=== PATIENT | male | born 1985 | race Caucasian/White ===

== ENCOUNTER → 2017-12-22 10:53 | Outpatient (CLI) | payer MEDICARE, SELFPAY ==
[2017-12-22 12:09] LABS: Erythrocyte Sedimentation Rate 7 mm/hr (0-15)
[2017-12-22 12:18] LABS: Absolute Lymphocyte Count 1.23 X10^3/ul (0.83-4.51); Absolute Neutrophil Count 3.6 X10^3/uL (2.0-7.7); Basophil# 0.03 X10^3/uL; Basophil% 0.6 % (0-1); Eosinophil# 0.03 X10^3/uL; Eosinophils% 0.6 % (0-5); Hematocrit 43.9 % (40-54); Hemoglobin 14.7 g/dl (13.0-16.5); Lymphocyte # 1.23 X10^3/ul (4.0); Lymphocyte % 22.9 % (19-41); Mean Corp Hgb Conc 33.5 g/gl (32-36); Mean Corpuscular Hgb 31.1 pg (27.0-32.0); Mean Platelet Vol. 9.9 fl (6.2-12.0); Monocyte# 0.47 X10^3/uL; Monocyte% 8.8 % (0-10); Neutrophil # 3.59 X10^3/uL (2.7-7.7); Neutrophil % 66.7 % (47-70); Platelet Count 251 K/mm3 (150-450); RBC Distribution Width CV 13.9 % (11.6-14.6); RBC Distribution Width SD 45.9 fl (35.1-43.9); Red Blood Count 4.72 M/mm3 (4.6-6.2); White Blood Count 5.4 K/mm3 (4.4-11.0)
[2017-12-22 12:20] LABS: AST(SGOT) 27 U/L (15-37); Alanine Aminotransfer ALT/SGPT 46 U/L (16-61); Albumin, Serum 3.6 g/dL (3.2-5.0); Alkaline Phosphatase 54 U/L (45-117); Anion Gap 9 (5-15); BUN 16 mg/dL (7-18); BUN/Creat Ratio 16.2 RATIO (10-20); Calcium,Total 8.6 mg/dL (8.5-10.1); Chloride 104 mmol/L (98-107); Creatinine, Serum 0.99 mg/dL (0.70-1.30); EST Glomerular Filtration Rate 92 mL/min (>60); Est Glom Filt Rate - Afr Amer 111 mL/min (>60); Globulin 3.6 g/dL (2.2-4.2); Glucose 86 mg/dL (74-106); Potassium 4.2 mmol/L (3.5-5.1); Protein, Total 7.2 g/dL (6.4-8.2); Sodium Level 143 mmol/L (136-145); Thyroid Stim Hormone (TSH) 2.06 uIU/mL (0.358-3.74)
[2017-12-22 12:26] LABS: POSITIVE COUNT NO; POSITIVE DIFFERENTIAL NO; POSITIVE MORPHOLOGY NO
[2017-12-23 14:08] LABS: Endomysial Antibody IgA Negative (Negative)
[2017-12-24 11:13] LABS: Deamidated Gliadin IgA 8 units (0-19); Deamidated Gliadin IgG 3 units (0-19); Immunoglobulin A 290 mg/dL (90-386); t-Transglutaminase IgA <2 U/mL (0-3)
== END ==
PROVIDERS: Family Provider Family Medicine; PCP Family Medicine; Visit Provider Family Medicine
DX: K52.9 Noninfective gastroenteritis and colitis, unspecified (principal); R63.4 Abnormal weight loss
CPT/HCPCS: 36415; 80053; 82784; 83516; 84443; 85025; 85652; 86255

== ENCOUNTER → 2020-10-19 13:00 | Outpatient (CLI) | payer MEDICARE, SELFPAY ==
--- NOTE | 2020-10-19 13:06 | ECHOD_ITS ---
Reason For Study: Aortic insufficiency Procedure This was a 2D Doppler, Color Flow transthoracic echocardiogram. Exam performed in department. Left Ventricle Normal LV size. Left ventricular systolic function is normal. The estimated ejection fraction is 60 %. Stage 1 diastolic dysfunction. No regional wall motion abnormalities noted. Right Ventricle Normal RV size. Normal systolic function. Atria Normal left atrium. Normal right atrium. Mitral Valve Normal mitral valve. Tricuspid Valve Normal tricuspid valve. Aortic Valve Trisinus/trileaflet aortic valve. Normal aortic valve. Pulmonic Valve Normal pulmonic valve. Great Vessels Normal aortic root. The pulmonary artery is normal size. Normal inferior vena cava. Pericardium/Pleural No pericardial effusion. MMode/2D Measurements & Calculations LVIDd: 4.3 cm IVSd: 0.70 cm Ao root diam: 3.0 cm LVIDs: 2.9 cm LVPWd: 1.00 cm RVDd: 3.0 cm FS: 33.1 % LAV(MOD-bp): 24.8 ml LA A4 area: 11.4 cm2 LA dimension(2D): 3.0 cm LAV(MOD-bp) Indexed: 14.3 ml/m2 LAV(MOD-sp2): 22.6 ml LAV(MOD-sp4): 26.9 ml RA A4 area: 7.8 cm2 Doppler Measurements & Calculations MV E max bolivar: 82.4 cm/sec Lat Peak E' Bolivar: 11.4 cm/sec Med Peak E' Bolivar: 13.6 cm/sec MV A max bolivar: 52.9 cm/sec E/E' lat: 7.2 E/E' med: 6.1 MV E/A: 1.6 Ao V2 max: 109.9 cm/sec AI max bolivar: 435.1 cm/sec LV V1 max: 89.8 cm/sec Ao max P.8 mmHg AI max P.8 mmHg LV V1 max P.2 mmHg AI dec slope: 113.3 cm/sec2 AI P1/2t: 1125 msec PA V2 max: 89.7 cm/sec TR max bolivar: 204.0 cm/sec TR max P.6 mmHg ECHO/Echo Complete Interpretation Summary Normal LV size. Left ventricular systolic function is normal. The estimated ejection fraction is 60 %. Stage 1 diastolic dysfunction. Structurally normal valves. Ordering Physician: Keon Mcdowell Referring Physician: Keon Mcdowell Performed By: Ila Hsieh RDCS
== END ==
PROVIDERS: PCP Family Medicine; Referring Provider Family Medicine; Visit Provider Family Medicine
DX: I35.1 Nonrheumatic aortic (valve) insufficiency (principal); Q90.9 Down syndrome, unspecified; Q24.9 Congenital malformation of heart, unspecified
CPT/HCPCS: 93306

== ENCOUNTER → 2022-04-02 | Outpatient (CLI) | payer MEDICARE, SELFPAY ==
[2022-04-02 16:37] LABS: Absolute Lymphocyte Count 1.04 X10^3/uL (0.83-4.51); Absolute Neutrophil Count 5.1 X10^3/uL (2.0-7.7); Basophil# 0.04 X10^3/uL; Basophil% 0.6 % (0-1); Eosinophil# 0.02 X10^3/uL; Eosinophils% 0.3 % (0-5); Hematocrit 49.6 % (40-54); Hemoglobin 16.5 g/dL (13.0-16.5); Lymphocyte # 1.04 X10^3/ul (0.83-4.51); Lymphocyte % 15.2 % (19-41); Mean Corp Hgb Conc 33.3 g/dL (32-36); Mean Corpuscular Hgb 31.7 pg (27.0-32.0); Mean Corpuscular Volume 95.2 fL (80-94); Mean Platelet Vol. 9.9 fl (6.2-12.0); Monocyte# 0.56 X10^3/uL; Monocyte% 8.2 % (0-10); NRBC Flagged by Analyzer 0 % (0-5); Neutrophil # 5.14 X10^3/uL (2.7-7.7); Neutrophil % 75.3 % (47-70); Platelet Count 271 K/mm3 (150-450); RBC Distribution Width CV 14.1 % (11.6-14.6); RBC Distribution Width SD 49.3 fl (35.1-43.9); Red Blood Count 5.21 M/mm3 (4.6-6.2); White Blood Count 6.8 K/mm3 (4.4-11.0)
[2022-04-02 16:54] LABS: AST(SGOT) 23 U/L (15-37); Alanine Aminotransfer ALT/SGPT 41 U/L (16-61); Albumin, Serum 4.1 g/dL (3.2-5.0); Alkaline Phosphatase 62 U/L (45-117); Anion Gap 2 (5-15); BUN 23 mg/dL (7-18); BUN/Creat Ratio 18.9 RATIO (10-20); Calcium,Total 9.7 mg/dL (8.5-10.1); Chloride 105 mmol/L (98-107); Creatinine, Serum 1.22 mg/dL (0.70-1.30); EST Glomerular Filtration Rate 70 mL/min (>60); Est Glom Filt Rate - Afr Amer 85 mL/min (>60); Globulin 4.1 g/dL (2.2-4.2); Glucose 94 mg/dL (74-106); Potassium 4.2 mmol/L (3.5-5.1); Protein, Total 8.2 g/dL (6.4-8.2); Sodium Level 140 mmol/L (136-145)
== END | disposition home or self-care (01) ==
LOC: BIMLAB 14:57
PROVIDERS: PCP Internal Medicine; Referring Provider Internal Medicine; Visit Provider Internal Medicine
DX: Q90.9 Down syndrome, unspecified (principal); Z87.898 Personal history of other specified conditions
CPT/HCPCS: 36415; 80053; 85025

== ENCOUNTER 2024-03-22 22:19 | Emergency (ER) | payer MEDICARE, SELFPAY ==
[2024-03-22 22:19] VITALS: BP 129/73; PULSE 66; RESP 16; TEMP 36.1; O2SAT 97; BMI 22.7
[2024-03-22 22:40] LABS: Bacteria 0 SEEN /hpf (None Seen); Mucous, Urine 0 SEEN /hpf (<or=2+); Red Blood Cells-Urine 0 SEEN /hpf (0-5); Squamous Epithelial Cells - UA 0 SEEN /hpf (0-5); White Blood Cells 0 SEEN /hpf (0-5)
[2024-03-22 22:49] LABS: Color, Urine Yellow (Yellow); Glucose, Dipstick Normal (Normal); Ketone-Dipstick Negative (Negative); Leukocyte Esterase-Dipstick Negative /ul (Negative); Nitrite-Dipstick Negative (Negative); Occult Blood-Urine Negative /ul (Negative); Protein-Dipstick Negative (Negative); Specific Gravity, Urine 1.015 (1.002-1.030); Urine Bilirubin Dipstick Negative (Negative); Urine Clarity Clear (Clear); Urine Urobilinogen Normal (Normal)
[2024-03-22 22:55] LABS: Amorphous Sediment 3+ URATE
[2024-03-22 23:09] VITALS: PULSE 77; RESP 18; O2SAT 98
--- NOTE | 2024-03-22 23:35 | CT_ITS ---
EXAM: CT HEAD WITHOUT INTRAVENOUS CONTRAST CLINICAL INDICATION: Altered mental status TECHNIQUE: Multiple axial images were obtained of the head without intravenous contrast. This CT exam was performed using one or more of the following dose reduction techniques: automated exposure control, adjustment of the mA and/or kV according to patient size, and/or use of iterative reconstruction technique. RADIATION DOSE: Total DLP: 779.24 mGy-cm. COMPARISON: Cranial CT of 10/01/2012 and 04/18/2012.. FINDINGS: BRAIN AND EXTRA-AXIAL SPACES: No intra- or extra-axial hemorrhage; the petechial hemorrhage seen within the right frontal lobe on the prior CT of 2012 has resolved. No evidence of acute infarct. No intracranial mass or mass effect. There is preservation of the villegas/white matter interface. Posterior fossa structures are unremarkable. The lateral ventricles remain slightly prominent, unchanged when allowing for differences in slice location and angulation. Basal cisterns are patent. No midline shift. BONES/JOINTS: Unremarkable. No discrete lytic or blastic abnormalities. SINUSES: Unremarkable as visualized. Clear. MASTOID AIR CELLS: Right mastoid air cells are again noted be smaller in size than on the left. Clear. ORBITS: Visualized globes, extraocular muscles, optic nerves and retrobulbar fat appear unremarkable. OTHER: Findings of periodontal disease are present. CT/Brain/Head without Contrast IMPRESSION: No acute intracranial abnormality. Electronically Signed: Jeremy aBiley MD at 0:13 EDT ,
--- NOTE | 2024-03-22 23:35 | RAD_ITS ---
EXAM: XR CHEST, 1 VIEW CLINICAL INDICATION: cough TECHNIQUE: Frontal view of the chest. COMPARISON: Previous chest radiographs of 05/20/2012 and 05/18/12. FINDINGS: LUNGS AND PLEURAL SPACES: Minimal peribronchial cuffing has developed at the left hilum. No consolidation or edema. No pneumothorax. No effusion. HEART: Unremarkable. Cardiac silhouette not enlarged. Normal pulmonary vasculature. MEDIASTINUM: Mediastinal contour is unremarkable. No mediastinal widening. BONES/JOINTS: Stable mild thoracic dextroscoliosis. No acute fracture. SOFT TISSUES: Unremarkable. RAD/Chest 1 View (Portable) IMPRESSION: Interval development of minimal peribronchial cuffing indicating bronchial wall inflammation/bronchitis. No pneumonia. Electronically Signed: Jeremy Bailey MD at 0:34 EDT ,
[2024-03-22 23:55] LABS: Absolute Lymphocyte Count 1.36 X10^3/uL (0.83-4.51); Absolute Neutrophil Count 4.5 X10^3/uL (2.0-7.7); Basophil# 0.05 X10^3/uL; Basophil% 0.7 % (0-1); Eosinophil# 0.07 X10^3/uL; Hemoglobin 13.8 g/dL (13.0-16.5); Lymphocyte # 1.36 X10^3/ul (0.83-4.51); Lymphocyte % 19.8 % (19-41); Mean Corp Hgb Conc 32.1 g/dL (32-36); Mean Corpuscular Volume 96.6 fL (80-94); Mean Platelet Vol. 9.1 fl (6.2-12.0); Monocyte# 0.87 X10^3/uL; Monocyte% 12.6 % (0-10); NRBC Flagged by Analyzer 0 % (0-5); Neutrophil # 4.51 X10^3/uL (2.7-7.7); Neutrophil % 65.6 % (47-70); Platelet Count 255 K/mm3 (150-450); RBC Distribution Width CV 13.8 % (11.6-14.6); RBC Distribution Width SD 48.9 fl (35.1-43.9); Red Blood Count 4.45 M/mm3 (4.6-6.2); White Blood Count 6.9 K/mm3 (4.4-11.0)
[2024-03-23] VITALS: PULSE 75; RESP 18; O2SAT 99
[2024-03-23 00:08] LABS: Alcohol, Blood (Medical)-Serum < 3.0 mg/dL
[2024-03-23 00:09] LABS: Anion Gap 3 (5-15); BUN 17 mg/dL (7-18); BUN/Creat Ratio 15.7 RATIO (10-20); Calcium,Total 8.8 mg/dL (8.5-10.1); Chloride 106 mmol/L (98-107); Creatinine, Serum 1.08 mg/dL (0.70-1.30); EST Glomerular Filtration Rate 80 mL/min (>60); Est Glom Filt Rate - Afr Amer 97 mL/min (>60); Estimated Creatinine Clearance 81.23 ml/min; Glucose 92 mg/dL (74-106); Potassium 3.8 mmol/L (3.5-5.1); Sodium Level 142 mmol/L (136-145)
[2024-03-23 00:28] LABS: Amphetamine Urine VISTA NEGATIVE (<1000 ng/mL); Barbiturate Urine VISTA NEGATIVE (< 200 ng/mL); Benzodiazepine Urine VISTA NEGATIVE (< 200 ng/mL); Cocaine Urine VISTA NEGATIVE (< 300 ng/mL); Ecstacy Urine VISTA NEGATIVE (< 500 ng/mL); Methadone Urine VISTA NEGATIVE (< 300 ng/mL); PCP Urine VISTA NEGATIVE (< 25 ng/mL); THC Urine VISTA NEGATIVE (< 50 ng/mL); Vista UDS pH Range 6
[2024-03-23 01:00] VITALS: BP 109/71; PULSE 57; RESP 16; TEMP 36.6; O2SAT 99
--- NOTE | 2024-03-23 01:01 | EX.ED.DYSGE1 ---
HPI History of Present Illness Chief Complaint: Mental Health Informant: patient and parent Narrative Narrative: Patient is a 39-year-old male with past medical history of Down syndrome as well as obsessive-compulsive disorder. Mother states that he was placed on 25 mg of Zoloft a few months ago but due to concern that he was having adverse medication events she tapered the dose down and stopped it 2 to 3 weeks ago. Mother reports that the patient has now been having hallucinations and outbursts of aggressive behavior. She states he has never done anything like this before and they are in [place] from [place] visiting with the daughter. Based on his new onset hallucinations and aggressive behavior there is concern he could harm members of the family and they wonder if his symptoms were due to a potential infectious process and therefore brought him to the hospital for evaluation [facility] Medical History (Updated 03/23/24 @ 03:[address] Joshua Mckenzie, ) Neurocognitive deficits Bilateral impacted cerumen Excess ear wax Encounter to establish care Flu vaccine need Memory deficits Schizophrenia OCD (obsessive compulsive disorder) History of seizures Hx of gastrointestinal disease History of emotional problems Down syndrome Home Medications ?Medication ?Instructions ?Recorded ?Last Taken ?Type donepezil 5 mg tablet 5 mg PO QDAY #30 tabs 03/03/24 Unknown Rx wheat dextrin 3 gram/3.8 gram oral 1 packet PO QDAY 03/03/24 Unknown History powder (Fiber Supplement(wheat dextrin)) lorazepam 1 mg tablet (Ativan) 1 mg PO TID PRN agitation 7 days 03/23/24 Unknown Rx #21 tabs Allergy/AdvReac Type Severity Reaction Status Date / Time No Known Drug Allergies Allergy Other Verified 03/22/24 22:19 Social History household members: family housing: house current occupational status: disabled Smoking Status: Never smoker alcohol intake: never substance use type: does not use what type of physical activity do you participate in: other details: Dancing frequency: daily seatbelt use: always do you feel safe at home: Yes ROS ROS ED ROS Narrative Unable to obtain review of systems based on patient's MRDD status EXAM Physical Exam Const Vital Signs: 03/22/24 22:19 03/22/24 23:09 03/23/24 00:00 Temperature 97 F L Temperature Source Temporal Pulse Rate 66 77 75 Respiratory Rate 16 18 18 Blood Pressure 129/73 H Blood Pressure Mean 91 Pulse Ox 97 98 99 03/23/24 01:00 03/23/24 01:00 Temperature 97.8 F Temperature Source Pulse Rate 57 L 57 L Respiratory Rate 16 16 Blood Pressure 109/71 109/71 Blood Pressure Mean 83 83 Pulse Ox 99 99 Positive well nourished and well developed General Appearance ED: well developed; Negative for pallor HEENT Reports moist mucous membranes HEENT Narrative: No tongue or lip swelling no oral lesions no airway edema or compromise No signs of infection noted in the posterior pharynx Eyes PERRL and EOMs intact bilaterally General Eye ED: Negative for scleral icterus Neck supple Neck Narrative: No nuchal rigidity or meningeal signs Chest Wall palpation of chest normal Resp normal respiratory effort and clear to auscultation bilaterally Resp Narrative: No nasal flaring retractions tachypnea or accessory muscle use Cardio regular rate and regular rhythm GI normal to inspection, nondistended, normoactive bowel sounds, non-tender, non-distended and no masses GI Narrative: No voluntary guarding or rigidity or pulsatile mass Auscultation: normoactive bowel sounds Palpation: soft Back/Spine no CVA tenderness Extremity normal to inspection Extremity Narrative: No asymmetric edema no pitting edema negative Homans' sign bilaterally Neuro CN's II-XII intact bilaterally and no sensory deficits noted Neuro Narrative: Patient is at his baseline mental status without focal neurologic deficit Sensorium / Orientation: alert Motor Exam: strength 5/5 throughout Psych Psych Narrative: Patient has a flat affect Skin no rashes or lesions noted and no wounds General Skin Exam: Negative for jaundice or pallor MDM MDM MDM Narrative Medical decision making narrative: Patient arrived to the ER with stable vitals. Mother reported he has been having hallucinations and outbursts of aggressive behavior. There was concern this could be related to an infectious process such as COVID versus influenza versus RSV versus pneumonia versus UTI. As there was also concern that he may need evaluated by psychiatry a basic medical workup was performed. The patient's labs showed no clinically significant findings his viral swab was negative and his urine sample showed no sign of infection. Chest x-ray also revealed no acute lung pathology such as pneumonia. While in the ER he had no bouts of hallucinations and no violent outburst. I discussed with mother potentially having him evaluated by psychiatry secondary to these new onset hallucinations. She states that as he is not heading for his entire stay in the ER she would prefer not to do that as they are from [place] and she would look to simply have medication to help control any aggressive outburst at home until they can be evaluated by his family doctor. Therefore this time we will place him on low-dose Ativan as needed for agitation. However as his CT scan does not reveal a structural cause such as brain tumor or mass and metabolic workup does not reveal a obvious cause such as infection and he has had no signs of hallucinations or violent/aggressive behavior in ER and mother is willing to take him home he will be discharged and can follow-up with family doctor/psychiatry as an outpatient History & Record Review Discussion w/independent historian: Family Lab Data Attestation: I reviewed the patient's lab results. Labs: Laboratory Results - last 24 hr 03/22/24 03/22/24 22:30 23:48 WBC 6.9 RBC 4.45 L Hgb 13.8 Hct 43.0 MCV 96.6 H MCH 31.0 MCHC 32.1 RDW Std Deviation 48.9 H RDW Coeff of Rafael 13.8 Plt Count 255 MPV 9.1 Immature Gran % (Auto) 0.300 Neut % (Auto) 65.6 Lymph % (Auto) 19.8 [place] % (Auto) 12.6 H Eos % (Auto) 1.0 Baso % (Auto) 0.7 Absolute Neuts (auto) 4.5 Absolute Lymphs (auto) 1.36 Nucleated RBC % 0 Sodium 142 Potassium 3.8 Chloride 106 Carbon Dioxide 33.0 H Anion Gap 3 L BUN 17 Creatinine 1.08 Estim Creat Clear Calc 81.23 Est GFR (MDRD) Af Amer 97 Est GFR (MDRD) Non-Af 80 BUN/Creatinine Ratio 15.7 Glucose 92 Calcium 8.8 Urine Color Yellow Urine Clarity Clear Urine pH 6.0 Ur Specific [place] 1.015 Urine Protein Negative Urine Glucose (UA) Normal Urine Ketones Negative Urine Occult Blood Negative Urine Nitrite Negative Urine Bilirubin Negative Urine Urobilinogen Normal Ur Leukocyte Esterase Negative Urine RBC 0 SEEN Urine WBC 0 SEEN Ur Squamous Epith Cells 0 SEEN Amorphous Sediment 3+ URATE Urine Bacteria 0 SEEN Urine Mucus 0 SEEN Urine Opiates Screen NEGATIVE Urine Methadone Screen NEGATIVE Ur Barbiturates Screen NEGATIVE Ur Phencyclidine Scrn NEGATIVE Ur Amphetamines Screen NEGATIVE MDMA (Ecstasy) Screen NEGATIVE U Benzodiazepines Scrn NEGATIVE Urine Cocaine Screen NEGATIVE U Cannabinoids Screen NEGATIVE Ur Drug Screen Comment Ethyl Alcohol < 3.0 Radiography Diagnostic Testing: Clinical Impression(s) from Imaging Studies Brain CT 03/22/24 23:35 IMPRESSION: No acute intracranial abnormality. Electronically Signed: Jeremy Bailey MD at 0:13 EDT , Chest X-Ray 03/22/24 23:35 IMPRESSION: Interval development of minimal peribronchial cuffing indicating bronchial wall inflammation/bronchitis. No pneumonia. Electronically Signed: Jeremy Bailey MD at 0:34 EDT , Chest x-ray as interpreted by the emergency medicine physician reveals peribronchial cuffing consistent with viral upper respiratory tract infection without acute infiltrate pneumothorax or pleural effusion Discharge Plan Triage Chief Complaint: Mental Health ED Provider: Joshua Mckenzie Dx/Rx/DC Orders Clinical Impression: Down syndrome, OCD (obsessive compulsive disorder), Aggressive behavior, Hallucinations Instructions: Understanding Benzodiazepines Prescriptions: New lorazepam [Ativan] 1 mg tablet 1 mg PO TID PRN (Reason: agitation) 7 Days Qty: 21 0RF No Action Fiber Supplement(wheatdextrin) 3 gram/3.8 gram powder 1 packet PO QDAY Rx Instructions: mix into at least 4 oz water or juice before administering donepezil 5 mg tablet 5 mg PO QDAY Qty: 30 2RF Primary Care Provider: Joshua Nichole Referrals: Joshua Nichole, FLA[employer]ING OIL FILTERER-[employer] [Primary Care Provider] - Activity Restrictions/Additional Instructions: Your workup today showed no obvious infectious or metabolic cause for your agitation and hallucinations. Try taking the Ativan up to 3 times a day for symptom control but if it is not helping or you need further agitation control you may take the Ativan with 2 [id number] Benadryl. Please follow-up with your family doctor for further evaluation and return to the ER should you have any further concerns Print Language: Kinyarwanda Disposition Disposition: Home, Self Care Discharge Date/Time: 03/23/24 01:17
[2024-03-23] MEDS: LORazepam 1 MG Tablet PO (01:06)
== END 2024-03-23 01:17 | disposition home or self-care (01) ==
PROVIDERS: Emergency Provider Emergency Medicine; PCP Nurse Practitioner Family; Visit Provider Emergency Medicine
DX: Q90.9 Down syndrome, unspecified (principal); F42.9 Obsessive-compulsive disorder, unspecified; R44.3 Hallucinations, unspecified
CPT/HCPCS: 70450; 71045; 80048; 80307; 81001; 82077; 85025; 87631; 99282

== ENCOUNTER → 2024-04-02 | Outpatient (CLI) | payer MEDICARE, SELFPAY ==
--- NOTE | 2024-04-02 11:06 | CT_ITS ---
INDICATION: ABD PAIN EXAMINATION: CT Abdomen And Pelvis W/ Contrast Injection TECHNIQUE: Helically acquired images were obtained of the abdomen and pelvis after IV contrast. A radiation dose optimization technique was used for this scan. IV Contrast dosage and agent: Oral and amp; IV Gastrografin and amp; 75mL [id number]-300 Oral contrast: None. COMPARISON: None. FINDINGS: Visualized lung bases: Unremarkable Liver: Unremarkable Gallbladder: Unremarkable Spleen: Unremarkable Pancreas: Unremarkable Adrenal Glands: Unremarkable Kidneys: Unremarkable Vasculature: Unremarkable GI Tract: The appendix is normal. Lymphadenopathy: None Peritoneum: No ascites. Bladder: Unremarkable Reproductive organs: Unremarkable Bones/Soft tissues: No suspicious osseous or soft tissue lesions CT/Abdomen/Pelvis WITH Contrast IMPRESSION: No acute abnormalities in the abdomen or pelvis. Electronically Signed: Kevin Stanley MD at 13:32 EDT ,
[2024-04-02 13:58] LABS: Absolute Lymphocyte Count 0.96 X10^3/uL (0.83-4.51); Absolute Neutrophil Count 4.6 X10^3/uL (2.0-7.7); Basophil# 0.04 X10^3/uL; Basophil% 0.7 % (0-1); Eosinophil# 0.03 X10^3/uL; Eosinophils% 0.5 % (0-5); Hematocrit 47.3 % (40-54); Hemoglobin 15.3 g/dL (13.0-16.5); Lymphocyte # 0.96 X10^3/ul (0.83-4.51); Lymphocyte % 15.6 % (19-41); Mean Corp Hgb Conc 32.3 g/dL (32-36); Mean Corpuscular Hgb 30.8 pg (27.0-32.0); Mean Corpuscular Volume 95.2 fL (80-94); Mean Platelet Vol. 9.2 fl (6.2-12.0); Monocyte# 0.54 X10^3/uL; Monocyte% 8.8 % (0-10); NRBC Flagged by Analyzer 0 % (0-5); Neutrophil # 4.55 X10^3/uL (2.7-7.7); Neutrophil % 74.1 % (47-70); Platelet Count 252 K/mm3 (150-450); RBC Distribution Width CV 13.8 % (11.6-14.6); RBC Distribution Width SD 48.8 fl (35.1-43.9); Red Blood Count 4.97 M/mm3 (4.6-6.2); White Blood Count 6.1 K/mm3 (4.4-11.0)
[2024-04-02 14:35] LABS: Vitamin B12 318 pg/mL (211-911)
[2024-04-02 14:41] LABS: AST(SGOT) 18 U/L (15-37); Alanine Aminotransfer ALT/SGPT 25 U/L (16-61); Albumin, Serum 3.4 g/dL (3.2-5.0); Alkaline Phosphatase 66 U/L (45-117); Anion Gap 4 (5-15); BUN 16 mg/dL (7-18); BUN/Creat Ratio 14.7 RATIO (10-20); Calcium,Total 8.6 mg/dL (8.5-10.1); Chloride 101 mmol/L (98-107); Creatinine, Serum 1.09 mg/dL (0.70-1.30); EST Glomerular Filtration Rate 79 mL/min (>60); Est Glom Filt Rate - Afr Amer 96 mL/min (>60); Globulin 3.5 g/dL (2.2-4.2); Glucose 93 mg/dL (74-106); Potassium 3.9 mmol/L (3.5-5.1); Protein, Total 6.9 g/dL (6.4-8.2); Sodium Level 136 mmol/L (136-145)
== END | disposition home or self-care (01) ==
PROVIDERS: PCP Nurse Practitioner Family
DX: R44.3 Hallucinations, unspecified (principal); R10.9 Unspecified abdominal pain; Z79.899 Other long term (current) drug therapy
CPT/HCPCS: 36415; 74177; 80053; 82607; 84443; 85025; Q9967

== ENCOUNTER 2024-04-05 18:16 | Emergency (ER) | payer MEDICARE, SELFPAY ==
[2024-04-05] VITALS (7 sets, daily range): BP systolic 99–167; BP diastolic 44–143; PULSE 60–71; RESP 16–20; TEMP 36.6; O2SAT 94–100; BMI 21.8
[2024-04-05 19:38] LABS: Absolute Lymphocyte Count 0.95 X10^3/uL (0.83-4.51); Absolute Neutrophil Count 6.3 X10^3/uL (2.0-7.7); Basophil# 0.05 X10^3/uL; Basophil% 0.6 % (0-1); Eosinophil# 0.03 X10^3/uL; Eosinophils% 0.4 % (0-5); Hemoglobin 15.7 g/dL (13.0-16.5); Lymphocyte # 0.95 X10^3/ul (0.83-4.51); Lymphocyte % 11.5 % (19-41); Mean Corp Hgb Conc 34.1 g/dL (32-36); Mean Corpuscular Volume 93.9 fL (80-94); Mean Platelet Vol. 9.3 fl (6.2-12.0); Monocyte# 0.87 X10^3/uL; Monocyte% 10.5 % (0-10); NRBC Flagged by Analyzer 0 % (0-5); Neutrophil # 6.34 X10^3/uL (2.7-7.7); Neutrophil % 76.5 % (47-70); Platelet Count 268 K/mm3 (150-450); RBC Distribution Width CV 14.1 % (11.6-14.6); RBC Distribution Width SD 48.9 fl (35.1-43.9); White Blood Count 8.3 K/mm3 (4.4-11.0)
[2024-04-05 19:57] LABS: Anion Gap 5 (5-15); BUN 24 mg/dL (7-18); BUN/Creat Ratio 21.2 RATIO (10-20); Calcium,Total 9.3 mg/dL (8.5-10.1); Chloride 107 mmol/L (98-107); Creatinine, Serum 1.13 mg/dL (0.70-1.30); EST Glomerular Filtration Rate 76 mL/min (>60); Est Glom Filt Rate - Afr Amer 92 mL/min (>60); Estimated Creatinine Clearance 74.68 ml/min; Glucose 101 mg/dL (74-106); Potassium 3.9 mmol/L (3.5-5.1); Sodium Level 142 mmol/L (136-145)
[2024-04-05 19:59] LABS: Amphetamine Urine VISTA NEGATIVE (<1000 ng/mL); Barbiturate Urine VISTA NEGATIVE (< 200 ng/mL); Benzodiazepine Urine VISTA NEGATIVE (< 200 ng/mL); Cocaine Urine VISTA NEGATIVE (< 300 ng/mL); Ecstacy Urine VISTA NEGATIVE (< 500 ng/mL); Methadone Urine VISTA NEGATIVE (< 300 ng/mL); PCP Urine VISTA NEGATIVE (< 25 ng/mL); THC Urine VISTA NEGATIVE (< 50 ng/mL); Vista UDS pH Range 7
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
--- NOTE | 2024-04-05 20:15 | ED.RN ---
CRISIS CALLED CHART FAXED
--- NOTE | 2024-04-06 03:24 | ED.RN ---
DENIED PLACEMENT AT [facility]
[2024-04-06 06:37] VITALS: BP 135/57; PULSE 83; RESP 18; O2SAT 95
--- NOTE | 2024-04-06 08:53 | NURSING ---
ACCEPTED AT [facility] UNIT 1, ROOM TO BE ASSIGNED LATER DR BOWEN NURSE TO NURSE [phone] OPT 2
[2024-04-06 08:58] LABS: Syphilis Antibodies Non-reactive
[2024-04-06 09:13] VITALS: BP 134/78; PULSE 64; RESP 14; TEMP 36.6; O2SAT 99
== END 2024-04-06 11:07 ==
LOC: ED 20:22
PROVIDERS: Emergency Medicine; Emergency Provider Emergency Medicine; PCP Nurse Practitioner Family; Visit Provider Emergency Medicine
DX: F23 Brief psychotic disorder (principal); Q90.9 Down syndrome, unspecified; R45.6 Violent behavior; F42.9 Obsessive-compulsive disorder, unspecified
CPT/HCPCS: 36415; 80048; 80307; 82077; 85025; 86780; 99285

== ENCOUNTER 2024-04-26 15:35 | Emergency (ER) | payer MEDICARE, SELFPAY ==
[2024-04-26 15:36] VITALS: BP 109/64; PULSE 53; RESP 18; TEMP 36.4; O2SAT 100; BMI 22.1
[2024-04-26 16:35] LABS: Absolute Lymphocyte Count 0.69 X10^3/uL (0.83-4.51); Basophil# 0.06 X10^3/uL; Basophil% 0.7 % (0-1); Eosinophil# 0.03 X10^3/uL; Eosinophils% 0.4 % (0-5); Hematocrit 46.3 % (40-54); Hemoglobin 15.1 g/dL (13.0-16.5); Lymphocyte # 0.69 X10^3/ul (0.83-4.51); Lymphocyte % 8.2 % (19-41); Mean Corp Hgb Conc 32.6 g/dL (32-36); Mean Corpuscular Hgb 31.3 pg (27.0-32.0); Mean Corpuscular Volume 96.1 fL (80-94); Mean Platelet Vol. 9.5 fl (6.2-12.0); Monocyte# 0.55 X10^3/uL; Monocyte% 6.6 % (0-10); NRBC Flagged by Analyzer 0 % (0-5); Neutrophil # 6.98 X10^3/uL (2.7-7.7); Neutrophil % 83.4 % (47-70); Platelet Count 218 K/mm3 (150-450); RBC Distribution Width CV 13.7 % (11.6-14.6); RBC Distribution Width SD 48.5 fl (35.1-43.9); Red Blood Count 4.82 M/mm3 (4.6-6.2); White Blood Count 8.4 K/mm3 (4.4-11.0)
[2024-04-26 16:45] LABS: Partial Thromboplast Time 23.8 Seconds (24.1-36.2); Prothrombin Time (Protime)PT. 13.2 SECONDS (11.7-14.9)
[2024-04-26] MEDS: Morphine 2 MG/ML Syringe IV (16:47)
[2024-04-26 16:51] LABS: AST(SGOT) 19 U/L (15-37); Alanine Aminotransfer ALT/SGPT 50 U/L (16-61); Albumin, Serum 3.3 g/dL (3.2-5.0); Alkaline Phosphatase 72 U/L (45-117); Anion Gap 5 (5-15); BUN 13 mg/dL (7-18); BUN/Creat Ratio 11.4 RATIO (10-20); Calcium,Total 8.9 mg/dL (8.5-10.1); Chloride 102 mmol/L (98-107); Creatinine, Serum 1.14 mg/dL (0.70-1.30); EST Glomerular Filtration Rate 75 mL/min (>60); Est Glom Filt Rate - Afr Amer 91 mL/min (>60); Estimated Creatinine Clearance 75.26 ml/min; Globulin 3.3 g/dL (2.2-4.2); Glucose 107 mg/dL (74-106); Lipase 25 U/L (13-75); Potassium 4.1 mmol/L (3.5-5.1); Protein, Total 6.6 g/dL (6.4-8.2); Sodium Level 139 mmol/L (136-145)
[2024-04-26 17:08] LABS: Lactic Acid 1.4 mmol/L (0.4-1.9)
[2024-04-26 17:35] VITALS: BP 107/65; PULSE 58; RESP 16; O2SAT 100
[2024-04-26] MEDS: 0.9% Normal Saline (1000mL) 1,000 ML 1000 ML IV (18:33)
[2024-04-26 19:00] VITALS: BP 110/53; PULSE 54; RESP 19; O2SAT 98
[2024-04-26 19:25] LABS: Bacteria 0 SEEN /hpf (None Seen); Mucous, Urine 0 SEEN /hpf (<or=2+); Red Blood Cells-Urine 0 SEEN /hpf (0-5); Squamous Epithelial Cells - UA 0 SEEN /hpf (0-5)
[2024-04-26 19:46] LABS: Color, Urine Yellow (Yellow); Glucose, Dipstick Normal (Normal); Ketone-Dipstick Negative (Negative); Leukocyte Esterase-Dipstick Negative /ul (Negative); Nitrite-Dipstick Negative (Negative); Occult Blood-Urine Negative /ul (Negative); Protein-Dipstick Negative (Negative); Urine Bilirubin Dipstick Negative (Negative); Urine Clarity Sl. Cloudy (Clear); Urine Urobilinogen Normal (Normal)
[2024-04-26 19:56] LABS: Amorphous Sediment 2+; White Blood Cells 0-5 SEEN /hpf (0-5)
[2024-04-26 20:59] VITALS: BP 112/56; PULSE 55; RESP 16; TEMP 36.6; O2SAT 100
[2024-04-26] MEDS: Smz/Tmp Ds Tablet 1 TABLET PO (21:54)
== END 2024-04-26 21:58 | disposition home or self-care (01) ==
PROVIDERS: Emergency Provider Emergency Medicine; PCP Nurse Practitioner Family; Visit Provider Emergency Medicine
DX: N41.9 Inflammatory disease of prostate, unspecified (principal); K59.00 Constipation, unspecified
CPT/HCPCS: 70450; 74177; 80053; 81001; 83605; 83690; 85025; 85610; 85730; 93005; 96361; 96374; 99285; J7030; Q9967; A4216

== ENCOUNTER → 2024-05-25 | Outpatient (CLI) | payer MEDICARE, SELFPAY ==
--- NOTE | 2024-05-25 06:49 | MRI_ITS ---
EXAM: MR HEAD WITHOUT AND WITH INTRAVENOUS CONTRAST CLINICAL INDICATION: HALLUCINATIONS TECHNIQUE: Multiplanar and multisequence MR images of the brain were obtained without and with intravenous contrast. CONTRAST: IV 13ml Clariscan COMPARISON: CT head without contrast 04/26/2023 4. FINDINGS: BRAIN AND EXTRA-AXIAL SPACES: Partially absent septum pellucidum. No intra- or extra-axial hemorrhage. No evidence of acute infarct. No intracranial mass or mass effect. There is preservation of the villegas/white matter interface. Posterior fossa structures are unremarkable. Ventricles are appropriate for age. No hydrocephalus. Basal cisterns are patent. SELLA: Unremarkable. Normal sella turcica, pituitary gland, infundibular stalk, optic chiasm and hypothalamus. AUDITORY SYSTEM: Unremarkable. The internal auditory canals are patent. BONES/JOINTS: Unremarkable. No discrete lytic or blastic abnormalities. SINUSES: Unremarkable as visualized. Clear. MASTOID AIR CELLS: Unremarkable as visualized. Clear. ORBITS: Unremarkable as visualized. Both globes, extraocular muscles, optic nerves and retrobulbar fat appear unremarkable. VASCULATURE: Unremarkable as visualized. Normal flow voids in the major intracranial circulation. MRI/Brain W/WO Contrast IMPRESSION: 1. Partially absent septum pellucidum otherwise negative MRI brain without and with intravenous contrast. 2. No significant interval change when compared to CT head of 04/26/2024. Electronically Signed: Kingston Pink MD at 8:32 EST ,
== END | disposition home or self-care (01) ==
LOC: MRI 06:42
PROVIDERS: PCP Nurse Practitioner Family
DX: R44.3 Hallucinations, unspecified (principal)
CPT/HCPCS: 70553; A9575

== ENCOUNTER → 2024-11-10 | Outpatient (CLI) | payer MEDICARE, SELFPAY ==
[2024-11-10 12:51] LABS: Absolute Lymphocyte Count 1.05 X10^3/uL (0.83-4.51); Absolute Neutrophil Count 3.1 X10^3/uL (2.0-7.7); Basophil# 0.04 X10^3/uL; Basophil% 0.8 % (0-1); Eosinophil# 0.02 X10^3/uL; Eosinophils% 0.4 % (0-5); Hematocrit 44.5 % (40-54); Hemoglobin 14.7 g/dL (13.0-16.5); Lymphocyte # 1.05 X10^3/ul (0.83-4.51); Lymphocyte % 22.2 % (19-41); Mean Corpuscular Hgb 31.3 pg (27.0-32.0); Mean Corpuscular Volume 94.9 fL (80-94); Mean Platelet Vol. 9.4 fl (6.2-12.0); Monocyte# 0.46 X10^3/uL; Monocyte% 9.7 % (0-10); NRBC Flagged by Analyzer 0 % (0-5); Neutrophil # 3.13 X10^3/uL (2.7-7.7); Neutrophil % 66.5 % (47-70); Platelet Count 230 K/mm3 (150-450); RBC Distribution Width SD 49.3 fl (35.1-43.9); Red Blood Count 4.69 M/mm3 (4.6-6.2); White Blood Count 4.7 K/mm3 (4.4-11.0)
[2024-11-10 13:39] LABS: ALB/GLOB Ratio 1.4 RATIO (0.9-2.4); AST(SGOT) 19 U/L (<=37); Alanine Aminotransfer ALT/SGPT 18 U/L (<=46); Albumin, Serum 4.1 g/dL (3.5-5.0); Alkaline Phosphatase 59 U/L (40-129); Amylase 26 U/L (28-100); Anion Gap 10 (5-15); BUN 15 mg/dL (4-19); Carbon Dioxide 25.9 mmol/L (21.0-32.0); Chloride 106 mmol/L (98-108); Creatinine, Serum 1.17 mg/dL (0.70-1.20); EST Glomerular Filtration Rate 80 (>60); Globulin 2.9 g/dL (2.2-4.2); Glucose 121 mg/dL (70-99); Lipase 20 U/L (13-75); Magnesium 2.3 mg/dL (1.5-2.2); Potassium 4.2 mmol/L (3.3-5.1); Sodium Level 141 mmol/L (133-145); Total Bilirubin 0.73 mg/dL (0.00-1.30)
[2024-11-10 13:59] LABS: PSA,Total - Annual Screen 0.86 ng/mL (0.02-4.00)
[2024-11-10 14:29] LABS: Vitamin B12 461 pg/mL (180-914)
== END | disposition home or self-care (01) ==
PROVIDERS: PCP Nurse Practitioner Family
DX: R55 Syncope and collapse (principal); R10.30 Lower abdominal pain, unspecified; R39.9 Unspecified symptoms and signs involving the genitourinary system; E53.8 Deficiency of other specified B group vitamins; R00.2 Palpitations; Z12.5 Encounter for screening for malignant neoplasm of prostate
CPT/HCPCS: 36415; 80053; 82150; 82607; 83690; 83735; 84153; 84443; 85025; G0103

== ENCOUNTER → 2024-12-07 | Outpatient (CLI) | payer MEDICARE, SELFPAY ==
--- NOTE | 2024-12-07 13:22 | EKG12_ITS ---
Test Reason : PALPITATIONS Blood Pressure : */* mmHG Vent. Rate : 71 BPM Atrial Rate : 71 BPM P-R Int : 114 ms QRS Dur : 90 ms QT Int : 378 ms P-R-T Axes : 73 93 76 degrees QTcB Int : 410 ms Normal sinus rhythm Rightward axis Minimal voltage criteria for LVH, may be normal variant Borderline ECG Confirmed by ALLEN HOLM, ROB ([id number]), order editor BENJIE MATOS ([id number]) on 12/08/2024 11:02:12 AM Referred By: Yamel Kahn Confirmed By: ROB VILLA MD
== END | disposition home or self-care (01) ==
LOC: PSN 13:18
PROVIDERS: PCP Nurse Practitioner Family
DX: R00.2 Palpitations (principal)
CPT/HCPCS: 93005

== ENCOUNTER → 2025-01-20 | Outpatient (CLI) | payer MEDICARE, SELFPAY ==
[2025-01-20 16:06] LABS: Hematocrit 45.9 % (40-54); Hemoglobin 15.2 g/dL (13.0-16.5); Immature Granulocytes Count 0.040 X10^3/uL (0.0-0.0); Mean Corp Hgb Conc 33.1 g/dL (32-36); Mean Corpuscular Volume 93.1 fL (80-94); Mean Platelet Vol. 9.4 fl (6.2-12.0); NRBC Flagged by Analyzer 0 % (0-5); Platelet Count 284 K/mm3 (150-450); RBC Distribution Width CV 13.9 % (11.6-14.6); RBC Distribution Width SD 47.3 fl (35.1-43.9); Red Blood Count 4.93 M/mm3 (4.6-6.2); White Blood Count 4.9 K/mm3 (4.4-11.0)
[2025-01-20 16:26] LABS: AST(SGOT) 35 U/L (<=37); Alanine Aminotransfer ALT/SGPT 64 U/L (<=46); Albumin, Serum 4.2 g/dL (3.5-5.0); Alkaline Phosphatase 81 U/L (40-129); Anion Gap 10 (5-15); BUN 18 mg/dL (4-19); BUN/Creat Ratio 12.7 RATIO (10-20); Calcium,Total 9.5 mg/dL (7.6-11.0); Carbon Dioxide 28.8 mmol/L (21.0-32.0); Chloride 102 mmol/L (98-108); Globulin 2.9 g/dL (2.2-4.2); Glucose 92 mg/dL (70-99); Potassium 4.1 mmol/L (3.3-5.1)
== END | disposition home or self-care (01) ==
PROVIDERS: PCP Nurse Practitioner Family; Referring Provider Student in an Organized Health Care Education/Training Program; Visit Provider Student in an Organized Health Care Education/Training Program
DX: R44.0 Auditory hallucinations (principal); Q90.9 Down syndrome, unspecified; R29.818 Other symptoms and signs involving the nervous system; R41.89 Other symptoms and signs involving cognitive functions and awareness; Z79.899 Other long term (current) drug therapy
CPT/HCPCS: 36415; 80053; 83036; 85025

== ENCOUNTER → 2025-03-15 | Outpatient (CLI) | payer MEDICARE, SELFPAY ==
[2025-03-15 16:00] LABS: Mucous, Urine 0 SEEN /hpf (<or=2+); Red Blood Cells-Urine 0 SEEN /hpf (0-5); Squamous Epithelial Cells - UA 0 SEEN /hpf (0-5)
[2025-03-15 16:38] LABS: Hematocrit 44.0 % (40-54); Hemoglobin 14.9 g/dL (13.0-16.5); Immature Granulocytes Count 0.060 X10^3/uL (0.0-0.0); Mean Corp Hgb Conc 33.9 g/dL (32-36); Mean Corpuscular Volume 92.8 fL (80-94); Mean Platelet Vol. 9.3 fl (6.2-12.0); NRBC Flagged by Analyzer 0 % (0-5); Platelet Count 240 K/mm3 (150-450); RBC Distribution Width CV 14.4 % (11.6-14.6); RBC Distribution Width SD 49.1 fl (35.1-43.9); Red Blood Count 4.74 M/mm3 (4.6-6.2); White Blood Count 9.3 K/mm3 (4.4-11.0)
[2025-03-15 17:11] LABS: AST(SGOT) 21 U/L (<=37); Alanine Aminotransfer ALT/SGPT 45 U/L (<=46); Albumin, Serum 4.1 g/dL (3.5-5.0); Alkaline Phosphatase 71 U/L (40-129); Anion Gap 12 (5-15); BUN 17 mg/dL (4-19); BUN/Creat Ratio 15.4 RATIO (10-20); Calcium,Total 9.3 mg/dL (7.6-11.0); Carbon Dioxide 23.8 mmol/L (21.0-32.0); Chloride 102 mmol/L (98-108); Globulin 3.0 g/dL (2.2-4.2); Glucose 116 mg/dL (70-99); Potassium 3.9 mmol/L (3.3-5.1)
[2025-03-15 17:51] LABS: Color, Urine Straw (Yellow); Glucose, Dipstick Normal (Normal); Ketone-Dipstick Negative (Negative); Leukocyte Esterase-Dipstick Negative /ul (Negative); Nitrite-Dipstick Negative (Negative); Occult Blood-Urine Negative /ul (Negative); Protein-Dipstick 15 mg/dl (Negative); Specific Gravity, Urine 1.015 (1.002-1.030); Urine Bilirubin Dipstick Negative (Negative)
== END | disposition home or self-care (01) ==
LOC: LAB 15:56
PROVIDERS: PCP Nurse Practitioner Family
DX: R30.0 Dysuria (principal); R55 Syncope and collapse
CPT/HCPCS: 36415; 80053; 81001; 84443; 85025; 87086; 87088

== ENCOUNTER → 2025-05-13 | Outpatient (CLI) | payer MEDICARE, SELFPAY ==
--- OUTSIDE RECORDS SUMMARY | 2025-05-13 17:11 | XMS RPT_ITS | CCD ---
Author Organization [facility] CliniSyal Care Team Providers Care Vegetable Sorter Name Role Phone Dr. Keon Mcdowell Primary Care Provider [phone] Dr. Keon Mcdowell Referring Provider Dr. Kurtis Simeon Attending Provider [phone] Unavailable Primary Care Provider Unavailabl e Unavailable Primary Care Provider Unavailabl e Beam VSC, Zebulun Attending Unavailable Beam VSC, Zebulun Referring Unavailable Nichole VSC, Joshua Primary Care Unavailable Beam VSC, Zebulun Attending Unavailable Beam VSC, Zebulun Referring Unavailable Nichole VSC, Joshua Primary Care Unavailable Alvin Phelan Attending Unavailable SeeAlvin wagner Referring Unavailable Nichole VSC, Joshua Primary Care Unavailable SeeAlvin wagner Attending Unavailable Nichole VSC, Joshua Primary Care Unavailable Marianne Charlton Attending Unavailable Nichole VSC, Joshua Referring Unavailable Nichole VSC, Joshua Primary Care Unavailable Ryan Melton Attending Unavailable Beam VSC, Zebulun Referring Unavailable Nichole VSC, Joshua Primary Care Unavailable SeeAlvin wagner Attending Unavailable Nichole VSC, Joshua Primary Care Unavailable Beam VSC, Zebulun Attending Unavailable Nichole VSC, Joshua Primary Care Unavailable Beam VSC, Zebulun Attending Unavailable Beam VSC, Zebulun Referring Unavailable Nichole VSC, Joshua Primary Care Unavailable Beam VSC, Zebulun Attending Unavailable Beam VSC, Zebulun Referring Unavailable Nichole VSC, Joshua Primary Care Unavailable Nichole VSC, Joshua Primary Care Unavailable Tiago Retana Attending Unavailable SeeAlvin wagner Attending Unavailable Nichole VSC, Joshua Primary Care Unavailable SeeAlvin wagner Attending Unavailable Nichole VSC, Joshua Primary Care Unavailable SeeAlvin wagner Attending Unavailable Nichole VSC, Joshua Primary Care Unavailable SeeAlvin wagner Attending Unavailable Nichole VSC, Joshua Primary Care Unavailable KelvinAlvin wagner Randal Attending Unavailable [facility], Joshua Primary Care Unavailable PROVIDER, UNKNOWN Admitting Unavailable PROVIDER, UNKNOWN Attending Unavailable PROVIDER, UNKNOWN Admitting Unavailable PROVIDER, UNKNOWN Attending Unavailable MARV, RAVI Admitting Unavailable PROVIDER, UNKNOWN Attending Unavailable MARV, RAVI Admitting Unavailable PROVIDER, UNKNOWN Attending Unavailable MARV, RAVI Admitting Unavailable PROVIDER, UNKNOWN Attending Unavailable PROVIDER, UNKNOWN Attending Unavailable MARV, RAVI Admitting Unavailable MARV, RAVI Admitting Unavailable PROVIDER, UNKNOWN Attending Unavailable PROVIDER, UNKNOWN Attending Unavailable PROVIDER, UNKNOWN Admitting Unavailable MARV, RAVI Admitting Unavailable PROVIDER, UNKNOWN Attending Unavailable MARV, RAVI Admitting Unavailable PROVIDER, UNKNOWN Attending Unavailable PROVIDER, UNKNOWN Attending Unavailable MARV, RAVI Admitting Unavailable PROVIDER, UNKNOWN Attending Unavailable MARV, RAVI Admitting Unavailable PROVIDER, UNKNOWN Attending Unavailable MARV, RAVI Admitting Unavailable PROVIDER, UNKNOWN Admitting Unavailable PROVIDER, UNKNOWN Attending Unavailable CONSULT, IP PSYCHIATRIC ADULT Consulting Un available MARV, RAVI Admitting Unavailable WES GALARZA Attending Unavailable REQUEST, IP PHYSICAL THERAPY SERVICE Consulting Unavailable REQUEST, IP OCCUPATIONAL THERAPY SERVICE Consult ing Unavailable CONSULT, IP CARDIOLOGY Consulting Unavailab le CONSULT, IP NEUROLOGY Consulting Unavailabl e CONSULT, IP CARDIOLOGY ELECTROPHYSIOLOGY (EP) Co nsulting Unavailable PROVIDER, IP ETHICS Consulting Unavailable Medications Current Medications Medication Drug Class(es) Dates Sig (Normalized) Sig (Original) acetaminophen 500 mg oral tablet (6 sources) Start: 02-01-2025 End: 02-26-2025 take 2 tablets by mouth every six hours as needed acetaminophen (TYLENOL) 500 MG tablet Take 2 Tablets by mouth every 6 hours as needed. 30 Tablet 02/17/2025 4:43 PM EDT 02/17/2025 Active dextran 70 1 mg/ml / glycerin 2 mg/ml / hypromellose 3 mg/ml ophthalmic solution (4 sources) Plasma Volume [employer] Open [employer] Administrator, Non-Standardized Chemical Allergen Start: 02-17-2025 take 1 drop(s) into the eye(s) every four hours Artificial Tear Solution (GenTeal moderate tears) 0.1-0.2-0.3 % opthalmic solution Place 1 Drop in both eyes every 4 hours. 15 mL 2 02/17/2025 Active Start: 02-03-2025 docusate sodium 100 mg oral capsule (6 sources) Start: 02-17-2025 take 1 capsule by mouth once daily in the evening docusate sodium (COLACE) 100 MG capsule Take 1 Capsule by mouth every evening. 60 Capsule 3 02/17/2025 4:43 PM EDT 02/17/2025 Active Start: 02-06-2025 End: 02-11-2025 Start: 02-02-2025 End: 02-04-2025 fludrocortisone acetate 0.1 mg oral tablet (5 sources) Start: 02-14-2025 take 1 tablet by mouth once daily in the evening fludrocortisone (FLORINEF) 0.1 MG tablet Take 1 Tablet by mouth daily. 30 Tablet 3 02/17/2025 4:43 PM EDT 02/18/2025 Active Start: 02-07-2025 End: 02-12-2025 ibuprofen 400 mg oral tablet (1 source) Nonsteroidal Anti-inflammatory Drug Start: 02-26-2025 End: 03-01-2025 midodrine hydrochloride 10 mg oral tablet (7 sources) alpha-Adrenergic Agonist Start: 02-07-2025 take 1 tablet by mouth three times daily at mealtime midodrine 10 MG TABS tablet Take 1 Tablet by mouth 3 times daily (with meals). 90 Tablet 2 02/17/2025 4:43 PM EDT 02/17/2025 Active Start: 02-04-2025 End: 02-07-2025 1 ml naloxone hydrochloride 0.4 mg/ml injection (1 source) Opioid Antagonist Start: 02-25-2025 psyllium 400 mg oral capsule (1 source) Start: 04-02-2022 Psyllium Husk (Metamucil) 0.4 gram capsule Active 0.4 GM PO DAILY April 02, 2022 12:00am risperiDONE 3 mg oral tablet (6 sources) Atypical Antipsychotic Start: 02-02-2025 take 1 tablet by mouth twice daily in the evening risperiDONE (RISPERDAL) 3 MG tablet Take 1 Tablet by mouth 2 times a day. 60 Tablet 3 02/17/2025 4:43 PM EDT 02/17/2025 Active Start: 01-30-2025 End: 02-02-2025 Start: 01-29-2025 End: 01-29-2025 20 ml sodium chloride 9 mg/m l injection (1 source) Start: 02-25-2025 (1 source) Start: 02-26-2025 End: 02-27-2025 Completed/Discontinued Medications Medication Drug Class(es) Dates Sig (Normalized) Sig (Original) calcium chloride 0.0014 meq/ml / potassium chloride 0.004 meq/ml / sodium chloride 0.103 meq/ml / sodium lactate 0.028 meq/ml injectable solution (6 sources) Start: 02-04-2025 End: 02-04-2025 Start: 02-02-2025 End: 02-03-2025 Start: 01-31-2025 End: 01-31-2025 Start: 01-30-2025 End: 01-30-2025 0.4 ml enoxaparin sodium 100 mg/ml prefilled syringe (1 source) Low Molecular Weight Heparin Start: 01-29-2025 End: 02-18-2025 1 ml ketorolac tromethamine 15 mg/ml cartridge (2 sources) Nonsteroidal Anti-inflammatory Drug, Cyclooxygenase Inhibitor Start: 02-26-2025 End: 02-26-2025 Start: 02-25-2025 End: 02-25-2025 lidocaine hydrochloride 0.02 mg/mg topical gel (1 source) Antiarrhythmic, Amide Local Anesthetic Start: 02-01-2025 End: 02-01-2025 Misc. Devices (Hand Held Shower [place]) MISC (1 source) Start: 02-26-2025 Misc. Devices (Hand Held Shower [place]) MISC Use 1 Each 1 time for 1 dose. 1 Each 02/26/2025 Active oxyCODONE hydrochloride 5 mg oral tablet (1 source) Opioid Agonist Start: 02-01-2025 End: 02-01-2025 Start: 02-01-2025 End: 02-01-2025 polyethylene glycol 3350 170 00 mg powder for oral solution (1 source) Osmotic Laxative Start: 01-30-2025 End: 02-04-2025 sennosides, fci 8.6 mg oral tablet (1 source) Start: 01-29-2025 End: 02-12-2025 tamsulosin hydrochloride 0.4 mg oral capsule (1 source) alpha-Adrenergic Dania Start: 02-01-2025 End: 02-06-2025 vancomycin 1000 mg injection (1 source) Glycopeptide Antibacterial Start: 02-25-2025 End: 02-25-2025 Start: 02-25-2025 End: 02-25-2025 (1 source) Start: 02-24-2025 End: 02-24-2025 (1 source) Start: 02-03-2025 End: 02-03-2025 Problems Active Problems Problem Classification Problem Date Documented Da te Episodic/Chronic Abdominal pain (12 sources) Suprapubic pain; Translations: [Pelvic and perineal pain] Onset: 5 01-30-2025 Episodic Administrative/social admission (2 sources) Patient encounter status; Translations: [Persons encountering health services in other specified circumstances] Episodic Anxiety disorders (2 sources) Obsessive-compulsive disorder; Translations: [Obsessive-compulsive disorder, unspecified] Onset: Chronic Blindness and vision defects (1 source) Visual hallucinations; Translations: [Visual hallucinations] 01-29-2025 Episodic Cardiac dysrhythmias (10 sources) Bradycardia; Translations: [Bradycardia, unspecified] Onset: 5 02-18-2025 Episodic Conduction disorders (4 sources) Cardiac pacemaker in situ; Translations: [Presence of cardiac pacemaker] Onset: 5 04-12-2025 Chronic Delirium, dementia, and amnestic and other cognitive disorders (1 source) Dementia; Translations: [Unspecified dementia without behavioral disturbance] 01-29-2025 Chronic Developmental disorders (1 source) Mental retardation Chronic Epilepsy; convulsions (4 sources) Seizure; Translations: [Unspecified convulsions] Onset: 5 01-30-2025 Episodic Genitourinary symptoms and ill-defined conditions (8 sources) Retention of urine; Translations: [Retention of urine, unspecified] Onset: 5 02-02-2025 Episodic Headache; including migraine (5 sources) Headache; Translations: [Headache] Onset: 5 02-13-2025 Episodic Immunizations and screening for infectious disease (3 sources) Needs influenza immunization; Translations: [Encounter for immunization] Episodic Mood disorders (1 source) Depressive disorder; Translations: [Depression] Chronic Nervous system congenital anomalies (5 sources) Disorder of autonomic nervous system; 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]] Onset: 5 02-06-2025 Chronic Other aftercare (1 source) Other fdc (current) drug therapy; Translations: [Other long wall mining machine tender (current) drug therapy] Onset: 5 Episodic Other circulatory disease (10 sources) Orthostatic hypotension; Translations: [Orthostatic hypotension] Onset: 5 01-30-2025 Episodic Other circulatory disease (1 source) Low blood pressure; Translations: [Hypotension, unspecified] 01-29-2025 Episodic Other congenital anomalies (11 sources) Anomaly of chromosome pair 21; 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, unspecified] Onset: 5 01-30-2025 Chronic Other congenital anomalies (2 sources) Down syndrome, unspecified; Translations: [Down's syndrome] Onset: Chronic Other connective tissue disease (1 source) Other symptoms and signs involving the nervous system; Translations: [Other symptoms and signs involving the nervous system] Onset: 5 Episodic Other eye disorders (5 sources) Pain of bilateral eyes; Translations: [Ocular pain, bilateral] Onset: 5 02-06-2025 Episodic Other gastrointestinal disorders (1 source) H/O: gastrointestinal disease; Translations: [Personal history of other diseases of the digestive system] Episodic Other gastrointestinal disorders (1 source) Change in bowel habit; Translations: [Change in bowel habit] Onset: Episodic Other nervous system disorders (1 source) Other symptoms and signs involving cognitive functions and awareness; Translations: [Other symptoms and signs involving cognitive functions and awareness] Onset: 5 Episodic Other screening for suspected conditions (not mental disorders or infectious disease) (10 sources) Serum creatinine raised; Translations: [Other specified abnormal findings of blood chemistry] Onset: 5 01-30-2025 Episodic Residual codes; unclassified (2 sources) History of clinical finding in subject; Translations: [Personal history of other specified conditions] Episodic Residual codes; unclassified (11 sources) Memory impairment; Translations: [Other amnesia] Onset: 5 01-30-2025 Episodic Residual codes; unclassified (1 source) Personal history of other specified conditions; Translations: [Personal history of other specified diseases] Episodic Residual codes; unclassified (1 source) Other amnesia; Translations: [Memory loss] Episodic Residual codes; unclassified (10 sources) Hallucinations; Translations: [Hallucinations, unspecified] Onset: 5 01-30-2025 Episodic Residual codes; unclassified (1 source) Auditory hallucinations; Translations: [Auditory hallucinations] 01-29-2025 Episodic Residual codes; unclassified (1 source) Auditory hallucinations; Translations: [Auditory hallucinations] Onset: Episodic Schizophrenia and other psychotic disorders (1 source) Schizophrenia; Translations: [Schizophrenia, unspecified] Chronic Syncope (20 sources) Syncope; Translations: [Syncope and collapse] Onset: 5 01-29-2025 Episodic Past or Other Problems Problem Classification Problem Date Documented Da te Episodic/Chronic Residual codes; unclassified (1 source) Hallucinations, unspecified; Translations: [Hallucinations, unspecified] Onset: 06-25-2024 Episodic Results Test Name Value Interpretation Reference Range Facility Progress Noteson 04-19-2025 Observation Nurse Authentication Interface Message Text Called at 1057, unable to leave message due to voice mail is full. Updated image of loop site has not been received. Normal [facility] Gastroenterology Visit Repor ton 04-18-2025 Gastroenterology Visit Report [facility] [address] [place] [address] OFFICE VISIT Date of Service: 04/18/25 MR#: [id number] Acct: [id number] Name: ROGELIO BOWERS Rep #: [id number] : 1985 Provider: DONELL chavarria Age/Sex: 40/M [place] [facility] [place]: [place] Intake Vital Signs 03/15/25 14:39 04/18/25 10:03 Height 5 ft 6 in 5 ft 6 in Weight: 165 lb 8 oz BMI 26.6 BP 117/73 Respiration 16 Pulse 67 Temp 97.5 F L Temp Source Temporal Pulse Oximetry (%) 94 Oxygen Delivery Method room air Intake Visit Reasons: CONSTIPATION / IMPACTED? 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: No Accompanied by: sister and aunt Is patient in pain?: Yes Allergies No Known Drug Allergies Allergy (Verified 04/18/25 10:04) Other Medications ???Medication ???Instructions ???Recorded ???Confirmed ???Type trazodone 50 mg tablet 50 mg PO QHS PRN insomnia #30 tabs 11/19/24 03/15/25 Rx docusate sodium 100 mg capsule 100 mg PO QDAY 11/25/24 04/18/25 H istory risperidone 3 mg tablet 3 mg PO BID 30 days #60 tabs 12/1604/18/25 Rx acetaminophen 500 mg tablet 500 mg PO Q6H PRN 03/15/25 5 History (Tylenol Extra Strength) fludrocortisone 0.1 mg tablet 0.1 mg PO QDAY 03/15/25 04/18/25 H istory midodrine 10 mg tablet 10 mg PO TID 03/15/25 04/18/25 His tory calcium polycarbophil 625 mg 1,250 mg PO .QID 04/18/25 04/18/25 History tablet (FiberCon) PFSH Medical History History of pacemaker Auditory hallucinations Neurocognitive deficits Bilateral impacted cerumen Excess ear wax Encounter to establish care Flu vaccine need Memory deficits Schizophrenia OCD (obsessive compulsive disorder) History of seizures Hx of gastrointestinal disease History of emotional problems Down syndrome Social History household members: family housing: house current occupational status: disabled Smoking Status: Never smoker alcohol intake: never substance use type: does not use what type of physical activity do you participate in: other details: Dancing frequency: daily seatbelt use: always do you feel safe at home: Yes HPI HPI Chief Complaint: Hearing concerns Details: ROGELIO BOWERS, is a 40 M who presents to the office today for abdominal pain. PSYCH OV 03/16/2025 Rogelio Bowers is a 39 year old male who presents today for follow up evaluation. Per mother, patient has had several syncopal episodes in recent past. Was at [facility] and passed out and was taken by ambulance to hospital. Was hospitalized for nearly a full month. Per report, had significant urinary retention but would not be seen by urology inpatient. Consult psychiatrist saw patient who thought that it was vasovagal syncope. Saw cardiology who eventually placed a pacemaker. Was started on midodrine and fludrocortisone. During hospitalization had significant pushback and even had an ethics consult placed which made entire situation more stressful. He was even able to go to [facility] two weeks ago and had nearly no problems. Patient actually just passed out about 30 minutes ago at PCP appointment who has now referred to urology and ordered some additional lab work per self report. Has continued to have some AH of nice voices but has had no episodes of violence. Has gained nearly 15 lbs since December. Was eating better when in the hospital. Has been able to sleep fairly well. - seen in office today with sister Latoya and Aunt Jessica - now has a pacemaker for Vasovagal syncope - has had a syncopal episode since placement of pacer, PCP has referred to Urology - lives with his sister - chronic periumbilical abdominal pain for the past year, worse over the past 3 months - sister reports he has chronic abdominal pain, may or may not worsen with PO intake - pain does not prevent him from eating - has had some weight gain fo 20-25lbs since pacemaker placement 7 weeks ago - sits on the toilet constantly, pain never improves with a BM, mom is giving him several OTC laxatives and stool softeners w/o improvement in pain - denies any bleeding - adopted - family history is unknown - sister reports he is urinating normally - was seen by urology and no new orders ROS Const Constitutional: Positive for fatigue and weight change (gain); No fever(s) ENT ENT: No difficulty swallowing Gastro GI: No abdominal pain, belching, bloating, change in bowel habits, change in stool character, coffee ground emesis, constipation, cramping, diarrhea, heartburn, difficulty swallowing, feeling full e tarun, excessive flatus, incontinent of stools, Vomiting blood/hematemesis, Blood in stool, loose stools, Black,tarry stool (more content not included)... Normal [facility] Progress Noteson 04-12-2025 Observation Nurse Authentication Interface Message Text Normal [facility] Urine Cultureon 03-17-2025 [facility] Mixed Gram Pos Gram Neg Org [place] Count 11,000-25,000 MIXC Mixed contaminants. Submit a new specimen if indicated. Normal [facility] Comment on above: Performed By: #### L 501.2400, L501.9910, L503.0106, L500.4050, L501.5200, L501.9520, L501.2450, L100.0100 #### [facility] [address] [place], [address] CBC W/Diff, Automatedon 09-3 0-2025 Absolute Lymph 0.71 X10 3/uL Low 0.83-4.51 [facility] Comment on above: Performed By: #### L 501.2400, L501.9910, L503.0106, L500.4050, L501.5200, L501.9520, L501.2450, L100.0100 #### [facility] [address] [place], [address] Absolute Neut 7.7 X10 3/uL Normal 2.0-7.7 [facility] Comment on above: Performed By: #### L 501.2400, L501.9910, L503.0106, L500.4050, L501.5200, L501.9520, L501.2450, L100.0100 #### [facility] [address] [facility] [place], [address] Basophils/100 WBC (Bld) 0.6 % Normal 0-1 [facility] Comment on above: Performed By: #### L 501.2400, L501.9910, L503.0106, L500.4050, L501.5200, L501.9520, L501.2450, L100.0100 #### [facility] [address] [place], [address] Eosinophils/100 WBC (Bld) 0.1 % Normal 0-5 [facility] Comment on above: Performed By: #### L 501.2400, L501.9910, L503.0106, L500.4050, L501.5200, L501.9520, L501.2450, L100.0100 #### [facility] [address] [place], [address] Erythrocyte distribution width (RBC) [Ratio] 14.4 % Normal 11.6-14.6 [facility] Comment on above: Performed By: #### L 501.2400, L501.9910, L503.0106, L500.4050, L501.5200, L501.9520, L501.2450, L100.0100 #### [facility] [address] [place], [address] Hematocrit (Bld) [Volume fraction] 44.0 % Normal 40-54 [facility] Comment on above: Performed By: #### L 501.2400, L501.9910, L503.0106, L500.4050, L501.5200, L501.9520, L501.2450, L100.0100 #### [facility] [address] [place], [address] Hemoglobin (Bld) [Mass/Vol] 14.9 g/dL Normal 13.0-16.5 [facility] Comment on above: Performed By: #### L 501.2400, L501.9910, L503.0106, L500.4050, L501.5200, L501.9520, L501.2450, L100.0100 #### [facility] [address] [place], [address] IG% 0.600 Normal 0.0-0.9 [facility] Comment on above: Result Comment: IG% - Immature Granulocytes (promyelocytes, myelocytes and metamyelocytes) > 1% indicates that a LEFT SHIFT is Present. Performed By: #### L 501.2400, L501.9910, L503.0106, L500.4050, L501.5200, L501.9520, L501.2450, L100.0100 #### [facility] [address] [place], [address] Lymphocytes/100 WBC (Bld) 7.7 % Low 19-41 [facility] Comment on above: Performed By: #### L 501.2400, L501.9910, L503.0106, L500.4050, L501.5200, L501.9520, L501.2450, L100.0100 #### [facility] [address] [place], [address] MCH (RBC) [Entitic mass] 31.4 pg Normal 27.0-32.0 [facility] Comment on above: Performed By: #### L 501.2400, L501.9910, L503.0106, L500.4050, L501.5200, L501.9520, L501.2450, L100.0100 #### [facility] [address] [place], [address] MCHC (RBC) [Mass/Vol] 33.9 g/dL Normal 32-36 [facility] Comment on above: Performed By: #### L 501.2400, L501.9910, L503.0106, L500.4050, L501.5200, L501.9520, L501.2450, L100.0100 #### [facility] [address] [place], [address] MCV (RBC) [Entitic vol] 92.8 fL Normal 80-94 [facility] Comment on above: Performed By: #### L 501.2400, L501.9910, L503.0106, L500.4050, L501.5200, L501.9520, L501.2450, L100.0100 #### [facility] [address] [place], [address] Monocytes/100 WBC (Bld) 7.9 % Normal 0-10 [facility] Comment on above: Performed By: #### L 501.2400, L501.9910, L503.0106, L500.4050, L501.5200, L501.9520, L501.2450, L100.0100 #### [facility] [address] [place], [address] Neutrophils/100 WBC (Bld) 83.1 % High 47-70 [facility] Comment on above: Performed By: #### L 501.2400, L501.9910, L503.0106, L500.4050, L501.5200, L501.9520, L501.2450, L100.0100 #### [facility] [address] [place], [address] Nucleated RBC (Bld) [#/Vol] 0 10*3/uL Normal 0-5 [facility] Comment on above: Performed By: #### L 501.2400, L501.9910, L503.0106, L500.4050, L501.5200, L501.9520, L501.2450, L100.0100 #### [facility] [address] [place], [address] Platelet mean volume (Bld) [Entitic vol] 9.3 fL Normal 6.2-12.0 [facility] Comment on above: Performed By: #### L 501.2400, L501.9910, L503.0106, L500.4050, L501.5200, L501.9520, L501.2450, L100.0100 #### [facility] [address] [place], [address] Platelets (Bld) [#/Vol] 240 10*3/uL Normal 150-450 [facility] Comment on above: Performed By: #### L 501.2400, L501.9910, L503.0106, L500.4050, L501.5200, L501.9520, L501.2450, L100.0100 #### [facility] [address] [place], [address] RBC (Bld) [#/Vol] 4.74 10*6/uL Normal 4.6-6.2 [facility] Comment on above: Performed By: #### L 501.2400, L501.9910, L503.0106, L500.4050, L501.5200, L501.9520, L501.2450, L100.0100 #### [facility] [address] [place], [address] RDW SD 49.1 fl High 35.1-43.9 [facility] Comment on above: Performed By: #### L 501.2400, L501.9910, L503.0106, L500.4050, L501.5200, L501.9520, L501.2450, L100.0100 #### [facility] [address] [place], [address] WBC (Bld) [#/Vol] 9.3 10*3/uL Normal 4.4-11.0 [facility] Comment on above: Performed By: #### L 501.2400, L501.9910, L503.0106, L500.4050, L501.5200, L501.9520, L501.2450, L100.0100 #### [facility] [address] [place], [address] Comprehensive [facility] 03-15-2025 Albumin [Mass/Vol] 4.1 g/dL Normal 3.5-5.0 [facility] Comment on above: Performed By: #### L 501.2400, L501.9910, L503.0106, L500.4050, L501.5200, L501.9520, L501.2450, L100.0100 #### [facility] [address] [place], [address] Albumin/Globulin [Mass ratio] 1.4 {ratio} Normal 0.9-2.4 [facility] Comment on above: Performed By: #### L 501.2400, L501.9910, L503.0106, L500.4050, L501.5200, L501.9520, L501.2450, L100.0100 #### [facility] [address] [place], [address] ALK PHOS 71 U/L Normal 40-129 [facility] Comment on above: Performed By: #### L 501.2400, L501.9910, L503.0106, L500.4050, L501.5200, L501.9520, L501.2450, L100.0100 #### [facility] [address] [place], [address] ALT [Catalytic activity/Vol] 45 U/L Normal <=46 [facility] Comment on above: Performed By: #### L 501.2400, L501.9910, L503.0106, L500.4050, L501.5200, L501.9520, L501.2450, L100.0100 #### [facility] [address] [place], [address] AST [Catalytic activity/Vol] 21 U/L Normal <=37 [facility] Comment on above: Performed By: #### L 501.2400, L501.9910, L503.0106, L500.4050, L501.5200, L501.9520, L501.2450, L100.0100 #### [facility] [address] [place], [address] Bilirubin [Mass/Vol] 0.42 mg/dL Normal 0.00-1.30 [facility] Comment on above: Performed By: #### L 501.2400, L501.9910, L503.0106, L500.4050, L501.5200, L501.9520, L501.2450, L100.0100 #### [facility] [address] [place], [address] BUN/CRE 15.4 RATIO Normal 10-20 [facility] Comment on above: Performed By: #### L 501.2400, L501.9910, L503.0106, L500.4050, L501.5200, L501.9520, L501.2450, L100.0100 #### [facility] [address] [place], [address] Calcium [Mass/Vol] 9.3 mg/dL Normal 7.6-11.0 [facility] Comment on above: Performed By: #### L 501.2400, L501.9910, L503.0106, L500.4050, L501.5200, L501.9520, L501.2450, L100.0100 #### [facility] [address] [place], [address] Chloride [Moles/Vol] 102 mmol/L Normal 98-108 [facility] Comment on above: Performed By: #### L 501.2400, L501.9910, L503.0106, L500.4050, L501.5200, L501.9520, L501.2450, L100.0100 #### [facility] [address] [place], [address] CO2 [Moles/Vol] 23.8 mmol/L Normal 21.0-32.0 [facility] Comment on above: Performed By: #### L 501.2400, L501.9910, L503.0106, L500.4050, L501.5200, L501.9520, L501.2450, L100.0100 #### [facility] [address] [place], [address] Creatinine [Mass/Vol] 1.11 mg/dL Normal 0.70-1.20 [facility] Comment on above: Performed By: #### L 501.2400, L501.9910, L503.0106, L500.4050, L501.5200, L501.9520, L501.2450, L100.0100 #### [facility] [address] [place], [address] GAP 12 Normal 5-15 [facility] Comment on above: Performed By: #### L 501.2400, L501.9910, L503.0106, L500.4050, L501.5200, L501.9520, L501.2450, L100.0100 #### [facility] [address] [place], [address] GFR/1.73 sq M.predicted among non-blacks MDRD (S/P/Bld) [Vol rate/Area] 86 mL/min/{1.73_m2} Normal >60 [facility] Comment on above: Result Comment: mL/m in/1.73m2 CKD-EPI Creatinine Equation (2020) Performed By: #### L 501.2400, L501.9910, L503.0106, L500.4050, L501.5200, L501.9520, L501.2450, L100.0100 #### [facility] [address] [place], [address] Globulin (S) [Mass/Vol] 3.0 g/dL Normal 2.2-4.[address] [facility] Comment on above: Performed By: #### L 501.2400, L501.9910, L503.0106, L500.4050, L501.5200, L501.9520, L501.2450, L100.0100 #### [facility] [address] [place], [address] Glucose [Mass/Vol] 116 mg/dL High 70-99 [facility] Comment on above: Performed By: #### L 501.2400, L501.9910, L503.0106, L500.4050, L501.5200, L501.9520, L501.2450, L100.0100 #### [facility] [address] [place], [address] Potassium [Moles/Vol] 3.9 mmol/L Normal 3.3-5.1 [facility] Comment on above: Performed By: #### L 501.2400, L501.9910, L503.0106, L500.4050, L501.5200, L501.9520, L501.2450, L100.0100 #### [facility] [address] [place], [address] Sodium [Moles/Vol] 137 mmol/L Normal 133-145 [facility] Comment on above: Performed By: #### L 501.2400, L501.9910, L503.0106, L500.4050, L501.5200, L501.9520, L501.2450, L100.0100 #### [facility] [address] [place], [address] T PROT 7.1 g/dL Normal 5.9-8.4 [facility] Comment on above: Performed By: #### L 501.2400, L501.9910, L503.0106, L500.4050, L501.5200, L501.9520, L501.2450, L100.0100 #### [facility] [address] [place], [address] Urea nitrogen [Mass/Vol] 17 mg/dL Normal 4-19 [facility] Comment on above: Performed By: #### L 501.2400, L501.9910, L503.0106, L500.4050, L501.5200, L501.9520, L501.2450, L100.0100 #### [facility] [address] [place], [address] MR/BMS.BPon 03-15-2025 MR/BMS.BP [place] [address] [facility], [address] [place] [address] OFFICE VISIT Date of Service: 03/15/25 MR#: [id number] Acct: [id number] Name: ROGELIO BOWERS Rep #: [id number] : 1985 Provider: Dr. Alvin Warren se, DO Age/Sex: 39/M Location: [facility].BP Status: Signed Intake Vital Signs 01/20/25 13:33 03/15/25 14:37 03/15/25 14:39 Height 5 ft 6 in 5 ft 6 in Weight: 149 lb BMI 24.0 BP 83/54 L 93/66 Blood Pressure Location Lt brachial Lt brachial Position Sitting Sitting Respiration 16 16 Pulse 89 78 Pulse Source Monitor NIBP Pulse Oximetry (%) 100 Oxygen Delivery Method room air BP Intake Visit Reasons: follow up [employer] Required: No Is patient in pain?: No Allergies No Known Drug Allergies Allergy (Verified 03/15/25 14:33) Other Medications ???Medication ???Instructions ???Recorded ???Confirmed ???Type trazodone 50 mg tablet 50 mg PO QHS PRN insomnia #30 tabs 11/19/24 03/15/25 Rx docusate sodium 100 mg capsule 100 mg PO QDAY 11/25/24 03/15/25 H istory risperidone 3 mg tablet 3 mg PO BID 30 days #60 tabs 12/1603/15/25 Rx acetaminophen 500 mg tablet 500 mg PO Q6H PRN 03/15/25 5 History (Tylenol Extra Strength) fludrocortisone 0.1 mg tablet 0.1 mg PO QDAY 03/15/25 03/15/25 H istory midodrine 10 mg tablet 10 mg PO TID 03/15/25 03/15/25 His tory Post menopausal: No Have you fallen in the past year?: Yes PFSH Medical History (Updated 03/15/25 @ 14:32 by Юлия Stahl) History of pacemaker Auditory hallucinations Neurocognitive deficits Bilateral impacted cerumen Excess ear wax Encounter to establish care Flu vaccine need Memory deficits Schizophrenia OCD (obsessive compulsive disorder) History of seizures Hx of gastrointestinal disease History of emotional problems Down syndrome Social History household members: family housing: house current occupational status: disabled Smoking Status: Never smoker alcohol intake: never substance use type: does not use what type of physical activity do you participate in: other details: Dancing frequency: daily seatbelt use: always do you feel safe at home: Yes HPI History of Present Illness History provided by: patient and family HPI: Rogelio Bowers is a 39 year old male who presents today for follow up evaluation. Per mother, patient has had several syncopal episodes in recent past. Was at [facility] and passed out and was taken by ambulance to hospital. Was hospitalized for nearly a full month. Per report, had significant urinary retention but would not be seen by urology inpatient. Consult psychiatrist saw patient who thought that it was vasovagal syncope. Saw cardiology who eventually placed a pacemaker. Was started on midodrine and fludrocortisone. During hospitalization had significant pushback and even had an ethics consult placed which made entire situation more stressful. He was even able to go to [place] two weeks ago and had nearly no problems. Patient actually just passed out about 30 minutes ago at PCP appointment who has now referred to urology and ordered some additional lab work per self report. Has continued to have some AH of nice voices but has had no episodes of violence. Has gained nearly 15 lbs since December. Was eating better when in the hospital. Has been able to sleep fairly well. Review of Systems Constitutional Reports: change in weight (15 to 20 pound weight gain since being hospitalized) and fatigue; Denies: fever(s) or chills Eyes Denies: change in vision or blurry vision Ears, Nose, Mouth, Throat Denies: throat pain, neck pain or change in hearing Cardiovascular Denies: chest pain, palpitations or dyspnea Respiratory Denies: dyspnea, cough or wheezing Gastrointestinal Reports: abdominal pain; Denies: nausea, vomiting, diarrhea or constipation Genitourinary Reports: dysuria; Denies: urinary frequency or hematuria Musculoskeletal Reports: back pain; Denies: neck pain, joint pain or muscle weakness Integumentary/Breast Denies: rash or new lesions Neurological Reports: confusion and behavioral changes; Denies: headache(s) or dizziness Psychiatric Reports: visual hallucinations, auditory hallucinations and other (Delusions) Endocrine Reports: fatigue; Denies: excessive sweating Hematologic/Lymphati c Denies: easy bruising or easy bleeding Allergic/Immunologic Denies: wheezing Exam Mental Status Exam - Psych Appearance casually dressed Attitude calm Activity/Motor Behavior staring (Improving) Speech soft and minimal Mood OK Affect blunted Thought Process impoverished Thought Content hallucinations (Intermittent per family) Suicidal Id (more content not included)... Normal [facility] Thyroid Stim Hormone (TSH)on 03-15-2025 TSH 2.210 uIU/mL Normal 0.300-4.200 [facility] Comment on above: Performed By: #### L 501.2400, L501.9910, L503.0106, L500.4050, L501.5200, L501.9520, L501.2450, L100.0100 #### [facility] [address] [place], [place], [address] Urinalysis, Completeon 03-15 BACTERIA 0 SEEN Normal None Seen [facility] Comment on above: Order Comment: Urine , Random Performed By: #### L 501.2400, L501.9910, L503.0106, L500.4050, L501.5200, L501.9520, L501.2450, L100.0100 #### [facility] [address] [place], [place], [id number] EPI,SQUAMOUS 0 SEEN Normal 0-5 [facility] Comment on above: Order Comment: Urine , Random Performed By: #### L 501.2400, L501.9910, L503.0106, L500.4050, L501.5200, L501.9520, L501.2450, L100.0100 #### [facility] [address] [place], [place], [id number] Mucus Ql (Urine sed) 0 SEEN Normal [facility] Comment on above: Order Comment: Urine , Random Performed By: #### L 501.2400, L501.9910, L503.0106, L500.4050, L501.5200, L501.9520, L501.2450, L100.0100 #### [facility] [address] [place], [place], [id number] RBC 0 SEEN Normal 0-5 [facility] Comment on above: Order Comment: Urine , Random Performed By: #### L 501.2400, L501.9910, L503.0106, L500.4050, L501.5200, L501.9520, L501.2450, L100.0100 #### [facility] [address] [place], [place], [address] WBC 0 SEEN Normal 0-5 [facility] Comment on above: Order Comment: Urine , Random Performed By: #### L 501.2400, L501.9910, L503.0106, L500.4050, L501.5200, L501.9520, L501.2450, L100.0100 #### [facility] [address] [place], [place], [id number] Patient Instructionson 03-10 Observation Nurse Authentication Interface Message Text wear a sling for the first 24 hours followed by nocturnal sling to use for 6 weeks. -- do not do any repetitive motion or lifting heavy weight for 6 weeks Normal [facility] Progress Noteson 03-10-2025 Observation Nurse Authentication Interface Message Text Normal [facility] Telephone Encounteron 2024 Observation Nurse Authentication Interface Message Text Called patient to remind of upcoming nurse visit appointment. LVM reminding patient of upcoming nurse visit Normal [facility] Telephone Encounteron 2024 Observation Nurse Authentication Interface Message Text Normal [facility] Care Plan Noteon 02-26-2025 Observation Nurse Authentication Interface Message Text Normal [facility] XR CHEST PA+LAT 2 VIEWSon XR CHEST PA+LAT 2 VIEWS Normal T [facility] Chest PA and Lateralon RADIOLOGY [facility] Radiology Study observation (narrative) [facility] XR Chest PA and LateralOrder ed By: Boom Parham on 02-26-2025 [facility] Phone: Anesthesia Postprocedure Kalpana luationon 02-25-2025 Observation Nurse Authentication Interface Message Text Normal [facility] Anesthesia Preprocedure Eval uationon 02-25-2025 Observation Nurse Authentication Interface Message Text Normal [facility] Anesthesia Transfer Of Careo n 02-25-2025 Observation Nurse Authentication Interface Message Text Normal [facility] Assessment AND Plan Noteon 0 02-25-2025 Observation Nurse Authentication Interface Message Text Normal [facility] Observation Nurse Authentication Interface Message Text Normal [facility] Observation Nurse Authentication Interface Message Text - continue GenTeal moderate tears ophthalmic solution Normal [facility] Observation Nurse Authentication Interface Message Text PLAN: - Tylenol 1g q6 hours Normal [facility] CONFIRMATION ABO/RHon 2024 ABO and Rh group Nom (Bld) Blood group A Rh(D) positive [facility] ABO and Rh group Nom (Bld) No Previous Results [facility] Specimen Expiration Date [id number] [facility] GLUCOSE, FINGERSTICK-IN OFFI CEon 02-25-2025 Glucose [Mass/Vol] 100 mg/dL 74 - 109 mg/dL [facility] Interpretation and review of laboratory results [facility] Glucose [Mass/Vol] 100 mg/dL Normal 74-109 [facility] Comment on above: Performed By: #### 8 2948 ####NURSING GLUCOSE [id number] [place], [address] Progress Noteson 02-25-2025 Observation Nurse Authentication Interface Message Text Normal [facility] Observation Nurse Authentication Interface Message Text Normal [facility] XR CHEST AP OR PA 1 VIEWon 0 02-25-2025 XR CHEST AP OR PA 1 VIEW Normal [facility] XR Chest Single viewon 02-25 RADIOLOGY [facility] Radiology Study observation (narrative) [facility] XR Chest Single viewOrdered By: Favio Singh on 02-25-2025 [facility] Work Phone: Assessment AND Plan Noteon 0 02-24-2025 Observation Nurse Authentication Interface Message Text - continue GenTeal moderate tears ophthalmic solution Normal [facility] Observation Nurse Authentication Interface Message Text Normal [facility] Observation Nurse Authentication Interface Message Text PLAN: - Tylenol 1g q6 hours Normal [facility] BASIC METABOLIC PANELon 02-14 Anion gap [Moles/Vol] 12 mmol/L Normal 10-20 [facility] Comment on above: Performed By: #### C H8, MG ####[facility] [id number] [place], [place], Calcium [Mass/Vol] 8.5 mg/dL Low 8.6-10.3 [facility] Comment on above: Performed By: #### C H8, MG ####[facility] [id number] [place], [place], Chloride [Moles/Vol] 102 mmol/L Normal 98-107 [facility] Comment on above: Performed By: #### C H8, MG ####[facility] [id number] [place], [place], CO2 [Moles/Vol] 30 mmol/L Normal 21-31 [facility] Comment on above: Performed By: #### C H8, MG ####[facility] [id number] [place], [place], Creatinine [Mass/Vol] 1.01 mg/dL Normal 0.70-1.30 [facility] Comment on above: Performed By: #### C H8, MG ####[facility] [id number] [place], [place], ESTIMATED GFR (CKD-EPI) 96 mL/min/1.73sqm Normal >=60 [facility] Comment on above: Result Comment: 2020 CKD EPI Equation using Creatinine without RaceComment: Estimated glomerular filtration rate (eGFR) is calculated without a race coefficient. Values should be interpreted in the context of the patient's full clinical presentation.Reference:1. Edgardo Blackwood, Nely M, Jahaira MORE, et al.. A Unifying Approach for GFR Estimation: Recommendations of the NKF-ASN Task Force on Reassessing the Inclusion of Race in Diagnosing Kidney Disease. Welsh Journal of Kidney Diseases 202;79(2):268-88.e1.2. N Engl J Med 2020 Vol. 385 Issue 19 Pages 6824-1596 Performed By: #### Jaison Tabares8, MG ####[facility] [id number] [place], [place], Glucose [Mass/Vol] 94 mg/dL Normal 74-109 [facility] Comment on above: Performed By: #### Jaison Tabares8, MG ####[facility] [id number] [place], [place], Potassium [Moles/Vol] 3.9 mmol/L Normal 3.5-5.0 [facility] Comment on above: Performed By: #### Jaison Tabares8, MG ####[facility] [id number] [place], [place], Sodium [Moles/Vol] 140 mmol/L Normal 136-145 [facility] Comment on above: Performed By: #### Jaison Tabares8, MG ####[facility] [id number] [place], [place], Urea nitrogen [Mass/Vol] 18 mg/dL Normal 7-25 [facility] Comment on above: Performed By: #### Jaison H8, MG ####[facility] [id number] [place], [place], Basic metabolic 2000 panelon 02-24-2025 Anion gap [Moles/Vol] 12 mmol/L 10 - 20 Met [facility] Calcium [Mass/Vol] 8.5 mg/dL Low 8.6 - 10. 3 mg/dL [facility] Chloride [Moles/Vol] 102 mmol/L 98 - 10 7 mmol/L [facility] CO2 [Moles/Vol] 30 mmol/L 21 - 31 mmol/L [facility] Creatinine [Mass/Vol] 1.01 mg/dL 0.70 - 1.30 mg/dL [facility] GFR/1.73 sq M.predicted CKD-EPI (S/P/Bld) [Vol rate/Area] 96 - PINF [facility] Glucose [Mass/Vol] 94 mg/dL 74 - 109 mg/dL [facility] Interpretation and review of laboratory results Abnormal [facility] Potassium [Moles/Vol] 3.9 mmol/L 3.5 - 5.0 mmol/L [facility] Sodium [Moles/Vol] 140 mmol/L 136 - 145 mmol/L [facility] Urea nitrogen [Mass/Vol] 18 mg/dL 7 - 25 mg/d L [facility] CBC WITH DIFFERENTIALon 02-14 Basophils (Bld) [#/Vol] 0.04 10*3/uL 0.00 - 0.20 K/uL [facility] Basophils/100 WBC (Bld) 0.9 % NINF - 1.9 % [facility] Eosinophils (Bld) [#/Vol] 0.08 10*3/uL 0.00 - 0.70 K/uL [facility] Eosinophils/100 WBC (Bld) 1.9 % 0.1 - 4.0 % [facility] Erythrocyte distribution width (RBC) [Ratio] 15.6 % High 11.5 - 14.5 % [facility] Hematocrit (Bld) [Volume fraction] 37.5 % Low 41.0 - 53.0 % [facility] Hemoglobin (Bld) [Mass/Vol] 12.7 g/dL Low 13.9 - 16.3 g/dL [facility] Interpretation and review of laboratory results Abnormal [facility] Lymphocytes (Bld) [#/Vol] 1.15 10*3/uL 1.00 - 4.80 K/uL [facility] Lymphocytes/100 WBC (Bld) 26.1 % 24.0 - 44.0 % [facility] MCH (RBC) [Entitic mass] 31.4 pg 26. 0 - 34.0 pg [facility] MCHC (RBC) [Mass/Vol] 33.9 g/dL 32.0 - 35.9 g/dL [facility] MCV (RBC) [Entitic vol] 93 fL 80 - 100 fL [facility] Monocytes (Bld) [#/Vol] 0.6 10*3/uL 0.20 - 1.00 K/uL [facility] Monocytes/100 WBC (Bld) 13.5 % High 2.0 - 11.0 % [facility] Neutrophils (Bld) [#/Vol] 2.55 10*3/uL 1.50 - 8.00 K/uL [facility] Neutrophils/100 WBC (Bld) 57.7 % 31.0 - 76.0 % [facility] Platelet mean volume (Bld) [Entitic vol] 8.1 fL 7.5 - 11.2 fL [facility] Platelets (Bld) [#/Vol] 203 10*3/uL 150 - 400 K/uL [facility] RBC (Bld) [#/Vol] 4.04 10*6/uL Low [facility] WBC (Bld) [#/Vol] 4.4 10*3/uL Low 4.5 - 11.5 K/uL [facility] Basophils (Bld) [#/Vol] 0.04 10*3/uL Normal 0.00-0.20 [facility] Comment on above: Performed By: #### C BCDSAT ####[facility] PATHOLOGY [id number] [place] [address], Basophils/100 WBC (Bld) 0.9 % Normal <=1.9 [facility] Comment on above: Performed By: #### C BCDSAT ####[facility] PATHOLOGY [id number] [place] [address], Eosinophils (Bld) [#/Vol] 0.08 10*3/uL Normal 0.00-0.70 [facility] Comment on above: Performed By: #### C BCDSAT ####[facility] PATHOLOGY [id number] [place] [address], Eosinophils/100 WBC (Bld) 1.9 % Normal 0.1-4.0 [facility] Comment on above: Performed By: #### C BCDSAT ####S PATHOLOGY [id number] [place] [address], Erythrocyte distribution width (RBC) [Ratio] 15.6 % High 11.5-14.5 [facility] Comment on above: Performed By: #### C BCDSAT ####[facility] PATHOLOGY [id number] [place] [address], Hematocrit (Bld) [Volume fraction] 37.5 % Low 41.0-53.0 [facility] Comment on above: Performed By: #### C BCDSAT ####[facility] PATHOLOGY [id number] [place] [address], Hemoglobin (Bld) [Mass/Vol] 12.7 g/dL Low 13.9-16.3 [facility] Comment on above: Performed By: #### C YEIMIAT ####[facility] PATHOLOGY [id number] [place] [address], Lymphocytes (Bld) [#/Vol] 1.15 10*3/uL Normal 1.00-4.80 [facility] Comment on above: Performed By: #### C YEIMIAT ####[facility] PATHOLOGY [id number] [place] [address], Lymphocytes/100 WBC (Bld) 26.1 % Normal 24.0-44.0 [facility] Comment on above: Performed By: #### Jaison JALLOHAT ####[facility] PATHOLOGY [id number] [place] [address], MCH (RBC) [Entitic mass] 31.4 pg Normal 26.0-34.0 [facility] Comment on above: Performed By: #### C YEIMIAT ####[facility] PATHOLOGY [id number] [place] [address], MCHC (RBC) [Mass/Vol] 33.9 g/dL Normal 32.0-35.9 The [facility] Comment on above: Performed By: #### C YEIMIAT ####[facility] PATHOLOGY [id number] [place] [address], MCV (RBC) [Entitic vol] 93 fL Normal 80-100 T [facility] Comment on above: Performed By: #### C YEIMIAT ####[facility] PATHOLOGY [id number] [place] [address], Monocytes (Bld) [#/Vol] 0.60 10*3/uL Normal 0.20-1.00 [facility] Comment on above: Performed By: #### C YEIMIAT ####[facility] PATHOLOGY [id number] [place] [address], Monocytes/100 WBC (Bld) 13.5 % High 2.0-11.0 [facility] Comment on above: Performed By: #### C YEIMIAT ####[facility] [id number] [place], [place], Neutrophils (Bld) [#/Vol] 2.55 10*3/uL Normal 1.50-8.00 [facility] Comment on above: Performed By: #### C BCDSAT ####S PATHOLOGY [id number] [place], [place], Neutrophils/100 WBC (Bld) 57.7 % Normal 31.0-76.0 [facility] Comment on above: Performed By: #### C SHWETADSAT ####[facility] PATHOLOGY [id number] [place], [place], Platelet mean volume (Bld) [Entitic vol] 8.1 fL Normal 7.5-11.2 [facility] Comment on above: Performed By: #### Jaison JALLOHAT ####[facility] PATHOLOGY [id number] [place], [place], Platelets (Bld) [#/Vol] 203 10*3/uL Normal 150-400 [facility] Comment on above: Performed By: #### Jaison JALLOHAT ####S PATHOLOGY [id number] [place], [place], RBC (Bld) [#/Vol] 4.04 10*6/uL Low 4.50-5.90 [facility] Comment on above: Performed By: #### Jaison JALLOHAT ####[facility] PATHOLOGY [id number] [place], [place], WBC (Bld) [#/Vol] 4.4 10*3/uL Low 4.5-11.5 [facility] Comment on above: Performed By: #### Jaison JALLOHAT ####[facility] PATHOLOGY [id number] [place], [place], Consultson 02-24-2025 Observation Nurse Authentication Interface Message Text Normal [facility] MAGNESIUMon 02-24-2025 Interpretation and review of laboratory results Normal [facility] Magnesium [Mass/Vol] 2.1 mg/dL 1.9 - 2 .7 mg/dL [facility] Magnesium [Mass/Vol] 2.1 mg/dL Normal 1.9-2.7 [facility] Comment on above: Performed By: #### C H8, MG ####[facility] [id number] [place], [id number] No Panel Informationon 02-24 [facility] Progress Noteson 02-24-2025 Observation Nurse Authentication Interface Message Text Normal The [facility] TYPE AND SCREENon 02-24-2025 ABO and Rh group Nom (Bld) Blood group A Rh(D) positive [facility] ABO and Rh group Nom (Bld) No Previous Results [facility] Blood group antibody screen Ql Negative [facility] Specimen Expiration Date [id number] [facility] Assessment AND Plan Noteon 0 02-23-2025 Observation Nurse Authentication Interface Message Text Normal [facility] Observation Nurse Authentication Interface Message Text Normal [facility] Observation Nurse Authentication Interface Message Text PLAN: - Tylenol 1g q6 hours Normal [facility] Observation Nurse Authentication Interface Message Text - continue GenTeal moderate tears ophthalmic solution Normal [facility] Progress Noteson 02-23-2025 Observation Nurse Authentication Interface Message Text Normal The [facility] Progress Notes - NoteWritero n 02-23-2025 Observation Nurse Authentication Interface Message Text Normal The [facility] Assessment AND Plan Noteon 0 02-22-2025 Observation Nurse Authentication Interface Message Text - continue GenTeal moderate tears ophthalmic solution Normal [facility] Observation Nurse Authentication Interface Message Text PLAN: - Tylenol 1g q6 hours Normal The [facility] Consultson 02-22-2025 Observation Nurse Authentication Interface Message Text Normal [facility] Assessment AND Plan Noteon 0 02-21-2025 Observation Nurse Authentication Interface Message Text Normal [facility] Observation Nurse Authentication Interface Message Text PLAN: - Tylenol 1g q6 hours Normal [facility] Observation Nurse Authentication Interface Message Text Normal [facility] Observation Nurse Authentication Interface Message Text - continue GenTeal moderate tears ophthalmic solution Normal [facility] Consultson 02-21-2025 Observation Nurse Authentication Interface Message Text Normal [facility] Progress Noteson 02-21-2025 Observation Nurse Authentication Interface Message Text Normal [facility] Assessment AND Plan Noteon 0 02-20-2025 Observation Nurse Authentication Interface Message Text Normal [facility] Observation Nurse Authentication Interface Message Text - continue GenTeal moderate tears ophthalmic solution Normal [facility] Observation Nurse Authentication Interface Message Text PLAN: - Tylenol 1g q6 hours Normal The [facility] Progress Noteson 02-20-2025 Observation Nurse Authentication Interface Message Text Normal [facility] Observation Nurse Authentication Interface Message Text Normal [facility] Assessment AND Plan Noteon 0 02-19-2025 Observation Nurse Authentication Interface Message Text Normal [facility] Observation Nurse Authentication Interface Message Text - continue GenTeal moderate tears ophthalmic solution Normal [facility] Observation Nurse Authentication Interface Message Text PLAN: - Tylenol 1g q6 hours Normal The [facility] Progress Noteson 02-19-2025 Observation Nurse Authentication Interface Message Text Normal [facility] Assessment AND Plan Noteon 0 02-18-2025 Observation Nurse Authentication Interface Message Text Normal [facility] Observation Nurse Authentication Interface Message Text - continue GenTeal moderate tears ophthalmic solution Normal [facility] Observation Nurse Authentication Interface Message Text PLAN: - Tylenol 1g q6 hours Normal [facility] Procedureson 02-18-2025 Observation Nurse Authentication Interface Message Text Normal The [facility] Progress Noteson 02-18-2025 Observation Nurse Authentication Interface Message Text Normal [facility] Observation Nurse Authentication Interface Message Text Normal [facility] Observation Nurse Authentication Interface Message Text Normal [facility] Assessment AND Plan Noteon 0 02-17-2025 Observation Nurse Authentication Interface Message Text Normal [facility] Observation Nurse Authentication Interface Message Text Normal [facility] Observation Nurse Authentication Interface Message Text - continue GenTeal moderate tears ophthalmic solution Normal [facility] Observation Nurse Authentication Interface Message Text PLAN: - Tylenol 1g q6 hours Normal [facility] MONITOR & RECORD NOCTURNAL P ULSE OXIMETRYon 02-17-2025 [facility] Procedureson 02-17-2025 Observation Nurse Authentication Interface Message Text Normal [facility] Progress Noteson 02-17-2025 Observation Nurse Authentication Interface Message Text Normal [facility] Observation Nurse Authentication Interface Message Text Normal [facility] Assessment AND Plan Noteon 0 02-16-2025 Observation Nurse Authentication Interface Message Text Normal [facility] Observation Nurse Authentication Interface Message Text Normal [facility] Observation Nurse Authentication Interface Message Text - continue GenTeal moderate tears ophthalmic solution Normal [facility] Observation Nurse Authentication Interface Message Text PLAN: - Tylenol 1g q6 hours Normal [facility] Consultson 02-16-2025 Observation Nurse Authentication Interface Message Text Normal The [facility] Progress Noteson 02-16-2025 Observation Nurse Authentication Interface Message Text Normal [facility] Observation Nurse Authentication Interface Message Text Normal [facility] Observation Nurse Authentication Interface Message Text Normal [facility] Observation Nurse Authentication Interface Message Text Normal [facility] Assessment AND Plan Noteon 0 02-15-2025 Observation Nurse Authentication Interface Message Text Normal [facility] Observation Nurse Authentication Interface Message Text Normal [facility] Observation Nurse Authentication Interface Message Text - continue GenTeal moderate tears ophthalmic solution Normal [facility] Observation Nurse Authentication Interface Message Text PLAN: - Tylenol 1g q6 hours Normal [facility] BASIC METABOLIC PANELon Anion gap [Moles/Vol] 11 mmol/L Normal 10-20 [facility] Comment on above: Performed By: #### C H8, MG ####[facility] [id number] [place], Calcium [Mass/Vol] 9.0 mg/dL Normal 8.6-10.3 [facility] Comment on above: Performed By: #### C H8, MG ####[facility] [id number] [place], Chloride [Moles/Vol] 103 mmol/L Normal 98-107 [facility] Comment on above: Performed By: #### C H8, MG ####[facility] [id number] [place], CO2 [Moles/Vol] 31 mmol/L Normal 21-31 [facility] Comment on above: Performed By: #### C H8, MG ####[facility] [id number] [place], Creatinine [Mass/Vol] 1.09 mg/dL Normal 0.70-1.30 [facility] Comment on above: Performed By: #### C H8, MG ####[facility] [id number] [place], ESTIMATED GFR (CKD-EPI) 87 mL/min/1.73sqm Normal >=60 [facility] Comment on above: Result Comment: 2020 CKD EPI Equation using Creatinine without RaceComment: Estimated glomerular filtration rate (eGFR) is calculated without a race coefficient. Values should be interpreted in the context of the patient's full clinical presentation.Reference:1. Edgardo Blackwood, Nely M, Jahaira MORE, et al.. A Unifying Approach for GFR Estimation: Recommendations of the NKF-ASN Task Force on Reassessing the Inclusion of Race in Diagnosing Kidney Disease. Welsh Journal of Kidney Diseases 202;79(2):268-88.e1.2. N Engl J Med 2020 Vol. 385 Issue 19 Pages 5497-0125 Performed By: #### C H8, MG ####[facility] [id number] [place], Glucose [Mass/Vol] 86 mg/dL Normal 74-109 [facility] Comment on above: Performed By: #### C H8, MG ####[facility] [id number] [place], Potassium [Moles/Vol] 4.1 mmol/L Normal 3.5-5.0 [facility] Comment on above: Performed By: #### C H8, MG ####[facility] [id number] [place], Sodium [Moles/Vol] 141 mmol/L Normal 136-145 [facility] Comment on above: Performed By: #### C H8, MG ####[facility] [id number] [place], Urea nitrogen [Mass/Vol] 20 mg/dL Normal 7-25 [facility] Comment on above: Performed By: #### C H8, MG ####[facility] [id number] [place], [place], Basic metabolic 2000 panelon 02-15-2025 Anion gap [Moles/Vol] 11 mmol/L 10 - 20 [facility] Calcium [Mass/Vol] 9 mg/dL 8.6 - 10. 3 mg/dL [facility] Chloride [Moles/Vol] 103 mmol/L 98 - 10 7 mmol/L [facility] CO2 [Moles/Vol] 31 mmol/L 21 - 31 mmol/L [facility] Creatinine [Mass/Vol] 1.09 mg/dL 0.70 - 1.30 mg/dL [facility] GFR/1.73 sq M.predicted CKD-EPI (S/P/Bld) [Vol rate/Area] 87 - PINF [facility] Glucose [Mass/Vol] 86 mg/dL 74 - 109 mg/dL [facility] Potassium [Moles/Vol] 4.1 mmol/L 3.5 - 5.0 mmol/L [facility] Sodium [Moles/Vol] 141 mmol/L 136 - 145 mmol/L [facility] Urea nitrogen [Mass/Vol] 20 mg/dL 7 - 25 mg/d L [facility] CBC WITH DIFFERENTIALon Basophils (Bld) [#/Vol] 0.04 10*3/uL 0.00 - 0.20 K/uL [facility] Basophils/100 WBC (Bld) 0.9 % NINF - 1.9 % [facility] Eosinophils (Bld) [#/Vol] 0.07 10*3/uL 0.00 - 0.70 K/uL [facility] Eosinophils/100 WBC (Bld) 1.8 % 0.1 - 4.0 % [facility] Erythrocyte distribution width (RBC) [Ratio] 15.6 % High 11.5 - 14.5 % [facility] Hematocrit (Bld) [Volume fraction] 41.6 % 41.0 - 53.0 % [facility] Hemoglobin (Bld) [Mass/Vol] 13.9 g/dL 13.9 - 16.3 g/dL [facility] Interpretation and review of laboratory results Abnormal [facility] Lymphocytes (Bld) [#/Vol] 1.22 10*3/uL 1.00 - 4.80 K/uL [facility] Lymphocytes/100 WBC (Bld) 31 % 24.0 - 44.0 % [facility] MCH (RBC) [Entitic mass] 31.1 pg 26. 0 - 34.0 pg [facility] MCHC (RBC) [Mass/Vol] 33.3 g/dL 32.0 - 35.9 g/dL [facility] MCV (RBC) [Entitic vol] 93 fL 80 - 100 fL [facility] Monocytes (Bld) [#/Vol] 0.53 10*3/uL 0.20 - 1.00 K/uL [facility] Monocytes/100 WBC (Bld) 13.3 % High 2.0 - 11.0 % [facility] Neutrophils (Bld) [#/Vol] 2.09 10*3/uL 1.50 - 8.00 K/uL [facility] Neutrophils/100 WBC (Bld) 53 % 31.0 - 76.0 % [facility] Platelet mean volume (Bld) [Entitic vol] 8 fL 7.5 - 11.2 fL [facility] Platelets (Bld) [#/Vol] 221 10*3/uL 150 - 400 K/uL [facility] RBC (Bld) [#/Vol] 4.46 10*6/uL Low [facility] WBC (Bld) [#/Vol] 3.9 10*3/uL Low 4.5 - 11.5 K/uL [facility] Basophils (Bld) [#/Vol] 0.04 10*3/uL Normal 0.00-0.20 [facility] Comment on above: Performed By: #### C BCDSAT ####S PATHOLOGY [id number] [place], Basophils/100 WBC (Bld) 0.9 % Normal <=1.9 [facility] Comment on above: Performed By: #### C BCDSAT ####S PATHOLOGY [id number] [place], Eosinophils (Bld) [#/Vol] 0.07 10*3/uL Normal 0.00-0.70 [facility] Comment on above: Performed By: #### C BCDSAT ####S PATHOLOGY [id number] [place], Eosinophils/100 WBC (Bld) 1.8 % Normal 0.1-4.0 [facility] Comment on above: Performed By: #### C BCDSAT ####S PATHOLOGY [id number] [place], Erythrocyte distribution width (RBC) [Ratio] 15.6 % High 11.5-14.5 [facility] Comment on above: Performed By: #### C BCDSAT ####[facility] PATHOLOGY [id number] [place], Hematocrit (Bld) [Volume fraction] 41.6 % Normal 41.0-53.0 [facility] Comment on above: Performed By: #### C BCDSAT ####[facility] PATHOLOGY [id number] [place], Hemoglobin (Bld) [Mass/Vol] 13.9 g/dL Normal 13.9-16.3 The [facility] Comment on above: Performed By: #### C BCDSAT ####[facility] PATHOLOGY [id number] [place], Lymphocytes (Bld) [#/Vol] 1.22 10*3/uL Normal 1.00-4.80 [facility] Comment on above: Performed By: #### C BCDSAT ####[facility] PATHOLOGY [id number] [place] [address], Lymphocytes/100 WBC (Bld) 31.0 % Normal 24.0-44.0 The [facility] Comment on above: Performed By: #### C BCDSAT ####[facility] PATHOLOGY [id number] [place], MCH (RBC) [Entitic mass] 31.1 pg Normal 26.0-34.0 The [facility] Comment on above: Performed By: #### C BCDSAT ####[facility] PATHOLOGY [id number] [place], MCHC (RBC) [Mass/Vol] 33.3 g/dL Normal 32.0-35.9 The [facility] Comment on above: Performed By: #### C BCDSAT ####[facility] PATHOLOGY [id number] [place], MCV (RBC) [Entitic vol] 93 fL Normal 80-100 T [facility] Comment on above: Performed By: #### C BCDSAT ####[facility] PATHOLOGY [id number] [place], Monocytes (Bld) [#/Vol] 0.53 10*3/uL Normal 0.20-1.00 [facility] Comment on above: Performed By: #### C BCDSAT ####[facility] PATHOLOGY [id number] [place], Monocytes/100 WBC (Bld) 13.3 % High 2.0-11.0 T [facility] Comment on above: Performed By: #### C BCDSAT ####[facility] PATHOLOGY [id number] [place], Neutrophils (Bld) [#/Vol] 2.09 10*3/uL Normal 1.50-8.00 [facility] Comment on above: Performed By: #### C BCDSAT ####[facility] PATHOLOGY [id number] [place] [address], Neutrophils/100 WBC (Bld) 53.0 % Normal 31.0-76.0 [facility] Comment on above: Performed By: #### C BCDSAT ####[facility] PATHOLOGY [id number] [place] [address], Platelet mean volume (Bld) [Entitic vol] 8.0 fL Normal 7.5-11.2 [facility] Comment on above: Performed By: #### C BCDSAT ####[facility] PATHOLOGY [id number] [place] [address], Platelets (Bld) [#/Vol] 221 10*3/uL Normal 150-400 [facility] Comment on above: Performed By: #### C BCDSAT ####[facility] PATHOLOGY [id number] [place] [address], RBC (Bld) [#/Vol] 4.46 10*6/uL Low 4.50-5.90 [facility] Comment on above: Performed By: #### C BCDSAT ####[facility] PATHOLOGY [id number] [place], WBC (Bld) [#/Vol] 3.9 10*3/uL Low 4.5-11.5 [facility] Comment on above: Performed By: #### C BCDSAT ####[facility] [id number] [place], [place], Consultson 02-15-2025 Observation Nurse Authentication Interface Message Text Normal [facility] Observation Nurse Authentication Interface Message Text Normal [facility] EKG 12 LEAD - PERFORMon Diagnosis [facility] P wave Atrium by EKG 58 BPM [facility] P wave axis 24 degrees [facility] P-R Interval 126 ms [facility] Q-T interval 432 ms [facility] Q-T interval corrected 424 ms [facility] QRS axis 64 degrees [facility] QRS duration 88 ms [facility] T wave axis 35 degrees [facility] P wave Atrium by EKG 46 BPM [facility] P wave Atrium by EKG 49 BPM [facility] P wave axis 29 degrees [facility] P wave axis 28 degrees [facility] P-R Interval 124 ms [facility] P-R Interval 118 ms [facility] Q-T interval 466 ms [facility] Q-T interval 468 ms [facility] Q-T interval corrected 407 ms [facility] Q-T interval corrected 372 ms [facility] QRS axis 83 degrees [facility] QRS axis 85 degrees [facility] QRS duration 86 ms [facility] QRS duration 90 ms [facility] T wave axis 38 degrees [facility] T wave axis 41 degrees [facility] MAGNESIUMon 02-15-2025 Magnesium [Mass/Vol] 2.2 mg/dL 1.9 - 2 .7 mg/dL [facility] Magnesium [Mass/Vol] 2.2 mg/dL Normal 1.9-2.7 [facility] Comment on above: Performed By: #### C H8, MG ####S PATHOLOGY [id number] [place], No Panel Informationon 02-15 [facility] Interpretation and review of laboratory results Normal [facility] Progress Noteson 02-15-2025 Observation Nurse Authentication Interface Message Text Normal [facility] Progress Notes - NoteWritero n 02-15-2025 Observation Nurse Authentication Interface Message Text Normal The [facility] System Assessment AND Plan Noteon 0 02-14-2025 Observation Nurse Authentication Interface Message Text Normal [facility] Observation Nurse Authentication Interface Message Text - continue GenTeal moderate tears ophthalmic solution Normal The [facility] Observation Nurse Authentication Interface Message Text PLAN: - Tylenol 1g q6 hours Normal The [facility] BASIC METABOLIC PANELon 09-0 Anion gap [Moles/Vol] 13 mmol/L Normal 10-20 The [facility] Comment on above: Performed By: #### C H8, MG ####[facility] [id number] [place], Calcium [Mass/Vol] 8.9 mg/dL Normal 8.6-10.3 The [facility] Comment on above: Performed By: #### C H8, MG ####[facility] [id number] [place], Chloride [Moles/Vol] 104 mmol/L Normal 98-107 The [facility] Comment on above: Performed By: #### C H8, MG ####[facility] [id number] [place], CO2 [Moles/Vol] 28 mmol/L Normal 21-31 The [facility] Comment on above: Performed By: #### C H8, MG ####[facility] PATH[facility] [id number] [place], Creatinine [Mass/Vol] 1.05 mg/dL Normal 0.70-1.30 The [facility] Comment on above: Performed By: #### C H8, MG ####[facility] [id number] [place], ESTIMATED GFR (CKD-EPI) 91 mL/min/1.73sqm Normal >=60 The [facility] Comment on above: Result Comment: 2020 CKD EPI Equation using Creatinine without RaceComment: Estimated glomerular filtration rate (eGFR) is calculated without a race coefficient. Values should be interpreted in the context of the patient's full clinical presentation.Reference:1. Edgardo C, Nely M, Jahaira MORE, et al.. A Unifying Approach for GFR Estimation: Recommendations of the NKF-ASN Task Force on Reassessing the Inclusion of Race in Diagnosing Kidney Disease. Welsh Journal of Kidney Diseases 2021;79(2):268-88.e1.2. N Engl J Med 2021 Vol. 385 Issue 19 Pages 5917-8469 Performed By: #### Jaison H8, MG ####[facility] [id number] [place], Glucose [Mass/Vol] 91 mg/dL Normal 74-109 [facility] Comment on above: Performed By: #### Jaison H8, MG ####[facility] [id number] [place], Potassium [Moles/Vol] 4.3 mmol/L Normal 3.5-5.0 [facility] Comment on above: Performed By: #### Jaison H8, MG ####[facility] PATH[facility] [id number] [place], Sodium [Moles/Vol] 141 mmol/L Normal 136-145 The [facility] Comment on above: Performed By: #### Jaison H8, MG ####[facility] PATH[facility] [id number] [place], Urea nitrogen [Mass/Vol] 19 mg/dL Normal 7-25 The [facility] Comment on above: Performed By: #### Jaison H8, MG ####[facility] [id number] [place], [place], Basic metabolic 2000 panelon 02-14-2025 Anion gap [Moles/Vol] 13 mmol/L 10 - 20 [facility] Cal[facility] [Mass/Vol] 8.9 mg/dL 8.6 - 10. 3 mg/dL [facility] Chloride [Moles/Vol] 104 mmol/L 98 - 10 7 mmol/L [facility] CO2 [Moles/Vol] 28 mmol/L 21 - 31 mmol/L [facility] Creatinine [Mass/Vol] 1.05 mg/dL 0.70 - 1.30 mg/dL [facility] GFR/1.73 sq M.predicted CKD-EPI (S/P/Bld) [Vol rate/Area] 91 - PINF [facility] Glucose [Mass/Vol] 91 mg/dL 74 - 109 mg/dL [facility] Potassium [Moles/Vol] 4.3 mmol/L 3.5 - 5.0 mmol/L [facility] Sodium [Moles/Vol] 141 mmol/L 136 - 145 mmol/L [facility] Urea nitrogen [Mass/Vol] 19 mg/dL 7 - 25 mg/d [facility] panel Auto (Bld)on 02-14 Erythrocyte distribution width (RBC) [Ratio] 16 % High 11.5 - 14.5 % [facility] Hematocrit (Bld) [Volume fraction] 40.3 % Low 41.0 - 53.0 % [facility] Hemoglobin (Bld) [Mass/Vol] 13.5 g/dL Low 13.9 - 16.3 g/dL [facility] Interpretation and review of laboratory results Abnormal [facility] MCH (RBC) [Entitic mass] 31 pg 26. 0 - 34.0 pg [facility] MCHC (RBC) [Mass/Vol] 33.5 g/dL 32.0 - 35.9 g/dL [facility] MCV (RBC) [Entitic vol] 93 fL 80 - 100 fL [facility] Platelet mean volume (Bld) [Entitic vol] 7.9 fL 7.5 - 11.2 fL [facility] Platelets (Bld) [#/Vol] 230 10*3/uL 150 - 400 K/uL [facility] RBC (Bld) [#/Vol] 4.36 10*6/uL Low [facility] WBC (Bld) [#/Vol] 4 10*3/uL Low 4.5 - 11.5 K/uL [facility] COMPLETE BLOOD COUNTon 02-14 Erythrocyte distribution width (RBC) [Ratio] 16.0 % High 11.5-14.5 The [facility] System Comment on above: Performed By: #### C BC ####S PATHOLOGY [id number] [place] [address], Hematocrit (Bld) [Volume fraction] 40.3 % Low 41.0-53.0 The [facility] Comment on above: Performed By: #### C BC ####[facility] PATHOLOGY [id number] [place] [address], Hemoglobin (Bld) [Mass/Vol] 13.5 g/dL Low 13.9-16.3 The [facility] Comment on above: Performed By: #### C BC ####[facility] PATHOLOGY [id number] [place] [address], MCH (RBC) [Entitic mass] 31.0 pg Normal 26.0-34.0 [facility] Comment on above: Performed By: #### C BC ####S PATHOLOGY [id number] [place], [place], MCHC (RBC) [Mass/Vol] 33.5 g/dL Normal 32.0-35.9 The [facility] Comment on above: Performed By: #### C BC ####S PATHOLOGY [id number] [place], [place], MCV (RBC) [Entitic vol] 93 fL Normal 80-100 T [facility] System Comment on above: Performed By: #### C BC ####S PATHOLOGY [id number] [place], Platelet mean volume (Bld) [Entitic vol] 7.9 fL Normal 7.5-11.2 [facility] Comment on above: Performed By: #### C BC ####[facility] PATHOLOGY [id number] [place], [place], Platelets (Bld) [#/Vol] 230 10*3/uL Normal 150-400 [facility] Comment on above: Performed By: #### C BC ####[facility] PATHOLOGY [id number] [place], RBC (Bld) [#/Vol] 4.36 10*6/uL Low 4.50-5.90 [facility] Comment on above: Performed By: #### C BC ####S PATHOLOGY [id number] [place], [place], WBC (Bld) [#/Vol] 4.0 10*3/uL Low 4.5-11.5 [facility] Comment on above: Performed By: #### C BC ####[facility] PATHOLOGY [id number] [place], [place], Care Plan Noteon 02-14-2025 Observation Nurse Authentication Interface Message Text Normal [facility] MAGNESIUMon 02-14-2025 Magnesium [Mass/Vol] 2.2 mg/dL 1.9 - 2 .7 mg/dL [facility] Magnesium [Mass/Vol] 2.2 mg/dL Normal 1.9-2.7 [facility] Comment on above: Performed By: #### C H8, MG ####[facility] PATHOLOGY [id number] [place], [address] No Panel Informationon 02-14 Interpretation and review of laboratory results Normal [facility] Progress Noteson 02-14-2025 Observation Nurse Authentication Interface Message Text Normal [facility] Observation Nurse Authentication Interface Message Text 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 Primary team already aware that these ernesto episodes and short pauses are common while the patient is sleeping. Patient remains on telemetry and is normotensive. Normal [facility] Assessment AND Plan Noteon 0 02-13-2025 Observation Nurse Authentication Interface Message Text Normal [facility] Observation Nurse Authentication Interface Message Text - continue GenTeal moderate tears ophthalmic solution Normal [facility] Observation Nurse Authentication Interface Message Text PLAN: - Tylenol 1g q6 hours Normal [facility] Observation Nurse Authentication Interface Message Text Normal [facility] Progress Noteson 02-13-2025 Observation Nurse Authentication Interface Message Text Normal [facility] Observation Nurse Authentication Interface Message Text Normal [facility] Observation Nurse Authentication Interface Message Text Normal [facility] Assessment AND Plan Noteon 0 02-12-2025 Observation Nurse Authentication Interface Message Text - continue GenTeal moderate tears ophthalmic solution Normal [facility] Observation Nurse Authentication Interface Message Text Normal [facility] Observation Nurse Authentication Interface Message Text PLAN: - Tylenol 1g q6 hours Normal [facility] Consultson 02-12-2025 Observation Nurse Authentication Interface Message Text Normal [facility] Progress Noteson 02-12-2025 Observation Nurse Authentication Interface Message Text Normal [facility] Observation Nurse Authentication Interface Message Text Normal [facility] Observation Nurse Authentication Interface Message Text Normal [facility] Assessment AND Plan Noteon 0 02-11-2025 Observation Nurse Authentication Interface Message Text Normal [facility] Observation Nurse Authentication Interface Message Text - continue GenTeal moderate tears ophthalmic solution Normal [facility] EKG 12 LEAD - PERFORMon 01-15 Diagnosis [facility] P wave Atrium by EKG 47 BPM [facility] P wave axis 31 degrees [facility] P-R Interval 126 ms [facility] Q-T interval 470 ms [facility] Q-T interval corrected 415 ms [facility] QRS axis 74 degrees [facility] QRS duration 92 ms [facility] T wave axis 46 degrees [facility] Progress Noteson 02-11-2025 Observation Nurse Authentication Interface Message Text Normal [facility] Observation Nurse Authentication Interface Message Text Normal [facility] Observation Nurse Authentication Interface Message Text Normal [facility] Assessment AND Plan Noteon 0 02-10-2025 Observation Nurse Authentication Interface Message Text Normal [facility] Observation Nurse Authentication Interface Message Text Normal [facility] Observation Nurse Authentication Interface Message Text - continue GenTeal moderate tears ophthalmic solution Normal [facility] Consultson 02-10-2025 Observation Nurse Authentication Interface Message Text Normal [facility] Observation Nurse Authentication Interface Message Text Normal [facility] Progress Noteson 02-10-2025 Observation Nurse Authentication Interface Message Text Normal [facility] Observation Nurse Authentication Interface Message Text Normal [facility] US KIDNEY+BLADDERon 02-11-20 US KIDNEY+BLADDER Normal [facility] US Kidney - bilateral and Ur inary bladderon 02-10-2025 RADIOLOGY [facility] US Kidney - bilateral and Ur inary bladderOrdered By: Addy Gilbert on 02-10-2025 [facility] Work Phone: Assessment AND Plan Noteon 0 02-09-2025 Observation Nurse Authentication Interface Message Text Normal [facility] Observation Nurse Authentication Interface Message Text Normal [facility] Observation Nurse Authentication Interface Message Text - continue GenTeal moderate tears ophthalmic solution Normal [facility] BASIC METABOLIC PANELon 01-15 Anion gap [Moles/Vol] 12 mmol/L Normal 10-20 The [facility] System Comment on above: Performed By: #### C H8 ####[facility] PATHOLOGY [id number] [place], [place], Calcium [Mass/Vol] 8.8 mg/dL Normal 8.6-10.3 The [facility] Comment on above: Performed By: #### C H8 ####[facility] PATHOLOGY [id number] [place], [place], Chloride [Moles/Vol] 104 mmol/L Normal 98-107 The [facility] Comment on above: Performed By: #### C H8 ####S PATHOLOGY [id number] [place], CO2 [Moles/Vol] 27 mmol/L Normal 21-31 [facility] Comment on above: Performed By: #### C H8 ####[facility] PATHOLOGY [id number] [place], Creatinine [Mass/Vol] 1.11 mg/dL Normal 0.70-1.30 [facility] Comment on above: Performed By: #### C H8 ####S PATHOLOGY [id number] [place], ESTIMATED GFR (CKD-EPI) 86 mL/min/1.73sqm Normal >=60 The [facility] Comment on above: Result Comment: 2020 CKD EPI Equation using Creatinine without RaceComment: Estimated glomerular filtration rate (eGFR) is calculated without a race coefficient. Values should be interpreted in the context of the patient's full clinical presentation.Reference:1. Edgardo C, Nely M, Jahaira MORE, et al.. A Unifying Approach for GFR Estimation: Recommendations of the NKF-ASN Task Force on Reassessing the Inclusion of Race in Diagnosing Kidney Disease. Welsh Journal of Kidney Diseases 2021;79(2):268-88.e1.2. N Engl J Med 2020 Vol. 385 Issue 19 Pages 9445-1745 Performed By: #### C H8 ####[facility] PATHOLOGY [id number] [place], Glucose [Mass/Vol] 98 mg/dL Normal 74-109 [facility] Comment on above: Performed By: #### C H8 ####[facility] PATHOLOGY [id number] [place], [place], Potassium [Moles/Vol] 4.2 mmol/L Normal 3.5-5.0 [facility] Comment on above: Performed By: #### C H8 ####[facility] PATHOLOGY [id number] [place], Sodium [Moles/Vol] 139 mmol/L Normal 136-145 [facility] Comment on above: Performed By: #### C H8 ####[facility] PATHOLOGY [id number] [place], Urea nitrogen [Mass/Vol] 22 mg/dL Normal 7-25 [facility] Comment on above: Performed By: #### C H8 ####[facility] PATHOLOGY [id number] [place], [place], Basic metabolic 2000 panelon 02-09-2025 Anion gap [Moles/Vol] 12 mmol/L 10 - 20 [facility] Calcium [Mass/Vol] 8.8 mg/dL 8.6 - 10. 3 mg/dL [facility] Chloride [Moles/Vol] 104 mmol/L 98 - 10 7 mmol/L [facility] CO2 [Moles/Vol] 27 mmol/L 21 - 31 mmol/L [facility] Creatinine [Mass/Vol] 1.11 mg/dL 0.70 - 1.30 mg/dL [facility] GFR/1.73 sq M.predicted CKD-EPI (S/P/Bld) [Vol rate/Area] 86 - PINF [facility] Glucose [Mass/Vol] 98 mg/dL 74 - 109 mg/dL [facility] Interpretation and review of laboratory results Normal [facility] Potassium [Moles/Vol] 4.2 mmol/L 3.5 - 5.0 mmol/L [facility] Sodium [Moles/Vol] 139 mmol/L 136 - 145 mmol/L [facility] Urea nitrogen [Mass/Vol] 22 mg/dL 7 - 25 mg/d L [facility] Consultson 02-09-2025 Observation Nurse Authentication Interface Message Text Normal [facility] Progress Notes - NoteWritero n 02-09-2025 Observation Nurse Authentication Interface Message Text Normal [facility] US Kidney - bilateral and Ur inary bladderon 02-09-2025 Radiology Study observation (narrative) [facility] Assessment AND Plan Noteon 0 02-08-2025 Observation Nurse Authentication Interface Message Text Normal [facility] Observation Nurse Authentication Interface Message Text Normal [facility] Observation Nurse Authentication Interface Message Text - continue GenTeal moderate tears ophthalmic solution Normal [facility] Consultson 02-08-2025 Observation Nurse Authentication Interface Message Text Normal [facility] Progress Noteson 02-08-2025 Observation Nurse Authentication Interface Message Text Normal [facility] Progress Notes - NoteWritero n 02-08-2025 Observation Nurse Authentication Interface Message Text Normal [facility] Observation Nurse Authentication Interface Message Text Normal [facility] Assessment AND Plan Noteon 0 02-07-2025 Observation Nurse Authentication Interface Message Text Normal [facility] Observation Nurse Authentication Interface Message Text - continue GenTeal moderate tears ophthalmic solution Normal [facility] Observation Nurse Authentication Interface Message Text Normal [facility] Observation Nurse Authentication Interface Message Text Normal [facility] Observation Nurse Authentication Interface Message Text Normal [facility] Observation Nurse Authentication Interface Message Text - continue GenTeal moderate tears ophthalmic solution Normal [facility] Consultson 02-07-2025 Observation Nurse Authentication Interface Message Text Normal [facility] Observation Nurse Authentication Interface Message Text Normal [facility] Observation Nurse Authentication Interface Message Text Normal [facility] EKG 12 LEAD - PERFORMon 01-15 Diagnosis [facility] P wave Atrium by EKG 55 BPM [facility] P wave axis 34 degrees [facility] P-R Interval 126 ms [facility] Q-T interval 436 ms [facility] Q-T interval corrected 417 ms [facility] QRS axis 60 degrees [facility] QRS duration 92 ms [facility] T wave axis 44 degrees [facility] Progress Noteson 02-07-2025 Observation Nurse Authentication Interface Message Text Normal [facility] Observation Nurse Authentication Interface Message Text Normal [facility] Assessment AND Plan Noteon 0 02-06-2025 Observation Nurse Authentication Interface Message Text Normal [facility] Observation Nurse Authentication Interface Message Text - continue GenTeal moderate tears ophthalmic solution Normal [facility] BASIC METABOLIC PANELon 01-15 Anion gap [Moles/Vol] 9 mmol/L Low 10-20 [facility] Comment on above: Performed By: #### P ROLACT, MG, CH8 ####[facility] PATHOLOGY [id number] [place], [address] Calcium [Mass/Vol] 8.9 mg/dL Normal 8.6-10.3 [facility] Comment on above: Performed By: #### P ROLACT, MG, CH8 ####[facility] PATHOLOGY [id number] [place], Chloride [Moles/Vol] 101 mmol/L Normal 98-107 [facility] Comment on above: Performed By: #### MG ALEKSANDR, CH8 ####[facility] PATHOLOGY [id number] [place], CO2 [Moles/Vol] 33 mmol/L High 21-31 [facility] Comment on above: Performed By: #### MG ALEKSANDR, CH8 ####[facility] PATHOLOGY [id number] [place], Creatinine [Mass/Vol] 1.07 mg/dL Normal 0.70-1.30 [facility] Comment on above: Performed By: #### MG ALEKSANDR, CH8 ####[facility] PATHOLOGY [id number] [place], ESTIMATED GFR (CKD-EPI) 89 mL/min/1.73sqm Normal >=60 [facility] Comment on above: Result Comment: 2020 CKD EPI Equation using Creatinine without RaceComment: Estimated glomerular filtration rate (eGFR) is calculated without a race coefficient. Values should be interpreted in the context of the patient's full clinical presentation.Reference:1. Edgardo C, Nely M, Jahaira MORE, et al.. A Unifying Approach for GFR Estimation: Recommendations of the NKF-ASN Task Force on Reassessing the Inclusion of Race in Diagnosing Kidney Disease. Welsh Journal of Kidney Diseases 2021;79(2):268-88.e1.2. N Engl J Med 2020 Vol. 385 Issue 19 Pages 3760-0038 Performed By: #### Mir DAVE MG, CH8 ####[facility] PATHOLOGY [id number] [place], Glucose [Mass/Vol] 101 mg/dL Normal 74-109 [facility] Comment on above: Performed By: #### Mir DAVE MG, CH8 ####[facility] PATHOLOGY [id number] [place], Potassium [Moles/Vol] 4.3 mmol/L Normal 3.5-5.0 [facility] Comment on above: Performed By: #### P TENZIN MG, CH8 ####[facility] PATHOLOGY [id number] [place], Sodium [Moles/Vol] 139 mmol/L Normal 136-145 [facility] Comment on above: Performed By: #### P TENZIN MG, CH8 ####[facility] PATHOLOGY [id number] [place], Urea nitrogen [Mass/Vol] 25 mg/dL Normal 7-25 The [facility] Comment on above: Performed By: #### P ROLACT, MG, CH8 ####S PATHOLOGY [id number] [place], Basic metabolic 2000 panelon 02-06-2025 Anion gap [Moles/Vol] 9 mmol/L Low 10 - 20 [facility] Calcium [Mass/Vol] 8.9 mg/dL 8.6 - 10. 3 mg/dL [facility] Chloride [Moles/Vol] 101 mmol/L 98 - 10 7 mmol/L [facility] CO2 [Moles/Vol] 33 mmol/L High 21 - 31 mmol/L [facility] Creatinine [Mass/Vol] 1.07 mg/dL 0.70 - 1.30 mg/dL [facility] GFR/1.73 sq M.predicted CKD-EPI (S/P/Bld) [Vol rate/Area] 89 - PINF [facility] Glucose [Mass/Vol] 101 mg/dL 74 - 109 mg/dL [facility] Interpretation and review of laboratory results Abnormal [facility] Potassium [Moles/Vol] 4.3 mmol/L 3.5 - 5.0 mmol/L [facility] Sodium [Moles/Vol] 139 mmol/L 136 - 145 mmol/L [facility] Urea nitrogen [Mass/Vol] 25 mg/dL 7 - 25 mg/d L [facility] CBC WITH DIFFERENTIALOrdered By: Eli Munroe on 02-06-2025 Erythrocyte distribution width (RBC) [Ratio] 15.4 % High 11.5 - 14.5 % [facility] Hematocrit (Bld) [Volume fraction] 41.8 % 41.0 - 53.0 % [facility] Hemoglobin (Bld) [Mass/Vol] 14 g/dL 13.9 - 16.3 g/dL [facility] MCH (RBC) [Entitic mass] 30.9 pg 26. 0 - 34.0 pg [facility] MCHC (RBC) [Mass/Vol] 33.6 g/dL 32.0 - 35.9 g/dL [facility] MCV (RBC) [Entitic vol] 92 fL 80 - 100 fL [facility] Platelet mean volume (Bld) [Entitic vol] 7.9 fL 7.5 - 11.2 fL [facility] Platelets (Bld) [#/Vol] 234 10*3/uL 150 - 400 K/uL [facility] RBC (Bld) [#/Vol] 4.54 10*6/uL [facility] [#/Vol] 5.1 10*3/uL 4.5 - 11.5 K/uL [facility] CBC WITH DIFFERENTIALon 01-15 Erythrocyte distribution width (RBC) [Ratio] 15.4 % High 11.5-14.5 [facility] Comment on above: Performed By: #### M DIFF, CBCDSAT ####S PATHOLOGY [id number] [place], Hematocrit (Bld) [Volume fraction] 41.8 % Normal 41.0-53.0 [facility] Comment on above: Performed By: #### M DIFF, CBCDSAT ####S PATHOLOGY [id number] [place], Hemoglobin (Bld) [Mass/Vol] 14.0 g/dL Normal 13.9-16.3 [facility] Comment on above: Performed By: #### M DIFF, CBCDSAT ####S PATHOLOGY [id number] [place], MCH (RBC) [Entitic mass] 30.9 pg Normal 26.0-34.0 [facility] Comment on above: Performed By: #### M DIFF, CBCDSAT ####S PATHOLOGY [id number] [place], MCHC (RBC) [Mass/Vol] 33.6 g/dL Normal 32.0-35.9 [facility] Comment on above: Performed By: #### M DIFF, CBCDSAT ####S PATHOLOGY [id number] [place], MCV (RBC) [Entitic vol] 92 fL Normal 80-100 T he [facility] Comment on above: Performed By: #### M DIFF, CBCDSAT ####S PATHOLOGY [id number] [place], Platelet mean volume (Bld) [Entitic vol] 7.9 fL Normal 7.5-11.2 [facility] Comment on above: Performed By: #### M DIFF, CBCDSAT ####[facility] PATHOLOGY [id number] [place], Platelets (Bld) [#/Vol] 234 10*3/uL Normal 150-400 The [facility] Comment on above: Performed By: #### M DIFF, CBCDSAT ####[facility] PATHOLOGY [id number] [place], RBC (Bld) [#/Vol] 4.54 10*6/uL Normal 4.50-5.90 The [facility] Comment on above: Performed By: #### M DIFF, CBCDSAT ####[facility] PATHOLOGY [id number] [place], WBC (Bld) [#/Vol] 5.1 10*3/uL Normal 4.5-11.5 The [facility] Comment on above: Performed By: #### M DIFF, CBCDSAT ####[facility] PATHOLOGY [id number] [place], Consultson 02-06-2025 Observation Nurse Authentication Interface Message Text Normal The [facility] Observation Nurse Authentication Interface Message Text Normal The [facility] System MAGNESIUMon 02-06-2025 Interpretation and review of laboratory results Normal [facility] Magnesium [Mass/Vol] 2.2 mg/dL 1.9 - 2 .7 mg/dL [facility] Magnesium [Mass/Vol] 2.2 mg/dL Normal 1.9-2.7 [facility] Comment on above: Performed By: #### P ROLACT, MG, CH8 ####S PATHOLOGY [id number] [place], MANUAL DIFF AND MORPHon 082 Atypical Lymph # 0.05 K/uL [facility] Cells Counted Total (Bld) [#] 100 {cells} [facility] Lymphocytes (Bld) [#/Vol] 0.77 10*3/uL Low 1.00 - 4.80 K/uL [facility] Lymphocytes/100 WBC (Bld) 15 % Low 24.0 - 44.0 % [facility] Metamyelocyte # 0.1 K/uL High NINF - 0.01 K/uL [facility] Metamyelocytes/100 WBC (Bld) 2 % High NINF - 0 % [facility] Monocytes (Bld) [#/Vol] 0.15 10*3/uL Low 0.20 - 1.00 K/uL [facility] Monocytes/100 WBC (Bld) 3 % 2.0 - 11.0 % [facility] Neutrophils (Bld) [#/Vol] 4.03 10*3/uL 1.50 - 8.00 K/uL [facility] Neutrophils/100 WBC (Bld) 79 % High 31.0 - 76.0 % [facility] RBC morphology finding Nom (Bld) Normal [facility] Vacuolated Granulocytes Present [facility] Variant lymphocytes/100 WBC (Bld) 1 % [facility] ATYPICAL LYMPHS % BY MANUAL COUNT 1 % Normal [facility] Comment on above: Performed By: #### M DIFF, CBCDSAT ####S PATHOLOGY [id number] [place], ATYPICAL LYMPHS ABS BY MANUAL COUNT 0.05 K/uL Normal The [facility] Comment on above: Performed By: #### M DIFF, CBCDSAT ####S PATHOLOGY [id number] [place], CELLS COUNTED TOTAL # IN BLOOD 100 Normal [facility] Comment on above: Performed By: #### M DIFF, CBCDSAT ####S PATHOLOGY [id number] [place], LYMPHOCYTES % BY MANUAL COUNT 15.0 % Low 24.0-44.0 [facility] Comment on above: Performed By: #### M DIFF, CBCDSAT ####[facility] PATHOLOG[facility] [id number] [place], LYMPHOCYTES ABS BY MANUAL COUNT 0.77 K/uL Low 1.00-4.80 [facility] [facility] Comment on above: Performed By: #### M DIFF, CBCDSAT ####S PATHOLOGY [id number] [place], [place], METAMYELOCYTES % BY MANUAL COUNT 2 % High <0 [facility] Comment on above: Performed By: #### M DIFF, CBCDSAT ####[facility] PATHOLOGY [id number] [place], [place], METAMYELOCYTES ABS BY MANUAL COUNT 0.10 K/uL High <0.01 [facility] Comment on above: Performed By: #### M DIFF, CBCDSAT ####[facility] PATHOLOGY [id number] [place], [place], MONOCYTES % BY MANUAL COUNT 3.0 % Normal 2.0-11.0 [facility] Comment on above: Performed By: #### M DIFF, CBCDSAT ####[facility] PATHOLOGY [id number] [place], MONOCYTES ABS BY MANUAL COUNT 0.15 K/uL Low 0.20-1.00 [facility] Comment on above: Performed By: #### M DIFF, CBCDSAT ####[facility] PATHOLOGY [id number] [place], NEUTROPHILS % BY MANUAL COUNT 79.0 % High 31.0-76.0 [facility] Comment on above: Performed By: #### M DIFF, CBCDSAT ####[facility] PATHOLOGY [id number] [place], NEUTROPHILS ABS BY MANUAL COUNT 4.03 K/uL Normal 1.50-8.00 [facility] Comment on above: Performed By: #### M DIFF, CBCDSAT ####[facility] PATHOLOGY [id number] [place], [place], RBC MORPHOLOGY Normal Normal [facility] Comment on above: Performed By: #### M DIFF, CBCDSAT ####S PATHOLOGY [id number] [place], VACUOLATED GRANULOCYTES Present Normal T he [facility] Comment on above: Performed By: #### M DIFF, CBCDSAT ####[facility] [id number] [place], [place], MR Brain WO contraston 02-06 RADIOLOGY [facility] Radiology Study observation (narrative) [facility] MR Brain WO contrastOrdered By: Roland Ty on 02-06-2025 [facility] Work Phone: MR HEAD W/Oon 02-06-2025 MR HEAD W/O Normal [facility] No Panel InformationOrdered By: Eli Munroe on 02-06-2025 Interpretation and review of laboratory results Abnormal [facility] No Panel Informationon 02-06 [facility] PROLACTINon 02-06-2025 Interpretation and review of laboratory results Abnormal [facility] Prolactin [Mass/Vol] 47.3 ng/mL High 2.64 - 13.13 ng/mL [facility] PROLACT 47.30 ng/mL High 2.64-13.13 [facility] Comment on above: Performed By: #### P ROLACT, MG, CH8 ####[facility] PATH[facility] [id number] [place], [place], Progress Noteson 02-06-2025 Observation Nurse Authentication Interface Message Text Normal [facility] Observation Nurse Authentication Interface Message Text Normal [facility] Observation Nurse Authentication Interface Message Text Normal [facility] Assessment AND Plan Noteon 0 02-05-2025 Observation Nurse Authentication Interface Message Text - continue GenTeal moderate tears ophthalmic solution Normal [facility] Observation Nurse Authentication Interface Message Text Normal [facility] BASIC METABOLIC PANELon 01-15 Anion gap [Moles/Vol] 10 mmol/L Normal 10-20 [facility] Comment on above: Performed By: #### Shannan Calzada, CH8 ####[facility] PATH[facility]Y [id number] [place], Calcium [Mass/Vol] 8.4 mg/dL Low 8.6-10.3 [facility] Comment on above: Performed By: #### Shannan Calzada, CH8 ####[facility] PATHOLOGY [id number] [place], Chloride [Moles/Vol] 106 mmol/L Normal 98-107 [facility] Comment on above: Performed By: #### Shannan Calzada, HUGO8 ####S PATHOLOGY [id number] [place], CO2 [Moles/Vol] 30 mmol/L Normal 21-31 [facility] Comment on above: Performed By: #### Shannan Calzada, HUGO8 ####[facility] PATHOLOGY [id number] [place], Creatinine [Mass/Vol] 1.20 mg/dL Normal 0.70-1.30 [facility] Comment on above: Performed By: #### Shannan Calzada CH8 ####[facility] PATHOLOGY [id number] [place], ESTIMATED GFR (CKD-EPI) 78 mL/min/1.73sqm Normal >=60 [facility] Comment on above: Result Comment: 2020 CKD EPI Equation using Creatinine without RaceComment: Estimated glomerular filtration rate (eGFR) is calculated without a race coefficient. Values should be interpreted in the context of the patient's full clinical presentation.Reference:1. Edgardo C, Nely M, Jahaira MORE, et al.. A Unifying Approach for GFR Estimation: Recommendations of the NKF-ASN Task Force on Reassessing the Inclusion of Race in Diagnosing Kidney Disease. Welsh Journal of Kidney Diseases 2021;79(2):268-88.e1.2. N Engl J Med 2020 Vol. 385 Issue 19 Pages 6847-6239 Performed By: #### Shannan Calzada CH8 ####S PATHOLOGY [id number] [place], Glucose [Mass/Vol] 95 mg/dL Normal 74-109 [facility] Comment on above: Performed By: #### Shannan Calzada CH8 ####S PATHOLOGY [id number] [place], Potassium [Moles/Vol] 4.4 mmol/L Normal 3.5-5.0 [facility] Comment on above: Performed By: #### Shannan Calzada CH8 ####S PATHOLOGY [id number] [place], Sodium [Moles/Vol] 142 mmol/L Normal 136-145 [facility] Comment on above: Performed By: #### Shannan Calzada, HUGO8 ####S PATHOLOGY [id number] [place], Urea nitrogen [Mass/Vol] 30 mg/dL High 7-25 [facility] Comment on above: Performed By: #### Shannan Calzada, HUGO8 ####[facility] PATHOLOGY [id number] [place], [place], Basic metabolic 2000 panelon 02-05-2025 Anion gap [Moles/Vol] 10 mmol/L 10 - 20 [facility] Calcium [Mass/Vol] 8.4 mg/dL Low 8.6 - 10. 3 mg/dL [facility] Chloride [Moles/Vol] 106 mmol/L 98 - 10 7 mmol/L [facility] CO2 [Moles/Vol] 30 mmol/L 21 - 31 mmol/L [facility] Creatinine [Mass/Vol] 1.2 mg/dL 0.70 - 1.30 mg/dL [facility] GFR/1.73 sq M.predicted CKD-EPI (S/P/Bld) [Vol rate/Area] 78 - PINF [facility] Glucose [Mass/Vol] 95 mg/dL 74 - 109 mg/dL [facility] Interpretation and review of laboratory results Abnormal [facility] Potassium [Moles/Vol] 4.4 mmol/L 3.5 - 5.0 mmol/L [facility] Sodium [Moles/Vol] 142 mmol/L 136 - 145 mmol/L [facility] Urea nitrogen [Mass/Vol] 30 mg/dL High 7 - 25 mg/d L [facility] CBC panel Auto (Bld)on 02-05 Erythrocyte distribution width (RBC) [Ratio] 15.7 % High 11.5 - 14.5 % [facility] Hematocrit (Bld) [Volume fraction] 40.8 % Low 41.0 - 53.0 % [facility] Hemoglobin (Bld) [Mass/Vol] 13.6 g/dL Low 13.9 - 16.3 g/dL [facility] Interpretation and review of laboratory results Abnormal [facility] MCH (RBC) [Entitic mass] 31.4 pg 26. 0 - 34.0 pg [facility] MCHC (RBC) [Mass/Vol] 33.2 g/dL 32.0 - 35.9 g/dL [facility] MCV (RBC) [Entitic vol] 94 fL 80 - 100 fL [facility] Platelet mean volume (Bld) [Entitic vol] 8.4 fL 7.5 - 11.2 fL [facility] Platelets (Bld) [#/Vol] 197 10*3/uL 150 - 400 K/uL [facility] RBC (Bld) [#/Vol] 4.32 10*6/uL [facility] [#/Vol] 3.9 10*3/uL Low 4.5 - 11.5 K/uL [facility] COMPLETE BLOOD COUNTon 02-05 Erythrocyte distribution width (RBC) [Ratio] 15.7 % High 11.5-14.5 [facility] Comment on above: Performed By: #### C BC ####[facility] PATHOLOGY [id number] [place] [address], Hematocrit (Bld) [Volume fraction] 40.8 % Low 41.0-53.0 [facility] Comment on above: Performed By: #### C BC ####[facility] PATHOLOGY [id number] [place] [address], Hemoglobin (Bld) [Mass/Vol] 13.6 g/dL Low 13.9-16.3 [facility] Comment on above: Performed By: #### C BC ####[facility] PATHOLOGY [id number] [place], MCH (RBC) [Entitic mass] 31.4 pg Normal 26.0-34.0 [facility] Comment on above: Performed By: #### C BC ####S PATHOLOGY [id number] [place], MCHC (RBC) [Mass/Vol] 33.2 g/dL Normal 32.0-35.9 [facility] Comment on above: Performed By: #### C BC ####S PATHOLOGY [id number] [place] [address], MCV (RBC) [Entitic vol] 94 fL Normal 80-100 T he [facility] Comment on above: Performed By: #### C BC ####S PATHOLOGY [id number] [place], Platelet mean volume (Bld) [Entitic vol] 8.4 fL Normal 7.5-11.2 [facility] Comment on above: Performed By: #### C BC ####S PATHOLOGY [id number] [place], Platelets (Bld) [#/Vol] 197 10*3/uL Normal 150-400 [facility] Comment on above: Performed By: #### C BC ####S PATHOLOGY [id number] [place], RBC (Bld) [#/Vol] 4.32 10*6/uL Low 4.50-5.90 [facility] Comment on above: Performed By: #### C BC ####S PATHOLOGY [id number] [place], WBC (Bld) [#/Vol] 3.9 10*3/uL Low 4.5-11.5 [facility] Comment on above: Performed By: #### C BC ####[facility] PATHOLOGY [id number] [place], Consultson 02-05-2025 Observation Nurse Authentication Interface Message Text Normal [facility] GLUCOSE, FINGERSTICK-IN OFFI CEon 02-05-2025 Glucose [Mass/Vol] 99 mg/dL 74 - 109 mg/dL [facility] Interpretation and review of laboratory results Normal [facility] Glucose [Mass/Vol] 99 mg/dL Normal 74-109 [facility] Comment on above: Performed By: #### 8 [id number] ####[facility] GLUCOSE [id number] [place], LACTIC ACIDOrdered By: Cathi Landis on 02-05-2025 Interpretation and review of laboratory results Normal [facility] Lactate [Moles/Vol] 1.4 mmol/L 0.5 - 1. 6 mmol/L [facility] LACTIC ACIDon 02-05-2025 CR LACT 1.4 mmol/L Normal 0.5-1.6 [facility] Comment on above: Order Comment: This test was developed, and its performance characteristics determined by the Department of Pathology of The [facility]. It has not been cleared or approved by the FDA. This test is used for clinical purposes only. Performed By: #### L ACT ####[facility] PATH[facility] [id number] [place], MAGNESIUMon 02-05-2025 Interpretation and review of laboratory results Normal [facility] Magnesium [Mass/Vol] 2.2 mg/dL 1.9 - 2 .7 mg/dL [facility] Magnesium [Mass/Vol] 2.2 mg/dL Normal 1.9-2.7 [facility] Comment on above: Performed By: #### M G, CH8 ####[facility] PATH[facility] [id number] [place], No Panel Informationon 02-05 [facility] PROLACTINon 02-05-2025 Interpretation and review of laboratory results Abnormal [facility] Prolactin [Mass/Vol] 48.9 ng/mL High 2.64 - 13.13 ng/mL [facility] PROLACT 48.90 ng/mL High 2.64-13.13 [facility] Comment on above: Performed By: #### P ROLACT ####[facility] PATHOLOG[facility] [id number] [place], Progress Noteson 02-05-2025 Observation Nurse Authentication Interface Message Text Normal [facility] Observation Nurse Authentication Interface Message Text Normal [facility] Observation Nurse Authentication Interface Message Text Normal [facility] Observation Nurse Authentication Interface Message Text Normal [facility] Observation Nurse Authentication Interface Message Text Normal [facility] Consultson 02-04-2025 Observation Nurse Authentication Interface Message Text Normal [facility] Observation Nurse Authentication Interface Message Text Normal [facility] H AND Max 02-04-2025 Observation Nurse Authentication Interface Message Text Normal [facility] Progress Noteson 02-04-2025 Observation Nurse Authentication Interface Message Text Normal [facility] Observation Nurse Authentication Interface Message Text Normal [facility] Student Noteon 02-04-2025 Observation Nurse Authentication Interface Message Text Normal [facility] BASIC METABOLIC PANELon 08- Anion gap [Moles/Vol] 10 mmol/L Normal 10-20 [facility] Comment on above: Performed By: #### C ORT AM, CH8 ####S PATHOLOGY [id number] [place], Calcium [Mass/Vol] 8.4 mg/dL Low 8.6-10.3 [facility] Comment on above: Performed By: #### C ORT AM, CH8 ####[facility] PATHOLOGY [id number] [place], Chloride [Moles/Vol] 105 mmol/L Normal 98-107 [facility] Comment on above: Performed By: #### C ORT AM, CH8 ####S PATHOLOGY [id number] [place], CO2 [Moles/Vol] 30 mmol/L Normal 21-31 [facility] Comment on above: Performed By: #### C ORT AM, CH8 ####S PATHOLOGY [id number] [place], Creatinine [Mass/Vol] 1.06 mg/dL Normal 0.70-1.30 [facility] Comment on above: Performed By: #### C ORT AM, CH8 ####S PATHOLOGY [id number] [place], ESTIMATED GFR (CKD-EPI) 90 mL/min/1.73sqm Normal >=60 [facility] Comment on above: Result Comment: 2020 CKD EPI Equation using Creatinine without RaceComment: Estimated glomerular filtration rate (eGFR) is calculated without a race coefficient. Values should be interpreted in the context of the patient's full clinical presentation.Reference:1. Edgardo C, Nely M, Jahaira MORE, et al.. A Unifying Approach for GFR Estimation: Recommendations of the NKF-ASN Task Force on Reassessing the Inclusion of Race in Diagnosing Kidney Disease. Welsh Journal of Kidney Diseases 2021;79(2):268-88.e1.2. N Engl J Med 1 Vol. 385 Issue 19 Pages 4534-5938 Performed By: #### Jaison LANDAVERDE AM, CH8 ####[facility] PATH[facility] [id number] [place], Glucose [Mass/Vol] 101 mg/dL Normal 74-109 [facility] Comment on above: Performed By: #### Jaison LANDAVERDE AM, CH8 ####[facility] PATHOLOGY [id number] [place], Potassium [Moles/Vol] 4.3 mmol/L Normal 3.5-5.0 [facility] Comment on above: Performed By: #### Jaison LANDAVERDE AM, CH8 ####S PATHOLOGY VOLNIYYLPL8345 [place], Sodium [Moles/Vol] 141 mmol/L Normal 136-145 [facility] Comment on above: Performed By: #### Jaison LANDAVERDE AM, CH8 ####S PATHOLOGY [id number] [place], Urea nitrogen [Mass/Vol] 24 mg/dL Normal 7-25 [facility] Comment on above: Performed By: #### Jaison LANDAVERDE AM, CH8 ####S PATHOLOGY [id number] [place], [place], Basic metabolic 2000 panelon 02-03-2025 Anion gap [Moles/Vol] 10 mmol/L 10 - 20 [facility] Calcium [Mass/Vol] 8.4 mg/dL Low 8.6 - 10. 3 mg/dL [facility] Chloride [Moles/Vol] 105 mmol/L 98 - 10 7 mmol/L [facility] CO2 [Moles/Vol] 30 mmol/L 21 - 31 mmol/L [facility] Creatinine [Mass/Vol] 1.06 mg/dL 0.70 - 1.30 mg/dL [facility] GFR/1.73 sq M.predicted CKD-EPI (S/P/Bld) [Vol rate/Area] 90 - PINF [facility] Glucose [Mass/Vol] 101 mg/dL 74 - 109 mg/dL [facility] Interpretation and review of laboratory results Abnormal [facility] Potassium [Moles/Vol] 4.3 mmol/L 3.5 - 5.0 mmol/L [facility] Sodium [Moles/Vol] 141 mmol/L 136 - 145 mmol/L [facility] Urea nitrogen [Mass/Vol] 24 mg/dL 7 - 25 mg/d L [facility] CBC WITH DIFFERENTIALon 01-15 Basophils (Bld) [#/Vol] 0.04 10*3/uL 0.00 - 0.20 K/uL [facility] Basophils/100 WBC (Bld) 0.9 % NINF - 1.9 % [facility] Eosinophils (Bld) [#/Vol] 0.13 10*3/uL 0.00 - 0.70 K/uL [facility] Eosinophils/100 WBC (Bld) 2.9 % 0.1 - 4.0 % [facility] Erythrocyte distribution width (RBC) [Ratio] 14.6 % High 11.5 - 14.5 % [facility] Hematocrit (Bld) [Volume fraction] 39.9 % Low 41.0 - 53.0 % [facility] Hemoglobin (Bld) [Mass/Vol] 13.3 g/dL Low 13.9 - 16.3 g/dL [facility] Interpretation and review of laboratory results Abnormal [facility] Lymphocytes (Bld) [#/Vol] 1.26 10*3/uL 1.00 - 4.80 K/uL [facility] Lymphocytes/100 WBC (Bld) 28.3 % 24.0 - 44.0 % [facility] MCH (RBC) [Entitic mass] 31.3 pg 26. 0 - 34.0 pg [facility] MCHC (RBC) [Mass/Vol] 33.5 g/dL 32.0 - 35.9 g/dL [facility] MCV (RBC) [Entitic vol] 94 fL 80 - 100 fL [facility] Monocytes (Bld) [#/Vol] 0.61 10*3/uL 0.20 - 1.00 K/uL [facility] Monocytes/100 WBC (Bld) 13.6 % High 2.0 - 11.0 % [facility] Neutrophils (Bld) [#/Vol] 2.42 10*3/uL 1.50 - 8.00 K/uL [facility] Neutrophils/100 WBC (Bld) 54.4 % 31.0 - 76.0 % [facility] Platelet mean volume (Bld) [Entitic vol] 7.7 fL 7.5 - 11.2 fL [facility] Platelets (Bld) [#/Vol] 177 10*3/uL 150 - 400 K/uL [facility] RBC (Bld) [#/Vol] 4.26 10*6/uL Low [facility] WBC (Bld) [#/Vol] 4.5 10*3/uL 4.5 - 11.5 K/uL [facility] Basophils (Bld) [#/Vol] 0.04 10*3/uL Normal 0.00-0.20 [facility] Comment on above: Performed By: #### C BCDSAT ####[facility] PATHOLOGY [id number] [place], Basophils/100 WBC (Bld) 0.9 % Normal <=1.9 [facility] Comment on above: Performed By: #### C BCDSAT ####[facility] PATHOLOGY [id number] [place] [address], Eosinophils (Bld) [#/Vol] 0.13 10*3/uL Normal 0.00-0.70 [facility] Comment on above: Performed By: #### C BCDSAT ####[facility] PATHOLOGY [id number] [place] [address], Eosinophils/100 WBC (Bld) 2.9 % Normal 0.1-4.0 [facility] Comment on above: Performed By: #### C BCDSAT ####[facility] PATHOLOGY [id number] [place] [address], Erythrocyte distribution width (RBC) [Ratio] 14.6 % High 11.5-14.5 [facility] Comment on above: Performed By: #### C BCDSAT ####S PATHOLOGY [id number] [place] [address], Hematocrit (Bld) [Volume fraction] 39.9 % Low 41.0-53.0 [facility] Comment on above: Performed By: #### C BCDSAT ####S PATHOLOGY [id number] [place] [address], Hemoglobin (Bld) [Mass/Vol] 13.3 g/dL Low 13.9-16.3 [facility] Comment on above: Performed By: #### C YEIMIAT ####[facility] PATHOLOGY [id number] [place] [address], Lymphocytes (Bld) [#/Vol] 1.26 10*3/uL Normal 1.00-4.80 [facility] Comment on above: Performed By: #### C YEIMIAT ####[facility] PATHOLOGY [id number] [place] [address], Lymphocytes/100 WBC (Bld) 28.3 % Normal 24.0-44.0 [facility] Comment on above: Performed By: #### Jaison JALLOHAT ####[facility] PATHOLOGY [id number] [place] [address], MCH (RBC) [Entitic mass] 31.3 pg Normal 26.0-34.0 [facility] Comment on above: Performed By: #### Jaison JALLOHAT ####[facility] PATHOLOGY [id number] [place] [address], MCHC (RBC) [Mass/Vol] 33.5 g/dL Normal 32.0-35.9 [facility] Comment on above: Performed By: #### Jaison JALLOHAT ####[facility] PATHOLOGY [id number] [place] [address], MCV (RBC) [Entitic vol] 94 fL Normal 80-100 T [facility] Comment on above: Performed By: #### C YEIMIAT ####[facility] PATHOLOGY [id number] [place] [address], Monocytes (Bld) [#/Vol] 0.61 10*3/uL Normal 0.20-1.00 [facility] Comment on above: Performed By: #### C YEIMIAT ####[facility] PATHOLOGY [id number] [place] [address], Monocytes/100 WBC (Bld) 13.6 % High 2.0-11.0 [facility] Comment on above: Performed By: #### Jaison JALLOHAT ####[facility] PATHOLOGY [id number] [place], Neutrophils (Bld) [#/Vol] 2.42 10*3/uL Normal 1.50-8.00 [facility] Comment on above: Performed By: #### Jaison BCDSAT ####[facility] PATHOLOGY [id number] [place], Neutrophils/100 WBC (Bld) 54.4 % Normal 31.0-76.0 [facility] Comment on above: Performed By: #### Jaison BCDSAT ####[facility] PATHOLOGY [id number] [place], Platelet mean volume (Bld) [Entitic vol] 7.7 fL Normal 7.5-11.2 [facility] Comment on above: Performed By: #### Jaison JALLOHAT ####[facility] PATHOLOGY [id number] [place], Platelets (Bld) [#/Vol] 177 10*3/uL Normal 150-400 [facility] Comment on above: Performed By: #### Jaison ROCKDSAT ####[facility] PATHOLOGY [id number] [place], RBC (Bld) [#/Vol] 4.26 10*6/uL Low 4.50-5.90 [facility] Comment on above: Performed By: #### Jaison ROCKDSAT ####[facility] PATHOLOGY [id number] [place], WBC (Bld) [#/Vol] 4.5 10*3/uL Normal 4.5-11.5 [facility] Comment on above: Performed By: #### Jaison BCDSAT ####[facility] PATHOLOGY [id number] [place], [place], CORTISOL Vic 02-03-2025 Cortisol AM peak specimen [Mass/Vol] 4.8 ug/dL Low 6.7 - 22.6 ug/dL [facility] Interpretation and review of laboratory results Abnormal [facility] AM 4.8 ug/dL Low 6.7-22.6 [facility] Comment on above: Performed By: #### Jaison LANDAVERDE AM, CH8 ####S PATHOLOGY [id number] [place], [place], CORTISOL RANDOMon 02-03-2025 Cortisone [Mass/Vol] 17.4 ug/dL [facility] Cortisone [Mass/Vol] 20.4 ug/[facility] CORTISOL, SERUM 17.4 ug/dL Normal [facility] Comment on above: Performed By: #### C RR ####S PATHOLOGY [id number] [place], [place], CORTISOL, SERUM 20.4 ug/dL Normal [facility] Comment on above: Performed By: #### C RR ####[facility] PATHOLOGY [id number] [place] [address], Consultson 02-03-2025 Observation Nurse Authentication Interface Message Text Normal [facility] Observation Nurse Authentication Interface Message Text Normal [facility] Progress Noteson 02-03-2025 Observation Nurse Authentication Interface Message Text Normal [facility] Observation Nurse Authentication Interface Message Text Normal [facility] Progress Notes - NoteWritero n 02-03-2025 Observation Nurse Authentication Interface Message Text Normal [facility] Student Noteon 02-03-2025 Observation Nurse Authentication Interface Message Text Normal [facility] Observation Nurse Authentication Interface Message Text Normal [facility] BASIC METABOLIC PANELon 01-15 Anion gap [Moles/Vol] 10 mmol/L Normal 10-20 [facility] Comment on above: Performed By: #### H EPATIC, MG, TSH HS, CH8 ####[facility] PATHOLOGY [id number] [place], [place], Calcium [Mass/Vol] 8.3 mg/dL Low 8.6-10.3 [facility] Comment on above: Performed By: #### H EPATIC, MG, TSH HS, CH8 ####[facility] PATHOLOGY [id number] [place], [place], Chloride [Moles/Vol] 105 mmol/L Normal 98-107 The [facility] Comment on above: Performed By: #### H EPATIC, MG, TSH HS, CH8 ####S PATHOLOGY [id number] [place], CO2 [Moles/Vol] 30 mmol/L Normal 21-31 [facility] Comment on above: Performed By: #### H EPATIC, MG, TSH HS, CH8 ####S PATHOLOGY [id number] [place], Creatinine [Mass/Vol] 1.06 mg/dL Normal 0.70-1.30 [facility] Comment on above: Performed By: #### H EPATIC, MG, TSH HS, CH8 ####S PATHOLOGY [id number] [place], ESTIMATED GFR (CKD-EPI) 90 mL/min/1.73sqm Normal >=60 [facility] Comment on above: Result Comment: 2020 CKD EPI Equation using Creatinine without RaceComment: Estimated glomerular filtration rate (eGFR) is calculated without a race coefficient. Values should be interpreted in the context of the patient's full clinical presentation.Reference:1. Edgardo C, Nely M, Jahaira MORE, et al.. A Unifying Approach for GFR Estimation: Recommendations of the NKF-ASN Task Force on Reassessing the Inclusion of Race in Diagnosing Kidney Disease. Welsh Journal of Kidney Diseases 2021;79(2):268-88.e1.2. N Engl J Med 2020 Vol. 385 Issue 19 Pages 6488-4063 Performed By: #### H EPATIC, MG, TSH HS, CH8 ####S PATHOLOGY [id number] [place], Glucose [Mass/Vol] 96 mg/dL Normal 74-109 The [facility] Comment on above: Performed By: #### H EPATIC, MG, TSH HS, CH8 ####S PATHOLOGY [id number] [place], Potassium [Moles/Vol] 4.3 mmol/L Normal 3.5-5.0 [facility] Comment on above: Performed By: #### H EPATIC, MG, TSH HS, CH8 ####S PATHOLOGY [id number] [place], Sodium [Moles/Vol] 141 mmol/L Normal 136-145 [facility] Comment on above: Performed By: #### H EPATIC, MG, TSH HS, CH8 ####[facility] PATHOLOGY [id number] [place], Urea nitrogen [Mass/Vol] 24 mg/dL Normal 7-25 The [facility] Comment on above: Performed By: #### H EPATIC, MG, TSH HS, CH8 ####[facility] PATHOLOGY [id number] [place], [place], Basic metabolic 2000 panelon 02-02-2025 Anion gap [Moles/Vol] 10 mmol/L 10 - 20 Met [facility] Calcium [Mass/Vol] 8.3 mg/dL Low 8.6 - 10. 3 mg/dL [facility] Chloride [Moles/Vol] 105 mmol/L 98 - 10 7 mmol/L [facility] CO2 [Moles/Vol] 30 mmol/L 21 - 31 mmol/L [facility] Creatinine [Mass/Vol] 1.06 mg/dL 0.70 - 1.30 mg/dL [facility] GFR/1.73 sq M.predicted CKD-EPI (S/P/Bld) [Vol rate/Area] 90 - PINF [facility] Glucose [Mass/Vol] 96 mg/dL 74 - 109 mg/dL [facility] Interpretation and review of laboratory results Abnormal [facility] Potassium [Moles/Vol] 4.3 mmol/L 3.5 - 5.0 mmol/L [facility] Sodium [Moles/Vol] 141 mmol/L 136 - 145 mmol/L [facility] Urea nitrogen [Mass/Vol] 24 mg/dL 7 - 25 mg/d L [facility] CBC panel Auto (Bld)Ordered By: Karli Emery on 02-02-2025 Erythrocyte distribution width (RBC) [Ratio] 14.8 % High 11.5 - 14.5 % [facility] Hematocrit (Bld) [Volume fraction] 41.3 % 41.0 - 53.0 % [facility] Hemoglobin (Bld) [Mass/Vol] 13.7 g/dL Low 13.9 - 16.3 g/dL [facility] Interpretation and review of laboratory results Abnormal [facility] MCH (RBC) [Entitic mass] 31.2 pg 26. 0 - 34.0 pg [facility] MCHC (RBC) [Mass/Vol] 33.2 g/dL 32.0 - 35.9 g/dL [facility] MCV (RBC) [Entitic vol] 94 fL 80 - 100 fL [facility] Platelet mean volume (Bld) [Entitic vol] 8 fL 7.5 - 11.2 fL [facility] Platelets (Bld) [#/Vol] 183 10*3/uL 150 - 400 K/uL [facility] RBC (Bld) [#/Vol] 4.39 10*6/uL Low [facility] WBC (Bld) [#/Vol] 6.4 10*3/uL 4.5 - 11.5 K/uL [facility] COMPLETE BLOOD COUNTon 02-02 Erythrocyte distribution width (RBC) [Ratio] 14.8 % High 11.5-14.5 [facility] Comment on above: Performed By: #### C BC ####[facility] PATHOLOGY [id number] [place], Hematocrit (Bld) [Volume fraction] 41.3 % Normal 41.0-53.0 [facility] Comment on above: Performed By: #### C BC ####[facility] PATHOLOGY [id number] [place], Hemoglobin (Bld) [Mass/Vol] 13.7 g/dL Low 13.9-16.3 [facility] Comment on above: Performed By: #### C BC ####S PATHOLOGY [id number] [place], MCH (RBC) [Entitic mass] 31.2 pg Normal 26.0-34.0 [facility] Comment on above: Performed By: #### C BC ####S PATHOLOGY [id number] [place], MCHC (RBC) [Mass/Vol] 33.2 g/dL Normal 32.0-35.9 [facility] Comment on above: Performed By: #### C BC ####S PATHOLOGY [id number] [place], MCV (RBC) [Entitic vol] 94 fL Normal 80-100 T [facility] Comment on above: Performed By: #### C BC ####[facility] PATHOLOGY [id number] [place], Platelet mean volume (Bld) [Entitic vol] 8.0 fL Normal 7.5-11.2 [facility] Comment on above: Performed By: #### C BC ####[facility] PATHOLOGY [id number] [place], Platelets (Bld) [#/Vol] 183 10*3/uL Normal 150-400 [facility] Comment on above: Performed By: #### C BC ####[facility] PATHOLOGY [id number] [place], RBC (Bld) [#/Vol] 4.39 10*6/uL Low 4.50-5.90 [facility] Comment on above: Performed By: #### C BC ####[facility] PATHOLOGY [id number] [place], WBC (Bld) [#/Vol] 6.4 10*3/uL Normal 4.5-11.5 [facility] Comment on above: Performed By: #### C BC ####[facility] PATHOLOGY [id number] [place] [address], Consultson 02-02-2025 Observation Nurse Authentication Interface Message Text Normal [facility] Observation Nurse Authentication Interface Message Text Normal [facility] HEPATIC FUNCTION PANELon Albumin [Mass/Vol] 3.6 g/dL 3.5 - 5.7 g/dL [facility] ALP [Catalytic activity/Vol] 49 U/L [facility] ALT [Catalytic activity/Vol] 22 U/L [facility] AST [Catalytic activity/Vol] 15 U/L [facility] Bilirubin [Mass/Vol] 0.3 mg/dL 0.3 - 1 .0 mg/dL [facility] Bilirubin.direct [Mass/Vol] 0.07 mg/dL 0.03 - 0.18 mg/dL [facility] Interpretation and review of laboratory results Abnormal [facility] Protein [Mass/Vol] 5.9 g/dL Low 6.0 - 8.3 g/dL [facility] Albumin [Mass/Vol] 3.6 g/dL Normal 3.5-5.7 [facility] Comment on above: Performed By: #### H EPATIC, MG, TSH HS, CH8 ####S PATHOLOGY [id number] [place], ALK 49 IU/L Normal 34-104 [facility] Comment on above: Performed By: #### H EPATIC, MG, TSH HS, CH8 ####[facility] PATHOLOGY [id number] [place], ALT [Catalytic activity/Vol] 22 U/L Normal 7-52 [facility] Comment on above: Performed By: #### H EPATIC, MG, TSH HS, CH8 ####[facility] PATHOLOGY [id number] [place], AST [Catalytic activity/Vol] 15 U/L Normal 13-39 The [facility] Comment on above: Performed By: #### H EPATIC, MG, TSH HS, CH8 ####[facility] PATHOLOGY [id number] [place], Bilirubin [Mass/Vol] 0.3 mg/dL Normal 0.3-1.0 [facility] Comment on above: Performed By: #### H EPATIC, MG, TSH HS, CH8 ####[facility] PATHOLOGY [id number] [place], Bilirubin.direct [Mass/Vol] 0.07 mg/dL Normal 0.03-0.18 The [facility] Comment on above: Performed By: #### H EPATIC, MG, TSH HS, CH8 ####[facility] PATHOLOGY [id number] [place], Protein [Mass/Vol] 5.9 g/dL Low 6.0-8.3 The [facility] Comment on above: Performed By: #### H EPATIC, MG, TSH HS, CH8 ####[facility] PATHOLOGY [id number] [place], MAGNESIUMon 02-02-2025 Interpretation and review of laboratory results Normal [facility] Magnesium [Mass/Vol] 2.2 mg/dL 1.9 - 2 .7 mg/dL [facility] Magnesium [Mass/Vol] 2.2 mg/dL Normal 1.9-2.7 The [facility] Comment on above: Performed By: #### H EPATIC, MG, TSH HS, CH8 ####[facility] PATHOLOGY [id number] [place], No Panel Informationon 02-02 [facility] Progress Noteson 02-02-2025 Observation Nurse Authentication Interface Message Text Normal [facility] Observation Nurse Authentication Interface Message Text Normal [facility] Observation Nurse Authentication Interface Message Text Normal [facility] Student Noteon 02-02-2025 Observation Nurse Authentication Interface Message Text Normal The [facility] Observation Nurse Authentication Interface Message Text Normal [facility] TSHon 02-02-2025 Interpretation and review of laboratory results Normal [facility] TSH Qn 5.182 m[IU]/L [facility] TSH 5.182 uIU/mL Normal 0.450-5.330 [facility] Comment on above: Performed By: #### H EPAHORTENCIA, MG, TSH HS, CH8 ####[facility]HS PATHOLOGY [id number] [place], BASIC METABOLIC PANELon 01-14 Anion gap [Moles/Vol] 10 mmol/L Normal 10-20 The [facility] Comment on above: Performed By: #### Shannan Calzada, CH8 ####[facility] PATHOLOGY [id number] [place], Calcium [Mass/Vol] 8.8 mg/dL Normal 8.6-10.3 [facility] Comment on above: Performed By: #### Shannan Calzada, CH8 ####[facility] PATHOLOGY [id number] [place], Chloride [Moles/Vol] 103 mmol/L Normal 98-107 The [facility] Comment on above: Performed By: #### Shannan Calzada, CH8 ####[facility] PATHOLOGY [id number] [place], CO2 [Moles/Vol] 32 mmol/L High 21-31 The [facility] Comment on above: Performed By: #### Shannan Calzada, HUGO8 ####S PATHOLOGY [id number] [place], Creatinine [Mass/Vol] 1.20 mg/dL Normal 0.70-1.30 [facility] Comment on above: Performed By: #### Shannan Calzada, CH8 ####S PATHOLOGY [id number] [place], ESTIMATED GFR (CKD-EPI) 78 mL/min/1.73sqm Normal >=60 [facility] Comment on above: Result Comment: 2020 CKD EPI Equation using Creatinine without RaceComment: Estimated glomerular filtration rate (eGFR) is calculated without a race coefficient. Values should be interpreted in the context of the patient's full clinical presentation.Reference:1. Edgardo Blackwood, Nely M, Jahaira MORE, et al.. A Unifying Approach for GFR Estimation: Recommendations of the NKF-ASN Task Force on Reassessing the Inclusion of Race in Diagnosing Kidney Disease. Welsh Journal of Kidney Diseases 2021;79(2):268-88.e1.2. N Engl J Med 2020 Vol. 385 Issue 19 Pages 6205-7385 Performed By: #### Shannan Calzada CH8 ####S PATHOLOGY [id number] [place], Glucose [Mass/Vol] 106 mg/dL Normal 74-109 [facility] Comment on above: Performed By: #### Sahnnan Calzada CH8 ####S PATHOLOGY [id number] [place], Potassium [Moles/Vol] 4.3 mmol/L Normal 3.5-5.0 [facility] Comment on above: Performed By: #### Shannan Calzada, CH8 ####S PATHOLOGY [id number] [place], Sodium [Moles/Vol] 141 mmol/L Normal 136-145 [facility] Comment on above: Performed By: #### Shannan Calzada, CH8 ####S PATHOLOGY [id number] [place], Urea nitrogen [Mass/Vol] 22 mg/dL Normal 7-25 The [facility] Comment on above: Performed By: #### M G, 8 ####[facility] PATHOLOGY [id number] [place], [address] Basic metabolic 2000 panelon 02-01-2025 Anion gap [Moles/Vol] 10 mmol/L 10 - 20 [facility] Calcium [Mass/Vol] 8.8 mg/dL 8.6 - 10. 3 mg/dL [facility] Chloride [Moles/Vol] 103 mmol/L 98 - 10 7 mmol/L [facility] CO2 [Moles/Vol] 32 mmol/L High 21 - 31 mmol/L [facility] Creatinine [Mass/Vol] 1.2 mg/dL 0.70 - 1.30 mg/dL [facility] GFR/1.73 sq M.predicted CKD-EPI (S/P/Bld) [Vol rate/Area] 78 - PINF [facility] Glucose [Mass/Vol] 106 mg/dL 74 - 109 mg/dL [facility] Interpretation and review of laboratory results Abnormal [facility] Potassium [Moles/Vol] 4.3 mmol/L 3.5 - 5.0 mmol/L [facility] Sodium [Moles/Vol] 141 mmol/L 136 - 145 mmol/L [facility] Urea nitrogen [Mass/Vol] 22 mg/dL 7 - 25 mg/d L [facility] CBC panel Auto (Bld)on 02-01 Erythrocyte distribution width (RBC) [Ratio] 14.9 % High 11.5 - 14.5 % [facility] Hematocrit (Bld) [Volume fraction] 40.7 % Low 41.0 - 53.0 % [facility] Hemoglobin (Bld) [Mass/Vol] 13.7 g/dL Low 13.9 - 16.3 g/dL [facility] Interpretation and review of laboratory results Abnormal [facility] MCH (RBC) [Entitic mass] 31.4 pg 26. 0 - 34.0 pg [facility] MCHC (RBC) [Mass/Vol] 33.7 g/dL 32.0 - 35.9 g/dL [facility] MCV (RBC) [Entitic vol] 93 fL 80 - 100 fL [facility] Platelet mean volume (Bld) [Entitic vol] 7.9 fL 7.5 - 11.2 fL [facility] Platelets (Bld) [#/Vol] 171 10*3/uL 150 - 400 K/u[facility] RBC (Bld) [#/Vol] 4.37 10*6/uL Low [facility] WBC (Bld) [#/Vol] 4.2 10*3/uL Low 4.5 - 11.5 K/uL [facility] COMPLETE BLOOD COUNTon 02-01 Erythrocyte distribution width (RBC) [Ratio] 14.9 % High 11.5-14.5 [facility] Comment on above: Performed By: #### C BC ####[facility] PATHOLOGY [id number] [place], Hematocrit (Bld) [Volume fraction] 40.7 % Low 41.0-53.0 [facility] Comment on above: Performed By: #### C BC ####[facility] PATHOLOGY [id number] [place] [address], Hemoglobin (Bld) [Mass/Vol] 13.7 g/dL Low 13.9-16.3 [facility] Comment on above: Performed By: #### C BC ####[facility] PATHOLOGY [id number] [place], MCH (RBC) [Entitic mass] 31.4 pg Normal 26.0-34.0 [facility] Comment on above: Performed By: #### C BC ####[facility] PATHOLOGY [id number] [place] [address], MCHC (RBC) [Mass/Vol] 33.7 g/dL Normal 32.0-35.9 [facility] Comment on above: Performed By: #### C BC ####[facility] PATHOLOGY [id number] [place], MCV (RBC) [Entitic vol] 93 fL Normal 80-100 T [facility] System Comment on above: Performed By: #### C BC ####[facility] PATHOLOGY [id number] [place] [address], Platelet mean volume (Bld) [Entitic vol] 7.9 fL Normal 7.5-11.2 [facility] Comment on above: Performed By: #### C BC ####S PATHOLOGY [id number] [place], Platelets (Bld) [#/Vol] 171 10*3/uL Normal 150-400 The [facility] Comment on above: Performed By: #### C BC ####S PATHOLOGY [id number] [place], RBC (Bld) [#/Vol] 4.37 10*6/uL Low 4.50-5.90 [facility] Comment on above: Performed By: #### C BC ####[facility] PATHOLOGY [id number] [place], WBC (Bld) [#/Vol] 4.2 10*3/uL Low 4.5-11.5 [facility] Comment on above: Performed By: #### C BC ####[facility] PATHOLOGY [id number] [place], [place], CT HEAD W/O CONTRASTon 02-01 CT HEAD W/O CONTRAST Normal The [facility] CT Head WO contrastOrdered B y: Favio Sandoval on 02-01-2025 CT DLP 660.83 (mGy.cm) [facility] Work Phone: CT Series Topogram,HEAD WO [facility] Work Phone: CTDI VOL 0.11 (mGy),37.41 (mGy) [facility] Work Phone: PHANTOM TYPE IEC Head Dosimetry Phantom,IEC Head Dosimetry Phantom [facility] Work Phone: [facility] Work Phone: CT Head WO contraston 2024 RADIOLOGY [facility] Radiology Study observation (narrative) [facility] Consultson 02-01-2025 Observation Nurse Authentication Interface Message Text Normal [facility] Observation Nurse Authentication Interface Message Text Normal The [facility] Observation Nurse Authentication Interface Message Text Normal [facility] EEG study reporton [facility] EEG study reportOrdered By: Debra Castaneda on 02-01-2025 [facility] Work Phone: EKG 12 LEAD - PERFORMon 01-14 Diagnosis [facility] P wave Atrium by EKG 59 BPM [facility] P wave axis 28 degrees [facility] P-R Interval 110 ms [facility] Q-T interval 424 ms [facility] Q-T interval corrected 419 ms [facility] QRS axis 77 degrees [facility] QRS duration 88 ms [facility] T wave axis 58 degrees [facility] IP EEGon 02-01-2025 IP EEG Normal [facility] MAGNESIUMon 02-01-2025 Interpretation and review of laboratory results Normal [facility] Magnesium [Mass/Vol] 2.1 mg/dL 1.9 - 2 .7 mg/dL [facility] Magnesium [Mass/Vol] 2.1 mg/dL Normal 1.9-2.7 [facility] Comment on above: Performed By: #### M G, CH8 ####[facility] PATHOLOGY [id number] [place], No Panel Informationon 02-01 [facility] Progress Noteson 02-01-2025 Observation Nurse Authentication Interface Message Text Normal [facility] Observation Nurse Authentication Interface Message Text Normal [facility] Student Noteon 02-01-2025 Observation Nurse Authentication Interface Message Text Normal [facility] Observation Nurse Authentication Interface Message Text Normal [facility] Addendum Noteon 01-31-2025 Observation Nurse Authentication Interface Message Text Addended by: BANDAR RODRIGUEZ on: 01/31/2025 04:37 PM Modules accepted: Level of Service Normal [facility] BASIC METABOLIC PANELon 01-14 Anion gap [Moles/Vol] 10 mmol/L Normal 10-20 [facility] Comment on above: Performed By: #### C H8, MG ####[facility] PATHOLOGY [id number] [place], Calcium [Mass/Vol] 8.7 mg/dL Normal 8.6-10.3 The [facility] System Comment on above: Performed By: #### C H8, MG ####[facility] PATHOLOGY [id number] [place], Chloride [Moles/Vol] 105 mmol/L Normal 98-107 [facility] Comment on above: Performed By: #### C H8, MG ####S PATHOLOGY [id number] [place], CO2 [Moles/Vol] 30 mmol/L Normal 21-31 [facility] Comment on above: Performed By: #### C H8, MG ####S PATHOLOGY [id number] [place], Creatinine [Mass/Vol] 1.23 mg/dL Normal 0.70-1.30 [facility] Comment on above: Performed By: #### C H8, MG ####S PATHOLOGY [id number] [place], ESTIMATED GFR (CKD-EPI) 76 mL/min/1.73sqm Normal >=60 [facility] Comment on above: Result Comment: 2020 CKD EPI Equation using Creatinine without RaceComment: Estimated glomerular filtration rate (eGFR) is calculated without a race coefficient. Values should be interpreted in the context of the patient's full clinical presentation.Reference:1. Edgardo C, Nely M, Jahaira DC, et al.. A Unifying Approach for GFR Estimation: Recommendations of the NKF-ASN Task Force on Reassessing the Inclusion of Race in Diagnosing Kidney Disease. Welsh Journal of Kidney Diseases 2021;79(2):268-88.e1.2. N Engl J Med 2020 Vol. 385 Issue 19 Pages 7046-3839 Performed By: #### C H8, MG ####[facility] PATHOLOGY [id number] [place], Glucose [Mass/Vol] 101 mg/dL Normal 74-109 [facility] Comment on above: Performed By: #### C H8, MG ####S PATHOLOGY [id number] [place], Potassium [Moles/Vol] 4.3 mmol/L Normal 3.5-5.0 [facility] Comment on above: Performed By: #### C H8, MG ####S PATHOLOGY [id number] [place], [place], Sodium [Moles/Vol] 141 mmol/L Normal 136-145 [facility] Comment on above: Performed By: #### C H8, MG ####[facility] PATHOLOGY [id number] [place], [place], Urea nitrogen [Mass/Vol] 17 mg/dL Normal 7-25 [facility] Comment on above: Performed By: #### C H8, MG ####[facility] PATHOLOGY [id number] [place], [place], Basic metabolic 2000 panelon 01-31-2025 Anion gap [Moles/Vol] 10 mmol/L 10 - 20 Met [facility] Calcium [Mass/Vol] 8.7 mg/dL 8.6 - 10. 3 mg/dL [facility] Chloride [Moles/Vol] 105 mmol/L 98 - 10 7 mmol/L [facility] CO2 [Moles/Vol] 30 mmol/L 21 - 31 mmol/L [facility] Creatinine [Mass/Vol] 1.23 mg/dL 0.70 - 1.30 mg/dL [facility] GFR/1.73 sq M.predicted CKD-EPI (S/P/Bld) [Vol rate/Area] 76 - PINF [facility] Glucose [Mass/Vol] 101 mg/dL 74 - 109 mg/dL [facility] Potassium [Moles/Vol] 4.3 mmol/L 3.5 - 5.0 mmol/L [facility] Sodium [Moles/Vol] 141 mmol/L 136 - 145 mmol/L [facility] Urea nitrogen [Mass/Vol] 17 mg/dL 7 - 25 mg/d L [facility] CBC panel Auto (Bld)on 01-31 Erythrocyte distribution width (RBC) [Ratio] 15.2 % High 11.5 - 14.5 % [facility] Hematocrit (Bld) [Volume fraction] 42 % 41.0 - 53.0 % [facility] Hemoglobin (Bld) [Mass/Vol] 14.1 g/dL 13.9 - 16.3 g/dL [facility] Interpretation and review of laboratory results Abnormal [facility] MCH (RBC) [Entitic mass] 31.4 pg 26. 0 - 34.0 pg [facility] MCHC (RBC) [Mass/Vol] 33.6 g/dL 32.0 - 35.9 g/dL [facility] MCV (RBC) [Entitic vol] 93 fL 80 - 100 fL [facility] Platelet mean volume (Bld) [Entitic vol] 8 fL 7.5 - 11.2 fL [facility] Platelets (Bld) [#/Vol] 183 10*3/uL 150 - 400 K/uL [facility] RBC (Bld) [#/Vol] 4.49 10*6/uL [facility] WBC (Bld[facility] [#/Vol] 4.8 10*3/uL 4.5 - 11.5 K/uL [facility] COMPLETE BLOOD COUNTon 01-31 Erythrocyte distribution width (RBC) [Ratio] 15.2 % High 11.5-14.5 [facility] Comment on above: Performed By: #### C BC ####S PATHOLOGY [id number] [place], [place], Hematocrit (Bld) [Volume fraction] 42.0 % Normal 41.0-53.0 [facility] Comment on above: Performed By: #### C BC ####S PATHOLOGY [id number] [place], Hemoglobin (Bld) [Mass/Vol] 14.1 g/dL Normal 13.9-16.3 [facility] Comment on above: Performed By: #### C BC ####S PATHOLOGY [id number] [place], MCH (RBC) [Entitic mass] 31.4 pg Normal 26.0-34.0 [facility] System Comment on above: Performed By: #### C BC ####S PATHOLOGY [id number] [place], MCHC (RBC) [Mass/Vol] 33.6 g/dL Normal 32.0-35.9 [facility] System Comment on above: Performed By: #### C BC ####[facility] PATHOLOGY [id number] [place], MCV (RBC) [Entitic vol] 93 fL Normal 80-100 T [facility] Comment on above: Performed By: #### C BC ####[facility] PATHOLOGY [id number] [place], Platelet mean volume (Bld) [Entitic vol] 8.0 fL Normal 7.5-11.2 [facility] Comment on above: Performed By: #### C BC ####[facility] PATHOLOGY [id number] [place], Platelets (Bld) [#/Vol] 183 10*3/uL Normal 150-400 [facility] Comment on above: Performed By: #### C BC ####[facility] PATHOLOGY [id number] [place], RBC (Bld) [#/Vol] 4.49 10*6/uL Low 4.50-5.90 [facility] Comment on above: Performed By: #### C BC ####[facility] PATHOLOGY [id number] [place], WBC (Bld) [#/Vol] 4.8 10*3/uL Normal 4.5-11.5 [facility] Comment on above: Performed By: #### C BC ####[facility] PATHOLOGY [id number] [place], [place], Consultson 01-31-2025 Observation Nurse Authentication Interface Message Text Normal [facility] EEG study reporton This LTM vEEG (12-26 hours), performed on a patient in the sleepy but arousable state, was ABNORMAL. The following pertinent findings were noted: 1. Generalized background slowing 2. Triphasic waves Clinical Correlation: These findings indicate severe encephalopathy/diffu se cortical dysfunction, and are abnormal but are not necessarily specific for a diagnosis of epilepsy. Triphasic waves seen on this study are most likely associated with toxic or metabolic causes of encephalopathy rather than an ictal process. This study captured no events. Results were communicated to the primary team. Prior LTM reports Summary: In comparison to previous reports this report showed N/A Abbreviations used in this report: FIRDA = Frontal Intermittent Rhythmic Delta Activity OIRDA = Occipital Intermittent Rhythmic Delta Activity LIRDA = Lateralized Intermittent Rhythmic Delta Activity SIRPIDs = Stimulus Induced Rhythmic, Periodic, or Ictal Discharges LPD = Lateralized Periodic discharges (aka PLEDs) GPD = Generalized Periodic Discharges (aka GPEDs) BIRDs = Brief (potentially) Ictal Rhythmic Discharges wine steward: Arturo Osuna EEG T. Attending Physician(s): MD Tony Pope MD 12:29 PM 01/31/25 [facility] Table formatting from the original result was not included. Images from the original result were not included. [facility] [address] [facility] [address] Patient Name: Rogelio Bowers : 1985 Location of Recording: [facility] Main Referring Provider: Vinay EEG Type: LTM vEEG (12-26 hours) EEG number: [id number] EEG End Date of Study: 01/31/2025 EEG Start Time: 2219 EEG End Time: 1206 Main Diagnosis: seizure vs syncope Medical History: There is no previous medical history on file. Surgical History: There is no previous surgical history on file. EEG Indications: The purpose of the study was to evaluate seizures vs syncope. Medications: No current facility-administere d medications for this visit. No current outpatient medications on file. Facility-Administere d Medications Ordered in Other Visits Medication Dose Route Frequency Provider Last Rate Last Admin polyethylene glycol (MIRALAX) 17 g packet 17 g Oral Daily Christiano Rankin MD 17 g at 01/31/25 1050 senna (SENOKOT) tablet 8.6 mg Oral Daily PRN Christiano Rankin MD acetaminophen (TYLENOL) tablet 650 mg Oral Q6H PRN Christiano Rankin MD risperiDONE (RISPERDAL) tablet 3.5 mg Oral BID Christiano Rankin MD 3.5 mg at 01/31/25 1050 enoxaparin (LOVENOX) 40 MG/0.4ML injection 40 mg 40 mg Subcutaneous Daily Christiano Rankin MD 40 mg at 01/31/25 1050 Methods: This recording was performed on [employer] EEG equipment digitizing at 512 Hz. Filters were adjustable, applied as needed after recording. EEG data was re-montaged using digital EEG review software as needed. DETAILS Artifact included: eye, electrode, muscle, and movement Artifact severity was moderate. Artifact moderately degraded data quality but the EEG was still interpretable. Background: The electrographic background was continuous, symmetric, and was characterized by an abnormal 5-6 Hz posterior dominant rhythm. Organization was fair, with anterior dominance and/or excess slower frequencies, and reactive. Predominant frequencies were in the delta to theta range. Sleep: No normal sleep architecture was seen.. Focal slowing abnormalities: No focal slowing present. Epileptiform abnormalities: Triphasic waves were seen (not definitely epileptiform). Other Paroxysmal Non-Epileptiform Findings: None. Events: There were no seizures or events captured. Activation procedures: Hyperventilation: Deferred. Stepped photic stimulation: Deferred. EKG rate: Rate could not be assessed Note that EKG review included only samples of a 1 channel rhythm strip (selected at random and during any EEG or clinical events). This data is not adequate for characterizing or excluding cardiac arrhythmia. [facility] EEG study reportOrdered By: Tony Swift on 01-31-2025 [facility] Phone: IP EEGon 01-31-2025 IP EEG Normal [facility] MAGNESIUMon 01-31-2025 Magnesium [Mass/Vol] 2.2 mg/dL 1.9 - 2 .7 mg/dL [facility] Magnesium [Mass/Vol] 2.2 mg/dL Normal 1.9-2.7 [facility] Comment on above: Performed By: #### C H8, MG ####[facility] PATHOLOGY [id number] [place], [address] No Panel Informationon 01-31 Interpretation and review of laboratory results Normal [facility] Procedureson 01-31-2025 Observation Nurse Authentication Interface Message Text Normal [facility] Progress Noteson 01-31-2025 Observation Nurse Authentication Interface Message Text Normal [facility] Student Noteon 01-31-2025 Observation Nurse Authentication Interface Message Text Normal [facility] Assessment AND Plan Noteon 0 01-30-2025 Observation Nurse Authentication Interface Message Text Normal [facility] Observation Nurse Authentication Interface Message Text Normal The [facility] System Observation Nurse Authentication Interface Message Text Normal [facility] Observation Nurse Authentication Interface Message Text Normal [facility] BASIC METABOLIC PANELon 08- Anion gap [Moles/Vol] 11 mmol/L Normal 10-20 The [facility] Comment on above: Performed By: #### S YPTOTALTPPA, MG, CH8, VITB12, FOL ####S PATHOLOGY [id number] [place], Calcium [Mass/Vol] 8.0 mg/dL Low 8.6-10.3 [facility] Comment on above: Performed By: #### S YPTOTALTPPA, MG, CH8, VITB12, FOL ####S PATHOLOGY [id number] [place], Chloride [Moles/Vol] 106 mmol/L Normal 98-107 [facility] Comment on above: Performed By: #### S YPTOTALTPPA, MG, CH8, VITB12, FOL ####S PATHOLOGY [id number] [place], CO2 [Moles/Vol] 28 mmol/L Normal 21-31 [facility] Comment on above: Performed By: #### S YPTOTALTPPA, MG, CH8, VITB12, FOL ####[facility] PATHOLOGY [id number] [place], Creatinine [Mass/Vol] 1.02 mg/dL Normal 0.70-1.30 [facility] Comment on above: Performed By: #### S YPTOTALTPPA, MG, CH8, VITB12, FOL ####[facility] PATHOLOGY [id number] [place], ESTIMATED GFR (CKD-EPI) 95 mL/min/1.73sqm Normal >=60 [facility] System Comment on above: Result Comment: 2020 CKD EPI Equation using Creatinine without RaceComment: Estimated glomerular filtration rate (eGFR) is calculated without a race coefficient. Values should be interpreted in the context of the patient's full clinical presentation.Reference:1. Edgardo C, Nely M, Jahaira MORE, et al.. A Unifying Approach for GFR Estimation: Recommendations of the NKF-ASN Task Force on Reassessing the Inclusion of Race in Diagnosing Kidney Disease. Welsh Journal of Kidney Diseases 2021;79(2):268-88.e1.2. N Engl J Med 2021 Vol. 385 Issue 19 Pages 4765-4276 Performed By: #### S YPTOTALTPPA, MG, CH8, VITB12, FOL ####S PATHOLOGY [id number] [place], Glucose [Mass/Vol] 88 mg/dL Normal 74-109 [facility] Comment on above: Performed By: #### S YPTOTALTPPA, MG, CH8, VITB12, FOL ####S PATHOLOGY [id number] [place], Potassium [Moles/Vol] 4.0 mmol/L Normal 3.5-5.0 [facility] Comment on above: Performed By: #### S YPTOTALTPPA, MG, CH8, VITB12, FOL ####S PATHOLOGY [id number] [place], Sodium [Moles/Vol] 141 mmol/L Normal 136-145 [facility] Comment on above: Performed By: #### S YPTOTALTPPA, MG, CH8, VITB12, FOL ####S PATHOLOGY [id number] [place], Urea nitrogen [Mass/Vol] 13 mg/dL Normal 7-25 [facility] Comment on above: Performed By: #### S YPTOTALTPPA, MG, CH8, VITB12, FOL ####S PATHOLOGY [id number] [place], [place], Basic metabolic 2000 panelon 01-30-2025 Anion gap [Moles/Vol] 11 mmol/L 10 - 20 Met [facility] Calcium [Mass/Vol] 8 mg/dL Low 8.6 - 10. 3 mg/dL [facility] Chloride [Moles/Vol] 106 mmol/L 98 - 10 7 mmol/L [facility] CO2 [Moles/Vol] 28 mmol/L 21 - 31 mmol/L [facility] Creatinine [Mass/Vol] 1.02 mg/dL 0.70 - 1.30 mg/dL [facility] GFR/1.73 sq M.predicted CKD-EPI (S/P/Bld) [Vol rate/Area] 95 - PINF [facility] Glucose [Mass/Vol] 88 mg/dL 74 - 109 mg/dL [facility] Potassium [Moles/Vol] 4 mmol/L 3.5 - 5.0 mmol/L [facility] Sodium [Moles/Vol] 141 mmol/L 136 - 145 mmol/L [facility] Urea nitrogen [Mass/Vol] 13 mg/dL 7 - 25 mg/d L [facility] CBC panel Auto (Bld)on 01-30 Erythrocyte distribution width (RBC) [Ratio] 14.7 % High 11.5 - 14.5 % [facility] Hematocrit (Bld) [Volume fraction] 39.4 % Low 41.0 - 53.0 % [facility] Hemoglobin (Bld) [Mass/Vol] 13.1 g/dL Low 13.9 - 16.3 g/dL [facility] Interpretation and review of laboratory results Abnormal [facility] MCH (RBC) [Entitic mass] 31.1 pg 26. 0 - 34.0 pg [facility] MCHC (RBC) [Mass/Vol] 33.3 g/dL 32.0 - 35.9 g/dL [facility] MCV (RBC) [Entitic vol] 93 fL 80 - 100 fL [facility] Platelet mean volume (Bld) [Entitic vol] 7.9 fL 7.5 - 11.2 fL [facility] Platelets (Bld) [#/Vol] 178 10*3/uL 150 - 400 K/uL [facility] RBC (Bld) [#/Vol] 4.22 10*6/uL Low [facility] WBC (Bld) [#/Vol] 5.3 10*3/uL 4.5 - 11.5 K/uL [facility] COMPLETE BLOOD COUNTon 01-30 Erythrocyte distribution width (RBC) [Ratio] 14.7 % High 11.5-14.5 [facility] System Comment on above: Performed By: #### C BC ####S PATHOLOGY [id number] [place] [address], Hematocrit (Bld) [Volume fraction] 39.4 % Low 41.0-53.0 [facility] Comment on above: Performed By: #### C BC ####S PATHOLOGY [id number] [place], Hemoglobin (Bld) [Mass/Vol] 13.1 g/dL Low 13.9-16.3 [facility] Comment on above: Performed By: #### C BC ####[facility] PATHOLOGY [id number] [place], MCH (RBC) [Entitic mass] 31.1 pg Normal 26.0-34.0 [facility] System Comment on above: Performed By: #### C BC ####[facility] PATHOLOGY [id number] [place] [address], MCHC (RBC) [Mass/Vol] 33.3 g/dL Normal 32.0-35.9 [facility] Comment on above: Performed By: #### C BC ####[facility] PATHOLOGY [id number] [place] [address], MCV (RBC) [Entitic vol] 93 fL Normal 80-100 T [facility] Comment on above: Performed By: #### C BC ####[facility] PATHOLOGY [id number] [place] [address], Platelet mean volume (Bld) [Entitic vol] 7.9 fL Normal 7.5-11.2 [facility] Comment on above: Performed By: #### C BC ####[facility] PATHOLOGY [id number] [place] [address], Platelets (Bld) [#/Vol] 178 10*3/uL Normal 150-400 [facility] Comment on above: Performed By: #### C BC ####[facility] PATHOLOGY [id number] [place] [address], RBC (Bld) [#/Vol] 4.22 10*6/uL Low 4.50-5.90 [facility] Comment on above: Performed By: #### C BC ####[facility] PATHOLOGY [id number] [place] [address], WBC (Bld) [#/Vol] 5.3 10*3/uL Normal 4.5-11.5 [facility] Comment on above: Performed By: #### C BC ####[facility] PATHOLOGY [id number] [place] [address] [place], CREATINE KINASEon 01-30-2025 CK [Catalytic activity/Vol] 225 U/L [facility] Interpretation and review of laboratory results Normal [facility] CT CHEST/ABD/PELVIS W/O CONT RASTon 01-30-2025 CT CHEST/ABD/PELVIS W/O CONTRAST Normal [facility] System CT Chest and Abdomen and Pel vis WO contrastOrdered By: Bailey Oconnor on 01-30-2025 CT DLP 759.3 (mGy.cm) [facility] Work Phone: CT Series Entire body [facility] Work Phone: CTDI VOL 10.1 (mGy) [facility] Work Phone: PHANTOM TYPE IEC Body Dosimetry Phantom [facility] Work Phone: [facility] Work Phone: CT Chest and Abdomen and Pel vis WO contraston 01-30-2025 RADIOLOGY [facility] Radiology Study observation (narrative) [facility] EEG study reporton Radiology Study observation (narrative) [facility] Radiology Study observation (narrative) [facility] FOLIC ACIDon 01-30-2025 Folate [Mass/Vol] 23 ng/mL 5.9 - 24.7 ng/mL [facility] Interpretation and review of laboratory results Normal [facility] FOL 23.0 ng/mL Normal 5.9-24.7 [facility] System Comment on above: Performed By: #### S YPTOTALTPPA, MG, CH8, VITB12, FOL ####[facility] PATHOLOGY [id number] [place], MAGNESIUMon 01-30-2025 Magnesium [Mass/Vol] 1.8 mg/dL Low 1.9 - 2 .7 mg/dL [facility] Magnesium [Mass/Vol] 1.8 mg/dL Low 1.9-2.7 [facility] System Comment on above: Performed By: #### S YPTOTALTPPA, MG, CH8, VITB12, FOL ####[facility] PATHOLOGY [id number] [place], [place], No Panel Informationon 01-30 Interpretation and review of laboratory results Abnormal [facility] Progress Noteson 01-30-2025 Observation Nurse Authentication Interface Message Text Normal [facility] System Observation Nurse Authentication Interface Message Text Normal [facility] Observation Nurse Authentication Interface Message Text Normal [facility] Observation Nurse Authentication Interface Message Text Normal [facility] SYPHILIS TOTAL/TPPAon 2024 T. pallidum Ab LA Qn (S) [facility] T. pallidum IgG+IgM IA Ql (S) Non-Reactive Non-Reactive [facility] SYPHILIS TOTAL (IGG/IGM) Non-Reactive Normal Non-React padmaja [facility] Comment on above: Order Comment: No re sults found for: TPPANo components found for: FTANo serologic evidence of syphilis.If recent exposure/early infection is suspected, repeat testing in 2-4 weeks. Performed By: #### S YPTOTALTPPA, MG, CH8, VITB12, FOL ####S PATHOLOGY [id number] [place], [place], TPPA Normal [facility] Comment on above: Order Comment: No re sults found for: TPPANo components found for: FTANo serologic evidence of syphilis.If recent exposure/early infection is suspected, repeat testing in 2-4 weeks. Performed By: #### S YPTOTALTPPA, MG, CH8, VITB12, FOL ####[facility] PATHOLOGY [id number] [place], [place], TOX ANALYSIS W/CONFIMATION,U Tony 01-30-2025 Amphetamines Ql (U) Negative Cutoff: 1000 ng/mL [facility] Barbiturates Screen Ql (U) Negative Cutoff: 200 ng/mL [facility] Benzodiazepines Ql (U) Negative Cutof f: 200 ng/mL [facility] Benzoylecgonine Screen Ql (U) Negative Cutoff: 300 ng/mL [facility] Ethanol Screen Ql (U) Negative Cutoff : 10 mg/dL [facility] fentaNYL Screen Ql (U) Negative Cutof f: 1 ng/mL [facility] Interpretation and review of laboratory results Normal [facility] Methadone Screen Ql (U) Negative Cuto ff: 300 ng/mL [facility] Opiates Confirm Ql (U) Negative Cutof f: 300 ng/mL [facility] oxyCODONE Ql (U) Negative Cutoff: 100 ng/mL [facility] Phencyclidine Ql (U) Negative Cutoff: 25 ng/mL [facility] Tetrahydrocannabinol Screen Ql (U) Negative Cutoff: 50 ng/mL [facility] ALCOHOL - TOX W/ CONF Negative Normal Cutoff: 10 [facility] Comment on above: Order Comment: Scree n results are reported as positive (at or above the cutoff) or negative (below the cutoff).The LC-MS/MS testing (if applicable) was developed and its performance characteristics determined by [facility] in a manner consistent with CLIA requirements. This test has not been cleared or approved by the U.S. Food and Drug Administration; however, the FDA has determined that such clearance or approval is not necessary. Performed By: #### T OX U ####[facility] PATHOLOGY [id number] [place] [address], AMPH CL Negative Normal Cutoff: 1000 [facility] Comment on above: Order Comment: Scree n results are reported as positive (at or above the cutoff) or negative (below the cutoff).The LC-MS/MS testing (if applicable) was developed and its performance characteristics determined by [facility] in a manner consistent with CLIA requirements. This test has not been cleared or approved by the U.S. Food and Drug Administration; however, the FDA has determined that such clearance or approval is not necessary. Performed By: #### T OX U ####[facility] PATHOLOGY [id number] [place], [place], GEM CL Negative Normal Cutoff: 200 [facility] Comment on above: Order Comment: Scree n results are reported as positive (at or above the cutoff) or negative (below the cutoff).The LC-MS/MS testing (if applicable) was developed and its performance characteristics determined by [facility] in a manner consistent with CLIA requirements. This test has not been cleared or approved by the U.S. Food and Drug Administration; however, the FDA has determined that such clearance or approval is not necessary. Performed By: #### T OX U ####S PATHOLOGY [id number] [place], [place], BENZO CL Negative Normal Cutoff: 200 [facility] Comment on above: Order Comment: Scree n results are reported as positive (at or above the cutoff) or negative (below the cutoff).The LC-MS/MS testing (if applicable) was developed and its performance characteristics determined by [facility] in a manner consistent with CLIA requirements. This test has not been cleared or approved by the U.S. Food and Drug Administration; however, the FDA has determined that such clearance or approval is not necessary. Performed By: #### T OX U ####[facility] [id number] [place], [place], COCAINE CL- TOX W/ CONF Negative Normal Cutoff: 300 [facility] Comment on above: Order Comment: Scree n results are reported as positive (at or above the cutoff) or negative (below the cutoff).The LC-MS/MS testing (if applicable) was developed and its performance characteristics determined by [facility] in a manner consistent with CLIA requirements. This test has not been cleared or approved by the U.S. Food and Drug Administration; however, the FDA has determined that such clearance or approval is not necessary. Performed By: #### T OX U ####S PATHOLOGY [id number] [place], [place], FENTANYL Negative Normal Cutoff: 1 [facility] Comment on above: Order Comment: Scree n results are reported as positive (at or above the cutoff) or negative (below the cutoff).The LC-MS/MS testing (if applicable) was developed and its performance characteristics determined by [facility] in a manner consistent with CLIA requirements. This test has not been cleared or approved by the U.S. Food and Drug Administration; however, the FDA has determined that such clearance or approval is not necessary. Performed By: #### T OX U ####S PATHOLOGY [id number] [place], [place], METH CL Negative Normal Cutoff: 300 [facility] Comment on above: Order Comment: Scree n results are reported as positive (at or above the cutoff) or negative (below the cutoff).The LC-MS/MS testing (if applicable) was developed and its performance characteristics determined by [facility] in a manner consistent with CLIA requirements. This test has not been cleared or approved by the U.S. Food and Drug Administration; however, the FDA has determined that such clearance or approval is not necessary. Performed By: #### T OX U ####[facility] PATHOLOGY [id number] [place], [place], OPI CL Negative Normal Cutoff: 300 [facility] Comment on above: Order Comment: Scree n results are reported as positive (at or above the cutoff) or negative (below the cutoff).The LC-MS/MS testing (if applicable) was developed and its performance characteristics determined by [facility] in a manner consistent with CLIA requirements. This test has not been cleared or approved by the U.S. Food and Drug Administration; however, the FDA has determined that such clearance or approval is not necessary. Performed By: #### T OX U ####[facility] PATHOLOGY [id number] [place], [place], OXYCODONE Negative Normal Cutoff: 100 [facility] Comment on above: Order Comment: Scree n results are reported as positive (at or above the cutoff) or negative (below the cutoff).The LC-MS/MS testing (if applicable) was developed and its performance characteristics determined by [facility] in a manner consistent with CLIA requirements. This test has not been cleared or approved by the U.S. Food and Drug Administration; however, the FDA has determined that such clearance or approval is not necessary. Result Comment: Oxyc odone and metabolites of Oxycodone (Oxymorphone, Noroxycodone, and Noroxymorphone) are measured/detected in this assay method. Performed By: #### T OX U ####[facility] PATHOLOGY [id number] [place], [place], PCP CL Negative Normal Cutoff: 25 [facility] Comment on above: Order Comment: Scree n results are reported as positive (at or above the cutoff) or negative (below the cutoff).The LC-MS/MS testing (if applicable) was developed and its performance characteristics determined by [facility] in a manner consistent with CLIA requirements. This test has not been cleared or approved by the U.S. Food and Drug Administration; however, the FDA has determined that such clearance or approval is not necessary. Performed By: #### T OX U ####[facility] PATHOLOGY [id number] [place], [place], THC CL - TOX W/ CONF Negative Normal Cutoff: 50 [facility] Comment on above: Order Comment: Scree n results are reported as positive (at or above the cutoff) or negative (below the cutoff).The LC-MS/MS testing (if applicable) was developed and its performance characteristics determined by [facility] in a manner consistent with CLIA requirements. This test has not been cleared or approved by the U.S. Food and Drug Administration; however, the FDA has determined that such clearance or approval is not necessary. Performed By: #### T OX U ####[facility] PATHOLOGY [id number] [place], [place], URINALYSIS WITH REFLEX CULTU RE PERFORMABLEon 01-30-2025 Appearance (U) Clear Clear [facility] Bilirubin Ql (U) Negative Negative [facility] Color (U) Light Yellow Colorless [facility] Glucose Auto test strip (U) [Mass/Vol] Negative Negative mg/dL [facility] Hemoglobin Ql (U) Negative Negative [facility] Ketones Ql (U) Negative Negative mg/dL [facility] Leukocyte esterase Test strip Ql (U) Negative Negative [facility] Nitrite Ql (U) Negative Negative [facility] pH (U) 7.5 [pH] 5.0 - 8.0 [facility] Protein (U) [Mass/Vol] Negative Negat padmaja mg/dL [facility] Specific gravity (U) [Rel density] 1.011 NINF - 1.030 [facility] Urobilinogen Qn (U) Negative Negative mg/dL [facility] Glucose Ql (U) Negative Normal Negative [facility] Comment on above: Order Comment: A neg ative leukocyte esterase AND negative nitrite test or absence of pyuria (urine WBC count <= 5-10) make a UTI (urinary tract infection) very unlikely in a non-neutropenic adult (<=5% likelihood in many studies). A positive leukocyte esterase, nitrite and/or pyuria is a nonspecific result. This can be seen in conditions other than a UTI e.g. asymptomatic bacteriuria, gynecologic infections, sexually transmitted infections, and noninfectious conditions (positive predictive value for UTI around 50%) Performed By: #### u rinalysiswcul ####[facility] PATHOLOGY [id number] [place], [place], U APPEAR Clear Normal Clear [facility] Comment on above: Order Comment: A neg ative leukocyte esterase AND negative nitrite test or absence of pyuria (urine WBC count <= 5-10) make a UTI (urinary tract infection) very unlikely in a non-neutropenic adult (<=5% likelihood in many studies). A positive leukocyte esterase, nitrite and/or pyuria is a nonspecific result. This can be seen in conditions other than a UTI e.g. asymptomatic bacteriuria, gynecologic infections, sexually transmitted infections, and noninfectious conditions (positive predictive value for UTI around 50%) Performed By: #### u rinalysiswcul ####[facility] PATHOLOGY [id number] [place], [place], U BILI Negative Normal Negative [facility] Comment on above: Order Comment: A neg ative leukocyte esterase AND negative nitrite test or absence of pyuria (urine WBC count <= 5-10) make a UTI (urinary tract infection) very unlikely in a non-neutropenic adult (<=5% likelihood in many studies). A positive leukocyte esterase, nitrite and/or pyuria is a nonspecific result. This can be seen in conditions other than a UTI e.g. asymptomatic bacteriuria, gynecologic infections, sexually transmitted infections, and noninfectious conditions (positive predictive value for UTI around 50%) Performed By: #### u rinalysiswcul ####[facility] PATHOLOGY [id number] [place], [place], U BLOOD Negative Normal Negative [facility] Comment on above: Order Comment: A neg ative leukocyte esterase AND negative nitrite test or absence of pyuria (urine WBC count <= 5-10) make a UTI (urinary tract infection) very unlikely in a non-neutropenic adult (<=5% likelihood in many studies). A positive leukocyte esterase, nitrite and/or pyuria is a nonspecific result. This can be seen in conditions other than a UTI e.g. asymptomatic bacteriuria, gynecologic infections, sexually transmitted infections, and noninfectious conditions (positive predictive value for UTI around 50%) Performed By: #### u rinalysiswcul ####[facility] PATHOLOGY [id number] [place], [place], U COLOR Light Yellow Normal Colorless [facility] Comment on above: Order Comment: A neg ative leukocyte esterase AND negative nitrite test or absence of pyuria (urine WBC count <= 5-10) make a UTI (urinary tract infection) very unlikely in a non-neutropenic adult (<=5% likelihood in many studies). A positive leukocyte esterase, nitrite and/or pyuria is a nonspecific result. This can be seen in conditions other than a UTI e.g. asymptomatic bacteriuria, gynecologic infections, sexually transmitted infections, and noninfectious conditions (positive predictive value for UTI around 50%) Performed By: #### u rinalysiswcul ####[facility] PATHOLOGY [id number] [place] [address], U KETONE Negative Normal Negative [facility] Comment on above: Order Comment: A neg ative leukocyte esterase AND negative nitrite test or absence of pyuria (urine WBC count <= 5-10) make a UTI (urinary tract infection) very unlikely in a non-neutropenic adult (<=5% likelihood in many studies). A positive leukocyte esterase, nitrite and/or pyuria is a nonspecific result. This can be seen in conditions other than a UTI e.g. asymptomatic bacteriuria, gynecologic infections, sexually transmitted infections, and noninfectious conditions (positive predictive value for UTI around 50%) Performed By: #### u rinalysiswcul ####[facility] PATHOLOGY [id number] [place], [place], U LEUK Negative Normal Negative [facility] Comment on above: Order Comment: A neg ative leukocyte esterase AND negative nitrite test or absence of pyuria (urine WBC count <= 5-10) make a UTI (urinary tract infection) very unlikely in a non-neutropenic adult (<=5% likelihood in many studies). A positive leukocyte esterase, nitrite and/or pyuria is a nonspecific result. This can be seen in conditions other than a UTI e.g. asymptomatic bacteriuria, gynecologic infections, sexually transmitted infections, and noninfectious conditions (positive predictive value for UTI around 50%) Performed By: #### u rinalysiswcul ####[facility] PATHOLOGY [id number] [place], [place], [place] NITRITE Negative Normal Negative [facility] Comment on above: Order Comment: A neg ative leukocyte esterase AND negative nitrite test or absence of pyuria (urine WBC count <= 5-10) make a UTI (urinary tract infection) very unlikely in a non-neutropenic adult (<=5% likelihood in many studies). A positive leukocyte esterase, nitrite and/or pyuria is a nonspecific result. This can be seen in conditions other than a UTI e.g. asymptomatic bacteriuria, gynecologic infections, sexually transmitted infections, and noninfectious conditions (positive predictive value for UTI around 50%) Performed By: #### u rinalysiswcul ####[facility] PATHOLOGY [id number] [place], [place], [place] PH 7.5 Normal 5.0-8.0 [facility] Comment on above: Order Comment: A neg ative leukocyte esterase AND negative nitrite test or absence of pyuria (urine WBC count <= 5-10) make a UTI (urinary tract infection) very unlikely in a non-neutropenic adult (<=5% likelihood in many studies). A positive leukocyte esterase, nitrite and/or pyuria is a nonspecific result. This can be seen in conditions other than a UTI e.g. asymptomatic bacteriuria, gynecologic infections, sexually transmitted infections, and noninfectious conditions (positive predictive value for UTI around 50%) Performed By: #### u rinalysiswcul ####[facility] PATHOLOGY [id number] [place], [place] PROTEIN Negative Normal Negative [facility] Comment on above: Order Comment: A neg ative leukocyte esterase AND negative nitrite test or absence of pyuria (urine WBC count <= 5-10) make a UTI (urinary tract infection) very unlikely in a non-neutropenic adult (<=5% likelihood in many studies). A positive leukocyte esterase, nitrite and/or pyuria is a nonspecific result. This can be seen in conditions other than a UTI e.g. asymptomatic bacteriuria, gynecologic infections, sexually transmitted infections, and noninfectious conditions (positive predictive value for UTI around 50%) Performed By: #### u rinalysiswcul ####[facility] PATHOLOGY [id number] [place], [place], [place] SG 1.011 Normal <=1.030 [facility] Comment on above: Order Comment: A neg ative leukocyte esterase AND negative nitrite test or absence of pyuria (urine WBC count <= 5-10) make a UTI (urinary tract infection) very unlikely in a non-neutropenic adult (<=5% likelihood in many studies). A positive leukocyte esterase, nitrite and/or pyuria is a nonspecific result. This can be seen in conditions other than a UTI e.g. asymptomatic bacteriuria, gynecologic infections, sexually transmitted infections, and noninfectious conditions (positive predictive value for UTI around 50%) Performed By: #### u rinalysiswcul ####[facility] PATHOLOGY [id number] [place], [place] UROBILI Negative Normal Negative [facility] Comment on above: Order Comment: A neg ative leukocyte esterase AND negative nitrite test or absence of pyuria (urine WBC count <= 5-10) make a UTI (urinary tract infection) very unlikely in a non-neutropenic adult (<=5% likelihood in many studies). A positive leukocyte esterase, nitrite and/or pyuria is a nonspecific result. This can be seen in conditions other than a UTI e.g. asymptomatic bacteriuria, gynecologic infections, sexually transmitted infections, and noninfectious conditions (positive predictive value for UTI around 50%) Performed By: #### u rinalysiswcul ####[facility] PATHOLOGY [id number] [place], [place], [place] KIDNEY+BLADDERon 01-31-20 25 US KIDNEY+BLADDER Normal [facility] US Kidney - bilateral and Ur inary bladderon 01-30-2025 RADIOLOGY [facility] Radiology Study observation (narrative) [facility] Kidney - bilateral and Ur inary bladderOrdered By: Javier Nieto on 01-30-2025 [facility] Work Phone: VITAMIN B12 (CYANOCOBALAMIN) on 01-30-2025 Cobalamin (Vitamin B12) [Moles/Vol] 383 pg/mL 180 - 914 pg/mL [facility] Interpretation and review of laboratory results Normal [facility] Cobalamin (Vitamin B12) [Mass/Vol] 383 pg/mL Normal 180-914 [facility] Comment on above: Order Comment: Defic ient: <= 145 pg/mLInsufficient: 145 - 180 pg/mLSufficient: 180 - 914 pg/mL Performed By: #### S YPTOTALTPPA, MG, CH8, VITB12, FOL ####S PATHOLOGY [id number] [place], [place], BASIC METABOLIC PANELon 01-14-2024 Anion gap [Moles/Vol] 11 mmol/L Normal 10-20 [facility] Comment on above: Performed By: #### Shannan G, CH8, CK ####S PATHOLOGY [id number] [place], Calcium [Mass/Vol] 9.4 mg/dL Normal 8.6-10.3 [facility] Comment on above: Performed By: #### Shannan G, CH8, CK ####S PATHOLOGY [id number] [place], Chloride [Moles/Vol] 102 mmol/L Normal 98-107 [facility] Comment on above: Performed By: #### Shannan G, CH8, CK ####S PATHOLOGY [id number] [place], CO2 [Moles/Vol] 31 mmol/L Normal 21-31 [facility] Comment on above: Performed By: #### Shannan G, CH8, CK ####S PATHOLOGY [id number] [place], Creatinine [Mass/Vol] 1.36 mg/dL High 0.70-1.30 [facility] Comment on above: Performed By: #### Shannan G, CH8, CK ####S PATHOLOGY [id number] [place], ESTIMATED GFR (CKD-EPI) 67 mL/min/1.73sqm Normal >=60 [facility] Comment on above: Result Comment: 2020 CKD EPI Equation using Creatinine without RaceComment: Estimated glomerular filtration rate (eGFR) is calculated without a race coefficient. Values should be interpreted in the context of the patient's full clinical presentation.Reference:1. Edgardo C, Nely M, Jahaira MORE, et al.. A Unifying Approach for GFR Estimation: Recommendations of the NKF-ASN Task Force on Reassessing the Inclusion of Race in Diagnosing Kidney Disease. Welsh Journal of Kidney Diseases 2021;79(2):268-88.e1.2. N Engl J Med 2020 Vol. 385 Issue 19 Pages 2749-3651 Performed By: #### GERSON Estrada, CK ####[facility] [id number] [place], Glucose [Mass/Vol] 138 mg/dL High 74-109 [facility] Comment on above: Performed By: #### GERSON Estrada, CK ####S PATHOLOGY [id number] [place], Potassium [Moles/Vol] 4.3 mmol/L Normal 3.5-5.0 [facility] Comment on above: Performed By: #### GERSON Estrada, CK ####S PATHOLOGY [id number] [place], Sodium [Moles/Vol] 140 mmol/L Normal 136-145 [facility] Comment on above: Performed By: #### GERSON Estrada, CK ####S PATHOLOGY [id number] [place], Urea nitrogen [Mass/Vol] 14 mg/dL Normal 7-25 [facility] Comment on above: Performed By: #### GERSON Estrada, CK ####S PATHOLOGY [id number] [place], [place], Basic metabolic 2000 panelon 01-29-2025 Anion gap [Moles/Vol] 11 mmol/L 10 - 20 [facility] Calcium [Mass/Vol] 9.4 mg/dL 8.6 - 10. 3 mg/dL [facility] Chloride [Moles/Vol] 102 mmol/L 98 - 10 7 mmol/L [facility] CO2 [Moles/Vol] 31 mmol/L 21 - 31 mmol/L [facility] Creatinine [Mass/Vol] 1.36 mg/dL High 0.70 - 1.30 mg/dL [facility] GFR/1.73 sq M.predicted CKD-EPI (S/P/Bld) [Vol rate/Area] 67 - PINF [facility] Glucose [Mass/Vol] 138 mg/dL High 74 - 109 mg/dL [facility] Interpretation and review of laboratory results Abnormal [facility] Potassium [Moles/Vol] 4.3 mmol/L 3.5 - 5.0 mmol/L [facility] Sodium [Moles/Vol] 140 mmol/L 136 - 145 mmol/L [facility] Urea nitrogen [Mass/Vol] 14 mg/dL 7 - 25 mg/d L [facility] CBC WITH DIFFERENTIALon 01-14 Basophils (Bld) [#/Vol] 0.06 10*3/uL 0.00 - 0.20 K/uL [facility] Basophils/100 WBC (Bld) 1.1 % NINF - 1.9 % [facility] Eosinophils (Bld) [#/Vol] 0.02 10*3/uL 0.00 - 0.70 K/uL [facility] Eosinophils/100 WBC (Bld) 0.4 % 0.1 - 4.0 % [facility] Erythrocyte distribution width (RBC) [Ratio] 15 % High 11.5 - 14.5 % [facility] Hematocrit (Bld) [Volume fraction] 43.9 % 41.0 - 53.0 % [facility] Hemoglobin (Bld) [Mass/Vol] 14.7 g/dL 13.9 - 16.3 g/dL [facility] Interpretation and review of laboratory results Abnormal [facility] Lymphocytes (Bld) [#/Vol] 0.82 10*3/uL Low 1.00 - 4.80 K/uL [facility] Lymphocytes/100 WBC (Bld) 14.6 % Low 24.0 - 44.0 % [facility] MCH (RBC) [Entitic mass] 31.5 pg 26. 0 - 34.0 pg [facility] MCHC (RBC) [Mass/Vol] 33.6 g/dL 32.0 - 35.9 g/dL [facility] MCV (RBC) [Entitic vol] 94 fL 80 - 100 fL [facility] Monocyte distribution width Auto (Bld) [Entitic vol] 21 High NINF - 20 [facility] Monocytes (Bld) [#/Vol] 0.5 10*3/uL 0.20 - 1.00 K/uL [facility] Monocytes/100 WBC (Bld) 8.9 % 2.0 - 11.0 % [facility] Neutrophils (Bld) [#/Vol] 4.2 10*3/uL 1.50 - 8.00 K/uL [facility] Neutrophils/100 WBC (Bld) 75 % 31.0 - 76.0 % [facility] Platelet mean volume (Bld) [Entitic vol] 7.8 fL 7.5 - 11.2 fL [facility] Platelets (Bld) [#/Vol] 204 10*3/uL 150 - 400 K/uL [facility] RBC (Bld) [#/Vol] 4.67 10*6/uL [facility] WBC (Bld) [#/Vol] 5.6 10*3/uL 4.5 - 11.5 K/uL [facility] Basophils (Bld) [#/Vol] 0.06 10*3/uL Normal 0.00-0.20 [facility] Comment on above: Performed By: #### C BCDSAT ####S PATHOLOGY [id number] [place] [address], Basophils/100 WBC (Bld) 1.1 % Normal <=1.9 T [facility] Comment on above: Performed By: #### C BCDSAT ####S PATHOLOGY [id number] [place] [address], Eosinophils (Bld) [#/Vol] 0.02 10*3/uL Normal 0.00-0.70 [facility] Comment on above: Performed By: #### C BCDSAT ####[facility] [id number] [place] [address], Eosinophils/100 WBC (Bld) 0.4 % Normal 0.1-4.0 [facility] Comment on above: Performed By: #### C BCDSAT ####[facility] [id number] [place] [address], Erythrocyte distribution width (RBC) [Ratio] 15.0 % High 11.5-14.5 [facility] Comment on above: Performed By: #### C YEIMIAT ####[facility] PATHOLOGY [id number] [place], Hematocrit (Bld) [Volume fraction] 43.9 % Normal 41.0-53.0 [facility] Comment on above: Performed By: #### C YEIMIAT ####[facility] PATHOLOGY [id number] [place], Hemoglobin (Bld) [Mass/Vol] 14.7 g/dL Normal 13.9-16.3 [facility] Comment on above: Performed By: #### C YEIMIAT ####[facility] PATHOLOGY [id number] [place], Lymphocytes (Bld) [#/Vol] 0.82 10*3/uL Low 1.00-4.80 [facility] Comment on above: Performed By: #### C YEIMIAT ####[facility] PATHOLOGY [id number] [place], Lymphocytes/100 WBC (Bld) 14.6 % Low 24.0-44.0 [facility] Comment on above: Performed By: #### Jaison JALLOHAT ####[facility] PATHOLOGY [id number] [place], MCH (RBC) [Entitic mass] 31.5 pg Normal 26.0-34.0 [facility] Comment on above: Performed By: #### C YEIMIAT ####[facility] PATHOLOGY [id number] [place], MCHC (RBC) [Mass/Vol] 33.6 g/dL Normal 32.0-35.9 [facility] Comment on above: Performed By: #### C YEIMIAT ####S PATHOLOGY [id number] [place], MCV (RBC) [Entitic vol] 94 fL Normal 80-100 [facility] Comment on above: Performed By: #### C YEIMIAT ####[facility] PATHOLOGY [id number] [place], MONOCYTE DISTRIBUTION WIDTH 21 High <=20 [facility] Comment on above: Performed By: #### C BCDSAT ####[facility] PATHOLOGY [id number] [place], Monocytes (Bld) [#/Vol] 0.50 10*3/uL Normal 0.20-1.00 [facility] Comment on above: Performed By: #### C YEIMIAT ####[facility] PATHOLOGY [id number] [place], Monocytes/100 WBC (Bld) 8.9 % Normal 2.0-11.0 T [facility] Comment on above: Performed By: #### C BCDSAT ####[facility] PATHOLOGY [id number] [place] [address], Neutrophils (Bld) [#/Vol] 4.20 10*3/uL Normal 1.50-8.00 [facility] Comment on above: Performed By: #### C BCDSAT ####[facility] PATHOLOGY [id number] [place] [address], Neutrophils/100 WBC (Bld) 75.0 % Normal 31.0-76.0 [facility] Comment on above: Performed By: #### C BCDSAT ####[facility] PATHOLOGY [id number] [place], [place], Platelet mean volume (Bld) [Entitic vol] 7.8 fL Normal 7.5-11.2 [facility] Comment on above: Performed By: #### C BCDSAT ####[facility] PATHOLOGY [id number] [place], [place], Platelets (Bld) [#/Vol] 204 10*3/uL Normal 150-400 [facility] Comment on above: Performed By: #### C BCDSAT ####[facility] PATHOLOGY [id number] [place], [place], RBC (Bld) [#/Vol] 4.67 10*6/uL Normal 4.50-5.90 [facility] Comment on above: Performed By: #### C BCDSAT ####S PATHOLOGY [id number] [place], [place], WBC (Bld) [#/Vol] 5.6 10*3/uL Normal 4.5-11.5 [facility] Comment on above: Performed By: #### C BCDSAT ####S PATHOLOGY [id number] [place], [place], CREATINE KINASEon 01-29-2025 CK [Catalytic activity/Vol] 225 U/L Normal 30-233 [facility] Comment on above: Performed By: #### M G, CH8, CK ####[facility] PATHOLOGY [id number] [place], [place], ED Noteson 01-29-2025 Observation Nurse Authentication Interface Message Text Orthostatic vital signs Lying down: HR 58, BP 108/55 Sitting up: HR 64, BP 111/57 Standing (1 min): HR 74, BP 94/48 Standing (3 min): HR 82, BP 80/46 Normal [facility] ED Provider Noteson 01-30-20 Observation Nurse Authentication Interface Message Text Normal [facility] H AND Max 01-29-2025 Observation Nurse Authentication Interface Message Text Normal [facility] HIGH SENSITIVITY CARDIAC TRO PONIN I (HS-CTNI) SERIAL TESTING 0HR (BASELINE)on 01-29-2025 Troponin I.cardiac DL <= 0.01 ng/mL [Mass/Vol] 4 ng/L NINF - 15 ng/L [facility] HS-CTNI 0 HR (BASELINE) 4 ng/L Normal <=15 T he [facility] Comment on above: Order Comment: [place] bigg troponin can result from acute myocardial infarction (coronary etiology) or myocardial injury (non-coronary etiology) - always consider both.Interval test times for ruling out acute coronary syndrome (ACS) are 2 hours.All results are reported in whole numbers representing ng/L. Results obtained by different labs or methods are not comparable.For ruling out ACS, lab values are always used in conjunction with clinical risk assessment (e.g., HEART score*).Interpreting initial value in ruling out ACSLess than 5 ng/L - below lower limit of quantification - essentially rules out ACS if chest pain began more than 3 hours prior to test and assessed risk is low.5 - 49 ng/L - indeterminate - consider repeat value in 2 hours depending on risk assessment.50 ng/L or greater - concern for ACS or myocardial injury.Interpreting delta values in ruling out ACS.Always compare to initial value obtained:Absolute change (rise or fall) of less than 5 ng/L - essentially rules out ACS if assessed clinical risk is low.Absolute change (rise or fall) of 5 - 19 ng/L - indeterminate - consider another repeat value in 2 hours depending on assessed clinical risk.Absolute change (rise or fall) of 20 ng/L or greater - concern for ACS or myocardial injury.Any absolute value of 50 ng/L or greater - concern for ACS or myocardial injury.*When using hsTnI to calculate the HEART score, use the 99% Upper Reference Limit of 15 ng/L as the normal limit (i.e. <=15 ng/L = 0 points, 16-45 ng/L = 1 point, >45 ng/L = 2 points).DispositionIntermediate hsTnI values DO NOT mandate admission to a cardiology or telemetry unit. They need to be interpreted within the clinical context using provider judgement. Performed By: #### H STRP SERIAL ####[facility] [id number] [place], [address] HIGH SENSITIVITY CARDIAC TRO PONIN I (HS-CTNI) SERIAL TESTING 2HRon 01-29-2025 Troponin I.cardiac DL <= 0.01 ng/mL [Mass/Vol] 4 ng/L NINF - 15 ng/L [facility] DELTA HS-CTNI (0 HR-2HR) 0 ng/L Normal <5 [facility] Comment on above: Order Comment: [place] bigg troponin can result from acute myocardial infarction (coronary etiology) or myocardial injury (non-coronary etiology) - always consider both.Interval test times for ruling out acute coronary syndrome (ACS) are 2 hours.All results are reported in whole numbers representing ng/L. Results obtained by different labs or methods are not comparable.For ruling out ACS, lab values are always used in conjunction with clinical risk assessment (e.g., HEART score*).Interpreting initial value in ruling out ACSLess than 5 ng/L - below lower limit of quantification - essentially rules out ACS if chest pain began more than 3 hours prior to test and assessed risk is low.5 - 49 ng/L - indeterminate - consider repeat value in 2 hours depending on risk assessment.50 ng/L or greater - concern for ACS or myocardial injury.Interpreting delta values in ruling out ACS.Always compare to initial value obtained:Absolute change (rise or fall) of less than 5 ng/L - essentially rules out ACS if assessed clinical risk is low.Absolute change (rise or fall) of 5 - 19 ng/L - indeterminate - consider another repeat value in 2 hours depending on assessed clinical risk.Absolute change (rise or fall) of 20 ng/L or greater - concern for ACS or myocardial injury.Any absolute value of 50 ng/L or greater - concern for ACS or myocardial injury.*When using hsTnI to calculate the HEART score, use the 99% Upper Reference Limit of 15 ng/L as the normal limit (i.e. <=15 ng/L = 0 points, 16-45 ng/L = 1 point, >45 ng/L = 2 points).DispositionIntermediate hsTnI values DO NOT mandate admission to a cardiology or telemetry unit. They need to be interpreted within the clinical context using provider judgement. Performed By: #### H STRP 2HR ####[facility] [id number] [place], [address] HS-CTNI 2 HR 4 ng/L Normal <=15 [facility] Comment on above: Order Comment: [place] bigg troponin can result from acute myocardial infarction (coronary etiology) or myocardial injury (non-coronary etiology) - always consider both.Interval test times for ruling out acute coronary syndrome (ACS) are 2 hours.All results are reported in whole numbers representing ng/L. Results obtained by different labs or methods are not comparable.For ruling out ACS, lab values are always used in conjunction with clinical risk assessment (e.g., HEART score*).Interpreting initial value in ruling out ACSLess than 5 ng/L - below lower limit of quantification - essentially rules out ACS if chest pain began more than 3 hours prior to test and assessed risk is low.5 - 49 ng/L - indeterminate - consider repeat value in 2 hours depending on risk assessment.50 ng/L or greater - concern for ACS or myocardial injury.Interpreting delta values in ruling out ACS.Always compare to initial value obtained:Absolute change (rise or fall) of less than 5 ng/L - essentially rules out ACS if assessed clinical risk is low.Absolute change (rise or fall) of 5 - 19 ng/L - indeterminate - consider another repeat value in 2 hours depending on assessed clinical risk.Absolute change (rise or fall) of 20 ng/L or greater - concern for ACS or myocardial injury.Any absolute value of 50 ng/L or greater - concern for ACS or myocardial injury.*When using hsTnI to calculate the HEART score, use the 99% Upper Reference Limit of 15 ng/L as the normal limit (i.e. <=15 ng/L = 0 points, 16-45 ng/L = 1 point, >45 ng/L = 2 points).DispositionIntermediate hsTnI values DO NOT mandate admission to a cardiology or telemetry unit. They need to be interpreted within the clinical context using provider judgement. Performed By: #### H STRP 2HR ####S PATHOLOGY [id number] [place], [place], HIV 1 and 2 Ab and HIV 1 p24 Ag panel IAon 01-29-2025 HIV 1+2 Ab+HIV1 p24 Ag IA Ql Non-Reactive Non-Reactive [facility] Interpretation and review of laboratory results Normal [facility] HIV AG-AB SCREEN Non-Reactive Normal Non-Reactive [facility] Comment on above: Order Comment: HIV I nformation: ???[place] Rev. code 3701.243(E):This information has been disclosed to you from confidential records protected from disclosure by state law. ???You shall make no further disclosure of this information without the specific, written, and informed release of the individual to whom it pertains, or as otherwise permitted by state law. ???A general authorization for the release of medical or other information is not sufficient for the purpose of the release of HIV test results or diagnoses. Result Comment: No l aboratory evidence for HIV Infection. Negative result does not rule out acute HIV infection. If acute HIV infection is suspected, recommend ordering an HIV-1 RNA quanitification test. Performed By: #### 8 5037-0 ####S PATHOLOGY [id number] [place], [place], MAGNESIUMon 01-29-2025 Interpretation and review of laboratory results Normal [facility] Magnesium [Mass/Vol] 2.1 mg/dL 1.9 - 2 .7 mg/dL [facility] Magnesium [Mass/Vol] 2.1 mg/dL Normal 1.9-2.7 [facility] Comment on above: Performed By: #### M G, CH8, CK ####[facility] [id number] [place], [address] No Panel Informationon 01-29 [facility] Troponin I.cardiac DL <= 0.0 1 ng/mL [Mass/Vol]on 01-29-2025 DELTA hs-cTnI, (0 HR-2HR) 0 ng/L NINF - 5 ng/L [facility] Interpretation and review of laboratory results Normal [facility] Interpretation and review of laboratory results Normal [facility] XR CHEST PA+LAT 2 VIEWSon XR CHEST PA+LAT 2 VIEWS Normal T he [facility] XR Chest PA and Lateralon RADIOLOGY [facility] Radiology Study observation (narrative) [facility] XR Chest PA and LateralOrder ed By: Caroline Brower on 01-29-2025 [facility] Work Phone: CBC W/Diff, Automatedon Absolute Lymph 0.97 X10 3/uL Normal 0.83-4.51 [facility] Comment on above: Performed By: #### L 501.2400, L501.9910, L503.0106, L500.4050, L501.5200, L501.9520, L501.2450, L100.0100 #### [facility] [address] [place], [address] Absolute Neut 3.3 X10 3/uL Normal 2.0-7.7 [facility] Comment on above: Performed By: #### L 501.2400, L501.9910, L503.0106, L500.4050, L501.5200, L501.9520, L501.2450, L100.0100 #### [facility] [address] [place], [address] Basophils/100 WBC (Bld) 0.8 % Normal 0-1 [facility] Comment on above: Performed By: #### L 501.2400, L501.9910, L503.0106, L500.4050, L501.5200, L501.9520, L501.2450, L100.0100 #### [facility] [address] [place], [address] Eosinophils/100 WBC (Bld) 0.2 % Normal 0-5 [facility] Comment on above: Performed By: #### L 501.2400, L501.9910, L503.0106, L500.4050, L501.5200, L501.9520, L501.2450, L100.0100 #### [facility] [address] [place], [address] Erythrocyte distribution width (RBC) [Ratio] 13.9 % Normal 11.6-14.6 [facility] Comment on above: Performed By: #### L 501.2400, L501.9910, L503.0106, L500.4050, L501.5200, L501.9520, L501.2450, L100.0100 #### [facility] [address] [place], [address] Hematocrit (Bld) [Volume fraction] 45.9 % Normal 40-54 [facility] Comment on above: Performed By: #### L 501.2400, L501.9910, L503.0106, L500.4050, L501.5200, L501.9520, L501.2450, L100.0100 #### [facility] [address] [place], [address] Hemoglobin (Bld) [Mass/Vol] 15.2 g/dL Normal 13.0-16.5 [facility] Comment on above: Performed By: #### L 501.2400, L501.9910, L503.0106, L500.4050, L501.5200, L501.9520, L501.2450, L100.0100 #### [facility] [address] [place], [address] IG% 0.800 Normal 0.0-0.9 [facility] Comment on above: Result Comment: IG% - Immature Granulocytes (promyelocytes, myelocytes and metamyelocytes) > 1% indicates that a LEFT SHIFT is Present. Performed By: #### L 501.2400, L501.9910, L503.0106, L500.4050, L501.5200, L501.9520, L501.2450, L100.0100 #### [facility] [address] [place], [address] Lymphocytes/100 WBC (Bld) 19.8 % Normal 19-41 [facility] Comment on above: Performed By: #### L 501.2400, L501.9910, L503.0106, L500.4050, L501.5200, L501.9520, L501.2450, L100.0100 #### [facility] [address] [place], [address] MCH (RBC) [Entitic mass] 30.8 pg Normal 27.0-32.0 [facility] Comment on above: Performed By: #### L 501.2400, L501.9910, L503.0106, L500.4050, L501.5200, L501.9520, L501.2450, L100.0100 #### [facility] [address] [place], [address] MCHC (RBC) [Mass/Vol] 33.1 g/dL Normal 32-36 [facility] Comment on above: Performed By: #### L 501.2400, L501.9910, L503.0106, L500.4050, L501.5200, L501.9520, L501.2450, L100.0100 #### [facility] [address] [place], [address] MCV (RBC) [Entitic vol] 93.1 fL Normal 80-94 [facility] Comment on above: Performed By: #### L 501.2400, L501.9910, L503.0106, L500.4050, L501.5200, L501.9520, L501.2450, L100.0100 #### [facility] [address] [place], [address] Monocytes/100 WBC (Bld) 10.2 % High 0-10 [facility] Comment on above: Performed By: #### L 501.2400, L501.9910, L503.0106, L500.4050, L501.5200, L501.9520, L501.2450, L100.0100 #### [facility] [address] [place], [address] Neutrophils/100 WBC (Bld) 68.2 % Normal 47-70 [facility] Comment on above: Performed By: #### L 501.2400, L501.9910, L503.0106, L500.4050, L501.5200, L501.9520, L501.2450, L100.0100 #### [facility] [address] [place], [address] Nucleated RBC (Bld) [#/Vol] 0 10*3/uL Normal 0-5 [facility] Comment on above: Performed By: #### L 501.2400, L501.9910, L503.0106, L500.4050, L501.5200, L501.9520, L501.2450, L100.0100 #### [facility] [address] [place], [address] Platelet mean volume (Bld) [Entitic vol] 9.4 fL Normal 6.2-12.0 [facility] Comment on above: Performed By: #### L 501.2400, L501.9910, L503.0106, L500.4050, L501.5200, L501.9520, L501.2450, L100.0100 #### [facility] [address] [place], [address] Platelets (Bld) [#/Vol] 284 10*3/uL Normal 150-450 [facility] Comment on above: Performed By: #### L 501.2400, L501.9910, L503.0106, L500.4050, L501.5200, L501.9520, L501.2450, L100.0100 #### [facility] [address] [place], [address] RBC (Bld) [#/Vol] 4.93 10*6/uL Normal 4.6-6.2 [facility] Comment on above: Performed By: #### L 501.2400, L501.9910, L503.0106, L500.4050, L501.5200, L501.9520, L501.2450, L100.0100 #### [facility] [address] [place], [address] RDW SD 47.3 fl High 35.1-43.9 [facility] Comment on above: Performed By: #### L 501.2400, L501.9910, L503.0106, L500.4050, L501.5200, L501.9520, L501.2450, L100.0100 #### [facility] [address] [place], [address] WBC (Bld) [#/Vol] 4.9 10*3/uL Normal 4.4-11.0 [facility] Comment on above: Performed By: #### L 501.2400, L501.9910, L503.0106, L500.4050, L501.5200, L501.9520, L501.2450, L100.0100 #### [facility] [address] [place], [address] Comprehensive Metabolic Prof ilon 01-20-2025 Albumin [Mass/Vol] 4.2 g/dL Normal 3.5-5.0 [facility] Comment on above: Performed By: #### L 501.2400, L501.9910, L503.0106, L500.4050, L501.5200, L501.9520, L501.2450, L100.0100 #### [facility] [address] [place], [address] Albumin/Globulin [Mass ratio] 1.4 {ratio} Normal 0.9-2.4 [facility] Comment on above: Performed By: #### L 501.2400, L501.9910, L503.0106, L500.4050, L501.5200, L501.9520, L501.2450, L100.0100 #### [facility] [address] [place], [address] ALK PHOS 81 U/L Normal 40-129 [facility] Comment on above: Performed By: #### L 501.2400, L501.9910, L503.0106, L500.4050, L501.5200, L501.9520, L501.2450, L100.0100 #### [facility] [address] [place], [address] ALT [Catalytic activity/Vol] 64 U/L High <=46 [facility] Comment on above: Performed By: #### L 501.2400, L501.9910, L503.0106, L500.4050, L501.5200, L501.9520, L501.2450, L100.0100 #### [facility] [address] [place], [address] AST [Catalytic activity/Vol] 35 U/L Normal <=37 [facility] Comment on above: Performed By: #### L 501.2400, L501.9910, L503.0106, L500.4050, L501.5200, L501.9520, L501.2450, L100.0100 #### [facility] [address] [place], [address] Bilirubin [Mass/Vol] 0.39 mg/dL Normal 0.00-1.30 [facility] Comment on above: Performed By: #### L 501.2400, L501.9910, L503.0106, L500.4050, L501.5200, L501.9520, L501.2450, L100.0100 #### [facility] [address] [place], [address] BUN/CRE 12.7 RATIO Normal 10-20 [facility] Comment on above: Performed By: #### L 501.2400, L501.9910, L503.0106, L500.4050, L501.5200, L501.9520, L501.2450, L100.0100 #### [facility] [address] [place], [address] Calcium [Mass/Vol] 9.5 mg/dL Normal 7.6-11.0 [facility] Comment on above: Performed By: #### L 501.2400, L501.9910, L503.0106, L500.4050, L501.5200, L501.9520, L501.2450, L100.0100 #### [facility] [address] [place], [address] Chloride [Moles/Vol] 102 mmol/L Normal 98-108 [facility] Comment on above: Performed By: #### L 501.2400, L501.9910, L503.0106, L500.4050, L501.5200, L501.9520, L501.2450, L100.0100 #### [facility] [address] [place], [address] CO2 [Moles/Vol] 28.8 mmol/L Normal 21.0-32.0 [facility] Comment on above: Performed By: #### L 501.2400, L501.9910, L503.0106, L500.4050, L501.5200, L501.9520, L501.2450, L100.0100 #### [facility] [address] [place], [address] Creatinine [Mass/Vol] 1.38 mg/dL High 0.70-1.20 [facility] Comment on above: Performed By: #### L 501.2400, L501.9910, L503.0106, L500.4050, L501.5200, L501.9520, L501.2450, L100.0100 #### [facility] [address] [place], [address] GAP 10 Normal 5-15 [facility] Comment on above: Performed By: #### L 501.2400, L501.9910, L503.0106, L500.4050, L501.5200, L501.9520, L501.2450, L100.0100 #### [facility] [address] [place], [address] GFR/1.73 sq M.predicted among non-blacks MDRD (S/P/Bld) [Vol rate/Area] 66 mL/min/{1.73_m2} Normal >60 [facility] Comment on above: Result Comment: mL/m in/1.73m2 CKD-EPI Creatinine Equation (2020) Performed By: #### L 501.2400, L501.9910, L503.0106, L500.4050, L501.5200, L501.9520, L501.2450, L100.0100 #### [facility] [address] [place], [address] Globulin (S) [Mass/Vol] 2.9 g/dL Normal 2.2-4.[address] [facility] Comment on above: Performed By: #### L 501.2400, L501.9910, L503.0106, L500.4050, L501.5200, L501.9520, L501.2450, L100.0100 #### [facility] [address] [place], [address] Glucose [Mass/Vol] 92 mg/dL Normal 70-99 [facility] Comment on above: Performed By: #### L 501.2400, L501.9910, L503.0106, L500.4050, L501.5200, L501.9520, L501.2450, L100.0100 #### [facility] [address] [place], [address] Potassium [Moles/Vol] 4.1 mmol/L Normal 3.3-5.1 [facility] Comment on above: Performed By: #### L 501.2400, L501.9910, L503.0106, L500.4050, L501.5200, L501.9520, L501.2450, L100.0100 #### [facility] [address] [place], [address] Sodium [Moles/Vol] 140 mmol/L Normal 133-145 [facility] Comment on above: Performed By: #### L 501.2400, L501.9910, L503.0106, L500.4050, L501.5200, L501.9520, L501.2450, L100.0100 #### [facility] [address] [place], [address] T PROT 7.1 g/dL Normal 5.9-8.4 [facility] Comment on above: Performed By: #### L 501.2400, L501.9910, L503.0106, L500.4050, L501.5200, L501.9520, L501.2450, L100.0100 #### [facility] [address] [place], [address] Urea nitrogen [Mass/Vol] 18 mg/dL Normal 4-19 [facility] Comment on above: Performed By: #### L 501.2400, L501.9910, L503.0106, L500.4050, L501.5200, L501.9520, L501.2450, L100.0100 #### [facility] [address] [place], [address] Hemoglobin A1con 01-20-2025 HbA1c (Bld) [Mass fraction] 5.5 % Normal <=5.6 [facility] Comment on above: Result Comment: Norm al < 5.7 % Prediabetic 5.7 - 6.4 % Diabetic >or= 6.5 % Please note range changes. Performed By: #### L 501.2400, L501.9910, L503.0106, L500.4050, L501.5200, L501.9520, L501.2450, L100.0100 #### [facility] [address] [place], [address] MR/BMS.BPon 01-20-2025 MR/BMS.BP [address], [address] [place] [address] OFFICE VISIT Date of Service: 01/20/25 MR#: [id number] Acct: [id number] Name: ROGELIO BOWERS Rep #: [id number] : 1985 Provider: Dr. Alvin Warren se, DO Age/Sex: 39/M Location: [facility].BP Status: Signed Intake Vital Signs 12/16/24 13:56 01/20/25 13:33 Height 5 ft 6 in 5 ft 6 in Weight: 146 lb 6 oz 149 lb BMI 23.6 24.0 BP 101/65 83/54 L Blood Pressure Location Lt brachial Lt brachial Position Sitting Sitting Respiration 15 16 Pulse 87 89 Pulse Source NIBP Monitor BP Intake Visit Reasons: 6 wk f/u Accompanied by: Parents Allergies No Known Drug Allergies Allergy (Verified 01/20/25 13:36) Other Medications ???Medication ???Instructions ???Recorded ???Confirmed ???Type trazodone 50 mg tablet 50 mg PO QHS PRN insomnia #30 tabs 11/19/24 01/20/25 Rx docusate sodium 100 mg capsule 100 mg PO QDAY 11/25/24 01/20/25 H istory risperidone 3 mg tablet 3 mg PO BID 30 days #60 tabs 12/1601/20/25 Rx PFSH Medical History Auditory hallucinations Neurocognitive deficits Bilateral impacted cerumen Excess ear wax Encounter to establish care Flu vaccine need Memory deficits Schizophrenia OCD (obsessive compulsive disorder) History of seizures Hx of gastrointestinal disease History of emotional problems Down syndrome Social History household members: family housing: house current occupational status: disabled Smoking Status: Never smoker alcohol intake: never substance use type: does not use what type of physical activity do you participate in: other details: Dancing frequency: daily seatbelt use: always do you feel safe at home: Yes HPI History of Present Illness History provided by: patient and family HPI: Rogelio Bowers is a 39 year old male who presents today for follow up evaluation. Per mother, things had been doing really well, then about a week ago things did seem to get marginally worse. After this, mother increased his risperidone another 0.5 mg, which seemed to sedate him further then he seems to come closer to baseline. Now taking 3.5 mg BID and is doing significantly better. Recently went to [place] again this past weekend and did very well throughout the whole trip. Did have another episode of falls in recent past. Had similar symptoms even prior to risperidone use. Followed with neuro recently with no recent change. Does engage in his hobbies for short bursts of time. Is often times tired however so doesn't maintain attention for long stretches. Review of Systems Constitutional Denies: fever(s), chills, change in weight or fatigue Eyes Denies: change in vision or blurry vision Ears, Nose, Mouth, Throat Denies: throat pain, neck pain or change in hearing Cardiovascular Denies: chest pain, palpitations or dyspnea Respiratory Denies: dyspnea, cough or wheezing Gastrointestinal Reports: abdominal pain; Denies: nausea, vomiting, diarrhea or constipation Genitourinary Reports: dysuria; Denies: urinary frequency or hematuria Musculoskeletal Reports: back pain; Denies: neck pain, joint pain or muscle weakness Integumentary/Breast Denies: rash or new lesions Neurological Reports: confusion and behavioral changes; Denies: headache(s) or dizziness Psychiatric Reports: visual hallucinations, auditory hallucinations and other (Delusions) Endocrine Denies: fatigue or excessive sweating Hematologic/Lymphati c Denies: easy bruising or easy bleeding Allergic/Immunologic Denies: wheezing Exam Mental Status Exam - Psych Appearance casually dressed and thin Attitude cooperative and calm Activity/Motor Behavior staring (Improving) Speech soft and minimal Mood OK Affect blunted Thought Process impoverished Thought Content hallucinations (Intermittent per family) Suicidal Ideation none Homicidal Ideation none Attention other (fair) Concentration intact Sensorium/Orientatio n awake, alert and oriented x3 Memory/Cognition other (Fair) Insight limited Judgement limited Assessment Plan Assessment Plan (1) Auditory hallucinations: Plan: - Behavioral symptoms of dementia? Other idiopathic psychosis? - Mother again increase dose of risperidone to 3.5 mg every day; encouraged to not increase medication without discussing first as I do believe the risk of EPS and other antidopaminergic side effects is elevated with continued increased dose - Screening labs ordered; evaluating for possible hyponatremia in the context of recent syncopal episodes however these episodes have been present even prior to starting any antipsychotic therapy (2) OCD (obsessive compulsive diso (more content not included)... Normal [facility] MR/BMS.BPon 12-16-2024 MR/BMS.BP [facility], [address] [place] [address] OFFICE VISIT Date of Service: 12/16/24 MR#: [id number] Acct: [id number] Name: ROGELIO BOWERS Rep #: [id number] : 1985 Provider: Dr. Alvin Warren se, DO Age/Sex: 39/M Location: [facility].BP Status: Signed Intake Vital Signs 11/25/24 13:35 12/16/24 13:56 Height 5 ft 6 in 5 ft 6 in Weight: 145 lb 146 lb 6 oz BMI 23.3 23.6 BP 97/66 101/65 Blood Pressure Location Lt brachial Lt brachial Position Sitting Sitting Respiration 16 15 Pulse 83 87 Pulse Source Monitor NIBP BP Intake Visit Reasons: F/u on December 16 Allergies No Known Drug Allergies Allergy (Verified 12/16/24 14:02) Other Medications ???Medication ???Instructions ???Recorded ???Confirmed ???Type trazodone 50 mg tablet 50 mg PO QHS PRN insomnia #30 tabs 11/19/24 12/16/24 Rx benztropine 0.5 mg tablet 0.5 mg PO BID PRN EPS #60 tabs 06/0912/16/24 Rx docusate sodium 100 mg capsule 100 mg PO QDAY 11/25/24 12/16/24 H istory risperidone 3 mg tablet 3 mg PO BID 30 days #60 tabs 12/1612/16/24 Rx PFSH Medical History Auditory hallucinations Neurocognitive deficits Bilateral impacted cerumen Excess ear wax Encounter to establish care Flu vaccine need Memory deficits Schizophrenia OCD (obsessive compulsive disorder) History of seizures Hx of gastrointestinal disease History of emotional problems Down syndrome Social History household members: family housing: house current occupational status: disabled Smoking Status: Never smoker alcohol intake: never substance use type: does not use what type of physical activity do you participate in: other details: Dancing frequency: daily seatbelt use: always do you feel safe at home: Yes HPI History of Present Illness History provided by: patient and family HPI: Rogelio Bowers is a 39 year old male who presents today for follow up evaluation. Per mother, patient has been doing significantly better. States that patient recently went to [place] and was nearly at old baseline the for entire visit. Has been much more agreeable and friendly with family members. Has been taking about 2.5 mg BID of risperidone and is doing very well. Has been much more attentive to hearing when being talked to. Does have some leg pain but this is not necessarily worse. No significant side effects at this time. Review of Systems Constitutional Denies: fever(s), chills, change in weight or fatigue Eyes Denies: change in vision or blurry vision Ears, Nose, Mouth, Throat Denies: throat pain, neck pain or change in hearing Cardiovascular Denies: chest pain, palpitations or dyspnea Respiratory Denies: dyspnea, cough or wheezing Gastrointestinal Reports: abdominal pain; Denies: nausea, vomiting, diarrhea or constipation Genitourinary Reports: dysuria; Denies: urinary frequency or hematuria Musculoskeletal Reports: back pain; Denies: neck pain, joint pain or muscle weakness Integumentary/Breast Denies: rash or new lesions Neurological Reports: confusion and behavioral changes; Denies: headache(s) or dizziness Psychiatric Reports: visual hallucinations, auditory hallucinations and other (Delusions) Endocrine Denies: fatigue or excessive sweating Hematologic/Lymphati c Denies: easy bruising or easy bleeding Allergic/Immunologic Denies: wheezing Exam Mental Status Exam - Psych Appearance casually dressed and thin Attitude cooperative (Much more cooperative than previous appointments) Activity/Motor Behavior staring (Improving) and other (No mumbling as previous) Speech soft and minimal Mood OK Affect restricted Thought Process impoverished Thought Content hallucinations (Near complete resolution) Suicidal Ideation none Homicidal Ideation none Attention other (fair) Concentration intact Sensorium/Orientatio n awake, alert and oriented x3 Memory/Cognition other (Fair) Insight limited Judgement limited Assessment Plan Assessment Plan (1) Auditory hallucinations: Plan: - Behavioral symptoms of dementia? Other idiopathic psychosis? -Patient doing significantly better with increased dose of risperidone at 2.5 mg twice daily - Still having occasional report of hallucinations however again significantly improved; we will increase to 3 mg twice a day ???Patient was informed of the risk, benefits, and possible side effects of antipsychotics medications. Side effects of these medications can include but are not limited to orthostatic hypotension (low blood pressure), weight gain, metabolic side effects, extrapyramidal side effects, and tardive dyskinesia. If you notice any abnormal movemen (more content not included)... Normal [facility] 12 Lead EKGon 12-07-2024 12 [facility] [address] [place] [id number] 12 Lead EKG 12/07/24 1331 MR#: [id number] Acct: [id number] Name: ROGELIO BOWERS Rep #: [id number] : 1985 39 From: Ángel Rebolledo MD Attending Dr: Yamel Kahn [facility] Status: REG CLI Ordering Dr: Yamel Kahn [facility] Date: 12/07/24 Location: [facility] Sex: M C Admitted: Test Reason : PALPITATIONS Blood Pressure : */* mmHG Vent. Rate : 71 BPM Atrial Rate : 71 BPM P-R Int : 114 ms QRS Dur : 90 ms QT Int : 378 ms P-R-T Axes : 73 93 76 degrees QTcB Int : 410 ms Normal sinus rhythm Rightward axis Minimal voltage criteria for LVH, may be normal variant Borderline ECG Confirmed by ÁNGEL REBOLLEDO MD ([id number]), film editor BENJIE MATOS ([id number]) on 12/08/2024 11:02:12 AM Referred By: Yamel Kahn Confirmed By: ÁNGEL REBOLLEDO MD 12/08/24 1102 Date Ángel Rebolledo MD CC: [facility] Joshua Nichole; Yamel [facility] Femi Signed Normal [facility] MR/BMS.BPon 11-25-2024 MR/BMS.BP [address], [address] [place] [id number] OFFICE VISIT Date of Service: 11/25/24 MR#: [id number] Acct: [id number] Name: ROGELIO BOWERS Rep #: [id number] : 1985 Provider: Dr. Alvin Warren se, DO Age/Sex: 39/M Location: [facility].BP Status: Signed Intake Vital Signs 06/14/24 16:08 11/25/24 13:35 Height 5 ft 6 in 5 ft 6 in Weight: 145 lb BMI 23.3 BP 125/71 H 97/66 Blood Pressure Location Lt brachial Lt brachial Position Sitting Sitting Respiration 16 16 Pulse 65 83 Pulse Source Monitor Monitor BP Intake Visit Reasons: follow up Accompanied by: Self Allergies No Known Drug Allergies Allergy (Verified 11/25/24 13:39) Other Medications ???Medication ???Instructions ???Recorded ???Confirmed ???Type trazodone 50 mg tablet 50 mg PO QHS PRN insomnia #30 tabs 11/19/24 11/25/24 Rx benztropine 0.5 mg tablet 0.5 mg PO BID PRN EPS #60 tabs 06/0911/25/24 Rx docusate sodium 100 mg capsule 100 mg PO QDAY 11/25/24 11/25/24 H istory risperidone 1 mg tablet 1 mg PO .COMPLEX #90 tabs 11/25/24 11/25/24 Rx PFSH Medical History (Updated 11/30/24 @ 06:[address] Alvin Phelan, DO) Auditory hallucinations Neurocognitive deficits Bilateral impacted cerumen Excess ear wax Encounter to establish care Flu vaccine need Memory deficits Schizophrenia OCD (obsessive compulsive disorder) History of seizures Hx of gastrointestinal disease History of emotional problems Down syndrome Social History household members: family housing: house current occupational status: disabled Smoking Status: Never smoker alcohol intake: never substance use type: does not use what type of physical activity do you participate in: other details: Dancing frequency: daily seatbelt use: always do you feel safe at home: Yes HPI History of Present Illness History provided by: patient and family HPI: Rogelio Bowers is a 39 year old male who presents today for follow up evaluation. Patient's caregiver states that we are in desperate mode now. Admits that he had been doing better when they were in [place], but since returning started having worsening hallucinations and seeing lights. Describes significant paranoid ideation of people following him and trying to kill him. Can talk nearly all day to figures who are not there. Does appear to be attending to internal stimuli at this time. Currently wearing a heart monitor and was started on an antibiotic. Per caregiver, he would nearly stop listening to anyone else and appeared to not respond to any external stimuli. On Mother's Day, essentially passed out in to a pool. Had 2 similar episodes this afternoon where he fell to ground in apparent syncopal episode. Had been laying down on cough, stood up and walked 10 ft then fell. Has been sleeping with mom and dad's room due to situation, and has been sleeping largely through the night. Mom had been giving an additional half milligram of risperidone at night. Has followed with neurology with a normal EEG. Review of Systems Constitutional Denies: fever(s), chills, change in weight or fatigue Eyes Denies: change in vision or blurry vision Ears, Nose, Mouth, Throat Denies: throat pain, neck pain or change in hearing Cardiovascular Denies: chest pain, palpitations or dyspnea Respiratory Denies: dyspnea, cough or wheezing Gastrointestinal Reports: abdominal pain; Denies: nausea, vomiting, diarrhea or constipation Genitourinary Reports: dysuria; Denies: urinary frequency or hematuria Musculoskeletal Reports: back pain; Denies: neck pain, joint pain or muscle weakness Integumentary/Breast Denies: rash or new lesions Neurological Reports: confusion and behavioral changes; Denies: headache(s) or dizziness Psychiatric Reports: visual hallucinations, auditory hallucinations and other (Delusions) Endocrine Denies: fatigue or excessive sweating Hematologic/Lymphati c Denies: easy bruising or easy bleeding Allergic/Immunologic Denies: wheezing Exam Mental Status Exam - Psych Appearance unkempt, thin and slumped posture Attitude withdrawn Activity/Motor Behavior staring (But less intensely than previous) and other (Mumbling under breath) Speech soft and minimal Mood other (Flat) Affect restricted Thought Process impoverished Thought Content hallucinations (reduced) Suicidal Ideation none Homicidal Ideation none Attention other (fair) Concentration intact Sensorium/Orientatio n awake, alert and oriented x3 Memory/Cognition other (concern that may be worsening) Insight limited Judgement limited Assessment Plan Assessment Plan (1) Auditory hallucinations: Plan: - Behavioral symptoms of dementia (more content not included)... Normal [facility] Amylaseon 11-10-2024 AMARA 26 U/L Low 28-100 [facility] Comment on above: Performed By: #### L 501.2400, L501.9910, L503.0106, L500.4050, L501.5200, L501.9520, L501.2450, L100.0100 #### [facility] [address] [place], [address] CBC W/Diff, Automatedon 05-2 Absolute Lymph 1.05 X10 3/uL Normal 0.83-4.51 [facility] Comment on above: Performed By: #### L 501.2400, L501.9910, L503.0106, L500.4050, L501.5200, L501.9520, L501.2450, L100.0100 #### [facility] [address] [place], [address] Absolute Neut 3.1 X10 3/uL Normal 2.0-7.7 [facility] Comment on above: Performed By: #### L 501.2400, L501.9910, L503.0106, L500.4050, L501.5200, L501.9520, L501.2450, L100.0100 #### [facility] [address] [place], [address] Basophils/100 WBC (Bld) 0.8 % Normal 0-1 [facility] Comment on above: Performed By: #### L 501.2400, L501.9910, L503.0106, L500.4050, L501.5200, L501.9520, L501.2450, L100.0100 #### [facility] [address] [place], [address] Eosinophils/100 WBC (Bld) 0.4 % Normal 0-5 [facility] Comment on above: Performed By: #### L 501.2400, L501.9910, L503.0106, L500.4050, L501.5200, L501.9520, L501.2450, L100.0100 #### [facility] [address] [place], [address] Erythrocyte distribution width (RBC) [Ratio] 14.0 % Normal 11.6-14.6 [facility] Comment on above: Performed By: #### L 501.2400, L501.9910, L503.0106, L500.4050, L501.5200, L501.9520, L501.2450, L100.0100 #### [facility] [address] [place], [address] Hematocrit (Bld) [Volume fraction] 44.5 % Normal 40-54 [facility] Comment on above: Performed By: #### L 501.2400, L501.9910, L503.0106, L500.4050, L501.5200, L501.9520, L501.2450, L100.0100 #### [facility] [address] [facility] [place], [address] Hemoglobin (Bld) [Mass/Vol] 14.7 g/dL Normal 13.0-16.5 [facility] Comment on above: Performed By: #### L 501.2400, L501.9910, L503.0106, L500.4050, L501.5200, L501.9520, L501.2450, L100.0100 #### [facility] [address] [facility] [place], [address] IG% 0.400 Normal 0.0-0.9 [facility] Comment on above: Result Comment: IG% - Immature Granulocytes (promyelocytes, myelocytes and metamyelocytes) > 1% indicates that a LEFT SHIFT is Present. Performed By: #### L 501.2400, L501.9910, L503.0106, L500.4050, L501.5200, L501.9520, L501.2450, L100.0100 #### [facility] [address] [place], [address] Lymphocytes/100 WBC (Bld) 22.2 % Normal 19-41 [facility] Comment on above: Performed By: #### L 501.2400, L501.9910, L503.0106, L500.4050, L501.5200, L501.9520, L501.2450, L100.0100 #### [facility] [address] [place], [address] MCH (RBC) [Entitic mass] 31.3 pg Normal 27.0-32.0 [facility] Comment on above: Performed By: #### L 501.2400, L501.9910, L503.0106, L500.4050, L501.5200, L501.9520, L501.2450, L100.0100 #### [facility] [address] [place], [address] MCHC (RBC) [Mass/Vol] 33.0 g/dL Normal 32-36 [facility] Comment on above: Performed By: #### L 501.2400, L501.9910, L503.0106, L500.4050, L501.5200, L501.9520, L501.2450, L100.0100 #### [facility] [address] [place], [address] MCV (RBC) [Entitic vol] 94.9 fL High 80-94 [facility] Comment on above: Performed By: #### L 501.2400, L501.9910, L503.0106, L500.4050, L501.5200, L501.9520, L501.2450, L100.0100 #### [facility] [address] [place], [address] Monocytes/100 WBC (Bld) 9.7 % Normal 0-[address] [facility] Comment on above: Performed By: #### L 501.2400, L501.9910, L503.0106, L500.4050, L501.5200, L501.9520, L501.2450, L100.0100 #### [facility] [address] [place], [address] Neutrophils/100 WBC (Bld) 66.5 % Normal 47-70 [facility] Comment on above: Performed By: #### L 501.2400, L501.9910, L503.0106, L500.4050, L501.5200, L501.9520, L501.2450, L100.0100 #### [facility] [address] [place], [address] Nucleated RBC (Bld) [#/Vol] 0 10*3/uL Normal 0-5 [facility] Comment on above: Performed By: #### L 501.2400, L501.9910, L503.0106, L500.4050, L501.5200, L501.9520, L501.2450, L100.0100 #### [facility] [address] [place], [address] Platelet mean volume (Bld) [Entitic vol] 9.4 fL Normal 6.2-12.0 [facility] Comment on above: Performed By: #### L 501.2400, L501.9910, L503.0106, L500.4050, L501.5200, L501.9520, L501.2450, L100.0100 #### [facility] [address] [place], [address] Platelets (Bld) [#/Vol] 230 10*3/uL Normal 150-450 [facility] Comment on above: Performed By: #### L 501.2400, L501.9910, L503.0106, L500.4050, L501.5200, L501.9520, L501.2450, L100.0100 #### [facility] [address] [place], [address] RBC (Bld) [#/Vol] 4.69 10*6/uL Normal 4.6-6.2 [facility] Comment on above: Performed By: #### L 501.2400, L501.9910, L503.0106, L500.4050, L501.5200, L501.9520, L501.2450, L100.0100 #### [facility] [address] [place], [address] RDW SD 49.3 fl High 35.1-43.9 [facility] Comment on above: Performed By: #### L 501.2400, L501.9910, L503.0106, L500.4050, L501.5200, L501.9520, L501.2450, L100.0100 #### [facility] [address] [place], [place], [address] WBC (Bld) [#/Vol] 4.7 10*3/uL Normal 4.4-11.0 [facility] Comment on above: Performed By: #### L 501.2400, L501.9910, L503.0106, L500.4050, L501.5200, L501.9520, L501.2450, L100.0100 #### [facility] [address] [place], [address] [facility] 11-10-2024 Albumin [Mass/Vol] 4.1 g/dL Normal 3.5-5.0 [facility] Comment on above: Performed By: #### L 501.2400, L501.9910, L503.0106, L500.4050, L501.5200, L501.9520, L501.2450, L100.0100 #### [facility] [address] [place], [address] Albumin/Globulin [Mass ratio] 1.4 {ratio} Normal 0.9-2.4 [facility] Comment on above: Performed By: #### L 501.2400, L501.9910, L503.0106, L500.4050, L501.5200, L501.9520, L501.2450, L100.0100 #### [facility] [address] [place], [address] ALK PHOS 59 U/L Normal 40-129 [facility] Comment on above: Performed By: #### L 501.2400, L501.9910, L503.0106, L500.4050, L501.5200, L501.9520, L501.2450, L100.0100 #### [facility] [address] [place], [address] ALT [Catalytic activity/Vol] 18 U/L Normal <=46 [facility] Comment on above: Performed By: #### L 501.2400, L501.9910, L503.0106, L500.4050, L501.5200, L501.9520, L501.2450, L100.0100 #### [facility] [address] [place], [address] AST [Catalytic activity/Vol] 19 U/L Normal <=37 [facility] Comment on above: Performed By: #### L 501.2400, L501.9910, L503.0106, L500.4050, L501.5200, L501.9520, L501.2450, L100.0100 #### [facility] [address] [place], [address] Bilirubin [Mass/Vol] 0.73 mg/dL Normal 0.00-1.30 [facility] Comment on above: Performed By: #### L 501.2400, L501.9910, L503.0106, L500.4050, L501.5200, L501.9520, L501.2450, L100.0100 #### [facility] [address] [place], [address] BUN/CRE 13.0 RATIO Normal 10-20 [facility] Comment on above: Performed By: #### L 501.2400, L501.9910, L503.0106, L500.4050, L501.5200, L501.9520, L501.2450, L100.0100 #### [facility] [address] [place], [address] Calcium [Mass/Vol] 9.0 mg/dL Normal 7.6-11.0 [facility] Comment on above: Performed By: #### L 501.2400, L501.9910, L503.0106, L500.4050, L501.5200, L501.9520, L501.2450, L100.0100 #### [facility] [address] [place], [address] Chloride [Moles/Vol] 106 mmol/L Normal 98-108 [facility] Comment on above: Performed By: #### L 501.2400, L501.9910, L503.0106, L500.4050, L501.5200, L501.9520, L501.2450, L100.0100 #### [facility] [address] [place], [address] CO2 [Moles/Vol] 25.9 mmol/L Normal 21.0-32.0 [facility] Comment on above: Performed By: #### L 501.2400, L501.9910, L503.0106, L500.4050, L501.5200, L501.9520, L501.2450, L100.0100 #### [facility] [address] [place], [address] Creatinine [Mass/Vol] 1.17 mg/dL Normal 0.70-1.20 [facility] Comment on above: Performed By: #### L 501.2400, L501.9910, L503.0106, L500.4050, L501.5200, L501.9520, L501.2450, L100.0100 #### [facility] [address] [place], [address] GAP 10 Normal 5-15 [facility] Comment on above: Performed By: #### L 501.2400, L501.9910, L503.0106, L500.4050, L501.5200, L501.9520, L501.2450, L100.0100 #### [facility] [address] [place], [address] GFR/1.73 sq M.predicted among non-blacks MDRD (S/P/Bld) [Vol rate/Area] 80 mL/min/{1.73_m2} Normal >60 [facility] Comment on above: Result Comment: mL/m in/1.73m2 CKD-EPI Creatinine Equation (2020) Performed By: #### L 501.2400, L501.9910, L503.0106, L500.4050, L501.5200, L501.9520, L501.2450, L100.0100 #### [facility] [address] [place], [address] Globulin (S) [Mass/Vol] 2.9 g/dL Normal 2.2-4.[address] [facility] Comment on above: Performed By: #### L 501.2400, L501.9910, L503.0106, L500.4050, L501.5200, L501.9520, L501.2450, L100.0100 #### [facility] [address] [place], [address] Glucose [Mass/Vol] 121 mg/dL High 70-99 [facility] Comment on above: Performed By: #### L 501.2400, L501.9910, L503.0106, L500.4050, L501.5200, L501.9520, L501.2450, L100.0100 #### [facility] [address] [place], [address] Potassium [Moles/Vol] 4.2 mmol/L Normal 3.3-5.1 [facility] Comment on above: Performed By: #### L 501.2400, L501.9910, L503.0106, L500.4050, L501.5200, L501.9520, L501.2450, L100.0100 #### [facility] [address] [place], [address] Sodium [Moles/Vol] 141 mmol/L Normal 133-145 [facility] Comment on above: Performed By: #### L 501.2400, L501.9910, L503.0106, L500.4050, L501.5200, L501.9520, L501.2450, L100.0100 #### [facility] [address] [place], [address] T PROT 7.0 g/dL Normal 5.9-8.4 [facility] Comment on above: Performed By: #### L 501.2400, L501.9910, L503.0106, L500.4050, L501.5200, L501.9520, L501.2450, L100.0100 #### [facility] [address] [place], [address] Urea nitrogen [Mass/Vol] 15 mg/dL Normal 4-19 [facility] Comment on above: Performed By: #### L 501.2400, L501.9910, L503.0106, L500.4050, L501.5200, L501.9520, L501.2450, L100.0100 #### [facility] [address] [place], [address] Lipaseon 11-10-2024 Lipase [Catalytic activity/Vol] 20 U/L Normal 13-75 [facility] Comment on above: Result Comment: Plea se note: LIPASE revised reference range effective 22. New Lipase methodology. Expected to produce lower values than the previous assay method. NEW Reference Range: 13 - 75 U/L Performed By: #### L 501.2400, L501.9910, L503.0106, L500.4050, L501.5200, L501.9520, L501.2450, L100.0100 #### [facility] [address] [place], [address] Magnesiumon 11-10-2024 Magnesium [Mass/Vol] 2.3 mg/dL High 1.5-2.2 [facility] Comment on above: Performed By: #### L 501.2400, L501.9910, L503.0106, L500.4050, L501.5200, L501.9520, L501.2450, L100.0100 #### [facility] [address] [place], [place], [id number] PSA,Total - Annual Screenon 11-10-2024 PSA,TOT SCREEN 0.86 ng/mL Normal 0.02-4.00 [facility] Comment on above: Result Comment: This test was performed using the [employer] tPSA method. Measured values of a patient??sample can vary depending on the testing procedure used. PSA values determined on patient samples by different testing procedures cannot be used interchangeably. If there is a change in PSA assays while monitoring therapy, sequential testing should be performed to confirm baseline values. Performed By: #### L 501.2400, L501.9910, L503.0106, L500.4050, L501.5200, L501.9520, L501.2450, L100.0100 #### [facility] [address] [place], [address] Thyroid Stim Hormone (TSH)on 11-10-2024 TSH 2.860 uIU/mL Normal 0.300-4.200 [facility] Comment on above: Performed By: #### L 501.2400, L501.9910, L503.0106, L500.4050, L501.5200, L501.9520, L501.2450, L100.0100 #### [facility] [address] [place], [place], [address] Vitamin B12on 11-10-2024 Cobalamin (Vitamin B12) [Mass/Vol] 461 pg/mL Normal 180-914 [facility] Comment on above: Performed By: #### L 501.2400, L501.9910, L503.0106, L500.4050, L501.5200, L501.9520, L501.2450, L100.0100 #### [facility] [address] [place], [place], [id number] MR/BMS.BPon 06-14-2024 MR/BMS.BP [address], [address] [place], [place] [address] OFFICE VISIT Date of Service: 06/14/24 MR#: [id number] Acct: [id number] Name: ROGELIO BOWERS Rep #: [id number] : 1985 Provider: Dr. Alvin Warren se, DO Age/Sex: 39/M Location: [facility].BP Status: Signed Intake Vital Signs 05/03/24 10:35 06/14/24 16:08 Height 5 ft 6 in 5 ft 6 in Weight: 135 lb BMI 21.7 BP 119/74 125/71 H Blood Pressure Location Rt brachial Lt brachial Position Sitting Sitting Respiration 16 16 Pulse 62 65 Pulse Source Monitor Monitor BP Intake Visit Reasons: 2 M FU Allergies No Known Drug Allergies Allergy (Verified 05/03/24 10:38) Other Medications ???Medication ???Instructions ???Recorded ???Confirmed ???Type wheat dextrin 3 gram/3.8 gram oral 1 packet PO QDAY 03/03/24 06/14/24 History powder (Fiber Supplement(wheat dextrin)) cyanocobalamin (vitamin B-12) 1,000 mcg PO QDAY 04/16/24 06/14/24 History 1,000 mcg capsule cyanocobalamin (vitamin B-12) 1,000 mcg IM .COMPLEX 04/16/24 06/14/24 History 1,000 mcg/mL injection solution sulfamethoxazole 800 1 tab PO BID #20 TABLETS 04/26/24 06/14/24 Rx mg-trimethoprim 160 mg tablet donepezil 5 mg tablet 5 mg PO QDAY #30 tabs 06/14/24 06/14/24 Rx haloperidol 5 mg tablet 5 mg PO QHS #30 tabs 06/14/24 06/14/24 Rx sertraline 50 mg tablet 50 mg PO QDAY #30 tabs 06/14/24 06/14/24 Rx trazodone 50 mg tablet 50 mg PO QHS PRN insomnia #30 tabs 06/14/24 06/14/24 Rx PFSH Medical History Neurocognitive deficits Bilateral impacted cerumen Excess ear wax Encounter to establish care Flu vaccine need Memory deficits Schizophrenia OCD (obsessive compulsive disorder) History of seizures Hx of gastrointestinal disease History of emotional problems Down syndrome Social History household members: family housing: house current occupational status: disabled Smoking Status: Never smoker alcohol intake: never substance use type: does not use what type of physical activity do you participate in: other details: Dancing frequency: daily seatbelt use: always do you feel safe at home: Yes HPI History of Present Illness History provided by: patient and family HPI: Rogelio Bowers is a 39 year old male who presents today for follow up evaluation. Had an episode of 2 days where he had numerous episodes of falls which seemed to be related to morning haloperidol dosing. Is currently taking haloperidol 5 mg at bedtime and this seems to be somewhat better. Has had some recurrence of some talking to voices at night, which are similar in nature to how they had been previously. Has been somewhat brighter per family otherwise. Has gained about 12 lbs. They do plan to leave for [place] until around October. Sleep has been somewhat improved, and has been sleeping in to morning. Patient has a girlfriend. Family says he is about 80-85% back to baseline. Review of Systems Constitutional Denies: fever(s), chills, change in weight or fatigue Eyes Denies: change in vision or blurry vision Ears, Nose, Mouth, Throat Denies: throat pain, neck pain or change in hearing Cardiovascular Denies: chest pain, palpitations or dyspnea Respiratory Denies: dyspnea, cough or wheezing Gastrointestinal Reports: abdominal pain; Denies: nausea, vomiting, diarrhea or constipation Genitourinary Reports: dysuria and difficulty urinating; Denies: urinary frequency or hematuria Musculoskeletal Reports: back pain; Denies: neck pain, joint pain or muscle weakness Integumentary/Breast Denies: rash or new lesions Neurological Reports: confusion and behavioral changes; Denies: headache(s) or dizziness Psychiatric Reports: visual hallucinations, auditory hallucinations and other (Delusions) Endocrine Denies: fatigue or excessive sweating Hematologic/Lymphati c Denies: easy bruising or easy bleeding Allergic/Immunologic Denies: wheezing Exam Mental Status Exam - Psych Appearance unkempt (Somewhat better groomed than previous) and thin Attitude cooperative Activity/Motor Behavior staring (But less intensely than previous) Speech minimal Mood OK Affect restricted Thought Process impoverished Thought Content hallucinations (reduced) Suicidal Ideation none Homicidal Ideation none Attention other (fair) Concentration intact Sensorium/Orientatio n awake, alert and oriented x3 Memory/Cognition other (concern that may be worsening) Insight limited Judgement limited Assessment Plan Assessment Plan (1) OCD (obsessive compulsive disorder): Plan: - Have reduced to haloperidol 5 mg at bedtime. While ideally would not utilize haloperidol, we have bee (more content not included)... Normal [facility] Brain W/WO Contraston 2023 Brain W/WO Contrast [facility] [address] [place] [id number] Brain W/WO Contrast MR#: [id number] Acct: [id number] Name: ROGELIO BOWERS Rep #: [id number] : 1985 M 39 From: Kingston Pink MD PCP: Joshua Nichole SAMPLER FIRST-C Status: REG CLI Study: Brain W/WO Contrast Date of Exam: 05/25/24 Exam# [id number] Ordering Dr: Yamel Kahn [facility] SAMPLER FIRST- C [id number] EXAM: MR HEAD WITHOUT AND WITH INTRAVENOUS CONTRAST CLINICAL INDICATION: HALLUCINATIONS TECHNIQUE: Multiplanar and multisequence MR images of the brain were obtained without and with intravenous contrast. CONTRAST: IV 13ml Clariscan COMPARISON: CT head without contrast 04/26/2023 4. FINDINGS: BRAIN AND EXTRA-AXIAL SPACES: Partially absent septum pellucidum. No intra- or extra-axial hemorrhage. No evidence of acute infarct. No intracranial mass or mass effect. There is preservation of the villegas/white matter interface. Posterior fossa structures are unremarkable. Ventricles are appropriate for age. No hydrocephalus. Basal cisterns are patent. SELLA: Unremarkable. Normal sella turcica, pituitary gland, infundibular stalk, optic chiasm and hypothalamus. AUDITORY SYSTEM: Unremarkable. The internal auditory canals are patent. BONES/JOINTS: Unremarkable. No discrete lytic or blastic abnormalities. SINUSES: Unremarkable as visualized. Clear. MASTOID AIR CELLS: Unremarkable as visualized. Clear. ORBITS: Unremarkable as visualized. Both globes, extraocular muscles, optic nerves and retrobulbar fat appear unremarkable. VASCULATURE: Unremarkable as visualized. Normal flow voids in the major intracranial circulation. MRI/Brain W/WO Contrast IMPRESSION: 1. Partially absent septum pellucidum otherwise negative MRI brain without and with intravenous contrast. 2. No significant interval change when compared to CT head of 04/26/2024. Electronically Signed: Kingston Pink MD at 8:32 EST Reading Location ID and State: [facility] / [place] , Service support , CC: DONELL Nichole; Yamel [facility] DONELL Beam Vice President Of Consulting Services: Signed Normal [facility] MR/BMS.BPon 05-03-2024 MR/BMS.BP [facility] [facility], [address] [place] [address] OFFICE VISIT Date of Service: 05/03/24 MR#: [id number] Acct: [id number] Name: ROGELIO BOWERS Rep #: [id number] : 1985 Provider: Dr. Alvin Warren se, DO Age/Sex: 39/M Location: [facility].BP Status: Signed Intake Vital Signs 04/26/24 15:36 05/03/24 10:35 Height 5 ft 6 in 5 ft 6 in Weight: 135 lb BMI 21.7 BP 119/74 Blood Pressure Location Rt brachial Position Sitting Respiration 16 Pulse 62 Pulse Source Monitor BP Intake Visit Reasons: Follow up Accompanied by: Parents Is patient in pain?: No Allergies No Known Drug Allergies Allergy (Verified 05/03/24 10:38) Other Medications ???Medication ???Instructions ???Recorded ???Confirmed ???Type donepezil 5 mg tablet 5 mg PO QDAY #30 tabs 03/03/24 05/03/24 Rx wheat dextrin 3 gram/3.8 gram oral 1 packet PO QDAY 03/03/24 05/03/24 History powder (Fiber Supplement(wheat dextrin)) cyanocobalamin (vitamin B-12) 1,000 mcg PO QDAY 04/16/24 05/03/24 History 1,000 mcg capsule cyanocobalamin (vitamin B-12) 1,000 mcg IM .COMPLEX 04/16/24 05/03/24 History 1,000 mcg/mL injection solution sertraline 50 mg tablet 50 mg PO QDAY 04/16/24 05/03/24 History trazodone 50 mg tablet 50 mg PO QHS PRN 04/16/24 05/03/24 History sulfamethoxazole 800 1 tab PO BID #20 TABLETS 04/26/24 05/03/24 Rx mg-trimethoprim 160 mg tablet haloperidol 5 mg tablet 5 mg PO BID 05/03/24 05/03/24 History PFSH Medical History (Updated 05/03/24 @ 10:43 by Juliana Melton) Neurocognitive deficits Bilateral impacted cerumen Excess ear wax Encounter to establish care Flu vaccine need Memory deficits Schizophrenia OCD (obsessive compulsive disorder) History of seizures Hx of gastrointestinal disease History of emotional problems Down syndrome Social History household members: family housing: house current occupational status: disabled Smoking Status: Never smoker alcohol intake: never substance use type: does not use what type of physical activity do you participate in: other details: Dancing frequency: daily seatbelt use: always do you feel safe at home: Yes HPI History of Present Illness History provided by: patient and family HPI: Rogelio Bowers is a 39 year old male who presents today for follow up evaluation. Since last appointment, went to PCP appointment was complaining of stomach ache. During the physical exam, patient was drooling and nearly collapsed during appointment. He lost consciousness for nearly 5 minutes and had 911 called and was taken to ED by juancarlos. About 8 times during ER visit would close his eyes and sort of nod off for several seconds. Was told to have prostatitis and was started on antibiotics. The soonest appointment they could get with neurology was Dayna Mchugh. Has recently reduced haloperidol to 5 mg BID about 3 days ago and does seem to be somewhat improved. Has been getting tired easy but showing some improved interest in things. Gives example of him starting to play guitar again in recent past which she had not been doing for several months. Does still perseverate on some of the spiritual hallucinations that he has had, but somewhat reduced. Less agitation than previous. Sleep has remained fairly stable. Appetite has been somewhat stable. Patient is verbal today which is an improvement as patient did not speak at all at last appointment. Review of Systems Constitutional Denies: fever(s), chills, change in weight or fatigue Eyes Denies: change in vision or blurry vision Ears, Nose, Mouth, Throat Denies: throat pain, neck pain or change in hearing Cardiovascular Denies: chest pain, palpitations or dyspnea Respiratory Denies: dyspnea, cough or wheezing Gastrointestinal Reports: abdominal pain and other (Appetite improving mildly); Denies: nausea, vomiting, diarrhea or constipation Genitourinary Reports: dysuria and difficulty urinating; Denies: urinary frequency or hematuria Musculoskeletal Reports: back pain; Denies: neck pain, joint pain or muscle weakness Integumentary/Breast Denies: rash or new lesions Neurological Reports: confusion and behavioral changes; Denies: headache(s) or dizziness Psychiatric Reports: visual hallucinations, auditory hallucinations and other (Delusions) Endocrine Denies: fatigue or excessive sweating Hematologic/Lymphati c Denies: easy bruising or easy bleeding Allergic/Immunologic Denies: wheezing Exam Mental Status Exam - Psych Appearance unkempt (Somewhat better groomed than previous) and thin Attitude withdrawn (Again mildly more cooperative than previous) Activity/Motor Behavior staring (But less intensely than previous) Speech minimal Mood apathetic (more content not included)... Normal [facility] Abdomen/Pelvis W IV Cont ONL Yon 04-26-2024 Abdomen/Pelvis W IV Cont ONLY [facility] Imaging Services [address] [place] [address] Abdomen/Pelvis W IV Cont ONLY MR#: [id number] Acct: [id number] Name: ROGELIO BOWERS Rep #: [id number] : 1985 M 39 From: Glenn Espana MD PCP: DONELL Zhang Status: REG ER Study: Abdomen/Pelvis W IV Cont ONLY Date of Exam: Exam# [id number] Ordering Dr: Tiago Retana DO [id number] STUDY: CT ABDOMEN AND PELVIS WITH CONTRAST REASON FOR EXAM: Male, 39 years old. Abdominal pain RADIATION DOSAGE (If Supplied By Facility): CTDIvol = ( 14.85 ) mGy, DLP = ( 682.94 ) mGycm TECHNIQUE: Transaxial images were obtained from the dome of the diaphragm to the symphysis pubis without oral contrast. IV 100mL Isovue-300 was administered. Sagittal and coronal images were reconstructed. Individualized dose optimization techniques were used for this CT. COMPARISON: April 02, 2024. FINDINGS: The visualized lung bases are unremarkable. The visualized portions of the heart are within normal limits. Normal liver. Normal gallbladder and extrahepatic biliary system. Normal spleen. Normal pancreas. Normal bilateral adrenal glands. Normal right kidney. Mild left renal pelvocaliectasis without evidence of gross hydronephrosis or ureteral calculus Normal visualized stomach. Nonspecific ileus with diffuse fecal retention in the colon and rectal impaction . The appendix is visualized and appears normal. Normal abdominal aorta. Normal inferior vena cava. Normal retroperitoneum. Concentric thickening of the rosenberg of the bladder of uncertain etiology Diffusely hyperemic appearance to the prostate and seminal vesicles possibly due to prostatitis. Right-sided inguinal hernia containing complex fluid of uncertain etiology or significance. Normal osseous structures. CT/Abdomen/Pelvis W IV Cont ONLY IMPRESSION: Nonspecific ileus with diffuse fecal retention in the colon and rectal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 Phone: Comment on above: For patients on eltr ombopag therapy, use of Dimension [place] TBIL is not recommended. Chloride [Moles/Vol] 105 mmol/L 98-107 [facility] Work Phone: Eosinophils/100 WBC (Bld) 0.3 % 0-5 [facility] Work Phone: Glucose [Mass/Vol] 94 mg/dL 74-106 [facility] Work Phone: Neutrophils (Bld) [#/Vol] 5.1 10*3/uL 2.0-7.7 [facility] Work Phone: Neutrophils/100 WBC (Bld) 75.3 % 47-70 [facility] Work Phone: Potassium [Moles/Vol] 4.2 mmol/L 3.5-5.1 [facility] Work Phone: Protein [Mass/Vol] 8.2 g/dL 6.4-8.2 [facility] Work Phone: Sodium [Moles/Vol] 140 mmol/L 136-145 [facility] Work Phone: WBC (Bld) [#/Vol] 6.8 10*3/uL 4.4-11.0 [facility] Work Phone: Blood erythrocytes count (nu mber/volume)on 04-02-2022 RBC (Bld) [#/Vol] 5.21 10*6/uL 4.6-6.2 [facility] Work Phone: Blood hemoglobin measurement (mass/volume)on 04-02-2022 Hemoglobin (Bld) [Mass/Vol] 16.5 g/dL 13.0-16.5 [facility] Work Phone: Blood lymphocytes/100 leukoc yteson 04-02-2022 Lymphocytes/100 WBC (Bld) 15.2 % 19-41 [facility] Work Phone: Blood monocytes/100 leukocyt eson 04-02-2022 Monocytes/100 WBC (Bld) 8.2 % 0-10 [facility] Work Phone: Blood platelet mean volumeon 04-02-2022 Platelet mean volume (Bld) [Entitic vol] 9.9 fL 6.2-12.0 [facility] Work Phone: Determination of erythrocyte mean corpuscular volume (MCV)on 04-02-2022 MCV (RBC) [Entitic vol] 95.2 fL 80-94 [facility] Work Phone: Hematocrit Auto (Bld) [Volum e fraction]on 04-02-2022 Hematocrit (Bld) [Volume fraction] 49.6 % 40-54 [facility] Work Phone: Laboratory - Chemistry and C hemistry - challengeon 04-02-2022 ALP [Catalytic activity/Vol] 62 U/L 45-117 [facility] Work Phone: ALT [Catalytic activity/Vol] 41 U/L 16-61 [facility] Work Phone: CO2 [Moles/Vol] 33.0 mmol/L 21.0-32.0 [facility] Work Phone: Globulin (S) [Mass/Vol] 4.1 g/dL 2.2-4.2 [facility] Work Phone: Urea nitrogen/Creatinine [Mass ratio] 18.9 mg/mg 10-20 [facility] Work Phone: Laboratory - Hematology and Cell countson 04-02-2022 Erythrocyte distribution width (RBC) [Entitic vol] 49.3 fL 35.1-43.9 [facility] Work Phone: Erythrocyte distribution width (RBC) [Ratio] 14.1 % 11.6-14.6 [facility] Work Phone: Immature granulocytes/100 WBC (Bld) 0.400 % 0.0-0.9 [facility] Work Phone: Comment on above: IG% - Immature Granu locytes (promyelocytes, myelocytes and metamyelocytes) > 1% indicates that a LEFT SHIFT is Present. MCH (RBC) [Entitic mass] 31.7 pg 27.0-32.0 [facility] Work Phone: Nucleated RBC/100 WBC (Bld) [Ratio] 0 % 0-5 [facility] Work Phone: MCHC Auto (RBC) [Mass/Vol]on 04-02-2022 MCHC (RBC) [Mass/Vol] 33.3 g/dL 32-36 [facility] Work [facility]: No Panel Informationon 04-02 Estimated GFR (MDRD) Amer 85 mL/min >60 [facility] Work Phone: Comment on above: GFR Calc Estimated GFR (MDRD) Non-Af Amer 70 mL/min >60 [facility] Work Phone: Comment on above: Non- GFR Calc Platelets bldon 04-02-2022 Platelets (Bld) [#/Vol] 271 10*3/uL 150-450 [facility] Work Phone: Serum or plasma albumin mary urement (mass/volume)on 04-02-2022 Albumin [Mass/Vol] 4.1 g/dL 3.2-5.0 [facility] Work Phone: Serum or plasma albumin/glob ulin mass ratioon 04-02-2022 Albumin/Globulin [Mass ratio] 1.0 {ratio} 0.9-2.4 [facility] Work Phone: Serum or plasma calcium mary urement (mass/volume)on 04-02-2022 Calcium [Mass/Vol] 9.7 mg/dL 8.5-10.1 [facility] Work Phone: Serum or plasma creatinine m easurement (mass/volume)on 04-02-2022 Creatinine [Mass/Vol] 1.22 mg/dL 0.70-1.30 [facility] Work Phone: Comment on above: The validity of the calculated GFR & GFRAA in patients over 70 years has not been determined. Clinical correlation is essential. Serum or plasma urea nitroge n measurement (mass/volume)on 04-02-2022 Urea nitrogen [Mass/Vol] 23 mg/dL 12-31 [facility] Work Phone: Thin prep Papanicolaou smear with manual screeningon 04-02-2022 Thin prep Papanicolaou smear with manual screening 23 U/L 15-37 [facility] Work Phone: Thin prep Papanicolaou smear with manual screening 2 5-15 [facility] Work Phone: Vital Signs Date Time Vital Sign Value Performing Clinician Facility 02-26-2025 14:11-0400 Diastolic blood pressure 55 mm[Hg] Pamela Aragon MD Work Phone: [facility] 02-26-2025 14:11-0400 Systolic blood pressure 98 mm[Hg] Pamela Aragon MD Work Phone: [facility] 02-26-2025 14:08-0400 Body temperature 98.01 [degF] Pamela Aragon MD Work Phone: [facility] 02-26-2025 14:08-0400 Heart rate 77 /min Pamela Aragon MD Work Phone: [facility] 02-26-2025 14:08-0400 Respiratory rate 16 /min Pamela Aragon MD Work Phone: [facility] 02-26-2025 14:08-0400 SaO2% (BldA) [Mass fraction] 96 % Pamela Aragon MD Work Phone: [facility] 02-25-2025 07:29-0400 Body height 167.6 cm Pmaela Aragon MD Work Phone: [facility] 02-25-2025 07:29-0400 Body mass index (BMI) [Ratio] 24.53 kg/m2 Pamela Aragon MD Work Phone: [facility] 02-25-2025 07:29-0400 Body weight 68.95 kg Pamela Aragon MD Work Phone: [facility] 02-15-2025 16:34-0400 Heart rate 58 /min Pamela Aragon MD Work Phone: [facility] 02-15-2025 12:33-0400 Heart rate 46 /min Pamela Aragon MD Work Phone: [facility] 02-15-2025 12:33-0400 Heart rate 38 /min Pamela Aragon MD Work Phone: [facility] 02-11-2025 19:35-0400 Heart rate 47 /min Pamela Aragon MD Work Phone: [facility] 02-07-2025 15:34-0400 Heart rate 55 /min Pamela Aragon MD Work Phone: [facility] 02-01-2025 11:33-0400 Heart rate 59 /min Pamela Aragon MD Work Phone: [facility] 04-02-2022 14:16-0400 Body mass index (BMI) [Ratio] 22.1 kg/m2 Dr. Keon Mcdowell Work Phone: [facility] Work Phone: 04-02-2022 14:16-0400 Body temperature 97.8 [degF] Dr. Keon Mcdowell Work Phone: [facility] Work Phone: 04-02-2022 14:16-0400 Body weight 62.[address] Keon Mcdowell Work Phone: [facility] Work Phone: 04-02-2022 14:16-0400 Diastolic blood pressure 70 mm[Hg] Dr. Keon Mcdowell Work Phone: [facility] Work Phone: 04-02-2022 14:16-0400 Heart rate 64 /min Dr. Keon Mcdowell Work Phone: [facility] Work Phone: 04-02-2022 14:16-0400 Respiratory rate 16 /min Dr. Keon Mcdowell Work Phone: [facility] Work Phone: 04-02-2022 14:16-0400 SaO2% (BldA) [Mass fraction] 98 % Dr. Keon Mcdowell Work Phone: [facility] Work Phone: 04-02-2022 14:16-0400 Systolic blood pressure 100 mm[Hg] Dr. Keon Mcdowell Work Phone: [facility] Work Phone: Encounters Encounter Date Encounter Type Care Provider Facility Start: 04-19-2025 ambulatory UNKNOWN PROVIDER Facili ty:[facility] Start: 04-18-2025 End: 04-18-2025 ambulatory Marianne Charlton Facility:[facility] Start: 04-12-2025 End: 04-12-2025 ambulatory In-Clinic Device Checks Work Phone: [facility] Cardiology Device Comment on above: Pacemaker (Primary D x); Bradycardia Start: 03-15-2025 End: 03-15-2025 ambulatory Alvin L Seese Facility:[facility] Start: 03-15-2025 End: 03-15-2025 ambulatory Zebulun Beam VSC Facility:[facility] Start: 03-10-2025 ambulatory UNKNOWN PROVIDER Facili ty:[facility] Start: 02-25-2025 Evaluation and management of inpatient RAVI MARV Facility:[facility] Start: 02-21-2025 End: 02-21-2025 Letter encounter Mychart Provider [facility] MyChart Department Start: 02-09-2025 Evaluation and management of inpatient UNKNOWN PROVIDER Facility:[facility] Start: 02-06-2025 Evaluation and management of inpatient UNKNOWN PROVIDER Facility:[facility] Start: 02-01-2025 Evaluation and management of inpatient UNKNOWN PROVIDER Facility:[facility] Start: 01-30-2025 End: 02-01-2025 Evaluation and management of inpatient Ravi Marv DO Work Phone: [facility] Inpatient Neurophysiology Comment on above: Arrived Start: 01-29-2025 End: 02-26-2025 Evaluation and management of inpatient IP PSYCHIATRIC ADULT CONSULT Facility:[facility] Start: 01-29-2025 End: 02-26-2025 Evaluation and management of inpatient Pamela Aragon MD Work Phone: [address] Start: 01-29-2025 Emergency department patient visit UNKNOWN PROVIDER Facility:[facility] Start: 01-20-2025 End: 01-20-2025 ambulatory Alvin L Seese Facility:[facility] Start: 01-20-2025 End: 01-20-2025 ambulatory Alvin L Seese Facility:[facility] Start: 12-16-2024 End: 12-16-2024 ambulatory Alvin L Seese Facility:[facility] Start: 12-07-2024 End: 12-07-2024 ambulatory Zebulun Beam VSC Facility:[facility] Start: 11-25-2024 End: 11-25-2024 ambulatory Alvin L Seese Facility:[facility] Start: 11-17-2024 ambulatory Zebulun Beam VSC Facili ty:[facility] Start: 11-10-2024 End: 11-10-2024 ambulatory Zebulun Beam [facility] Facility:[facility] Start: 06-14-2024 End: 06-14-2024 ambulatory Alvin Tee Seese Facility:[facility] Start: 05-25-2024 End: 05-25-2024 ambulatory Zebun Beam [facility] Facility:[facility] Start: 05-03-2024 End: 05-03-2024 ambulatory Alvin Tee Seese Facility:[facility] Start: 04-26-2024 End: 04-26-2024 Emergency department patient visit Joshua Nichole [facility] Facility:[facility] Start: 04-21-2024 End: 04-21-2024 ambulatory Alvin Tee Seese Facility:[facility] Start: 04-02-2022 End: 04-02-[address] Keon Mcdowell Work Phone: [facility] Work Phone: Start: 04-02-2022 End: 04-02-[address] Keon Mcdowell Work Phone: [facility] Procedures Date Procedure Procedure Detail Performing Clinician Start: 04-12-2025 Program eval implant able in persn dual ld pacer Kolby Ramirez MD Work Phone: Start: 02-26-2025 Radiologic exam ches t 2 views Dominga Donald DO Work Phone: Start: 02-25-2025 Glucose blood reagent strip Wes Galarza MD Work Phone: Start: 02-25-2025 Radiologic exam ches t single view Dominga Di Donald DO Work Phone: Start: 02-25-2025 Blood typing serologic abo Sharan Wilson MD Work Phone: Start: 02-24-2025 Assay of magnesium Salena Wilson MD Work Phone: Start: 02-24-2025 Blood typing, ABO, R ho(D) and RBC antibody screening Sharan Wilson MD Work Phone: Start: 02-17-2025 MONITOR & RECORD NOC TURNAL PULSE OXIMETRY Kiran Chan MD Work Phone: Start: 02-15-2025 Assay of magnesium Alberta Welch MD Work Phone: Start: 02-14-2025 Ecg routine ecg w/le ast 12 lds trcg only w/o i&r Ashley Welch MD Work Phone: Start: 02-14-2025 Assay of magnesium Ginnyg mady Drummond MD Work Phone: Start: 02-14-2025 End: 02-14-2025 Ecg routine ecg w/least 12 lds trcg only w/o i&r To Be Assigned Start: 02-11-2025 Ecg routine ecg w/le ast 12 lds trcg only w/o i&r Iram Divan DO Work Phone: Start: 02-09-2025 Us retroperitoneal r eal time w/image complete Kiran Chan MD Work Phone: Start: 02-09-2025 Basic metabolic pane l calcium total Iram Divan DO Work Phone: Start: 02-06-2025 Assay of magnesium Tamu jatinder Henry DO Work Phone: Start: 02-06-2025 Mri brain brain stem w/o contrast material Siddhartha Henry DO Work Phone: Start: 02-06-2025 Complex uroflometry Tam Henry DO Work Phone: Start: 02-06-2025 Ecg routine ecg w/le ast 12 lds trcg only w/o i&r Lilli Tucker MD Work Phone: Start: 02-05-2025 End: 02-05-2025 Assay of lactate Franky Trejo MD Work Phone: Start: 02-05-2025 Assay of magnesium Tamu jatinder Henry DO Work Phone: Start: 02-03-2025 End: 02-03-2025 CORTISOL RANDOM Lulu Iwatsubo DO Work Phone: Start: 02-03-2025 Cortisol total Lilli rivera MD Work Phone: Start: 02-02-2025 Assay of magnesium Tann naz Rankin MD Work Phone: Start: 02-02-2025 Hepatic function panel Lilli Tucker MD Work Phone: Start: 02-01-2025 Ct head/brain w/o co ntrast material Siddhartha Henry DO Work Phone: Start: 02-01-2025 Assay of magnesium Tann naz Rankin MD Work Phone: Start: 01-31-2025 Veeg by tech ea incr 12-26 hr unmonitored Oscar Mclean MD Work Phone: Start: 01-31-2025 Assay of magnesium Tann naz Rankin MD Work Phone: Start: 01-30-2025 Eeg cont rec w/video by tech min 8 channels Lulu Ahujabo DO Work Phone: Start: 01-30-2025 Us retroperitoneal r eal time w/image complete Lulu Ahujabo DO Work Phone: Start: 01-30-2025 Ct thorax w/o contra st material Lulu Ahujabo DO Work Phone: Start: 01-30-2025 Antibody treponema pallidum Christiano Rankin MD Work Phone: Start: 01-30-2025 Cyanocobalamin vitamin b-12 Christiano Rankin MD Work Phone: Start: 01-30-2025 Drug screen class list a Christiano Rankin MD Work Phone: Start: 01-30-2025 SYPHILIS TOTAL/TPPA Shelley dominique Rankin MD Work Phone: Start: 01-30-2025 Urnls dip stick/tabl et rgnt auto w/o microscopy Ivka Stimach DO Work Phone: Start: 01-29-2025 Antibody hiv-1&hiv-2 single result Christiano Rankin MD Work Phone: Start: 01-29-2025 Troponin I.cardiac [Mass/volume] in Serum or Plasma by Detection limit <= 0.01 ng/mL Paige Ohrn DO Work Phone: Start: 01-29-2025 Radiologic exam ches t 2 views Paige Ohrn DO Work Phone: Start: 01-29-2025 Creatine kinase total I vka Stimach DO Work Phone: Start: 01-29-2025 Troponin I.cardiac [Mass/volume] in Serum or Plasma by Detection limit <= 0.01 ng/mL Paige Ohrn DO Work Phone: Start: 01-29-2025 Ecg routine ecg w/le ast 12 lds trcg only w/o i&r Paige Ohrn DO Work Phone: Plan of Treatment Date Care Activity Detail Author Start: 2033 Shingles (RZV) Vaccine (1 of 2) [facility] Start: 01-16-2026 End: 01-16-2026 Professional / ancillary services management 01/16/2026 8:00 AM EDT Cardiology Ancillary [facility] [address] [place] [id number] [facility] Start: 10-17-2025 End: 10-17-2025 Professional / ancillary services management 10/17/2025 8:00 AM EDT [facility] [address] [place] [id number] [facility] Start: 07-18-2025 End: 07-18-2025 Professional / ancillary services management 07/18/2025 8:00 AM EST [facility] [address] [place] [id number] [facility] Start: 04-19-2025 End: 04-19-2025 Telemedicine consultation with patient 04/19/2025 11:00 AM EST Telemedicine [facility] [address] [place] [address] [facility] Start: 04-12-2025 End: 04-12-2025 ambulatory [facility] Start: 03-16-2025 Influenza vaccination Influenza Vaccine (#1) [facility] Start: 03-10-2025 End: 03-10-2025 ambulatory [facility] Start: 03-02-2025 End: 03-02-2025 Nursing evaluation of patient and report 03/02/2025 11:00 AM EDT [facility] [address] [place] [address] Nurse, [facility] Start: 02-14-2025 COVID-19 Vaccine ( season) COVID-19 Vaccine ( season) [facility] Start: 02-14-2025 Influenza vaccination [facility] Start: 02-14-2025 [facility] Start: 02-15-2024 COVID-19 Vaccine ( season) COVID-19 Vaccine ( season) [facility] Start: 04-02-2022 Patient referral [facility] Work Phone: Start: 2018 Lipid panel [facility] Start: 2010 HPV Vaccine (optional start 27-45 years) HPV Vaccine (optional start 27-45 years) [facility] Start: 2010 [facility] Start: 2002 Hepatitis A (HAV) Vaccine (optional start 19+ years) Hepatitis A (HAV) Vaccine (optional start 19+ years) [facility] Start: 2002 Hepatitis B vaccination [facility] Start: 2002 [facility] Start: 2001 Hepatitis C screening [facility] Start: 2001 Tdap Booster [facility] Start: 06-16-1990 Annual wellness visit Annual Wellness Visit ([id number]) [facility] EEG study report IP EEG EEG Rout ine 01/30/2025 10:36 PM EDT [facility] Work Phone: Patient referral [facility] Work Phone: Immunizations Immunization Date Immunization Notes Care Provider [facility] 04-02-2022 influenza, seasonal, injectable Dr. Keon Mcdowell Work Phone: [facility] 04-02-2022 influenza virus vacc ine, unspecified formulation [employer] [facility] Payers Date Payer Category Payer Self-pay [id number] 2003 Medicare FFS [id number] 2003 Medicare [id number] 1985 Unknown [id number] 2 [id number] 1983 Unknown [id number] 2. 840.1.675485.3.579.2732 1983 Unknown [id number] 2. 840.1.037113.3.579.2.732 1983 Unknown [id number] 2. 840.1.030516.3.579.2.732 1983 Unknown [id number] 2 840.1.107817.3.579.2.732 1983 Unknown [id number] 2. 840.1.420611.3.579.2.732 1983 Unknown [id number] 2. 840.1.875809.3.579.2.732 1983 Unknown [id number] 2. 840.1.535309.3.579.2.732 1983 Unknown [id number] 2. 840.1.070632.3.579.2.732 1983 Unknown [id number] 2. 840.1.608562.3.579.2.732 1983 Unknown [id number] 2.. 840.1.458421.3.579.2.732 1983 Unknown [id number] 2.16. 840.1.120616.3.579.2.732 1983 Unknown [id number] 2.. 840.1.857821.3.579.2.732 Unknown [id number] 2..8 40.1.253123.3.579.2.462 Unknown [id number] ..[id number] 40.1.458011.3.579.2.462 Unknown [id number] 2..8 40.1.587388.3.579.2.462 Unknown [id number] 2..8 40.1.954931.3.579.2.462 Unknown [id number] 2.8 40.1.682361.3.579.2.462 Unknown [id number] 2..8 40.1.442694.3.579.2.462 Unknown [id number] 2.16.8 40.1.664072.3.579.2.462 Unknown [id number] 2.16.8 40.1.348352.3.579.2.462 Unknown [id number] 2.16.8 40.1.606051.3.579.2.462 Unknown [id number] 2..8 40.1.150688.3.579.2.462 Unknown [id number] 2.16.8 40.1.354988.3.579.2.462 Unknown [id number] 2.16.8 40.1.141022.3.579.2.462 Unknown [id number] 2.16.8 40.1.150445.3.579.2.462 Unknown [id number] 2.16.8 40.1.804024.3.579.2.462 Unknown [id number] 2.16.8 40.1.555257.3.579.2.462 Unknown [id number] 2.16.8 40.1.837965.3.579.2.462 Social History Date Type Detail Facility Start: 04-02-2022 Tobacco smoking status NHIS Unknown if ever smoked [facility] Start: 11-07-[address] [facility] Work Phone: Start: 11-07-[address] [facility] Work Phone: Start: 1985 Sex Assigned At Male [facility] Work Phone: Start: 01-30-2025 End: 01-31-2025 History of Social function [facility] Start: 01-30-2025 End: 01-31-2025 [facility] Vidible [facility] Has the electric, gas, oil, or water company threatened to shut off services in your home in past 12Mo No [facility] Fear of Current or Ex-Partner Not on file [facility] (I/We) worried whether (my/our) food would run out before (I/we) got money to buy more. Never true [facility] Start: 1985 Sex assigned at Not on file [facility] Start: 01-29-2025 Sex Male (finding) [facility] Start: 01-31-2025 Tobacco smoking status NHIS Never smoked tobacco [facility] Start: 01-31-2025 Tobacco use and exposure Smokeless tobacco non-user [facility] NEGATED: Highlighted rowStart: NINF History of tobacco use Passive smoker [facility] Clinical Notes 01-29-2025 to 04-12-2025 Kolby Ramirez MD - 04/12/2025 4:28 PM Ovidio Mondragon RN - 04/12/2025 2:40 PM TALATTDominga Mcgrath DO - 02/26/2025 1:10 PM Marianne Villeda LPAT - 02/24/2025 11:12 AM EDT Note Date & Type Note Facility 04-12-2025 Note I have reviewed this device test findings and agree with the above documentation and programming. I was readily available for consultation during the procedure. Kolby Ramirez MD [facility] 04-12-2025 History of Present illness Narrative I have reviewed this device test findings and agree with the above documentation and programming. I was readily available for consultation during the procedure. Kolby Ramirez MD Images from the original note were not included. Patient was identified by name and date of . Ovidio Sr RN [facility] INTERROGATION Device Type: Medtronic [place] S DR MRI Dual Chamber Pacemaker implanted on 02/25/[address] Mcgrath. Lead Status: Medtronic RA and RV(LBB) leads implanted on 02/25/[address] Mcgrath. Device Indication: Recurrent syncope, Autonomic disorder, bradycardia BATTERY VOLTAGE: 12.6 Years LEAD IMPEDANCE: Atrium: 418 Ohms Ventricle: 665 Ohms PACING THRESHOLD: Atrium : 0.5v @ 0.4ms Ventricle: 0.5v @ 0.4ms SENSING THRESHOLD: P-Wave: 3.9 mV R-Wave: >20 mV INTRINSIC RHYTHM: NSR PERCENT PACING: A-pacin.9%, V-pacing: < 0.1% COMMENTS: 6 week device check. Patient's parents present for visit. Pacemaker incision site well healed. Single suture noted at Loop implant site (photo below). Site cleaned and single suture easily removed. Site cleaned again and dressed with Bacitracin/Band-Aid. Dressing supplies given with instructions to change dressing daily after bathing for the next 3-5 days. Understanding confirmed and follow up site check scheduled. Family reports syncopal episode on 03/15/2025 (no episodes noted that day). Battery and leads are stable. No episodes noted. Pacing outputs lowered to chronic settings with appropriate safety margins. Auto thresholds are on. Reviewed remote monitoring and understanding confirmed. Patient/family deny any questions or concerns with device at this time. Next Remote Device Check: 3 Months x 3 Next In Clinic Device Check: [email or web address] 02-26-2025 Consult note Formatting of th is note is different from the original. Images from the original note were not included. FOLLOW UP EP Consult Service 02/26/2025 1:10 PM Name: Rogelio Bowers Room: [facility]-508/1 : 1985 male 39 year old Admit Date: 01/29/2025 Length of stay: 28 day(s) REASON FOR CONSULT RECURRENT SYNCOPE S/P DUAL CHAMBER PM INTERVAL EVENTS -- no acute overnight events -- shoulder was sore overnight -- he has been good about not touching the area -- he has a headache this morning, which Toradol seems to help with -- family feels he has better color in his face CARDIAC ROS As above PMH Medical History[1] PSH Surgical History[2] FH Family History[3] SOC. HX Social History[4] ALLERGIES Allergies[5] MEDICATIONS IP MEDS: acetaminophen 1,000 mg Every 8 hours fludrocortisone 0.1 mg Daily docusate sodium 100 mg Every evening midodrine 10 mg 3x Daily with Meals GenTeal moderate tears 1 Drop Every 4 hours risperiDONE 3 mg BID IV: PRN: sodium chloride 3 mL PRN naloxone 0.4 mg PRN MEDICATIONS [employer]: Prior to Admission medications Medication Sig Start Date End Date Taking? Authorizing Provider acetaminophen (TYLENOL) 500 MG tablet Take 2 Tablets by mouth every 6 hours as needed. 02/17/25 Yes Iram Allison, DO docusate sodium (COLACE) 100 MG capsule Take 1 Capsule by mouth every evening. 02/17/25 Yes Iram Allison, DO fludrocortisone (FLORINEF) 0.1 MG tablet Take 1 Tablet by mouth daily. 02/18/25 Yes Iram Allison, DO Artificial Tear Solution (GenTeal moderate tears) 0.1-0.2-0.3 % opthalmic solution Place 1 Drop in both eyes every 4 hours. 02/17/25 Yes Iram Allison, DO midodrine 10 MG TABS tablet Take 1 Tablet by mouth 3 times daily (with meals). 02/17/25 Yes Divan, Iram, DO risperiDONE (RISPERDAL) 3 MG tablet Take 1 Tablet by mouth 2 times a day. 02/17/25 Yes Iram Allison DO VITALS SIGNS/ VENT/ GTT/ INTAKE/ OUPUT Patient Vitals for the past 24 hrs: BP Temp Temp src Pulse Resp SpO2 O2 Device 02/26/25 1004 113/64 97.6 F (36.4 C) Oral 60 16 94 % Room air 02/26/25 0610 112/58 97.8 F (36.6 C) Oral 60 18 100 % -- 02/25/25 2017 114/52 97.5 F (36.4 C) Oral 75 18 96 % -- 02/25/25 1813 114/46 97.3 F (36.3 C) Temporal 72 18 98 % Room air 02/25/25 1419 106/55 96.8 F (36 C) Temporal 67 16 94 % Room air No intake or output data in the 24 hours ending 02/26/25 1310 Net IO Since Admission: -19,454 mL [02/26/25 1310] Wt Readings from Last 5 Encounters: 02/25/25 152 lb (68.9 kg) PHYSICAL EXAM GENERAL: appears well, in no acute distress. NEURO: Alert, conversational HEENT: PERRLA, EOMs intact. Mucous membranes moist and pink. CV: regular rate and rhythm CHEST: implant site without hematoma, no dressing saturation PULM: speaks in full sentences, no accessory muscle use ABD: deferred EXT: no pitting edema SKIN: Warm, well perfused GENERAL LABS CBC (last 3 years, up to 8 values) 02/24/2025 02/15/2025 02/14/2025 02/06/2025 02/05/2025 02/03/2025 02/02/2025 02/01/2025 12:20 AM 6:21 AM 5:46 AM 4:54 PM 6:04 AM 6:24 AM 4:56 AM 1:29 AM WBC 4.4 3.9 4.0 5.1 3.9 4.5 6.4 4.2 RBC 4.04 4.46 4.36 4.54 4.32 4.26 4.39 4.37 Hgb 12.7 13.9 13.5 14.0 13.6 13.3 13.7 13.7 Hct 37.5 41.6 40.3 41.8 40.8 39.9 41.3 40.7 MCV 93 93 93 92 94 94 94 93 RDW 15.6 15.6 16.0 15.4 15.7 14.6 14.8 14.9 Plt 203 221 230 234 197 177 183 171 BMP (last 3 years, up to 8 values) 02/24/2025 02/15/2025 02/14/2025 02/09/2025 02/06/2025 02/05/2025 02/03/2025 02/02/2025 12:20 AM 6:21 AM 5:46 AM 7:08 AM 4:54 PM 6:04 AM 6:24 AM 4:56 AM Na 140 141 141 139 139 142 141 141 K 3.9 4.1 4.3 4.2 4.3 4.4 4.3 4.3 Cl 102 103 104 104 101 106 105 105 CO2 30 31 28 27 33 30 30 30 Gap 12 11 13 12 9 10 10 10 Glu 94 86 91 98 101 95 101 96 BUN 18 20 19 22 25 30 24 24 Cr 1.01 1.09 1.05 1.11 1.07 1.20 1.06 1.06 Ca 8.5 9.0 8.9 8.8 8.9 8.4 8.4 8.3 eGFR 96 87 91 86 89 78 90 90 Date of last serum creatinine: 02/24/2025 Estimated Creatinine Clearance: 86.86 mL/min (by C-G formula based on SCr of 1.01 mg/dL). Estimated Glomerular Filtration Rate: 95.8 mL/min/1.73m2 (by CKD-EPI based on SCr of 1.01 mg/dL). Magnesium (mg/dL) Date Value 02/24/2025 2.1 02/15/2025 2.2 LFT's (last 3 years, up to 8 values) 02/02/2025 4:56 AM T Prot 5.9 Albumin 3.6 D Bili 0.07 T Bili 0.3 Alk Phos 49 ALT 22 AST 15 CARDIAC LABS No results found for: HSTRP No results found for: TROPONIN No results found for: BNP No results found for: HBA1C Lipids (last 3 years, up to 8 values) No lab values to display. CARDIAC TESTS CXR: leads stable ECG: SB TELE: NSR, intermittent pacing ECHO: Echocardiogram date: 01/31/2025 Left Ventricular Ejection Fraction Date Value Ref Range Status 01/31/2025 60 % Final STRESS TEST: none LHC/ RHC: none IMPRESSION #recurrent syncope #autonomic disorder He is doing well post implant. Leads are stable on CXR and interrogation. Implant site without hematoma or dressing saturation. Family would like to take him home to [place] and go to [place]. He is OK to travel. Recommended that he not carry any bags or go on any rides while at [place]. RECOMMENDATIONS RECOMMENDATIONS -- no therapeutic anticoagulation for the next 48-72 hours -- avoid heparin/ lovenox products -- f/u in nurse clinic in 2 weeks here or in [place] with their production worker -- f/u in device clinic in 6 weeks here or in [place] with their production worker -- He is OK to travel. Recommended that he not carry any bags or go on any rides while at [place]. PATIENT INSTRUCTED TO -- keep wound completely dry for 7 days; no showers, hotubs, baths, or swimming pools -- leave bandage on for 3 days, allow the steri strips to come off on their own -- do not lift arm above shoulder level for 2 weeks -- wear a sling for the first 24 hours followed by nocturnal sling to use for 6 weeks. -- do not do any repetitive motion or lifting heavy weight for 6 weeks --do not drive, use alcohol or make legal decisions for 24 hours. Dominga Mcgrath DO Electrophysiology Department of Cardiovascular Diseases Heart and Vascular [facility] [1] No past medical history on file. [2] No past surgical history on file. [3] No family history on file. [4] Social History Tobacco Use Smoking status: Never Passive exposure: Never Smokeless tobacco: Never Vaping Use Vaping status: Never Used [5] No Known Allergies Associated Order(s): IP ART THERAPY SERVICE REQUEST Art Therapy Note Referral received. Chart reviewed, history noted. Thank you. Patient identified by Verbalizing name HIPAA - Verbal permission granted from patient to discuss case, including protected health information, in front of patient parents in room at the time of session. Narrative Note: Art Therapist (AT) entered the patient s room to provide an introduction to art therapy services and to conduct an initial assessment. The patient was observed sitting upright in bed and was actively engaged in eating breakfast at the time of the visit. Two visitors, identified as the patient s parents, were present at the bedside. Upon greeting, the patient made appropriate eye contact and responded verbally to AT. The patient appeared alert, oriented, and receptive to the visit. AT introduced themselves and provided a brief overview of art therapy, including a discussion of its purpose, potential therapeutic benefits, general process, and any associated risks. The patient demonstrated an appropriate and congruent affect throughout the interaction. Patient shared that he enjoys adult coloring and showed the AT personal coloring supplies that he had with him in the room. When discussing meaningful items, the patient s affect brightened notably as he showed the AT a bouquet of miller he had recently received from his girlfriend. Patient expressed interest in participating in art therapy but declined to engage during this initial visit due to eating breakfast. Patient agreed to future visits and was receptive to AT returning to facilitate art-making at a later time. Plan to follow up with patient during next available art therapy rounds to begin rapport-building through creative engagement and assess for further therapeutic goals. Goals Addressed: Improved quality of life/self-esteem/adjustment/sense of autonomy as evidenced by: increased engagement in verbal interaction increased independent decision making Plan: Art therapy will follow patient focusing on Art Plan List: enhancing adjustment to hospitalization/medical situation Please refer to Art Therapy flowsheet for more data. Marianne French MA, LPAT, [facility]- Art Therapist, [facility] EP TREATMENT PLAN I have reviewed several days/ weeks worth of telemetry as well as syncopal episodes triggered on the ILR. The syncopal episodes do not always correlate to what is typically considered a significant pause. Most episodes do have around a 2-3 second pause around the time frame of symptoms. This is brief enough that it should not be causing symptoms. The pauses do mostly occur during sleeping hours but also occur while he is awake and while he is walking. There is an episode recorded on the ILR that does shows vagal slowing into the 30s from a starting heart rate in the 70s. This could conceivably cause symptoms. I have discussed the case with neurology as well who agrees that the symptoms are multifactorial between vasovagal, psych, and progression of dementia. Patient symptoms have not improved with Florinef and midodrine and there is enough evidence with symptoms to suggest a pacemaker implant is reasonable. I have had a long discussion over two days with patient's family regarding the two part mechanism of vasovagal syncope. Discussed the separate blood pressure and heart rate components. Discussed that the device will prevent the HR from dropping, but that the drop in blood pressure may still cause him to pass out. Discussed that even after the PM she may notices that the symptoms still occur but are less severe or that they are unchanged. Discussed with family my concern that patient will pick at the device implant site raising the risk of infection. Per family, he has not tried touching the ILR implant site and he is redirectable. Discussed with family and POA the risks, benefits, and alternatives and that this may not fix the issue. They agree to proceed. Discussed that as long as the post-op and AM CXR look good, the implant site looks good, and the interrogation looks good, he would be able to leave the day after implant from an EP perspective. Dominga Mcgrath DO Electrophysiology Department of Cardiovascular Diseases Heart and Vascular [facility] Images from the original note were not included. Dietitian vs DietaryTech: 2C2P Diet Bakery Supervisor Nutrition Screening Reason for visit: 7 to 10 Day follow-up Assessment Admitting Diagnosis: No admission diagnoses are documented for this encounter. High risk nutrition diagnosis: No - no points Past Medical History: Medical History[1] Food Allergies: No Known Allergies Labs: LFT's (last 3 years, up to 8 values) 02/02/2025 4:56 AM T Prot 5.9 Albumin 3.6 D Bili 0.07 T Bili 0.3 Alk Phos 49 ALT 22 AST 15 Albumin: Greater than 3 - no points Prealbumin: n/a - no points Skin Integrity: Surgical incision - no points Fluid Accumulation: wnl Diet Order: Regular Supplements: none % PO Intake: 100% Intake difficulties: None - 0 points 5' 6 152 lbs .68.9 kg Weight Only Weight 02/02/2025 1:43 PM 152 lb 12.8 oz 02/16/2025 10:06 PM 152 lb BMI: 24.53 BMI Screening value: 21 or greater - 0 points % Weight Loss: not significant Weight Loss Screening Value: Not significant - 0 points Education: No nutrition education indicated at this time. Comments: intake good. Monitor. Number of Points: 0 Nutritional Plan of Care: Less than or equal to 6 points: At this time, patient is at low nutrition risk. DTR to provide routine follow up. Will continue to follow, Lucía Gregg, Diet Bakery Supervisor Pager [phone] Time spent on patient care: 15 minutes [1] No past medical history on file. Associated Order(s): ETHICS COMMITTEE CONSULT Clinical Ethics was initially consulted on 02/15/2025 by the medical team to discuss the discharge planning of Rogelio Bowers. Of note, an earlier plan for discharge was deferred to facilitate further work-up of Mr. Bowers's symptoms (Ayalaan 02/16/2025, Edwards/Kenneth 02/16/2025). Since then, Mr. Bowers underwent placement of an implantable loop recorder (ILR) to facilitate continued monitoring of his syncopal episodes, and was subsequently again medically cleared for discharge (Rocio 02/18/2025). There has been at least some disagreement expressed by Mr. Bowers's surrogates regarding the plan of care, especially regarding discharge and potential treatments to initiate in order to prevent the syncopal episodes from recurring, hence Mr. Bowers has remained admitted while his surrogates, particularly his mother and legal guardian, Haydee Cruz, facilitates the process of appealing for a continued in-patient stay. The medical team reached back out to Clinical Ethics on 02/20/2025 to continue discussion regarding discharge planning, and also given a request from Ms. Cruz, to speak to someone from the Clinical Ethics team. Clinical Ethics spoke to Ms. Cruz on 02/21/2025 and she shared her apprehensions about Mr. Bowers's potential discharge given the lack of a definitive diagnosis and treatment for his syncopal episodes. While she and her family continue to try and provide appropriate care for Mr. Bowers, she is concerned that they may not have the ability to provide the constant supervision necessary to manage a patient who may just pass out at any time. Given these concerns, Ms. Cruz also shared her willingness to consent to treatment, especially placement of a pacemaker, if it may have some chance at preventing further recurrence of Mr. Bowers's syncope. Clinical Ethics expressed understanding of Ms. Cruz' concerns but also emphasized how, ultimately, it is the obligation of the medical team to determine the set of medically supportable options that can be offered to treat Mr. Bowers at this time. In line with this, it was also discussed how medical providers are not obligated to provide or even offer any treatments or interventions that they believe will not be beneficial. Of note, Ms. Cruz cited that she had some understanding of this, in part due to extensive conversations with the cardiology team last week (Grace/Liliana 02/18/2025). That being said, Ms. Cruz mentioned that Mr. Bowers has had syncopal episodes since placement of the the ILR and that her understanding is that this may document signs that a pacemaker could be an effective mode of treatment. She requested to have a conversation with the cardiology/EP team in order to discuss any findings from the ILR since its placement, and what out-patient care and follow-up plans would be like if there remains no indication for a pacemaker. Finally, the issue of discharge specifically was discussed and how, based on the medical team's assessment, Mr. Bowers is no longer appropriate for an in-patient hospital stay. Ms. Cruz brought up how this had already been a previous assessment and had changed when she pushed back and advocated for a more comprehensive effort at diagnosing her son's syncopal episodes. Ms. Cruz reiterated that her focus is to at least attempt the prevention of further syncopal episodes. Clinical Ethics supported Ms. Cruz efforts and advocacy for Mr. Bowers to receive the best care, but also discussed how completion of work-up can be done on an out-patient basis, especially when the risks of in-patient stay outweigh the benefits. Clinical Ethics also discussed the possibility that the syncopal episodes may be part of a new phase or progression of Mr. Bowers's care needs. Ms. Cruz expressed some distress at this possibility, citing that she and her spouse are Mr. Bowers's primary caregivers and may not be able to manage complex care needs. When asked about other concerns, she mentioned previously having requested assistance in setting up MyChart access and would appreciate further assistance. Ms. Cruz expressed appreciation of the conversation with Clinical Ethics and requested that Clinical Ethics continue to follow Mr. Bowers's case. Clinical Ethics discussed the above concerns with Social Work and the primary medical team, especially, to the extent that it would provide further insight into Mr. Bowers's working diagnosis and prognosis, and any associated medically supportable options for his care, reaching back out to the cariology/EP service. Clinical Ethics will continue to follow. Hiro Dickson MD, [facility] Clinical Ethics Fellow, [facility] 06/01 Clinical Ethics Consult Pager (urgent): [phone] Epic chat group (non-urgent): Clinical Ethics Rogelio Bowers is a 39-year-old patient with a history of down syndrome who presented to the [facility] ED on 01/29 for a syncopal episode. He was subsequently transferred to the floor for assessment, treatment, and monitoring. Mr. Bowers has limited capacity for medical decisions at baseline. His surrogate is his mother and guardian, Ms. Haydee Cruz. Mr. Bowers lives with his mother and father in [place]. At the time of his admission, he and his parents were visiting his sister in [place]. According to the medical team, Mr. Bowers is ready for discharge, and they are recommending discharge home (see, for example, 02/15/25 [place] and [place] notes, and 02/16/25 Keegan note). Ms. Cruz, however, has expressed a preference for Mr. Bowers to remain admitted and, upon discharge, to be placed in a senior living facility (see, for example, 02/15/25 Charanjit note). Clinical ethics was consulted on 02/15/25 to assist with discharge planning for Mr. Bowers and participated in a [place] meeting on 02/16/25. Recommendations 1. The medical team is not obligated to provide any interventions they determine to be not medically appropriate. Available treatment options should be clearly documented in the chart and communicated to Ms. Cruz and, as appropriate, to Mr. Bowers. If the team has determined that Mr. Bowers is ready for discharge and that discharge home is the only available option, this too should be clearly documented in the chart and communicated to Ms. Cruz and Mr. Bowers. 2. Ms. Cruz is welcome to seek a second opinion. If she is able to identify a hospital or facility willing to accept Mr. Bowers, it would be appropriate for the medical team to facilitate transfer. 3. Before discharge, it would be helpful to review with Ms. Cruz any support services that might be available to Mr. Bowers in the community and to assist her with connecting to those services. ---02/17/25 Addendum--- After reassessment by Electrophysiology, the medical team has determined that, at this time, continued hospitalization and monitoring for Mr. Bowers is medically appropriate (see 02/17/25 Grace and Keegan notes). While Mr. Bowers remains hospitalized, Ms. Cruz should continue to be updated about the expected timeline for discharge and potential discharge options and such discussions should be documented in the chart. ------- Please contact us if there are any questions or if we can be of further assistance. Vaughn Garsia, PhD, [facility] Senior Clinical Ethicist, [facility] 06/01 Clinical Ethics Consult Pager (urgent): [phone] Epic chat group (non-urgent): Clinical Ethics OCCUPATIONAL THERAPY PROGRESS SUMMARY Patient seen from 1315 to 1325 on 9E unit for 10 minute treatment. SUBJECTIVE: Patient Subjective/Goals I did it this morning OBJECTIVE: Pain: No pain reported or noted Pain Relief Interventions Implemented: None required; No pain at this time Appearance: Supine in bed with hep-locked IV, tele. Pt's father present. Behavior: cooperative. Self Care: Assistance Level NA Dep Max Mod Min CG CS DS OR I Set-Up Cues Comment Feeding x Grooming/ Hygiene x Pt states he completed this AM Bathing: Upper Body x Bathing: Lower Body x Dressing: Upper Body x Don gown to backside Dressing: Lower Body x Doff/don socks Toileting x For hygiene and clothing management Toilet Transfers x Bed Transfer x Sit to stand, ambulated without device around unit with mod I Bed Mobility x Supine <> sit EOB Endurance for Self Care: WFL Patient/Family Education: Instructed Patient in roles of therapy. 02/15/2025 6 Clicks Daily Activity OT Help from another person Eating meals 4 Help from another person taking care of personal grooming 4 Help from another person bathing 4 Help from another person putting on and taking off regular upper body clothing 4 Help from another person putting on and taking off regular lower body clothing 4 Help from another person toileting 4 OT 6 Clicks Score 24 6 Click Score Guidelines: 1 - Unable = Total/Dependent Assist 2 - A lot = Max/Moderate Assist 3 - A little = Minimum/Contact Guard Assist/Supervision 4 - Non = Modified Webb/Independent ASSESSMENT: Patient is functionally appropriate for discharge home once medically cleared. No further Occupational Therapy Services reccommended at this time. Patient may benefit from DME at home such as a w/c and or shower chair if BPs continue to fluctuate. Custodial Goals: Patient will dress upper body with Modified Independent Patient will dress lower body with Modified Independent Patient will perform bed mobility with Modified Independent Patient will perform bathing with Modified Independent Patient will perform toileting with Modified Independent Patient will perform bed transfers with Modified Independent Patient will perform commode transfers with Modified Independent PLAN: D/c acute OT Yovana Treadwell MOT, OTR/L [phone] NA = Not Assessed, I = Independent, OR = Modified Independent, Sup = Supervised, Set up = Physical Assistance for Set-up Only, Min = Minimal Assistance, Mod = Moderate Assistance, Max = Max assistance; Dep = Dependent; AROM = Active Range of Motion;PROM=Passive Range of Motion; MMT = Manual Muscle Test; Shld= Shoulder; Add = Adduction; Abd = Abduction PHYSICAL THERAPY PROGRESS SUMMARY Patient seen from 1315 to 1325 on 9E unit for 10 minute treatment. SUBJECTIVE: Patient Subjective/Goals: Okay, I will try. (Stairs) No c/o dizziness throughout session OBJECTIVE: Appearance: in bed, tele Behavior: cooperative Pain: Site/Location: no c/o pain Mobility NA Dep Max Mod Min CG CS DS OR I Comment Supine to long sit to short sit x No utilization of bed features Sit to/from stand x From bed x2 without AD Walking on level surface x 320' no AD Gait Analysis: steady rosalia, swing through, downward gaze, no LB no c/o dizziness with; head turns and 360/180* turns. Stairs x 4 steps with rail with reciprocal pattern, no LOB. Stand to sit x Onto bed x2 Sit to Supine x No utilization of bed features HR: 62 bpm at rest, 87 bpm with exertion Functional Endurance: WFL Patient/Family Education: roles of PT Patient in bed with alarm donned and call light within reach 02/15/2025 6 Clicks Basic Mobility PT Difficulty turning over in bed 4 Difficulty sitting down and standing up from a chair with arms 4 Difficulty moving from lying on back to sitting on the side of the bed 4 Help from another person moving to and from bed to a chair 4 Help from another person to walk in hospital room 4 Help from another person climbing 3-5 steps with a railing 4 PT 6 Clicks Score 24 6 Click Score Guidelines: 1 - Total = Requires total assistance, or cannot do at all. 2 - A lot = Requires a lot of help (maximun to moderate assistance) Can use assistive devices. 3 - A little = Requires a little help (supervision, minimal assistance) Can use assistive devices. 4 - None = Does not require any help and does the activity independently. Can use assistive devices. ASSESSMENT: Patient is functionally appropriate for discharge home once medically cleared. Goals (to be achieved by discharge from acute care): Patient will increase bed mobility to independent MET Patient will perform sit to/from stand with no device with independent MET Patient will ambulate 300 feet with no device with independent MET Patient will ascend/descend 5# of stairs in home environment (once clarified) with unilateral rail(s) with modified independent MET Patient will increase ROM/Strength/Endurance/Balance to allow for above goals.MET PLAN: Discussed with PT Aixa Raza PTA This clinician collaborated with supervising PT for patient assessment and POC as appropriate. This document is not finalized until reviewed and cosigned by supervising PT. Read and agree with above. Pt is mobilizing at a mod (I) level and has met acute PT goals. No further acute PT needs, D/C from PT. Adwoa Batres, PT, DPT NA = Not Assessed, I = Independent, OR = Modified Independent, Sup = Supervised, Set up = Physical Assistance for Set-up Only, Min = Minimal Assistance, Mod = Moderate Assistance, Max = Maximal assistance; Dep = Dependent; AROM = Active Range of Motion; PROM = Passive Range of Motion; MMT = Manual Muscle Test Images from the original note were not included. Dietitian vs DietaryTech: Dietary TechDiet Bakery Supervisor Nutrition Screening Reason for visit: 7 to 10 Day follow-up Assessment Admitting Diagnosis: No admission diagnoses are documented for this encounter. High risk nutrition diagnosis: No - no points Past Medical History: Medical History[1] Food Allergies: None Labs: LFT's (last 3 years, up to 8 values) 02/02/2025 4:56 AM T Prot 5.9 Albumin 3.6 D Bili 0.07 T Bili 0.3 Alk Phos 49 ALT 22 AST 15 Albumin: Greater than 3 - no points Skin Integrity: No pressure ulcers at this time - no points Fluid Accumulation: None Diet Order: Regular % PO Intake: 75% Intake Difficulties: None - 0 points 5' 6 Weight Only Weight 02/02/2025 1:43 PM 152 lb 12.8 oz BMI Screening value: 21 or greater - 0 points % Weight Loss: None Weight Loss Screening Value: None Comments: Intake-appetite good, monitor. Number of Points: 0 Nutritional Plan of Care: Less than or equal to 6 points: At this time, patient is at low nutrition risk. DTR to provide routine follow up. Will continue to follow, Time spent on patient care: 15 minutes GONZALEZ Caballero (Nutrition) Pager #[phone]. [1] No past medical history on file. OCCUPATIONAL THERAPY Attempted to see patient for OT treatment @1143. Pt long sitting in bed eating breakfast tray, mother at bedside. Introduced self, pt states eat first. Pt's mother also requests pt to eat, reports pt was difficult to wake this morning. Pt appears awake and alert at time of attempt, feeding self. Will re-attempt at later time/date as able. Caroline Jerome, OTR/L PHYSICAL THERAPY ATTEMPT NOTE Attempted to see patient for PT treatment. At this time, patient is long sitting in bed eating and requests eat first. Parents at bedside, patient's mother requests giving patient time to eat and reports patient was difficult to wake this morning. Will continue to follow patient while in the hospital as appropriate. Marlee Cisse, PT, DPT PHYSICAL THERAPY PROGRESS SUMMARY Patient seen from 1354 to 1419 on 9E unit for 25 minute treatment. SUBJECTIVE: Patient Subjective/Goals: throughout session, patients mother continually asking pt if he is dizzy and states He is going to pass out, see his hands? (pt holding hands together) he is going to go out. Mother also continually asking for therapy to perform orthostatic blood pressures, explained to patients mother and patient that I would perform orthostatic BP if pt presented with symptoms during tx session. Mother then states He is saying he is dizzy, that is a symptom. However pt does not report dizziness until patients mother continually asks him in which he then says dizzy however pt continuing to verbalize and scan room. There were three incidences where mother asked pt if he was dizzy in which pt then would immediately lay back onto bed in a controlled manner. During one incident when my hand is placed on patients back, he was actively pushing posteriorly to return to supine. Pt able to be redirected; pt able to maintain conversation and did not exhibit; confusion, tremors, diaphoresis, nor blurred vision (pt able to read number off tele box during incident of dizziness when asked). Assessed BP at end of session in which mother states Well it is going to be higher with exercise. We should have taken it before. Educated patients mother again on clinical decision to assess BP if pt was exhibiting concerning symptoms. When pt distracted and patients mother not present while ambulating down langley and in bathroom, pt did not c/o dizziness at all. Mother also states I hope you can catch him when he falls, it will happen fast. Following discussion with pt to ambulate Pt does c/o abdominal pain in which mother responds to patient that it's because of your prostate, we know that, despite pt telling me he has to poop. Medical team able to observe pt ambulating. Medical team aware of what occurred via verbal discussion following tx session. OBJECTIVE: Appearance: in bed, tele, compression stockings Behavior: alert, cooperative, continually looks to mother for responses when asked questions, mother tends to talk over/for pt Pain: Site/Location: abdomen; Pain Scale: unrated/10 Pain Relief Interventions Implemented: Rest and Notified MD Mobility NA Dep Max Mod Min CG CS DS OR I Comment Supine < > sit x HOB elevated x3; instructed pt on taking seated rest break following transition prior to standing. Pt impulsively returns to supine several times in a controlled manner, one time pt actively pushing posteriorly. Pt able to be redirected and return to seated position Transfers x On/off toilet with use of grab bar. Pt refused to attempt to perform posterior hygiene; dep for hygiene following BM Sit to/from stand x From bed without AD; pt c/o dizziness when mom asks, however pt does not exhibit external symptoms. No LOB nor sway. Walking on level surface x 60' and 15' no AD Gait Analysis: decreased rosalia, decreased stride length, no LOB with head turns nor 180* turn. Pt does not c/o dizziness Stand to sit x Onto bed Sit to supine x Multiple times with pt controlling descent following c/o dizziness Vitals: BP 123/52, HR 61 Functional Endurance: Fair Patient/Family Education: roles of PT, slow transitional movements, importance of OOB mobility to prevent deconditioning, preforming seated BLE therex prior to standing to improve circulation prior to, discussed clinical judgement in regards to not assessing orthostatic BP during tx session as pt is able to mobilize without concerning symptoms this session (if concerns were to arise, would assess immediately. Patients mother not satisfied with explanation and continues to be adamant that he requires orthostatic blood pressure during each tx session) Patient in bed with call light within reach. PCNA present. 02/09/2025 6 Clicks Basic Mobility PT Difficulty turning over in bed 4 Difficulty sitting down and standing up from a chair with arms 3 Difficulty moving from lying on back to sitting on the side of the bed 4 Help from another person moving to and from bed to a chair 3 Help from another person to walk in hospital room 3 Help from another person climbing 3-5 steps with a railing 3 PT 6 Clicks Score 20 6 Click Score Guidelines: 1 - Total = Requires total assistance, or cannot do at all. 2 - A lot = Requires a lot of help (maximun to moderate assistance) Can use assistive devices. 3 - A little = Requires a little help (supervision, minimal assistance) Can use assistive devices. 4 - None = Does not require any help and does the activity independently. Can use assistive devices. ASSESSMENT: Patient is functionally appropriate for discharge home once medically cleared. Recommend Home PT. Goals (to be achieved by discharge from acute care): ongoing unless otherwise stated Patient will increase bed mobility to independent Patient will perform sit to/from stand with no device with independent Patient will ambulate 300 feet with no device with independent Patient will ascend/descend 5# of stairs in home environment (once clarified) with unilateral rail(s) with modified independent Patient will increase ROM/Strength/Endurance/Balance to allow for above goals. PLAN: Will follow established Plan of Care Aixa Raza PTA This clinician collaborated with supervising PT for patient assessment and POC as appropriate. This document is not finalized until reviewed and cosigned by supervising PT. NA = Not Assessed, I = Independent, OR = Modified Independent, Sup = Supervised, Set up = Physical Assistance for Set-up Only, Min = Minimal Assistance, Mod = Moderate Assistance, Max = Maximal assistance; Dep = Dependent; AROM = Active Range of Motion; PROM = Passive Range of Motion; MMT = Manual Muscle Test Cosigned by Adwoa Batres, PT at 02/09/2025 3:10 PM EDT PHYSICAL THERAPY PROGRESS SUMMARY Patient seen from 1326 to 1357 on 9E unit for 31 minute treatment. SUBJECTIVE: Patient Subjective/Goals: I feel dizzy. OBJECTIVE: Appearance: in bed, tele, surgical stockings Behavior: cooperative with education/encouragement Pain: Site/Location: no c/o pain Mobility NA Dep Max Mod Min CG CS DS OR I Comment Supine to long sit to short sit x HOB elevated Seated rest break following Transfers x On/off toilet with use of grab bar -encouraged pt to perform posterior hygiene; pt refused to attempt Sit to/from stand x Multiple reps from bed, seated rest break immediatly following first trial d/t c/o dizziness Walking on level surface x 30' and 12' x2 no AD Gait Analysis: decreased rosalia, decreased step length, no overt LOB. Seated rest breaks d/t c/o dizziness Stand to sit x Multiple reps onto bed Sit to Supine x HOB elevated Functional Endurance: impaired Vitals: EOB: 108/63 1334 standin/49, pt reports dizziness and impulsively returns to sitting 1337 EOB: 94/73 Post first trial of ambulation: 103/42, seated rest break following 1350 EOB post ambulating to/from bathroom: 126/56 Patient/Family Education: roles of PT, slow transitional movements, seated therex prior to standing, improving upright tolerance and importance of sitting in chair at least TID Patient in upright position in bed with call light within reach. Pt parents present. 02/08/2025 6 Clicks Basic Mobility PT Difficulty turning over in bed 4 Difficulty sitting down and standing up from a chair with arms 3 Difficulty moving from lying on back to sitting on the side of the bed 4 Help from another person moving to and from bed to a chair 3 Help from another person to walk in hospital room 3 Help from another person climbing 3-5 steps with a railing 3 PT 6 Clicks Score 20 6 Click Score Guidelines: 1 - Total = Requires total assistance, or cannot do at all. 2 - A lot = Requires a lot of help (maximun to moderate assistance) Can use assistive devices. 3 - A little = Requires a little help (supervision, minimal assistance) Can use assistive devices. 4 - None = Does not require any help and does the activity independently. Can use assistive devices. ASSESSMENT: Patient is functionally appropriate for discharge home once medically cleared with family assiatnce. Family declining home therapies at this time per note. Goals (to be achieved by discharge from acute care): ongoing unless otherwise stated Patient will increase bed mobility to independent Patient will perform sit to/from stand with no device with independent Patient will ambulate 300 feet with no device with independent Patient will ascend/descend 5# of stairs in home environment (once clarified) with unilateral rail(s) with modified independent Patient will increase ROM/Strength/Endurance/Balance to allow for above goals. PLAN: Will follow established Plan of Care Aixa Raza PTA This clinician collaborated with supervising PT for patient assessment and POC as appropriate. This document is not finalized until reviewed and cosigned by supervising PT. NA = Not Assessed, I = Independent, OR = Modified Independent, Sup = Supervised, Set up = Physical Assistance for Set-up Only, Min = Minimal Assistance, Mod = Moderate Assistance, Max = Maximal assistance; Dep = Dependent; AROM = Active Range of Motion; PROM = Passive Range of Motion; MMT = Manual Muscle Test Cosigned by Adwoa Batres, PT at 02/08/2025 3:03 PM EDT OCCUPATIONAL THERAPY PROGRESS NOTE Patient seen for 23 minutes on 9east unit. (Time In: 9:53, Time Out: 10: 16) Co-treat with PT for safety secondary BP SUBJECTIVE: I tired (Patient focusing on being tired throughout tx session) OBJECTIVE: Appearance: Tele Behavior: Cooperative However noted to self limit *Did not want to help himself with hygiene or ambulate this date *Patient's mother frequently asking patient how he is feeling and anticipating symptoms prior to symptoms Pain: Repeated his head hurt after his mom asked him Did not rate Vitals: BP 115/80 seated at edge of bed BP: 109/71 seated at edge of bed after using the bathroom (Compression stockings on prior to OOB) HR: in the 60's Self Care: Assistance Level NA Dep Max Mod Min CG CS DS OR I Set-Up Comment Feeding Grooming/Hygiene x Stood at sink and washed hands Bathing:Upper Body Bathing:Lower Body Dressing:Upper Body Dressing: Lower Body Toileting x Requesting assist to wipe himself and refused to assist. *Patient's mother stating he use to wipe himself, but she has been assisting since he Passes out Toilet Transfers x Able to stand at toilet and void un urinal(measuring urine); transfer/off toilet for BM Bed Transfer x Sit to stand and ambulate to/from the bathroom (CGA provided for safety with BP) Bed Mobility x Supine to sit and sit to supine Endurance for Self Care: Impaired Sitting Balance: Good Family and Patient Education: Instructed patient in roles of therapy Patient declined further ambulation Bed placed in chair position this date *Recommend patient be OOB for all meals and out of bed during the day to start to promote a more normal daily routine. Encouraged patient's parents to have patient assist with functional tasks as he was completing without assist prior to his medical decline. 02/07/2025 6 Clicks Daily Activity OT Help from another person Eating meals 4 Help from another person taking care of personal grooming 3 Help from another person bathing 3 Help from another person putting on and taking off regular upper body clothing 3 Help from another person putting on and taking off regular lower body clothing 3 Help from another person toileting 3 OT 6 Clicks Score 19 6 Click Score Guidelines: 1 - Unable = Total/Dependent Assist 2 - A lot = Max/Moderate Assist 3 - A little = Minimum/Contact Guard Assist/Supervision 4 - Non = Modified Webb/Independent ASSESSMENT: Patient able to ambulate to/from bathroom this date without a drop in BP, At this time anticipate patient will be appropriate for d/c to home once medically ready Patient may benefit from DME at home such as a w/c and or shower chair if BPs continue to fluctuate. Patient's mother uncertain if she wants DME at this time and is expressing she wants his BP fixed May benefit from home OT to maximize function in home environment upon d/c. Will continue to follow. Goals (to be achieved by discharge from acute care): ONGOING Patient will dress upper body with Modified Independent Patient will dress lower body with Modified Independent Patient will perform bed mobility with Modified Independent Patient will perform bathing with Modified Independent Patient will perform toileting with Modified Independent Patient will perform bed transfers with Modified Independent Patient will perform commode transfers with Modified Independent PLAN: Continue with Plan as per Initial Evaluation. Caroline MÉNDEZ, OTR/L (Message Via Secure Chat as Needed) NA = Not Assessed, I = Independent, OR = Modified Independent, Sup = Supervised, Set up = Physical Assistance for Set-up Only, Min = Minimal Assistance, Mod = Moderate Assistance, Max = Max assistance; Dep = Dependent; AROM = Active Range of Motion; PROM=Passive Range of Motion; MMT = Manual Muscle Test; Shld= Shoulder; Add = Adduction; Abd = Abduction Associated Order(s): IP CARDIOLOGY ELECTROPHYSIOLOGY (EP) CONSULT Images from the original note were not included. CONSULT NOTE Cardiology Consult Service Patient name: Rogelio Bowers Date,time, and place of consultation: 02/07/2025 1:42 PM Room: [place] [id number] PCP contact: No primary care provider on file. 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 Cardiology has been consulted for evaluation. The majority of the history was given by the adoptive parents. They state that Rogelio was been having recurrent episodes of syncope that began about a year ago. Sometimes these episodes have convulsions and/or mouth drooling. He was given a Holter monitor for two weeks, and had another episode of syncope without notable changes - per the historians. He had neurology evaluate him during this admission with an EEG (demonstrating diffuse slowing of brain waves - consistent with dementia) and head imaging (MR consistent with gliosis and encephalomalacia of the right frontal lobe - possible focus for seizure). He was also found to have orthostatic hypotension, and midodrine was started with tamsulosin discontinued per neurology. The parents note the echocardiogram was normal, and were informed of telemetry abnormalities (sinus pauses and bradycardia). They are not able to associate high burden of pauses with loss of consciousness, but mention that yesterday he was in and out of consciousness frequently, noted by his head bobbing and non-responsive to voice. He did not loss bowel or bladder continence or remark about tongue or cheek pain after these episodes. He returned to his functional cognitive baseline with these episodes as well. Rogelio denies chest pain, pressure, or palpitations associated with loss of consciousness. He does not have SA or AV yael blocking agents on for his routine meds. Dry weight: Non-heart failure Admission weight: 146 lb Home meds: - Risperidone 3 mg BID - Trazodone 50 mg at bedtime PRN Review of Systems Unless indicated below, all other systems have been reviewd and are negative for complaint Past Medical History Medical History[1] Past Surgical History Surgical History[2] Family History Family History[3] Social History Social History[4] Allergies Allergies[5] Vital signs and I/Os Patient Vitals for the past 24 hrs: BP Temp Temp src Pulse Resp SpO2 O2 Device 02/07/25 0608 110/59 97.3 F (36.3 C) Oral 54 18 95 % Room air 02/07/25 0342 -- -- -- -- -- -- Room air 02/06/25 2329 -- -- -- -- -- -- Room air 02/06/25 2158 127/58 99.1 F (37.3 C) Oral 59 18 97 % Room air 02/06/25 1434 114/57 97.7 F (36.5 C) Oral 56 18 100 % Room air From prior to hospitalization no prior weight on file During hospitalization Change in Weight: Current value is 152.8 lb (69.309 kg) on 02/02/2025 at 1343 No other value found for comparison Intake/Output Summary (Last 24 hours) at 02/07/2025 1342 Last data filed at 02/07/2025 1254 Gross per 24 hour Intake -- Output 1025 ml Net -1025 ml Hospital Medications midodrine 10 mg 3x Daily with Meals fludrocortisone 0.1 mg Daily docusate sodium 100 mg Every evening GenTeal moderate tears 1 Drop Every 4 hours risperiDONE 3 mg BID enoxaparin 40 mg Daily polyethylene glycol 17 g Daily PRN acetaminophen 1,000 mg Q6H PRN senna 8.6 mg Daily PRN Home Medications Prior to Admission medications Not on File Physical Examination Appearance: Not in acute distress. Skin: Skin color, texture, turgor normal. No rashes or lesions. Eyes: Pupils reactive to light and accomodation. ENMT: Unremarkable. Neck: Neck supple; normal JVP Lungs: CTAB without bibasilar crackles Cardiac: S1, S2 heard; bradycardic, no murmurs, rubs, or gallops Abdomen: Soft, non-tender, no organomegaly, bowel sounds + Extremities: No pitting edema Neurologic: Interactive with parents and nurse, no gross motor deficit. Laboratory Tests BMP (last 3 years, up to 8 values) 02/06/2025 02/05/2025 02/03/2025 02/02/2025 02/01/2025 01/31/2025 01/30/2025 01/29/2025 4:54 PM 6:04 AM 6:24 AM 4:56 AM 1:29 AM 2:26 AM 4:24 AM 4:18 PM Na 139 142 141 141 141 141 141 140 K 4.3 4.4 4.3 4.3 4.3 4.3 4.0 4.3 Cl 101 106 105 105 103 105 106 102 CO2 33 30 30 30 32 30 28 31 Gap 9 10 10 10 10 10 11 11 Glu 101 95 101 96 106 101 88 138 BUN 25 30 24 24 22 17 13 14 Cr 1.07 1.20 1.06 1.06 1.20 1.23 1.02 1.36 Ca 8.9 8.4 8.4 8.3 8.8 8.7 8.0 9.4 eGFR 89 78 90 90 78 76 95 67 CBC (last 3 years, up to 8 values) 02/06/2025 02/05/2025 02/03/2025 02/02/2025 02/01/2025 01/31/2025 01/30/2025 01/29/2025 4:54 PM 6:04 AM 6:24 AM 4:56 AM 1:29 AM 2:26 AM 4:24 AM 4:18 PM WBC 5.1 3.9 4.5 6.4 4.2 4.8 5.3 5.6 RBC 4.54 4.32 4.26 4.39 4.37 4.49 4.22 4.67 Hgb 14.0 13.6 13.3 13.7 13.7 14.1 13.1 14.7 Hct 41.8 40.8 39.9 41.3 40.7 42.0 39.4 43.9 MCV 92 94 94 94 93 93 93 94 RDW 15.4 15.7 14.6 14.8 14.9 15.2 14.7 15.0 Plt 234 197 177 183 171 183 178 204 LFT's (last 3 years, up to 8 values) 02/02/2025 4:56 AM T Prot 5.9 Albumin 3.6 D Bili 0.07 T Bili 0.3 Alk Phos 49 ALT 22 AST 15 Cardiac None Lipids (last 3 years, up to 8 values) No lab values to display. Lab Results Component Value Date TSH 5.182 02/02/2025 Date of last serum creatinine: 02/06/2025 Estimated Creatinine Clearance: 81.99 mL/min (by C-G formula based on SCr of 1.07 mg/dL). Estimated Glomerular Filtration Rate: 89.4 mL/min/1.73m2 (by CKD-EPI based on SCr of 1.07 mg/dL). PT/INR No lab values to display. No results found for: BNP Chest X-ray 01/29/2025: No acute cardiopulmonary abnormality Cardiac Tests ECG: sinus bradycardia Telemetry findings reviewed: sinus bradycardia, with multiple episodes of 2s sinus pauses Left Ventricular Ejection Fraction Date Value Ref Range Status 01/31/2025 60 % Final Echo (Echocardiogram date: 01/31/2025): Procedure Summary Normal LV systolic function. The left ventricular ejection fraction (LVEF) is 60%. Normal RV systolic function. Mild aortic valve regurgitation. The pulmonary artery systolic pressure could not be estimated. Noninvasive hemodynamic assessment is consistent with a low CVP. There is no evidence of an interatrial shunt. Stress test (Last Cardiac Stress Test: Not Found): N/A Cardiac catheterization: N/A Impression Syncope - Unlikely to be attributed to sinus pauses and bradycardia. The pauses are more frequent with sleep which is physiologic from increased vagal tone. Given the history of Holter monitoring and current telemetry without symptomology suggestive of cardiogenic syncope. Given the history of syncope and history of bathroom usage with syncope, more suggestive of a situational etiology. Per neurology, could also have dysautonomia influencing syncope with surge of vagal stimulation with subsequent seizure like activity, which is not characteristic of cardiogenic syncope. Echocardiogram does not demonstrate outflow obstructions or severe valvular disease for etiology of syncope. - In other words, sinus pauses without clinical correlate are benign and likely do not need to be treated with pace maker placement. Plan/Recommendations -- Sinus pauses/bradycardia: benign - No intervention needed at this time - No further workup from EP stand point at this time Castro Paredes MD Internal Medicine, PGY-1 These recommendations are preliminary until finalized by the Attending Physician Teaching Physician Note: I saw and evaluated the patient. I personally obtained the bingham and critical portions of the history and physical exam. I reviewed the resident's documentation and discussed the patient with the resident. I agree with the resident's medical decision making as documented in the resident's note. Shikha Cooper MD [1] No past medical history on file. [2] No past surgical history on file. [3] No family history on file. [4] Social History Tobacco Use Smoking status: Never Passive exposure: Never Smokeless tobacco: Never Vaping Use Vaping status: Never Used [5] No Known Allergies PHYSICAL THERAPY PROGRESS SUMMARY Patient seen from 09 to 1015 on 9E unit for 23 minute treatment. Co-tx with OT for mobility progression and pt safety d/t OH during previous sessions SUBJECTIVE: Patient Subjective/Goals: No. (Pt refusing to ambulate further distances) OBJECTIVE: Appearance: in bed, tele, compression stockings Behavior: pleasant, self-limiting Pain: Site/Location: reports pain when urinating, RN present and aware. Mobility NA Dep Max Mod Min CG CS DS OR I Comment Supine to long sit to short sit x HOB slightly elevated Transfers x On/off toilet with use of grab bar. Pt required assist to complete posterior hygiene (see OT note) Sit to/from stand x From bed without AD Walking on level surface 10' and 15' no AD Gait Analysis: decreased rosalia, decreased step length, no overt LOB. Pt refused further ambulation despite education/encouragement Stand to sit x Onto bed Sit to Supine x HOB slightly elevated Pt stood for extended period of time without UE support and then utilizing UE support on grab bar to urinate Stood unsupported to perform hand hygiene; CGA Vitals: BP 115/80 EOB BP: 109/71 EOB following ambulating to/from bathroom (Compression stockings on prior to OOB) HR: in the 60's Functional Endurance: impaired Patient/Family Education: roles of PT, mobility progression Patient in bed with alarm donned and call light within reach 02/07/2025 6 Clicks Basic Mobility PT Difficulty turning over in bed 4 Difficulty sitting down and standing up from a chair with arms 3 Difficulty moving from lying on back to sitting on the side of the bed 4 Help from another person moving to and from bed to a chair 3 Help from another person to walk in hospital room 3 Help from another person climbing 3-5 steps with a railing 3 PT 6 Clicks Score 20 6 Click Score Guidelines: 1 - Total = Requires total assistance, or cannot do at all. 2 - A lot = Requires a lot of help (maximun to moderate assistance) Can use assistive devices. 3 - A little = Requires a little help (supervision, minimal assistance) Can use assistive devices. 4 - None = Does not require any help and does the activity independently. Can use assistive devices. ASSESSMENT: Patient is functionally appropriate for discharge home once medically cleared with family assiatnce. Recommend Home Physical Therapy. Goals (to be achieved by discharge from acute care): ongoing unless otherwise stated Patient will increase bed mobility to independent Patient will perform sit to/from stand with no device with independent Patient will ambulate 300 feet with no device with independent Patient will ascend/descend 5# of stairs in home environment (once clarified) with unilateral rail(s) with modified independent Patient will increase ROM/Strength/Endurance/Balance to allow for above goals. PLAN: Will follow established Plan of Care Aixa Raza PTA This clinician collaborated with supervising PT for patient assessment and POC as appropriate. This document is not finalized until reviewed and cosigned by supervising PT. NA = Not Assessed, I = Independent, OR = Modified Independent, Sup = Supervised, Set up = Physical Assistance for Set-up Only, Min = Minimal Assistance, Mod = Moderate Assistance, Max = Maximal assistance; Dep = Dependent; AROM = Active Range of Motion; PROM = Passive Range of Motion; MMT = Manual Muscle Test Cosigned by Adwoa Batres, PT at 02/07/2025 2:50 PM EDT Associated Order(s): IP NEUROLOGY CONSULT Images from the original note were not included. 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 He had some convulsive movements during this episode with drooling and eyes rolling back; when he regained consciousness he did not appear particularly confused. On arrival by EMS he was noted be quite hypotensive to 70s/50s. This improved with fluid but he continued to show orthostatic hypotension, with BP dropping from ~110 to 80 mmHg between supine and standing, and HR increasing 58-> 82. CTH I- was unremarkable. On d/w parents at bedside, this is not the first time this has happened. First noticed it about a year ago when he passed out after using the bathroom; this has happened several times, always in the bathroom. Workup in the past has included EEG which was normal; his parents are not aware of any firm diagnosis to explain these episodes. The patient has endorsed suprapubic pain intermittently for some time, he was diagnosed with prostatitis and treated with antibiotics but complaint persisted. While here, the patient has had intermittent elevated PVR requiring Denise at one point; he was started on tamsulosin and has been able to void spontaneously more consistently, but he remains orthostatic. He had four episodes yesterday of diminished responsiveness with distractibility suggestive of PNES. Description follows: The patient would arouse and then fall back asleep suddenly. The events lasted in varying duration, between 5 seconds and 60 seconds. During these episodes, he would occasionally open the corner of his eyes to see if people were watching him. He did not appear to be in pain, did not have any myoclonus or muscle tension, nor did he have tonic-clonic movements. On my interaction with the patient, talking with him and gently shaking his shoulder would arouse the patient. During these episodes, his vitals were stable and his POCT glucose was 99 mg/dL. I called Dr. Silveira to the room to assist. During the episodes, when his arms were lifted, they would fall to the bed, but if arms were lifted over his head, they would remain lifted on his own accord. After he regained consciousness, when asked what was wrong, he would say stroke in a one word answer while looking around the room. EEG was negative on this admission, showing only diffuse slowing and sporadic triphasic waves. The patient was started on midodrine after d/w neurology 02/04 and dose was increased to 5 tid today. He is still c/o positional dizziness. ROS: Limited by pt cooperation C/o dizziness and abdominal discomfort Denies other c/o Medical History[1] Surgical History[2] Social History[3] Family History[4] Family history: information unobtainable Medications Ordered Prior to Encounter[5] Vital sign ranges over the past 24 hours (retrieved 02/06/2025 at 1:11 PM): Tmax (24 hours): 98.2 F (36.8 C) Pulse Av Min: 58 Max: 90 Systolic (24hrs), Av , Min:85 , Max:111 Diastolic (24hrs), Av, Min:42, Max:60 MAP (mmHg) Av.2 mmHg Min: 54 mmHg Max: 73 mmHg Resp Av Min: 18 Max: 18 SpO2 Av.3 % Min: 95 % Max: 96 % Intake/Output Summary (Last 24 hours) at 02/06/2025 1311 Last data filed at 02/06/2025 1030 Gross per 24 hour Intake 600 ml Output 2020 ml Net -1420 ml Current Medications[6] Physical Exam Neuro: Mental status: awake, alert. Oriented to person. Follows commands x 4. Mildly dysarthric which appears to be baseline. Speech sparse with shallow fund of vocabulary, answers most questions with single words, also baseline. Affect is flat, pt seems frustrated. Cranial nerves: Pupils symmetric and responsive to light OU. Horizontal EOMs intact. Visual camacho grossly full to confrontation. Face symmetric. Motor: REDDING antigravity symmetrically, normal bulk and tone Sensory: Intact to light touch and vibration x 4 symmetrically Coordination: No dysmetria BUE DTRs: trace bilat bi/tri/BR, 1+ at patellae and achilles bilat, toes down bilat Gait: deferred, dizzy Labs: CBC (last 3 years, up to 8 values) 02/05/2025 02/03/2025 02/02/2025 02/01/2025 01/31/2025 01/30/2025 01/29/2025 6:04 AM 6:24 AM 4:56 AM 1:29 AM 2:26 AM 4:24 AM 4:18 PM WBC 3.9 4.5 6.4 4.2 4.8 5.3 5.6 RBC 4.32 4.26 4.39 4.37 4.49 4.22 4.67 Hgb 13.6 13.3 13.7 13.7 14.1 13.1 14.7 Hct 40.8 39.9 41.3 40.7 42.0 39.4 43.9 MCV 94 94 94 93 93 93 94 RDW 15.7 14.6 14.8 14.9 15.2 14.7 15.0 Plt 197 177 183 171 183 178 204 BMP (last 3 years, up to 8 values) 02/05/2025 02/03/2025 02/02/2025 02/01/202501/31/2025 01/30/2025 01/29/2025 6:04 AM 6:24 AM 4:56 AM 1:29 AM 2:26 AM 4:24 AM 4:18 PM Na 142 141 141 141 141 141 140 K 4.4 4.3 4.3 4.3 4.3 4.0 4.3 Cl 106 105 105 103 105 106 102 CO2 30 30 30 32 30 28 31 Gap 10 10 10 10 10 11 11 Glu 95 101 96 106 101 88 138 BUN 30 24 24 22 17 13 14 Cr 1.20 1.06 1.06 1.20 1.23 1.02 1.36 Ca 8.4 8.4 8.3 8.8 8.7 8.0 9.4 eGFR 78 90 90 78 76 95 67 Glucose (mg/dL) Date Value 02/05/2025 95 01/30/2025 Negative Glucose, POC (mg/dL) Date Value 02/05/2025 99 LFT's (last 3 years, up to 8 values) 02/02/2025 4:56 AM T Prot 5.9 Albumin 3.6 D Bili 0.07 T Bili 0.3 Alk Phos 49 ALT 22 AST 15 No results found for: INR No results found for: HBA1C Lipids (last 3 years, up to 8 values) No lab values to display. Arterial Blood Gases None Venous Blood Gases None Blood Culture No lab values to display. CSF Culture No lab values to display. No results found for this or any previous visit (from the past 8760 hours). No results found for this or any previous visit (from the past 8760 hours). Summary of Imaging & Other Pertinent Studies: LTM EEG 01/31 This LTM vEEG (12-26 hours), performed on a patient in the sleepy but arousable state, was ABNORMAL. The following pertinent findings were noted: 1. Generalized background slowing 2. Triphasic waves CTH I- 02/01 IMPRESSION: No acute intracranial abnormality. No finding to explain syncope. Chronic right-sided mastoiditis TTE 01/31 EF 60%, mild AVR, normal atrial volumes, no shunt ASSESSMENT: 39 M with trisomy 21 and AD, now here with recurrent syncope following micturition, likely reflecting dysautonomia. Autonomic failure is particularly common with increasing age in Down syndrome, though the mechanism is not completely understood; the occurrence of these events after micturition or valsalva is consistent. I doubt the event leading to admission reflected an epileptic seizure; it was more likely convulsive syncope. He had a reassuring response to cosyntropin arguing against adrenal insufficency. His exam is not suggestive of a systemic sensory or motor polyneuropathy either, and he is not myelopathic. Treatment of dysautonomia in this setting is largely supportive, and first-line pharmacotherapy focuses on augmentation of MAP using sympathomimetics and mineralocorticoids to avoid nadirs of <60 mmHg when orthostasis occurs. RECOMMENDATIONS: Increase midodrine to 10 tid for now; consider adding fludrocortisone Could refer to [facility] for outpatient dysautonomia eval with tilt-table testing; unlikely to change mgmt in the acute setting however Please stop tamsulosin and avoid alpha blockers in general, as they can potentiate orthostatic hypotension in dysautonomia Would consider formal urodynamic testing. Urinary retention can also provoke an episode of orthostasis, and it is unclear whether the cause is urinary outlet obstruction from BPH or whether this it is autonomic dysreflexia No need for additional EEGs or MRIs from my standpoint unless new issues arise I personally saw this medium risk patient, evaluated the data, made clinical decisions, and discussed my plan with primary medical team. I am available for any family or multidisciplinary discussions. Thank you for the interesting consult; please page w/ any questions or concerns. Total length of time: 60 minutes of the encounter, exclusive of procedures. Time-based billing justifications: Reviewing (chart, labs, and other clinical notes) Obtaining history (or reviewing separately obtained history) Patient visit (including performing a medically appropriate exam) Counseling/educating the patient/family/caregiver Ordering (medications, tests, procedures - including independent interpretation of results when not reported separately) Referring/communicating with other health home care companion - when not reported separately Charting in [facility] Tony Swift MD 1:11 PM 02/06/25 [1] No past medical history on file. [2] No past surgical history on file. [3] Social History Socioeconomic History Marital status: Single Tobacco Use Smoking status: Never Passive exposure: Never Smokeless tobacco: Never Vaping Use Vaping status: Never Used [email or web address] Food Insecurity: Unknown (01/30/2025) Hunger Vital Sign Worried About Running Out of Food in the Last Year: Never true Intimate Partner Violence: Unknown (01/30/2025) Humiliation, Afraid, Rape, and Kick questionnaire Emotionally Abused: Patient unable to answer [4] No family history on file. [5] No current facility-administered medications on file prior to encounter. No current outpatient medications on file prior to encounter. [6] Current Facility-Administered Medications: midodrine (PROAMATINE) tablet, 5 mg, Oral, 3x Daily with Meals, Siddhartha Henry DO docusate sodium (COLACE) capsule, 100 mg, Oral, 2x Daily PRN, Siddhartha Henry DO polyethylene glycol (MIRALAX) 17 g packet, 17 g, Oral, Daily PRN, Siddhartha Henry DO GenTeal moderate tears 0.1-0.2-0.3 % opthalmic solution, 1 Drop, Both Eyes, Every 4 hours, Kira Fleming MD, 1 Drop at 02/06/25 1031 risperiDONE (RISPERDAL) tablet, 3 mg, Oral, BID, Siddhartha Henry DO, 3 mg at 02/06/25 1030 acetaminophen (TYLENOL) tablet, 1,000 mg, Oral, Q6H PRN, Oscar Mclean MD, 1,000 mg at 02/04/25 1821 tamsulosin (FLOMAX) capsule, 0.4 mg, Oral, At Bedtime, Siddhartha Henry DO, 0.4 mg at 02/05/252015 senna (SENOKOT) tablet, 8.6 mg, Oral, Daily PRN, Christiano Rankin MD enoxaparin (LOVENOX) 40 MG/0.4ML injection 40 mg, 40 mg, Subcutaneous, Daily, Christiano Rankin MD, 40 mg at 02/06/25 1031 PHYSICAL THERAPY PROGRESS SUMMARY Patient seen from 1216 to 1254 on GC 9E unit for 38 minute treatment. SUBJECTIVE: Patient Subjective: My stomach hurts (pt requesting to use bed boyd at beginning of session) Patient Goals: To watch [employer] music videos OBJECTIVE: Appearance: Supine in bed, hep-locked IV, BIGG pal B LE, abdominal binder donned prior to sitting edge of the bed, parents present with pt's permission Behavior: Awake, cooperative, pleasant Pain: Site/Location: abdomen; Pain Scale: not rated/10 Pain Relief Interventions Implemented: Positioning, Rest, and RN aware and reports patient received medication according to time schedule Mobility NA Dep Max Mod Min CG CS DS OR I Comment Roll to left sidelying x Pt completed 2x with use of bed rail when placing and removing bed pain. Supine to sit x Pt completed 2x during session on both the right and left side of the bed. Transfers x To chair without AD. Sit to/from stand x From the edge of the bed bed without AD. Pt performed 2x during session. Pt tolerated standing for 2 minutes on initial stand with pt impulsively returning to seated position and reporting dizziness. Walking on level surface x 3 feet with no device Gait Analysis: Pt demonstrated decreased step length, however no LOB. Additional ambulation distance limited by pt reporting dizziness. Stairs x Not attempted secondary to pt reporting dizziness. Stand to sit x Cueing for controlled decent. Sit to Supine x Pt completed with HOB elevated. Functional Endurance: Impaired; dizziness limiting additional activity tolerance Vitals Supine Seated EOB Standing Sitting EOB after reporting dizziness when standing Sitting EOB after reporting dizziness when sitting Sitting in chair HR (bpm) 57 bpm 65 bpm 66 bpm 66 bpm 59 bpm BP (mmHg) 121/57 (72) 121/53 (68) 112/51 (61) 111/52 (65) 108/47 (60) 118/32 (54); moving moving arm during BP reading Neurologist present in room and aware of pt's vitals signs Sitting Balance: Static: good seated on the edge of the bed Dynamic:fair+ seated on the edge of the bed; pt with one instance of impulsively laying trunk backwards onto bed, however eyes open and pt alert throughout Standing Balance: Static: fair without assistive device Dynamic: fair without assistive device Patient/Family Education: Instructed Patient and parent(s) in roles of therapy. Patient up in chair with call light in reach and pt's parents and neurologist present in room. Instructed pt to call for assistance from staff when performing all mobility. DME: With Patients permission ordered no equipment via [employer] Order. If any questions contact [facility] DME Provider at [phone]. 02/06/2025 6 Clicks Basic Mobility PT Difficulty turning over in bed 4 Difficulty sitting down and standing up from a chair with arms 3 Difficulty moving from lying on back to sitting on the side of the bed 4 Help from another person moving to and from bed to a chair 3 Help from another person to walk in hospital room 3 Help from another person climbing 3-5 steps with a railing 2 PT 6 Clicks Score 19 6 Click Score Guidelines: 1 - Total = Requires total assistance, or cannot do at all. 2 - A lot = Requires a lot of help (maximun to moderate assistance) Can use assistive devices. 3 - A little = Requires a little help (supervision, minimal assistance) Can use assistive devices. 4 - None = Does not require any help and does the activity independently. Can use assistive devices. Progressive Mobility: Level 4 ASSESSMENT: Pt with fair tolerance to PT session, able to perform mobility at modified independent-[facility] overall, however pt continues to be limited by dizziness and change in BP with positional changes. Anticipate that as medical issues resolve and dizziness and BP improve, patient will be appropriate for discharge home with family assistance. Will continue to follow patient while in hospital as appropriate. Recommend Home Physical Therapy. Goals (to be achieved by discharge from acute care): ongoing unless otherwise stated Patient will increase bed mobility to independent met 02/03 Patient will perform sit to/from stand with no device with independent Patient will ambulate 300 feet with no device with independent Patient will ascend/descend 5# of stairs in home environment (once clarified) with unilateral rail(s) with modified independent Patient will increase ROM/Strength/Endurance/Balance to allow for above goals. PLAN: Will follow established Plan of Care Carly Madera PT, DPT NA = Not Assessed, I = Independent, OR = Modified Independent, Sup = Supervised, Set up = Physical Assistance for Set-up Only, Min = Minimal Assistance, Mod = Moderate Assistance, Max = Maximal assistance; Dep = Dependent; AROM = Active Range of Motion; PROM = Passive Range of Motion; MMT = Manual Muscle Test PHYSICAL THERAPY PROGRESS SUMMARY Patient seen from 1:39 to 2:33pm on 9E unit for 54 minute treatment. SUBJECTIVE: Patient Subjective/Goals: my headache is getting worse. OBJECTIVE: Appearance: sitting in long sit in the hospital bed, watching country videos, hospital gown, IV heplocked Behavior: WFL, speaks quickly Pain: Site/Location: stomach ; Pain Scale: a little/10, upon sitting had Headache which got worse when he laid down. Pain Relief Interventions Implemented: Positioning, Rest, and Notified Nurse Mobility NA Dep Max Mod Min CG CS DS OR I Comment Roll to right sidelying x Roll to left sidelying x Sidelying to sit x Put abdominal binder on in sitting, wearing BIGG hose Supine to sit x Transfers x Sit to/from stand x Stood to get up higher in the bed, at bedside took 2 steps Walking on level surface x Stairs x Stand to sit x Sit to Supine x Took abdominal binder off Functional Endurance: impaired Sitting Balance: Static:good Dynamic:good Standing Balance: Static: good without assistive device Dynamic:fair without assistive device Patient/Family Education: Patient instructed in sitting up more during the day, reports that he is drinking enough, recommended that he use a urinal or bedpan with his dizziness . Patient up in bed with call light in reach. DME: With Patients permission ordered no equipment via [employer] Order. If any questions contact [facility] DME Provider at [phone]. Vitals BP HR spO2 symptoms supine 130/50 (64) 67 95% Sitting up 120/51 (67) 75 99% C/o headache, dizziness 5 minutes of sitting 118/44 (62) 71 98% Not any better 5 minutes more 109/49 (63) 73 98% Feeling worse supine 110/48(62) 61 99% is still there, with dizziness Supine after 5 min 110/44(59) 59 97% Not feeling any better- nursing notified 02/05/2025 6 Clicks Basic Mobility PT Difficulty turning over in bed 4 Difficulty sitting down and standing up from a chair with arms 3 Difficulty moving from lying on back to sitting on the side of the bed 4 Help from another person moving to and from bed to a chair 3 Help from another person to walk in hospital room 3 Help from another person climbing 3-5 steps with a railing 2 PT 6 Clicks Score 19 6 Click Score Guidelines: 1 - Total = Requires total assistance, or cannot do at all. 2 - A lot = Requires a lot of help (maximun to moderate assistance) Can use assistive devices. 3 - A little = Requires a little help (supervision, minimal assistance) Can use assistive devices. 4 - None = Does not require any help and does the activity independently. Can use assistive devices. ASSESSMENT: Patient is functionally appropriate for discharge home once medically cleared. He was not able to participate in therapy fully d/t decreased BP today. Will continue to follow patient while in hospital as appropriate. Recommend Home Physical Therapy. Recommend family/caregiver assist. Goals (to be achieved by discharge from acute care): ongoing unless otherwise stated Patient will increase bed mobility to independent met Patient will perform sit to/from stand with no device with independent Patient will ambulate 300 feet with no device with independent Patient will ascend/descend 5# of stairs in home environment (once clarified) with unilateral rail(s) with modified independent Patient will increase ROM/Strength/Endurance/Balance to allow for above goals. PLAN: Will follow established Plan of Care Kassandra Mclean PT NA = Not Assessed, I = Independent, OR = Modified Independent, Sup = Supervised, Set up = Physical Assistance for Set-up Only, Min = Minimal Assistance, Mod = Moderate Assistance, Max = Maximal assistance; Dep = Dependent; AROM = Active Range of Motion; PROM = Passive Range of Motion; MMT = Manual Muscle Test Associated Order(s): IP CARDIOLOGY CONSULT Images from the original note were not included. New Patient Consult Cardiology consult 02/04/2025 3:12 PM Name: Rogelio Bowers Room: AC9-508/1 : 1985 male 39 year old Admit Date: 01/29/2025 Length of stay: 6 day(s) Consultation Requested by: Lilli Tucker MD PCP: No primary care provider on file. Reason for Consultation Syncope Chief Complaint Patient presents with Fainting Fell in bathroom at zoo, ?sz activity History of Present Illness Rogelio Bowers is a 39 year old White male with history of Down Syndrome presented with an episode of syncope. Per the patient s mother, the syncopal episode was temporally related to pain during urination. The patient denies chest pain, palpitations, or shortness of breath preceding the event. No seizure-like activity was reported. Since admission, the patient has been noted to have consistent orthostatic changes. Review of Systems Negative unless mentioned above. Cardiac Meds Current Cardiac Medications Heparins And Heparinoid-Like Agents Instructions enoxaparin (LOVENOX) 40 MG/0.4ML injection 40 mg 40 mg, Subcutaneous, DAILY, -Administer by deep SubQ injection alternating between the left or right anterolateral and left or right posterolateral abdominal wall. -Do not mix with other infusions or injections. In order to minimize bruising, do not rub injection site. -To avoid loss of drug from the 30 mg and 40 mg prefilled syringes, do not expel the air bubble from the syringe prior to injection. Past Medical History Medical History[1] Past Surgical History Surgical History[2] Family History Family History[3] Social History Social History[4] Allergies Allergies[5] Medications Current hospital meds: midodrine 2.5 mg 3x Daily with Meals GenTeal moderate tears 1 Drop Every 4 hours risperiDONE 3 mg BID docusate sodium 100 mg 2x Daily tamsulosin 0.4 mg At Bedtime polyethylene glycol 17 g Daily enoxaparin 40 mg Daily Current IV meds: Current prn meds: acetaminophen 1,000 mg Q6H PRN senna 8.6 mg Daily PRN Prior to Admission medications Not on File Vital signs and I/Os Patient Vitals for the past 24 hrs: BP Temp Temp src Pulse Resp SpO2 O2 Device 02/04/25 1400 -- -- -- -- -- -- Room air 02/04/25 1300 -- -- -- -- -- -- Room air 02/04/25 1200 -- -- -- -- -- -- Room air 02/04/25 1125 -- -- -- -- -- -- Room air 02/04/25 1122 81/49 -- -- 78 16 100 % Room air 02/04/25 1118 102/52 -- -- 63 16 100 % -- 02/04/25 1115 108/54 97.6 F (36.4 C) Oral 52 16 99 % Room air 02/04/25 1000 -- -- -- -- -- -- Room air 02/04/25 0900 -- -- -- -- -- -- Room air 02/04/25 0800 -- -- -- -- -- -- Room air 02/04/25 0550 104/56 97.7 F (36.5 C) Temporal 57 16 97 % Room air 02/03/25 2000 113/59 98.1 F (36.7 C) Temporal 59 16 97 % Room air Intake/Output Summary (Last 24 hours) at 02/04/2025 1512 Last data filed at 02/04/2025 1400 Gross per 24 hour Intake 1560 ml Output 3470 ml Net -1910 ml BP 81/49 (BP Location: right arm) Pulse 78 Temp 97.6 F (36.4 C) (Oral) Resp 16 Ht 5' 6 (1.676 m) Wt 152 lb 12.8 oz (69.3 kg) SpO2 100% BMI 24.66 kg/m General: In no acute distress. Neuro: Alert, oriented, conversational. No focal deficits. HEENT: PERRLA, EOMs intact. Mucous membranes moist and pink. Cardiovascular: S1, S2, No rubs, murmurs or gallops. Pulmonary: clear to auscultation Abdominal: Soft, non-tender, non-distended. Extremities: No edema. Pulses intact and symmetrical. Skin: Warm, well perfused, no obvious wounds or rashes. Laboratory Tests CBC (last 3 years, up to 8 values) 02/03/2025 02/02/2025 02/01/2025 01/31/2025 01/30/2025 01/29/2025 6:24 AM 4:56 AM 1:29 AM 2:26 AM 4:24 AM 4:18 PM WBC 4.5 6.4 4.2 4.8 5.3 5.6 RBC 4.26 4.39 4.37 4.49 4.22 4.67 Hgb 13.3 13.7 13.7 14.1 13.1 14.7 Hct 39.9 41.3 40.7 42.0 39.4 43.9 MCV 94 94 93 93 93 94 RDW 14.6 14.8 14.9 15.2 14.7 15.0 Plt 177 183 171 183 178 204 WBC/Diff 02/03/2025 6:24 AM Neutro% 54.4 Lymphs% 28.3 Monos% 13.6 Eos% 2.9 Basos% 0.9 BMP (last 3 years, up to 8 values) 02/03/2025 02/02/2025 02/01/2025 01/31/2025 01/30/2025 01/29/2025 6:24 AM 4:56 AM 1:29 AM 2:26 AM 4:24 AM 4:18 PM Na 141 141 141 141 141 140 K 4.3 4.3 4.3 4.3 4.0 4.3 Cl 105 105 103 105 106 102 CO2 30 30 32 30 28 31 Gap 10 10 10 10 11 11 Glu 101 96 106 101 88 138 BUN 24 24 22 17 13 14 Cr 1.06 1.06 1.20 1.23 1.02 1.36 Ca 8.4 8.3 8.8 8.7 8.0 9.4 eGFR 90 90 78 76 95 67 Date of last serum creatinine: 02/03/2025 Estimated Creatinine Clearance: 82.76 mL/min (by C-G formula based on SCr of 1.06 mg/dL). Estimated Glomerular Filtration Rate: 90.4 mL/min/1.73m2 (by CKD-EPI based on SCr of 1.06 mg/dL). LFT's (last 3 years, up to 8 values) 02/02/2025 4:56 AM T Prot 5.9 Albumin 3.6 D Bili 0.07 T Bili 0.3 Alk Phos 49 ALT 22 AST 15 Lipids (last 3 years, up to 8 values) No lab values to display. No results found for: TROPONIN No results found for: BNP No results found for: HBA1C TSH (uIU/mL) Date Value 02/02/2025 5.182 Arterial Blood Gases None PT/INR No lab values to display. No results found for: LDL, A1C Cardiac labs No results found for: HSTRP, BNP Wt Readings from Last 5 Encounters: 02/02/25 152 lb 12.8 oz (69.3 kg) Intake/Output Summary (Last 24 hours) at 02/04/2025 1512 Last data filed at 02/04/2025 1400 Gross per 24 hour Intake 1560 ml Output 3470 ml Net -1910 ml Net IO Since Admission: -5,110 mL [08/22/25 1512] Cardiac Tests Chest X-ray: IMPRESSION: No acute cardiopulmonary abnormality identified. ECG: Sinus Telemetry findings reviewed: Sinus Left Ventricular Ejection Fraction Date Value Ref Range Status 01/31/2025 60 % Final Echo (date and result): Echocardiogram date: 01/31/2025 rocedure Summary Normal LV systolic function. The left ventricular ejection fraction (LVEF) is 60%. Normal RV systolic function. Mild aortic valve regurgitation. The pulmonary artery systolic pressure could not be estimated. Noninvasive hemodynamic assessment is consistent with a low CVP. There is no evidence of an interatrial shunt. See above for further details. [id number] Score: 0 This is based on the following inputs: 0 for Heart Failure* 0 for Hypertension* 0 for Age (1 point for 65-74, 2 points for 75+) 0 for Diabetes* 0 for Stroke/TIA/Thromboembolism 0 for Vascular Disease 0 for Sex Category (1 point if female) * active problem active or resolve problem, or past medical history Impression and Plan Assessment: Syncope is most likely vasovagal, triggered by pain during urination per history provided by the patient's mother. However, given the patient's persistent orthostatic changes during hospitalization, an orthostatic component related to neurogenic autonomic dysfunction mcannot be excluded. #) Syncope, likely vasovagal Plan: - Recommend compression stockings and pelvic/abdominal binder to improve venous return. - If symptoms persist, consider initiating trial of midodrine. -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 critical portions of the history and physical exam. I reviewed the resident's documentation and discussed the patient with the resident. I agree with the resident's medical decision making as documented in the resident's note with corrections/clarifications as below: Briefly this is a 39 year old male w/ PMH significant for down syndrome, hallucinations, dementia, p/w syncopal episode after using bathroom. Primary care in [place], limited records in Care everywhere. Per mom (not mother but has been guardian for > 20 years) was in normal state of health until one year ago when started having changes in mentation, falls, syncopal episodes. Has undergone work up with their home team, including holter monitor reportedly normal, brain MRI, had a CTAP w/ concerns for prostatitis now s/p coarse of abx. Had episodes of low BP in ED overnight which responded to fluids. On exam awake, alert, describes some tenderness in lower abdomen region. Labs with improvement in kidney function, clean UA. On exam TTP over lower abdomen with fullness/stool. CTAP w/ stool burden and marked bladder distention w/ bilateral hydronephrosis. Differential remains broad. Given lower BP with episodes after toilet could be orthostatic in nature. Also has recently had adjustments to psych meds so could be 2'2 Risperdal. While reported recent normal holter makes cardiogenic less likely, given history of downsyndrome cardiac defects could be possible. Also concerning is urinary retention w/ hydronephrosis. Given acute changes in personality and behavior seizurers vs stroke also on differential. Discussed with psych and neuro, will continue current medications. Obtaining EEG. Will decompress bladder obtain kidney/bladder ultrasound, follow bladder scans with PVR, if retaining will consider denise and urology consult. Also small stool burden so will place on bowel regimen, consider enema. Will also obtain echocardiogram. Hospital Problems as of 01/30/2025 Syncope, unspecified syncope type Memory impairment Down syndrome (HCC) Orthostatic hypotension Hallucinations Suprapubic pain Elevated serum creatinine Keon Rasmussen MD documented in this encounter [facility] 02-25-2025 Miscellaneous Notes Associated Problem(s): Syncope, unspecified syncope type - am cortisol on 02/03 low but cosyntropin stim test negative - cardiology consulted, syncope is most likely vasovagal, triggered by pain during urination, though given persistent orthostatic changes, orthostatic component cannot be excluded. - multiple episodes of unresponsiveness on 02/05 that do not clinically appear c/w seizures - VSS - prolactin drawn and noted to be elevated to 48.9 - neurology reconsulted, believes that syncope is secondary to dysautonomia and that the episodes of unresponsiveness noted previously do not appear to be seizure-like and pt has already had a negative 24 hour EEG this admission - MRI (02/06): Gliosis and encephalomalacia in the right frontal lobe inferiorly, suggestive of previous trauma. This could potentially serve as an epileptogenic focus. - Patient noted to have pauses up to 2.34 seconds - EP consulted-> unlikely that syncope related to his pauses, the short pauses are likely benign and no further intervention/VALDOVINOS recommended - EP attending saw patient and family 02/16: - symptoms likely 2/2 BELEN, recommended ordering a nocturnal pulse ox, walking the patient with bus monitor on for 6 minutes to see if there are any changes in heart rate to assess for chronotropic incompetence. - close documentation of episodes of unresponsiveness, timing and duration, pre and post symptoms and tele findings. - nocturnal pulse ox was above 95% - 6 min walk was normal on tele and heart rate- did complain of dizziness during the walk and would sway and lean towards to wall - EP 02/18->loop recorder implanted -Pacemaker implant 02/25 Plan: - continue cardiac telemetry - fludrocortisone -midodrine 10 mg TID - high salt diet - compression socks and abdominal binder - PT/OT recommending wheelchair and shower chair for home - follow up EP outpatient - [facility] referral for outpatient dysautonomia eval with tilt-table testing -CTM post op CXR and pain Associated Problem(s): Dysautonomia (HCC) - am cortisol on 02/03 low but cosyntropin stim test negative - cardiology consulted, syncope is most likely vasovagal, triggered by pain during urination, though given persistent orthostatic changes, orthostatic component cannot be excluded. - multiple episodes of unresponsiveness on 02/05 that do not clinically appear c/w seizures - VSS - prolactin drawn and noted to be elevated to 48.9 - neurology reconsulted, believes that syncope is secondary to dysautonomia and that the episodes of unresponsiveness noted previously do not appear to be seizure-like and pt has already had a negative 24 hour EEG this admission - MRI (02/06): Gliosis and encephalomalacia in the right frontal lobe inferiorly, suggestive of previous trauma. This could potentially serve as an epileptogenic focus. - Patient noted to have pauses up to 2.34 seconds - EP consulted-> unlikely that syncope related to his pauses, the short pauses are likely benign and no further intervention/VALDOVINOS recommended - EP attending saw patient and family 02/16: - symptoms likely 2/2 BELEN, recommended ordering a nocturnal pulse ox, walking the patient with bus monitor on for 6 minutes to see if there are any changes in heart rate to assess for chronotropic incompetence. - close documentation of episodes of unresponsiveness, timing and duration, pre and post symptoms and tele findings. - nocturnal pulse ox was above 95% - 6 min walk was normal on tele and heart rate- did complain of dizziness during the walk and would sway and lean towards to wall - EP 02/18->loop recorder implanted -Pacemaker implant 02/25 Plan: - continue cardiac telemetry - fludrocortisone -midodrine 10 mg TID - high salt diet - compression socks and abdominal binder - PT/OT recommending wheelchair and shower chair for home - follow up EP outpatient - [facility] referral for outpatient dysautonomia eval with tilt-table testing -CTM post op CXR and pain Associated Problem(s): Orthostatic hypotension - am cortisol on 02/03 low but cosyntropin stim test negative - cardiology consulted, syncope is most likely vasovagal, triggered by pain during urination, though given persistent orthostatic changes, orthostatic component cannot be excluded. - multiple episodes of unresponsiveness on 02/05 that do not clinically appear c/w seizures - VSS - prolactin drawn and noted to be elevated to 48.9 - neurology reconsulted, believes that syncope is secondary to dysautonomia and that the episodes of unresponsiveness noted previously do not appear to be seizure-like and pt has already had a negative 24 hour EEG this admission - MRI (02/06): Gliosis and encephalomalacia in the right frontal lobe inferiorly, suggestive of previous trauma. This could potentially serve as an epileptogenic focus. - Patient noted to have pauses up to 2.34 seconds - EP consulted-> unlikely that syncope related to his pauses, the short pauses are likely benign and no further intervention/VALDOVINOS recommended - EP attending saw patient and family 02/16: - symptoms likely 2/2 BELEN, recommended ordering a nocturnal pulse ox, walking the patient with bus monitor on for 6 minutes to see if there are any changes in heart rate to assess for chronotropic incompetence. - close documentation of episodes of unresponsiveness, timing and duration, pre and post symptoms and tele findings. - nocturnal pulse ox was above 95% - 6 min walk was normal on tele and heart rate- did complain of dizziness during the walk and would sway and lean towards to wall - EP 02/18->loop recorder implanted -Pacemaker implant 02/25 Plan: - continue cardiac telemetry - fludrocortisone -midodrine 10 mg TID - high salt diet - compression socks and abdominal binder - PT/OT recommending wheelchair and shower chair for home - follow up EP outpatient - [facility] referral for outpatient dysautonomia eval with tilt-table testing -CTM post op CXR and pain Associated Problem(s): Vasovagal syncope - am cortisol on 02/03 low but cosyntropin stim test negative - cardiology consulted, syncope is most likely vasovagal, triggered by pain during urination, though given persistent orthostatic changes, orthostatic component cannot be excluded. - multiple episodes of unresponsiveness on 02/05 that do not clinically appear c/w seizures - VSS - prolactin drawn and noted to be elevated to 48.9 - neurology reconsulted, believes that syncope is secondary to dysautonomia and that the episodes of unresponsiveness noted previously do not appear to be seizure-like and pt has already had a negative 24 hour EEG this admission - MRI (02/06): Gliosis and encephalomalacia in the right frontal lobe inferiorly, suggestive of previous trauma. This could potentially serve as an epileptogenic focus. - Patient noted to have pauses up to 2.34 seconds - EP consulted-> unlikely that syncope related to his pauses, the short pauses are likely benign and no further intervention/VALDOVINOS recommended - EP attending saw patient and family 02/16: - symptoms likely 2/2 BELEN, recommended ordering a nocturnal pulse ox, walking the patient with bus monitor on for 6 minutes to see if there are any changes in heart rate to assess for chronotropic incompetence. - close documentation of episodes of unresponsiveness, timing and duration, pre and post symptoms and tele findings. - nocturnal pulse ox was above 95% - 6 min walk was normal on tele and heart rate- did complain of dizziness during the walk and would sway and lean towards to wall - EP 02/18->loop recorder implanted -Pacemaker implant 02/25 Plan: - continue cardiac telemetry - fludrocortisone -midodrine 10 mg TID - high salt diet - compression socks and abdominal binder - PT/OT recommending wheelchair and shower chair for home - follow up EP outpatient - [facility] referral for outpatient dysautonomia eval with tilt-table testing -CTM post op CXR and pain Associated Problem(s): Bradycardia - am cortisol on 02/03 low but cosyntropin stim test negative - cardiology consulted, syncope is most likely vasovagal, triggered by pain during urination, though given persistent orthostatic changes, orthostatic component cannot be excluded. - multiple episodes of unresponsiveness on 02/05 that do not clinically appear c/w seizures - VSS - prolactin drawn and noted to be elevated to 48.9 - neurology reconsulted, believes that syncope is secondary to dysautonomia and that the episodes of unresponsiveness noted previously do not appear to be seizure-like and pt has already had a negative 24 hour EEG this admission - MRI (02/06): Gliosis and encephalomalacia in the right frontal lobe inferiorly, suggestive of previous trauma. This could potentially serve as an epileptogenic focus. - Patient noted to have pauses up to 2.34 seconds - EP consulted-> unlikely that syncope related to his pauses, the short pauses are likely benign and no further intervention/VALDOVINOS recommended - EP attending saw patient and family 02/16: - symptoms likely 2/2 BELEN, recommended ordering a nocturnal pulse ox, walking the patient with bus monitor on for 6 minutes to see if there are any changes in heart rate to assess for chronotropic incompetence. - close documentation of episodes of unresponsiveness, timing and duration, pre and post symptoms and tele findings. - nocturnal pulse ox was above 95% - 6 min walk was normal on tele and heart rate- did complain of dizziness during the walk and would sway and lean towards to wall - EP 02/18->loop recorder implanted -Pacemaker implant 02/25 Plan: - continue cardiac telemetry - fludrocortisone -midodrine 10 mg TID - high salt diet - compression socks and abdominal binder - PT/OT recommending wheelchair and shower chair for home - follow up EP outpatient - [facility] referral for outpatient dysautonomia eval with tilt-table testing -CTM post op CXR and pain Images from the original note were not included. OPERATIVE REPORT: PACEMAKER IMPLANT PATIENT NAME: Rogelio Bowers 1985 [employer] OPERATOR: Dominga Mcgrath DO FELLOW: none PRE-PROCEDURE DIAGNOSIS Recurrent syncope Autonomic disorder bradycardia POST-PROCEDURE DIAGNOSIS Same BRIEF HISTORY AND INDICATION: This is a 39 y/o male with a h/o down syndrome who is admitted for work up of recurrent syncope. ILR was notable for vagal slowing itno the 30s during an episode triggered for syncope. Tele also shows vagal slowing as well as short pauses during awake hours. Patient thought to have autonomic dysfunction. Trialed on Florinef and midodrine without improvement. He presents today for pacemaker implant. PROCEDURE: 1) Fluoroscopy with interpretation 2) Conscious sedation 3) Placement of marie; chamber pacemaker (leads and generator) 4) Analysis and programming of dual chamber pacemaker at implant METHODS Informed consent was obtained and is on the chart. The patient was brought to the EP lab in the fasting state and prepped and draped in the usual sterile fashion. Prior to the incision, Ancef was given for antibiotic prophylaxis. Conscious sedation was provided by anesthesia team. Local anesthetic was injected into the left prepectoral area, and an incision was made inferior to the deltopectoral groove. This was carried down to the level of the prepectoral fascia using electrocautery and blunt dissection. A pocket was created above the prepectoral fascia using the same techniques. Under ultrasound guidance, access was obtained in the left axillary vein using modified Seldinger technique. A wire was advanced through the needle into the right atrium and past the diaphragm. A second access was obtained in a similar fashion. A 9Fr Safesheath was advanced over the wire and a 7Fr Safesheath was advanced over the second wire. A pacing lead was inserted through the 9 Fr sheath and advanced across the tricuspid valve into the outflow tract. It was then positioned at the RV septum. The helix was extended with good fixation. Adequate pace/sense parameters were obtained; there was no diaphragmatic or phrenic stimulation with high-output pacing. The LVAT was 54 ms. The lead was secured with two O- Ethibond sutures on the anchoring sleeve. A pacing lead was inserted through the 7 Fr sheath and advanced into the atrium. The helix was extended with good fixation at a site in the RA appendage. Adequate pace/sense parameters were obtained; there was no diaphragmatic or phrenic stimulation with high-output pacing. The lead was secured with two O- Ethibond sutures on the anchoring sleeve. The pocket was copiously irrigated with antibiotic-containing saline and inspected for hemostasis. The pins were cleaned and inserted into the generator. The generator, leads, and TYRX pouch were placed in the pocket. The device was anchored to the pocket with a Vicryl stay suture. The pocket was closed in multiple layers using Vicryl suture. A sterile dressing was placed. DEVICE INFORMATION AND PROGRAMMING PROCEDURE INFORMATION Complications: none EBL: 5 cc Fluoroscopy time: 29.5 minutes SUMMARY 1) Successful insertion of dual chamber pacemaker RECOMMENDATIONS -- CXR post procedure -- AP/ lateral CXR in the AM -- device interrogation in the AM -- no therapeutic anticoagulation for the next 72 hours -- avoid heparin/ lovenox products -- f/u in nurse clinic in 2 weeks -- f/u in device clinic in 6 weeks PATIENT INSTRUCTED TO -- keep wound completely dry for 7 days; no showers, hotubs, baths, or swimming pools -- leave bandage on for 3 days, allow the steri strips to come off on their own -- do not lift arm above shoulder level for 2 weeks -- wear a sling for the first 24 hours followed by nocturnal sling to use for 6 weeks. -- do not do any repetitive motion or lifting heavy weight for 6 weeks --do not drive, use alcohol or make legal decisions for 24 hours. Dominga Mcgrath DO Electrophysiology Department of Cardiovascular Diseases Heart [facility] V[facility] Associated Problem(s): Suprapubic pain - previously diagnosed with prostatitis and treated with antibiotics - sensitive exam on 02/01 was negative for rashes, discharge, masses - c/f urinary retention contributing to syncope and had denise placed 02/01 but was removed 02/04 - PVRs have been elevated but will decrease after patient is prompted to urinate - discussed denise with parents Plan: - Colace - urology consulted and will evaluate further on an out-patient basis Associated Problem(s): Urinary retention - previously diagnosed with prostatitis and treated with antibiotics - sensitive exam on 02/01 was negative for rashes, discharge, masses - c/f urinary retention contributing to syncope and had denise placed 02/01 but was removed 02/04 - PVRs have been elevated but will decrease after patient is prompted to urinate - discussed denise with parents Plan: - Colace - urology consulted and will evaluate further on an out-patient basis Associated Problem(s): Down syndrome (HCC) - 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 occurring over the past year - previously being treated with risperidone 3.5 mg BID which has provided symptomatic relief - recently diagnosed with dementia by neurologist with blood work (elevated [id number]) - psych recs- change risperdal dose to 3 mg BID (Prolactin was elevated (48.9), likely related to risperidone; serial prolactin levels discontinued as not diagnostically useful) Plan: - continue risperdal 3mg BID - outpatient psych follow up post admission Associated Problem(s): Memory impairment - 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 occurring over the past year - previously being treated with risperidone 3.5 mg BID which has provided symptomatic relief - recently diagnosed with dementia by neurologist with blood work (elevated [id number]) - psych recs- change risperdal dose to 3 mg BID (Prolactin was elevated (48.9), likely related to risperidone; serial prolactin levels discontinued as not diagnostically useful) Plan: - continue risperdal 3mg BID - outpatient psych follow up post admission Associated Problem(s): Hallucinations - 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 occurring over the past year - previously being treated with risperidone 3.5 mg BID which has provided symptomatic relief - recently diagnosed with dementia by neurologist with blood work (elevated [id number]) - psych recs- change risperdal dose to 3 mg BID (Prolactin was elevated (48.9), likely related to risperidone; serial prolactin levels discontinued as not diagnostically useful) Plan: - continue risperdal 3mg BID - outpatient psych follow up post admission Associated Problem(s): Pain of both eyes - continue GenTeal moderate tears ophthalmic solution Associated Problem(s): Headache PLAN: - Tylenol 1g q6 hours Associated Problem(s): Urinary retention - previously diagnosed with prostatitis and treated with antibiotics - sensitive exam on 02/01 was negative for rashes, discharge, masses - c/f urinary retention contributing to syncope and had denise placed 02/01 but was removed 02/04 - PVRs have been elevated but will decrease after patient is prompted to urinate - discussed denise with parents Plan: - Colace - urology consulted and will evaluate further on an out-patient basis Associated Problem(s): Down syndrome (HCC) - 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 occurring over the past year - previously being treated with risperidone 3.5 mg BID which has provided symptomatic relief - recently diagnosed with dementia by neurologist with blood work (elevated [id number]) - psych recs- change risperdal dose to 3 mg BID (Prolactin was elevated (48.9), likely related to risperidone; serial prolactin levels discontinued as not diagnostically useful) Plan: - continue risperdal 3mg BID - outpatient psych follow up post admission Associated Problem(s): Memory impairment - 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 occurring over the past year - previously being treated with risperidone 3.5 mg BID which has provided symptomatic relief - recently diagnosed with dementia by neurologist with blood work (elevated [id number]) - psych recs- change risperdal dose to 3 mg BID (Prolactin was elevated (48.9), likely related to risperidone; serial prolactin levels discontinued as not diagnostically useful) Plan: - continue risperdal 3mg BID - outpatient psych follow up post admission Associated Problem(s): Hallucinations - 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 occurring over the past year - previously being treated with risperidone 3.5 mg BID which has provided symptomatic relief - recently diagnosed with dementia by neurologist with blood work (elevated [id number]) - psych recs- change risperdal dose to 3 mg BID (Prolactin was elevated (48.9), likely related to risperidone; serial prolactin levels discontinued as not diagnostically useful) Plan: - continue risperdal 3mg BID - outpatient psych follow up post admission Associated Problem(s): Pain of both eyes - continue GenTeal moderate tears ophthalmic solution Associated Problem(s): Syncope, unspecified syncope type - am cortisol on 02/03 low but cosyntropin stim test negative - cardiology consulted, syncope is most likely vasovagal, triggered by pain during urination, though given persistent orthostatic changes, orthostatic component cannot be excluded. 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 This could potentially serve as an epileptogenic focus. - orthostats could not be completed due to patien/t c/o dizziness and the elevated prolactin could be due to the risperidone - Patient noted to have pauses up to 2.34 seconds - EP consulted-> unlikely that syncope related to his pauses, the short pauses are likely benign and no further intervention/VALDOVINOS recommended - EP attending saw patient and family 02/16: - symptoms likely 2/2 BELEN, recommended ordering a nocturnal pulse ox, walking the patient with bus monitor on for 6 minutes to see if there are any changes in heart rate to assess for chronotropic incompetence. - close documentation of episodes of unresponsiveness, timing and duration, pre and post symptoms and tele findings. - nocturnal pulse ox was above 95% - 6 min walk was normal on tele and heart rate- did complain of dizziness during the walk and would sway and lean towards to wall - EP 02/18->loop recorder implanted Plan: - continue cardiac telemetry - fludrocortisone -midodrine 10 mg TID - high salt diet - compression socks and abdominal binder - PT/OT recommending wheelchair and shower chair for home - follow up EP outpatient - [facility] referral for outpatient dysautonomia eval with tilt-table testing -Plan for Pacemaker placement Friday, -Pre surgery labs wnl Associated Problem(s): Dysautonomia (HCC) - am cortisol on 02/03 low but cosyntropin stim test negative - cardiology consulted, syncope is most likely vasovagal, triggered by pain during urination, though given persistent orthostatic changes, orthostatic component cannot be excluded. 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 This could potentially serve as an epileptogenic focus. - orthostats could not be completed due to patien/t c/o dizziness and the elevated prolactin could be due to the risperidone - Patient noted to have pauses up to 2.34 seconds - EP consulted-> unlikely that syncope related to his pauses, the short pauses are likely benign and no further intervention/VALDOVINOS recommended - EP attending saw patient and family 02/16: - symptoms likely 2/2 BELEN, recommended ordering a nocturnal pulse ox, walking the patient with bus monitor on for 6 minutes to see if there are any changes in heart rate to assess for chronotropic incompetence. - close documentation of episodes of unresponsiveness, timing and duration, pre and post symptoms and tele findings. - nocturnal pulse ox was above 95% - 6 min walk was normal on tele and heart rate- did complain of dizziness during the walk and would sway and lean towards to wall - EP 02/18->loop recorder implanted Plan: - continue cardiac telemetry - fludrocortisone -midodrine 10 mg TID - high salt diet - compression socks and abdominal binder - PT/OT recommending wheelchair and shower chair for home - follow up EP outpatient - [facility] referral for outpatient dysautonomia eval with tilt-table testing -Plan for Pacemaker placement Friday, -Pre surgery labs wnl Associated Problem(s): Orthostatic hypotension - am cortisol on 02/03 low but cosyntropin stim test negative - cardiology consulted, syncope is most likely vasovagal, triggered by pain during urination, though given persistent orthostatic changes, orthostatic component cannot be excluded. 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 This could potentially serve as an epileptogenic focus. - orthostats could not be completed due to patien/t c/o dizziness and the elevated prolactin could be due to the risperidone - Patient noted to have pauses up to 2.34 seconds - EP consulted-> unlikely that syncope related to his pauses, the short pauses are likely benign and no further intervention/VALDOVINOS recommended - EP attending saw patient and family 02/16: - symptoms likely 2/2 BELEN, recommended ordering a nocturnal pulse ox, walking the patient with bus monitor on for 6 minutes to see if there are any changes in heart rate to assess for chronotropic incompetence. - close documentation of episodes of unresponsiveness, timing and duration, pre and post symptoms and tele findings. - nocturnal pulse ox was above 95% - 6 min walk was normal on tele and heart rate- did complain of dizziness during the walk and would sway and lean towards to wall - EP 02/18->loop recorder implanted Plan: - continue cardiac telemetry - fludrocortisone -midodrine 10 mg TID - high salt diet - compression socks and abdominal binder - PT/OT recommending wheelchair and shower chair for home - follow up EP outpatient - [facility] referral for outpatient dysautonomia eval with tilt-table testing -Plan for Pacemaker placement Friday, -Pre surgery labs wnl Associated Problem(s): Vasovagal syncope - am cortisol on 02/03 low but cosyntropin stim test negative - cardiology consulted, syncope is most likely vasovagal, triggered by pain during urination, though given persistent orthostatic changes, orthostatic component cannot be excluded. 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 This could potentially serve as an epileptogenic focus. - orthostats could not be completed due to patien/t c/o dizziness and the elevated prolactin could be due to the risperidone - Patient noted to have pauses up to 2.34 seconds - EP consulted-> unlikely that syncope related to his pauses, the short pauses are likely benign and no further intervention/VALDOVINOS recommended - EP attending saw patient and family 02/16: - symptoms likely 2/2 BELEN, recommended ordering a nocturnal pulse ox, walking the patient with bus monitor on for 6 minutes to see if there are any changes in heart rate to assess for chronotropic incompetence. - close documentation of episodes of unresponsiveness, timing and duration, pre and post symptoms and tele findings. - nocturnal pulse ox was above 95% - 6 min walk was normal on tele and heart rate- did complain of dizziness during the walk and would sway and lean towards to wall - EP 02/18->loop recorder implanted Plan: - continue cardiac telemetry - fludrocortisone -midodrine 10 mg TID - high salt diet - compression socks and abdominal binder - PT/OT recommending wheelchair and shower chair for home - follow up EP outpatient - [facility] referral for outpatient dysautonomia eval with tilt-table testing -Plan for Pacemaker placement Friday, -Pre surgery labs wnl Associated Problem(s): Bradycardia - am cortisol on 02/03 low but cosyntropin stim test negative - cardiology consulted, syncope is most likely vasovagal, triggered by pain during urination, though given persistent orthostatic changes, orthostatic component cannot be excluded. 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 This could potentially serve as an epileptogenic focus. - orthostats could not be completed due to patien/t c/o dizziness and the elevated prolactin could be due to the risperidone - Patient noted to have pauses up to 2.34 seconds - EP consulted-> unlikely that syncope related to his pauses, the short pauses are likely benign and no further intervention/VALDOVINOS recommended - EP attending saw patient and family 02/16: - symptoms likely 2/2 BELEN, recommended ordering a nocturnal pulse ox, walking the patient with bus monitor on for 6 minutes to see if there are any changes in heart rate to assess for chronotropic incompetence. - close documentation of episodes of unresponsiveness, timing and duration, pre and post symptoms and tele findings. - nocturnal pulse ox was above 95% - 6 min walk was normal on tele and heart rate- did complain of dizziness during the walk and would sway and lean towards to wall - EP 02/18->loop recorder implanted Plan: - continue cardiac telemetry - fludrocortisone -midodrine 10 mg TID - high salt diet - compression socks and abdominal binder - PT/OT recommending wheelchair and shower chair for home - follow up EP outpatient - [facility] referral for outpatient dysautonomia eval with tilt-table testing -Plan for Pacemaker placement Friday, -Pre surgery labs wnl Associated Problem(s): Headache PLAN: - Tylenol 1g q6 hours Associated Problem(s): Suprapubic pain - previously diagnosed with prostatitis and treated with antibiotics - sensitive exam on 02/01 was negative for rashes, discharge, masses - c/f urinary retention contributing to syncope and had denise placed 02/01 but was removed 02/04 - PVRs have been elevated but will decrease after patient is prompted to urinate - discussed denise with parents Plan: - [facility] - urology consulted and will evaluate further on an out-patient basis Associated Problem(s): Syncope, unspecified syncope type - am cortisol on 02/03 low but cosyntropin stim test negative - cardiology consulted, syncope is most likely vasovagal, triggered by pain during urination, though given persistent orthostatic changes, orthostatic component cannot be excluded. 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 This could potentially serve as an epileptogenic focus. - orthostats could not be completed due to patien/t c/o dizziness and the elevated prolactin could be due to the risperidone - Patient noted to have pauses up to 2.34 seconds - EP consulted-> unlikely that syncope related to his pauses, the short pauses are likely benign and no further intervention/VALDOVINOS recommended - EP attending saw patient and family 02/16: - symptoms likely 2/2 BELEN, recommended ordering a nocturnal pulse ox, walking the patient with bus monitor on for 6 minutes to see if there are any changes in heart rate to assess for chronotropic incompetence. - close documentation of episodes of unresponsiveness, timing and duration, pre and post symptoms and tele findings. - nocturnal pulse ox was above 95% - 6 min walk was normal on tele and heart rate- did complain of dizziness during the walk and would sway and lean towards to wall - EP 02/18->loop recorder implanted Plan: - continue cardiac telemetry - fludrocortisone -midodrine 10 mg TID - high salt diet - compression socks and abdominal binder - PT/OT recommending wheelchair and shower chair for home - follow up EP outpatient - [facility] referral for outpatient dysautonomia eval with tilt-table testing -Plan for Pacemaker placement Friday, will obtain CBC, BMP and type and screen on 02/24 Associated Problem(s): Dysautonomia (HCC) - am cortisol on 02/03 low but cosyntropin stim test negative - cardiology consulted, syncope is most likely vasovagal, triggered by pain during urination, though given persistent orthostatic changes, orthostatic component cannot be excluded. 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 This could potentially serve as an epileptogenic focus. - orthostats could not be completed due to patien/t c/o dizziness and the elevated prolactin could be due to the risperidone - Patient noted to have pauses up to 2.34 seconds - EP consulted-> unlikely that syncope related to his pauses, the short pauses are likely benign and no further intervention/VALDOVINOS recommended - EP attending saw patient and family 02/16: - symptoms likely 2/2 BELEN, recommended ordering a nocturnal pulse ox, walking the patient with bus monitor on for 6 minutes to see if there are any changes in heart rate to assess for chronotropic incompetence. - close documentation of episodes of unresponsiveness, timing and duration, pre and post symptoms and tele findings. - nocturnal pulse ox was above 95% - 6 min walk was normal on tele and heart rate- did complain of dizziness during the walk and would sway and lean towards to wall - EP 02/18->loop recorder implanted Plan: - continue cardiac telemetry - fludrocortisone -midodrine 10 mg TID - high salt diet - compression socks and abdominal binder - PT/OT recommending wheelchair and shower chair for home - follow up EP outpatient - [facility] referral for outpatient dysautonomia eval with tilt-table testing -Plan for Pacemaker placement Friday, will obtain CBC, BMP and type and screen on 02/24 Associated Problem(s): Orthostatic hypotension - am cortisol on 02/03 low but cosyntropin stim test negative - cardiology consulted, syncope is most likely vasovagal, triggered by pain during urination, though given persistent orthostatic changes, orthostatic component cannot be excluded. 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 This could potentially serve as an epileptogenic focus. - orthostats could not be completed due to patien/t c/o dizziness and the elevated prolactin could be due to the risperidone - Patient noted to have pauses up to 2.34 seconds - EP consulted-> unlikely that syncope related to his pauses, the short pauses are likely benign and no further intervention/VALDOVINOS recommended - EP attending saw patient and family 02/16: - symptoms likely 2/2 BELEN, recommended ordering a nocturnal pulse ox, walking the patient with bus monitor on for 6 minutes to see if there are any changes in heart rate to assess for chronotropic incompetence. - close documentation of episodes of unresponsiveness, timing and duration, pre and post symptoms and tele findings. - nocturnal pulse ox was above 95% - 6 min walk was normal on tele and heart rate- did complain of dizziness during the walk and would sway and lean towards to wall - EP 02/18->loop recorder implanted Plan: - continue cardiac telemetry - fludrocortisone -midodrine 10 mg TID - high salt diet - compression socks and abdominal binder - PT/OT recommending wheelchair and shower chair for home - follow up EP outpatient - [facility] referral for outpatient dysautonomia eval with tilt-table testing -Plan for Pacemaker placement Friday, will obtain CBC, BMP and type and screen on 02/24 Associated Problem(s): Vasovagal syncope - am cortisol on 02/03 low but cosyntropin stim test negative - cardiology consulted, syncope is most likely vasovagal, triggered by pain during urination, though given persistent orthostatic changes, orthostatic component cannot be excluded. 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 This could potentially serve as an epileptogenic focus. - orthostats could not be completed due to patien/t c/o dizziness and the elevated prolactin could be due to the risperidone - Patient noted to have pauses up to 2.34 seconds - EP consulted-> unlikely that syncope related to his pauses, the short pauses are likely benign and no further intervention/VALDOVINOS recommended - EP attending saw patient and family 02/16: - symptoms likely 2/2 BELEN, recommended ordering a nocturnal pulse ox, walking the patient with bus monitor on for 6 minutes to see if there are any changes in heart rate to assess for chronotropic incompetence. - close documentation of episodes of unresponsiveness, timing and duration, pre and post symptoms and tele findings. - nocturnal pulse ox was above 95% - 6 min walk was normal on tele and heart rate- did complain of dizziness during the walk and would sway and lean towards to wall - EP 02/18->loop recorder implanted Plan: - continue cardiac telemetry - fludrocortisone -midodrine 10 mg TID - high salt diet - compression socks and abdominal binder - PT/OT recommending wheelchair and shower chair for home - follow up EP outpatient - [facility] referral for outpatient dysautonomia eval with tilt-table testing -Plan for Pacemaker placement Friday, will obtain CBC, BMP and type and screen on 02/24 Associated Problem(s): Bradycardia - am cortisol on 02/03 low but cosyntropin stim test negative - cardiology consulted, syncope is most likely vasovagal, triggered by pain during urination, though given persistent orthostatic changes, orthostatic component cannot be excluded. 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 This could potentially serve as an epileptogenic focus. - orthostats could not be completed due to patien/t c/o dizziness and the elevated prolactin could be due to the risperidone - Patient noted to have pauses up to 2.34 seconds - EP consulted-> unlikely that syncope related to his pauses, the short pauses are likely benign and no further intervention/VALDOVINOS recommended - EP attending saw patient and family 02/16: - symptoms likely 2/2 BELEN, recommended ordering a nocturnal pulse ox, walking the patient with bus monitor on for 6 minutes to see if there are any changes in heart rate to assess for chronotropic incompetence. - close documentation of episodes of unresponsiveness, timing and duration, pre and post symptoms and tele findings. - nocturnal pulse ox was above 95% - 6 min walk was normal on tele and heart rate- did complain of dizziness during the walk and would sway and lean towards to wall - EP 02/18->loop recorder implanted Plan: - continue cardiac telemetry - fludrocortisone -midodrine 10 mg TID - high salt diet - compression socks and abdominal binder - PT/OT recommending wheelchair and shower chair for home - follow up EP outpatient - [facility] referral for outpatient dysautonomia eval with tilt-table testing -Plan for Pacemaker placement Friday, will obtain CBC, BMP and type and screen on 02/24 Per multidisciplinary rounds, plan is for pacemaker placement on Friday, 02/25 with 24 hour monitoring after. SASHA is 02/26. NIKOLAY has communicated with Ayana that pt is no longer activated for discharge, appeal is no longer in process. Stephanie Donohue, [employer], [employer] Associated Problem(s): Headache PLAN: - Tylenol 1g q6 hours Associated Problem(s): Suprapubic pain - previously diagnosed with prostatitis and treated with antibiotics - sensitive exam on 02/01 was negative for rashes, discharge, masses - c/f urinary retention contributing to syncope and had denise placed 02/01 but was removed 02/04 - PVRs have been elevated but will decrease after patient is prompted to urinate - discussed denise with parents Plan: - [facility] - urology consulted and will evaluate further on an out-patient basis Associated Problem(s): Urinary retention - previously diagnosed with prostatitis and treated with antibiotics - sensitive exam on 02/01 was negative for rashes, discharge, masses - c/f urinary retention contributing to syncope and had denise placed 02/01 but was removed 02/04 - PVRs have been elevated but will decrease after patient is prompted to urinate - discussed denise with parents Plan: - [facility] - urology consulted and will evaluate further on an out-patient basis Associated Problem(s): Down syndrome (HCC) - 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 occurring over the past year - previously being treated with risperidone 3.5 mg BID which has provided symptomatic relief - recently diagnosed with dementia by neurologist with blood work (elevated [id number]) - psych recs- change risperdal dose to 3 mg BID (Prolactin was elevated (48.9), likely related to risperidone; serial prolactin levels discontinued as not diagnostically useful) Plan: - continue risperdal 3mg BID - outpatient psych follow up post admission Associated Problem(s): Memory impairment - 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 occurring over the past year - previously being treated with risperidone 3.5 mg BID which has provided symptomatic relief - recently diagnosed with dementia by neurologist with blood work (elevated [id number]) - psych recs- change risperdal dose to 3 mg BID (Prolactin was elevated (48.9), likely related to risperidone; serial prolactin levels discontinued as not diagnostically useful) Plan: - continue risperdal 3mg BID - outpatient psych follow up post admission Associated Problem(s): Hallucinations - 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 occurring over the past year - previously being treated with risperidone 3.5 mg BID which has provided symptomatic relief - recently diagnosed with dementia by neurologist with blood work (elevated [id number]) - psych recs- change risperdal dose to 3 mg BID (Prolactin was elevated (48.9), likely related to risperidone; serial prolactin levels discontinued as not diagnostically useful) Plan: - continue risperdal 3mg BID - outpatient psych follow up post admission Associated Problem(s): Pain of both eyes - continue GenTeal moderate tears ophthalmic solution Per multidisciplinary rounds, Neurology and Cardiology will be meeting with pt/family today. Medicare appeal was previously filed by family. Determination came back today--The physician reviewer agrees with the termination of services. The Beneficiary liability starts on 02/23/2025. Family is aware and plans to complete 2nd appeal. Attending physician, Ethics and SW met with pt and parents. Still awaiting follow up discussion with consult teams. MALICK Albert LISW Addendum: SW was informed pt will be getting a pacemaker this admission. Discharge order has been discontinued. MALICK Albert, RYDER Associated Problem(s): Syncope, unspecified syncope type - am cortisol on 02/03 low but cosyntropin stim test negative - cardiology consulted, syncope is most likely vasovagal, triggered by pain during urination, though given persistent orthostatic changes, orthostatic component cannot be excluded. 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 This could potentially serve as an epileptogenic focus. - stopped trending prolactin as it has limited utility as a diagnostic test for epileptic seizures - orthostats could not be completed due to patien/t c/o dizziness and the elevated prolactin could be due to the risperidone - patient had an episode according to parents on 02/08 at around 5:30pm, he became limp, right eye was mediated and he was mildly responsive-> was back at baseline when seen a few mins later, VSS and no changes on tele -Latest episode on 02/21 with <30 second episode of syncope w/ headache - Patient noted to have pauses up to 2.34 seconds - EP consulted-> unlikely that syncope related to his pauses, the short pauses are likely benign and no further intervention/VALDOVINOS recommended - Reached out to EP on 02/12 for recommendations after pt has episode on low heart rate in 20s while awake.-> recommended restarting fludrocortisone and keeping pt on telemetry - EP attending saw patient and family 02/16: - symptoms likely 2/2 BELEN, recommended ordering a nocturnal pulse ox, walking the patient with bus monitor on for 6 minutes to see if there are any changes in heart rate to assess for chronotropic incompetence. - close documentation of episodes of unresponsiveness, timing and duration, pre and post symptoms and tele findings. - nocturnal pulse ox was above 95% - 6 min walk was normal on tele and heart rate- did complain of dizziness during the walk and would sway and lean towards to wall - EP 02/18->loop recorder implanted Plan: - continue cardiac telemetry - fludrocortisone midodrine 10 mg TID - high salt diet - compression socks and abdominal binder - PT/OT recommending wheelchair and shower chair for home - follow up EP outpatient - [facility] referral for outpatient dysautonomia eval with tilt-table testing Associated Problem(s): Dysautonomia (HCC) - am cortisol on 02/03 low but cosyntropin stim test negative - cardiology consulted, syncope is most likely vasovagal, triggered by pain during urination, though given persistent orthostatic changes, orthostatic component cannot be excluded. 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 This could potentially serve as an epileptogenic focus. - stopped trending prolactin as it has limited utility as a diagnostic test for epileptic seizures - orthostats could not be completed due to patien/t c/o dizziness and the elevated prolactin could be due to the risperidone - patient had an episode according to parents on 02/08 at around 5:30pm, he became limp, right eye was mediated and he was mildly responsive-> was back at baseline when seen a few mins later, VSS and no changes on tele -Latest episode on 02/21 with <30 second episode of syncope w/ headache - Patient noted to have pauses up to 2.34 seconds - EP consulted-> unlikely that syncope related to his pauses, the short pauses are likely benign and no further intervention/VALDOVINOS recommended - Reached out to EP on 02/12 for recommendations after pt has episode on low heart rate in 20s while awake.-> recommended restarting fludrocortisone and keeping pt on telemetry - EP attending saw patient and family 02/16: - symptoms likely 2/2 BELEN, recommended ordering a nocturnal pulse ox, walking the patient with bus monitor on for 6 minutes to see if there are any changes in heart rate to assess for chronotropic incompetence. - close documentation of episodes of unresponsiveness, timing and duration, pre and post symptoms and tele findings. - nocturnal pulse ox was above 95% - 6 min walk was normal on tele and heart rate- did complain of dizziness during the walk and would sway and lean towards to wall - EP 02/18->loop recorder implanted Plan: - continue cardiac telemetry - fludrocortisone midodrine 10 mg TID - high salt diet - compression socks and abdominal binder - PT/OT recommending wheelchair and shower chair for home - follow up EP outpatient - [facility] referral for outpatient dysautonomia eval with tilt-table testing Associated Problem(s): Orthostatic hypotension - am cortisol on 02/03 low but cosyntropin stim test negative - cardiology consulted, syncope is most likely vasovagal, triggered by pain during urination, though given persistent orthostatic changes, orthostatic component cannot be excluded. 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 This could potentially serve as an epileptogenic focus. - stopped trending prolactin as it has limited utility as a diagnostic test for epileptic seizures - orthostats could not be completed due to patien/t c/o dizziness and the elevated prolactin could be due to the risperidone - patient had an episode according to parents on 02/08 at around 5:30pm, he became limp, right eye was mediated and he was mildly responsive-> was back at baseline when seen a few mins later, VSS and no changes on tele -Latest episode on 02/21 with <30 second episode of syncope w/ headache - Patient noted to have pauses up to 2.34 seconds - EP consulted-> unlikely that syncope related to his pauses, the short pauses are likely benign and no further intervention/VALODVINOS recommended - Reached out to EP on 02/12 for recommendations after pt has episode on low heart rate in 20s while awake.-> recommended restarting fludrocortisone and keeping pt on telemetry - EP attending saw patient and family 02/16: - symptoms likely 2/2 BELEN, recommended ordering a nocturnal pulse ox, walking the patient with bus monitor on for 6 minutes to see if there are any changes in heart rate to assess for chronotropic incompetence. - close documentation of episodes of unresponsiveness, timing and duration, pre and post symptoms and tele findings. - nocturnal pulse ox was above 95% - 6 min walk was normal on tele and heart rate- did complain of dizziness during the walk and would sway and lean towards to wall - EP 02/18->loop recorder implanted Plan: - continue cardiac telemetry - fludrocortisone midodrine 10 mg TID - high salt diet - compression socks and abdominal binder - PT/OT recommending wheelchair and shower chair for home - follow up EP outpatient - [facility] referral for outpatient dysautonomia eval with tilt-table testing Associated Problem(s): Vasovagal syncope - am cortisol on 02/03 low but cosyntropin stim test negative - cardiology consulted, syncope is most likely vasovagal, triggered by pain during urination, though given persistent orthostatic changes, orthostatic component cannot be excluded. 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 This could potentially serve as an epileptogenic focus. - stopped trending prolactin as it has limited utility as a diagnostic test for epileptic seizures - orthostats could not be completed due to patien/t c/o dizziness and the elevated prolactin could be due to the risperidone - patient had an episode according to parents on 02/08 at around 5:30pm, he became limp, right eye was mediated and he was mildly responsive-> was back at baseline when seen a few mins later, VSS and no changes on tele -Latest episode on 02/21 with <30 second episode of syncope w/ headache - Patient noted to have pauses up to 2.34 seconds - EP consulted-> unlikely that syncope related to his pauses, the short pauses are likely benign and no further intervention/VALDOVINOS recommended - Reached out to EP on 02/12 for recommendations after pt has episode on low heart rate in 20s while awake.-> recommended restarting fludrocortisone and keeping pt on telemetry - EP attending saw patient and family 02/16: - symptoms likely 2/2 BELEN, recommended ordering a nocturnal pulse ox, walking the patient with bus monitor on for 6 minutes to see if there are any changes in heart rate to assess for chronotropic incompetence. - close documentation of episodes of unresponsiveness, timing and duration, pre and post symptoms and tele findings. - nocturnal pulse ox was above 95% - 6 min walk was normal on tele and heart rate- did complain of dizziness during the walk and would sway and lean towards to wall - EP 02/18->loop recorder implanted Plan: - continue cardiac telemetry - fludrocortisone midodrine 10 mg TID - high salt diet - compression socks and abdominal binder - PT/OT recommending wheelchair and shower chair for home - follow up EP outpatient - [facility] referral for outpatient dysautonomia eval with tilt-table testing Associated Problem(s): Bradycardia - am cortisol on 02/03 low but cosyntropin stim test negative - cardiology consulted, syncope is most likely vasovagal, triggered by pain during urination, though given persistent orthostatic changes, orthostatic component cannot be excluded. 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 This could potentially serve as an epileptogenic focus. - stopped trending prolactin as it has limited utility as a diagnostic test for epileptic seizures - orthostats could not be completed due to patien/t c/o dizziness and the elevated prolactin could be due to the risperidone - patient had an episode according to parents on 02/08 at around 5:30pm, he became limp, right eye was mediated and he was mildly responsive-> was back at baseline when seen a few mins later, VSS and no changes on tele -Latest episode on 02/21 with <30 second episode of syncope w/ headache - Patient noted to have pauses up to 2.34 seconds - EP consulted-> unlikely that syncope related to his pauses, the short pauses are likely benign and no further intervention/VALDOVINOS recommended - Reached out to EP on 02/12 for recommendations after pt has episode on low heart rate in 20s while awake.-> recommended restarting fludrocortisone and keeping pt on telemetry - EP attending saw patient and family 02/16: - symptoms likely 2/2 BELEN, recommended ordering a nocturnal pulse ox, walking the patient with bus monitor on for 6 minutes to see if there are any changes in heart rate to assess for chronotropic incompetence. - close documentation of episodes of unresponsiveness, timing and duration, pre and post symptoms and tele findings. - nocturnal pulse ox was above 95% - 6 min walk was normal on tele and heart rate- did complain of dizziness during the walk and would sway and lean towards to wall - EP 02/18->loop recorder implanted Plan: - continue cardiac telemetry - fludrocortisone midodrine 10 mg TID - high salt diet - compression socks and abdominal binder - PT/OT recommending wheelchair and shower chair for home - follow up EP outpatient - [facility] referral for outpatient dysautonomia eval with tilt-table testing Associated Problem(s): Headache PLAN: - Tylenol 1g q6 hours Associated Problem(s): Suprapubic pain - previously diagnosed with prostatitis and treated with antibiotics - sensitive exam on 02/01 was negative for rashes, discharge, masses - c/f urinary retention contributing to syncope and had denise placed 02/01 but was removed 02/04 - PVRs have been elevated but will decrease after patient is prompted to urinate - discussed denise with parents Plan: - [facility] - urology consulted and will evaluate further on an out-patient basis Associated Problem(s): Urinary retention - previously diagnosed with prostatitis and treated with antibiotics - sensitive exam on 02/01 was negative for rashes, discharge, masses - c/f urinary retention contributing to syncope and had denise placed 02/01 but was removed 02/04 - PVRs have been elevated but will decrease after patient is prompted to urinate - discussed denise with parents Plan: - [facility] - urology consulted and will evaluate further on an out-patient basis Associated Problem(s): Down syndrome (HCC) - 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 occurring over the past year - previously being treated with risperidone 3.5 mg BID which has provided symptomatic relief - recently diagnosed with dementia by neurologist with blood work (elevated [id number]) - psych recs- change risperdal dose to 3 mg BID (Prolactin was elevated (48.9), likely related to risperidone; serial prolactin levels discontinued as not diagnostically useful) Plan: - continue risperdal 3mg BID - outpatient psych follow up post admission Associated Problem(s): Memory impairment - 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 occurring over the past year - previously being treated with risperidone 3.5 mg BID which has provided symptomatic relief - recently diagnosed with dementia by neurologist with blood work (elevated [id number]) - psych recs- change risperdal dose to 3 mg BID (Prolactin was elevated (48.9), likely related to risperidone; serial prolactin levels discontinued as not diagnostically useful) Plan: - continue risperdal 3mg BID - outpatient psych follow up post admission Associated Problem(s): Hallucinations - 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 occurring over the past year - previously being treated with risperidone 3.5 mg BID which has provided symptomatic relief - recently diagnosed with dementia by neurologist with blood work (elevated [id number]) - psych recs- change risperdal dose to 3 mg BID (Prolactin was elevated (48.9), likely related to risperidone; serial prolactin levels discontinued as not diagnostically useful) Plan: - continue risperdal 3mg BID - outpatient psych follow up post admission Associated Problem(s): Pain of both eyes - continue GenTeal moderate tears ophthalmic solution Associated Problem(s): Syncope, unspecified syncope type - am cortisol on 02/03 low but cosyntropin stim test negative - cardiology consulted, syncope is most likely vasovagal, triggered by pain during urination, though given persistent orthostatic changes, orthostatic component cannot be excluded. 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 This could potentially serve as an epileptogenic focus. - stopped trending prolactin as it has limited utility as a diagnostic test for epileptic seizures - orthostats could not be completed due to patien/t c/o dizziness and the elevated prolactin could be due to the risperidone - patient had an episode according to parents on 02/08 at around 5:30pm, he became limp, right eye was mediated and he was mildly responsive-> was back at baseline when seen a few mins later, VSS and no changes on tele -Latest episode on 02/21 with <30 second episode of syncope w/ headache Plan: - continue cardiac telemetry - Patient noted to have pauses up to 2.34 seconds - EP consulted-> unlikely that syncope related to his pauses, the short pauses are likely benign and no further intervention/VALDOVINOS recommended - Reached out to EP on 02/12 for recommendations after pt has episode on low heart rate in 20s while awake.-> recommended restarting fludrocortisone and keeping pt on telemetry - EP attending saw patient and family 02/16: - symptoms likely 2/2 BELEN, recommended ordering a nocturnal pulse ox, walking the patient with bus monitor on for 6 minutes to see if there are any changes in heart rate to assess for chronotropic incompetence. - close documentation of episodes of unresponsiveness, timing and duration, pre and post symptoms and tele findings. - nocturnal pulse ox was above 95% - 6 min walk was normal on tele and heart rate- did complain of dizziness during the walk and would sway and lean towards to wall - EP 02/18->loop recorder implanted - restarted fludrocortisone 02/14 - neurology recs: - increased midodrine to 10 mg TID - added fludrocortisone-> restarted on 02/14 - stopped flomax as may be worsening dysautonomia - could refer to [facility] for outpatient dysautonomia eval with tilt-table testing - high salt diet - compression socks and abdominal binder - PT/OT recommending wheelchair and shower chair for home - follow up EP outpatient - consider follow up dysautonomia clinic outpatient - [facility] referral Associated Problem(s): Dysautonomia (HCC) - am cortisol on 02/03 low but cosyntropin stim test negative - cardiology consulted, syncope is most likely vasovagal, triggered by pain during urination, though given persistent orthostatic changes, orthostatic component cannot be excluded. 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 This could potentially serve as an epileptogenic focus. - stopped trending prolactin as it has limited utility as a diagnostic test for epileptic seizures - orthostats could not be completed due to patien/t c/o dizziness and the elevated prolactin could be due to the risperidone - patient had an episode according to parents on 02/08 at around 5:30pm, he became limp, right eye was mediated and he was mildly responsive-> was back at baseline when seen a few mins later, VSS and no changes on tele -Latest episode on 02/21 with <30 second episode of syncope w/ headache Plan: - continue cardiac telemetry - Patient noted to have pauses up to 2.34 seconds - EP consulted-> unlikely that syncope related to his pauses, the short pauses are likely benign and no further intervention/VALDOVINOS recommended - Reached out to EP on 02/12 for recommendations after pt has episode on low heart rate in 20s while awake.-> recommended restarting fludrocortisone and keeping pt on telemetry - EP attending saw patient and family 02/16: - symptoms likely 2/2 BELEN, recommended ordering a nocturnal pulse ox, walking the patient with bus monitor on for 6 minutes to see if there are any changes in heart rate to assess for chronotropic incompetence. - close documentation of episodes of unresponsiveness, timing and duration, pre and post symptoms and tele findings. - nocturnal pulse ox was above 95% - 6 min walk was normal on tele and heart rate- did complain of dizziness during the walk and would sway and lean towards to wall - EP 02/18->loop recorder implanted - restarted fludrocortisone 02/14 - neurology recs: - increased midodrine to 10 mg TID - added fludrocortisone-> restarted on 02/14 - stopped flomax as may be worsening dysautonomia - could refer to [facility] for outpatient dysautonomia eval with tilt-table testing - high salt diet - compression socks and abdominal binder - PT/OT recommending wheelchair and shower chair for home - follow up EP outpatient - consider follow up dysautonomia clinic outpatient - [facility] referral Associated Problem(s): Orthostatic hypotension - am cortisol on 02/03 low but cosyntropin stim test negative - cardiology consulted, syncope is most likely vasovagal, triggered by pain during urination, though given persistent orthostatic changes, orthostatic component cannot be excluded. 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 This could potentially serve as an epileptogenic focus. - stopped trending prolactin as it has limited utility as a diagnostic test for epileptic seizures - orthostats could not be completed due to patien/t c/o dizziness and the elevated prolactin could be due to the risperidone - patient had an episode according to parents on 02/08 at around 5:30pm, he became limp, right eye was mediated and he was mildly responsive-> was back at baseline when seen a few mins later, VSS and no changes on tele -Latest episode on 02/21 with <30 second episode of syncope w/ headache Plan: - continue cardiac telemetry - Patient noted to have pauses up to 2.34 seconds - EP consulted-> unlikely that syncope related to his pauses, the short pauses are likely benign and no further intervention/VALDOVINOS recommended - Reached out to EP on 02/12 for recommendations after pt has episode on low heart rate in 20s while awake.-> recommended restarting fludrocortisone and keeping pt on telemetry - EP attending saw patient and family 02/16: - symptoms likely 2/2 BELEN, recommended ordering a nocturnal pulse ox, walking the patient with bus monitor on for 6 minutes to see if there are any changes in heart rate to assess for chronotropic incompetence. - close documentation of episodes of unresponsiveness, timing and duration, pre and post symptoms and tele findings. - nocturnal pulse ox was above 95% - 6 min walk was normal on tele and heart rate- did complain of dizziness during the walk and would sway and lean towards to wall - EP 02/18->loop recorder implanted - restarted fludrocortisone 02/14 - neurology recs: - increased midodrine to 10 mg TID - added fludrocortisone-> restarted on 02/14 - stopped flomax as may be worsening dysautonomia - could refer to [facility] for outpatient dysautonomia eval with tilt-table testing - high salt diet - compression socks and abdominal binder - PT/OT recommending wheelchair and shower chair for home - follow up EP outpatient - consider follow up dysautonomia clinic outpatient - [facility] referral Associated Problem(s): Vasovagal syncope - am cortisol on 02/03 low but cosyntropin stim test negative - cardiology consulted, syncope is most likely vasovagal, triggered by pain during urination, though given persistent orthostatic changes, orthostatic component cannot be excluded. 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 This could potentially serve as an epileptogenic focus. - stopped trending prolactin as it has limited utility as a diagnostic test for epileptic seizures - orthostats could not be completed due to patien/t c/o dizziness and the elevated prolactin could be due to the risperidone - patient had an episode according to parents on 02/08 at around 5:30pm, he became limp, right eye was mediated and he was mildly responsive-> was back at baseline when seen a few mins later, VSS and no changes on tele -Latest episode on 02/21 with <30 second episode of syncope w/ headache Plan: - continue cardiac telemetry - Patient noted to have pauses up to 2.34 seconds - EP consulted-> unlikely that syncope related to his pauses, the short pauses are likely benign and no further intervention/VALDOVINOS recommended - Reached out to EP on 02/12 for recommendations after pt has episode on low heart rate in 20s while awake.-> recommended restarting fludrocortisone and keeping pt on telemetry - EP attending saw patient and family 02/16: - symptoms likely 2/2 BELEN, recommended ordering a nocturnal pulse ox, walking the patient with bus monitor on for 6 minutes to see if there are any changes in heart rate to assess for chronotropic incompetence. - close documentation of episodes of unresponsiveness, timing and duration, pre and post symptoms and tele findings. - nocturnal pulse ox was above 95% - 6 min walk was normal on tele and heart rate- did complain of dizziness during the walk and would sway and lean towards to wall - EP 02/18->loop recorder implanted - restarted fludrocortisone 02/14 - neurology recs: - increased midodrine to 10 mg TID - added fludrocortisone-> restarted on 02/14 - stopped flomax as may be worsening dysautonomia - could refer to [facility] for outpatient dysautonomia eval with tilt-table testing - high salt diet - compression socks and abdominal binder - PT/OT recommending wheelchair and shower chair for home - follow up EP outpatient - consider follow up dysautonomia clinic outpatient - [facility] referral Associated Problem(s): Bradycardia - am cortisol on 02/03 low but cosyntropin stim test negative - cardiology consulted, syncope is most likely vasovagal, triggered by pain during urination, though given persistent orthostatic changes, orthostatic component cannot be excluded. 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 This could potentially serve as an epileptogenic focus. - stopped trending prolactin as it has limited utility as a diagnostic test for epileptic seizures - orthostats could not be completed due to patien/t c/o dizziness and the elevated prolactin could be due to the risperidone - patient had an episode according to parents on 02/08 at around 5:30pm, he became limp, right eye was mediated and he was mildly responsive-> was back at baseline when seen a few mins later, VSS and no changes on tele -Latest episode on 02/21 with <30 second episode of syncope w/ headache Plan: - continue cardiac telemetry - Patient noted to have pauses up to 2.34 seconds - EP consulted-> unlikely that syncope related to his pauses, the short pauses are likely benign and no further intervention/VALDOVINOS recommended - Reached out to EP on 02/12 for recommendations after pt has episode on low heart rate in 20s while awake.-> recommended restarting fludrocortisone and keeping pt on telemetry - EP attending saw patient and family 02/16: - symptoms likely 2/2 BELEN, recommended ordering a nocturnal pulse ox, walking the patient with bus monitor on for 6 minutes to see if there are any changes in heart rate to assess for chronotropic incompetence. - close documentation of episodes of unresponsiveness, timing and duration, pre and post symptoms and tele findings. - nocturnal pulse ox was above 95% - 6 min walk was normal on tele and heart rate- did complain of dizziness during the walk and would sway and lean towards to wall - EP 02/18->loop recorder implanted - restarted fludrocortisone 02/14 - neurology recs: - increased midodrine to 10 mg TID - added fludrocortisone-> restarted on 02/14 - stopped flomax as may be worsening dysautonomia - could refer to [facility] for outpatient dysautonomia eval with tilt-table testing - high salt diet - compression socks and abdominal binder - PT/OT recommending wheelchair and shower chair for home - follow up EP outpatient - consider follow up dysautonomia clinic outpatient - [facility] referral Associated Problem(s): Headache PLAN: - Tylenol 1g q6 hours Associated Problem(s): Down syndrome (HCC) - 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 occurring over the past year - previously being treated with risperidone 3.5 mg BID which has provided symptomatic relief - recently diagnosed with dementia by neurologist with blood work (elevated [id number]) - psych recs- change risperdal dose to 3 mg BID (Prolactin was elevated (48.9), likely related to risperidone; serial prolactin levels discontinued as not diagnostically useful) Plan: - continue risperdal 3mg BID - outpatient psych follow up post admission Associated Problem(s): Memory impairment - 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 occurring over the past year - previously being treated with risperidone 3.5 mg BID which has provided symptomatic relief - recently diagnosed with dementia by neurologist with blood work (elevated [id number]) - psych recs- change risperdal dose to 3 mg BID (Prolactin was elevated (48.9), likely related to risperidone; serial prolactin levels discontinued as not diagnostically useful) Plan: - continue risperdal 3mg BID - outpatient psych follow up post admission Associated Problem(s): Hallucinations - 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 occurring over the past year - previously being treated with risperidone 3.5 mg BID which has provided symptomatic relief - recently diagnosed with dementia by neurologist with blood work (elevated [id number]) - psych recs- change risperdal dose to 3 mg BID (Prolactin was elevated (48.9), likely related to risperidone; serial prolactin levels discontinued as not diagnostically useful) Plan: - continue risperdal 3mg BID - outpatient psych follow up post admission Associated Problem(s): Suprapubic pain - previously diagnosed with prostatitis and treated with antibiotics - sensitive exam on 02/01 was negative for rashes, discharge, masses - c/f urinary retention contributing to syncope and had ednise placed 02/01 but was removed 02/04 - PVRs have been elevated but will decrease after patient is prompted to urinate - discussed denise with parents Plan: - [facility] - urology consulted and will evaluate further on an out-patient basis Associated Problem(s): Urinary retention - previously diagnosed with prostatitis and treated with antibiotics - sensitive exam on 02/01 was negative for rashes, discharge, masses - c/f urinary retention contributing to syncope and had denise placed 02/01 but was removed 02/04 - PVRs have been elevated but will decrease after patient is prompted to urinate - discussed denise with parents Plan: - [facility] - urology consulted and will evaluate further on an out-patient basis Associated Problem(s): Pain of both eyes - continue GenTeal moderate tears ophthalmic solution Associated Problem(s): Syncope, unspecified syncope type - am cortisol on 02/03 low but cosyntropin stim test negative - cardiology consulted, syncope is most likely vasovagal, triggered by pain during urination, though given persistent orthostatic changes, orthostatic component cannot be excluded. 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 This could potentially serve as an epileptogenic focus. - stopped trending prolactin as it has limited utility as a diagnostic test for epileptic seizures - orthostats could not be completed due to patien/t c/o dizziness and the elevated prolactin could be due to the risperidone - patient had an episode according to parents on 02/08 at around 5:30pm, he became limp, right eye was mediated and he was mildly responsive-> was back at baseline when seen a few mins later, VSS and no changes on tele - patient had an episode of low rate rate in 20s while he was awake on 02/12. He was complaining of a headache at that time. Reached out to EP for recommendations Plan: - continue cardiac telemetry - Patient noted to have pauses up to 2.34 seconds - EP consulted-> unlikely that syncope related to his pauses, the short pauses are likely benign and no further intervention/VALDOVINOS recommended - Reached out to EP on 02/12 for recommendations after pt has episode on low heart rate in 20s while awake.-> recommended restarting fludrocortisone and keeping pt on telemetry - EP attending saw patient and family 02/16: - symptoms likely 2/2 BELEN, recommended ordering a nocturnal pulse ox, walking the patient with bus monitor on for 6 minutes to see if there are any changes in heart rate to assess for chronotropic incompetence. - close documentation of episodes of unresponsiveness, timing and duration, pre and post symptoms and tele findings. - nocturnal pulse ox was above 95% - 6 min walk was normal on tele and heart rate- did complain of dizziness during the walk and would sway and lean towards to wall - did not hear of any syncopal episodes overnight - EP 02/17: Plan for loop recorder tentatively tomorrow if schedule allows - NPO at midnight - restarted fludrocortisone 02/14 - neurology recs: - increased midodrine to 10 mg TID - added fludrocortisone-> discontinued on 02/11 as family were concerned that it was causing his fatigue and stomach issues-> restarted on 02/14 - stopped flomax as may be worsening dysautonomia - could refer to [facility] for outpatient dysautonomia eval with tilt-table testing - high salt diet - compression socks and abdominal binder - repeat CBC, BMP, Mg - PT/OT recommending wheelchair and shower chair for home - follow up EP outpatient - consider follow up dysautonomia clinic outpatient - may need second opinion referral to [facility] Associated Problem(s): Dysautonomia (HCC) - am cortisol on 02/03 low but cosyntropin stim test negative - cardiology consulted, syncope is most likely vasovagal, triggered by pain during urination, though given persistent orthostatic changes, orthostatic component cannot be excluded. 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 This could potentially serve as an epileptogenic focus. - stopped trending prolactin as it has limited utility as a diagnostic test for epileptic seizures - orthostats could not be completed due to patien/t c/o dizziness and the elevated prolactin could be due to the risperidone - patient had an episode according to parents on 02/08 at around 5:30pm, he became limp, right eye was mediated and he was mildly responsive-> was back at baseline when seen a few mins later, VSS and no changes on tele - patient had an episode of low rate rate in 20s while he was awake on 02/12. He was complaining of a headache at that time. Reached out to EP for recommendations Plan: - continue cardiac telemetry - Patient noted to have pauses up to 2.34 seconds - EP consulted-> unlikely that syncope related to his pauses, the short pauses are likely benign and no further intervention/VALDOVINOS recommended - Reached out to EP on 02/12 for recommendations after pt has episode on low heart rate in 20s while awake.-> recommended restarting fludrocortisone and keeping pt on telemetry - EP attending saw patient and family 02/16: - symptoms likely 2/2 BELEN, recommended ordering a nocturnal pulse ox, walking the patient with bus monitor on for 6 minutes to see if there are any changes in heart rate to assess for chronotropic incompetence. - close documentation of episodes of unresponsiveness, timing and duration, pre and post symptoms and tele findings. - nocturnal pulse ox was above 95% - 6 min walk was normal on tele and heart rate- did complain of dizziness during the walk and would sway and lean towards to wall - did not hear of any syncopal episodes overnight - EP 02/17: Plan for loop recorder tentatively tomorrow if schedule allows - NPO at midnight - restarted fludrocortisone 02/14 - neurology recs: - increased midodrine to 10 mg TID - added fludrocortisone-> discontinued on 02/11 as family were concerned that it was causing his fatigue and stomach issues-> restarted on 02/14 - stopped flomax as may be worsening dysautonomia - could refer to [facility] for outpatient dysautonomia eval with tilt-table testing - high salt diet - compression socks and abdominal binder - repeat CBC, BMP, Mg - PT/OT recommending wheelchair and shower chair for home - follow up EP outpatient - consider follow up dysautonomia clinic outpatient - may need second opinion referral to [facility] Associated Problem(s): Orthostatic hypotension - am cortisol on 02/03 low but cosyntropin stim test negative - cardiology consulted, syncope is most likely vasovagal, triggered by pain during urination, though given persistent orthostatic changes, orthostatic component cannot be excluded. 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 This could potentially serve as an epileptogenic focus. - stopped trending prolactin as it has limited utility as a diagnostic test for epileptic seizures - orthostats could not be completed due to patien/t c/o dizziness and the elevated prolactin could be due to the risperidone - patient had an episode according to parents on 02/08 at around 5:30pm, he became limp, right eye was mediated and he was mildly responsive-> was back at baseline when seen a few mins later, VSS and no changes on tele - patient had an episode of low rate rate in 20s while he was awake on 02/12. He was complaining of a headache at that time. Reached out to EP for recommendations Plan: - continue cardiac telemetry - Patient noted to have pauses up to 2.34 seconds - EP consulted-> unlikely that syncope related to his pauses, the short pauses are likely benign and no further intervention/VALDOVINOS recommended - Reached out to EP on 02/12 for recommendations after pt has episode on low heart rate in 20s while awake.-> recommended restarting fludrocortisone and keeping pt on telemetry - EP attending saw patient and family 02/16: - symptoms likely 2/2 BELEN, recommended ordering a nocturnal pulse ox, walking the patient with bus monitor on for 6 minutes to see if there are any changes in heart rate to assess for chronotropic incompetence. - close documentation of episodes of unresponsiveness, timing and duration, pre and post symptoms and tele findings. - nocturnal pulse ox was above 95% - 6 min walk was normal on tele and heart rate- did complain of dizziness during the walk and would sway and lean towards to wall - did not hear of any syncopal episodes overnight - EP 02/17: Plan for loop recorder tentatively tomorrow if schedule allows - NPO at midnight - restarted fludrocortisone 02/14 - neurology recs: - increased midodrine to 10 mg TID - added fludrocortisone-> discontinued on 02/11 as family were concerned that it was causing his fatigue and stomach issues-> restarted on 02/14 - stopped flomax as may be worsening dysautonomia - could refer to [facility] for outpatient dysautonomia eval with tilt-table testing - high salt diet - compression socks and abdominal binder - repeat CBC, BMP, Mg - PT/OT recommending wheelchair and shower chair for home - follow up EP outpatient - consider follow up dysautonomia clinic outpatient - may need second opinion referral to [facility] Associated Problem(s): Vasovagal syncope - am cortisol on 02/03 low but cosyntropin stim test negative - cardiology consulted, syncope is most likely vasovagal, triggered by pain during urination, though given persistent orthostatic changes, orthostatic component cannot be excluded. 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 This could potentially serve as an epileptogenic focus. - stopped trending prolactin as it has limited utility as a diagnostic test for epileptic seizures - orthostats could not be completed due to patien/t c/o dizziness and the elevated prolactin could be due to the risperidone - patient had an episode according to parents on 02/08 at around 5:30pm, he became limp, right eye was mediated and he was mildly responsive-> was back at baseline when seen a few mins later, VSS and no changes on tele - patient had an episode of low rate rate in 20s while he was awake on 02/12. He was complaining of a headache at that time. Reached out to EP for recommendations Plan: - continue cardiac telemetry - Patient noted to have pauses up to 2.34 seconds - EP consulted-> unlikely that syncope related to his pauses, the short pauses are likely benign and no further intervention/VALDOVINOS recommended - Reached out to EP on 02/12 for recommendations after pt has episode on low heart rate in 20s while awake.-> recommended restarting fludrocortisone and keeping pt on telemetry - EP attending saw patient and family 02/16: - symptoms likely 2/2 BELEN, recommended ordering a nocturnal pulse ox, walking the patient with bus monitor on for 6 minutes to see if there are any changes in heart rate to assess for chronotropic incompetence. - close documentation of episodes of unresponsiveness, timing and duration, pre and post symptoms and tele findings. - nocturnal pulse ox was above 95% - 6 min walk was normal on tele and heart rate- did complain of dizziness during the walk and would sway and lean towards to wall - did not hear of any syncopal episodes overnight - EP 02/17: Plan for loop recorder tentatively tomorrow if schedule allows - NPO at midnight - restarted fludrocortisone 02/14 - neurology recs: - increased midodrine to 10 mg TID - added fludrocortisone-> discontinued on 02/11 as family were concerned that it was causing his fatigue and stomach issues-> restarted on 02/14 - stopped flomax as may be worsening dysautonomia - could refer to [facility] for outpatient dysautonomia eval with tilt-table testing - high salt diet - compression socks and abdominal binder - repeat CBC, BMP, Mg - PT/OT recommending wheelchair and shower chair for home - follow up EP outpatient - consider follow up dysautonomia clinic outpatient - may need second opinion referral to [facility] Associated Problem(s): Bradycardia - am cortisol on 02/03 low but cosyntropin stim test negative - cardiology consulted, syncope is most likely vasovagal, triggered by pain during urination, though given persistent orthostatic changes, orthostatic component cannot be excluded. 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 This could potentially serve as an epileptogenic focus. - stopped trending prolactin as it has limited utility as a diagnostic test for epileptic seizures - orthostats could not be completed due to patien/t c/o dizziness and the elevated prolactin could be due to the risperidone - patient had an episode according to parents on 02/08 at around 5:30pm, he became limp, right eye was mediated and he was mildly responsive-> was back at baseline when seen a few mins later, VSS and no changes on tele - patient had an episode of low rate rate in 20s while he was awake on 02/12. He was complaining of a headache at that time. Reached out to EP for recommendations Plan: - continue cardiac telemetry - Patient noted to have pauses up to 2.34 seconds - EP consulted-> unlikely that syncope related to his pauses, the short pauses are likely benign and no further intervention/VALDOVINOS recommended - Reached out to EP on 02/12 for recommendations after pt has episode on low heart rate in 20s while awake.-> recommended restarting fludrocortisone and keeping pt on telemetry - EP attending saw patient and family 02/16: - symptoms likely 2/2 BELEN, recommended ordering a nocturnal pulse ox, walking the patient with bus monitor on for 6 minutes to see if there are any changes in heart rate to assess for chronotropic incompetence. - close documentation of episodes of unresponsiveness, timing and duration, pre and post symptoms and tele findings. - nocturnal pulse ox was above 95% - 6 min walk was normal on tele and heart rate- did complain of dizziness during the walk and would sway and lean towards to wall - did not hear of any syncopal episodes overnight - EP 02/17: Plan for loop recorder tentatively tomorrow if schedule allows - NPO at midnight - restarted fludrocortisone 02/14 - neurology recs: - increased midodrine to 10 mg TID - added fludrocortisone-> discontinued on 02/11 as family were concerned that it was causing his fatigue and stomach issues-> restarted on 02/14 - stopped flomax as may be worsening dysautonomia - could refer to [facility] for outpatient dysautonomia eval with tilt-table testing - high salt diet - compression socks and abdominal binder - repeat CBC, BMP, Mg - PT/OT recommending wheelchair and shower chair for home - follow up EP outpatient - consider follow up dysautonomia clinic outpatient - may need second opinion referral to [facility] Associated Problem(s): Headache PLAN: - Tylenol 1g q6 hours Associated Problem(s): Suprapubic pain - previously diagnosed with prostatitis and treated with antibiotics - sensitive exam on 02/01 was negative for rashes, discharge, masses - c/f urinary retention contributing to syncope and had denise placed 02/01 but was removed 02/04 - PVRs have been elevated but will decrease after patient is prompted to urinate - discussed denise with parents Plan: - discontinued miralax and senna and kept colace on 02/12 due to family preferences as colace works for him - q8 PVR -> if still retaining, will place denise and discharge with it until urology follow up, waiting on patient's mother's decision - q4 I/O - Flomax discontinued - urology consulted and will evaluate further on an out-patient basis - renal ultrasound ordered Associated Problem(s): Urinary retention - previously diagnosed with prostatitis and treated with antibiotics - sensitive exam on 02/01 was negative for rashes, discharge, masses - c/f urinary retention contributing to syncope and had denise placed 02/01 but was removed 02/04 - PVRs have been elevated but will decrease after patient is prompted to urinate - discussed denise with parents Plan: - discontinued miralax and senna and kept colace on 02/12 due to family preferences as colace works for him - q8 PVR -> if still retaining, will place denise and discharge with it until urology follow up, waiting on patient's mother's decision - q4 I/O - Flomax discontinued - urology consulted and will evaluate further on an out-patient basis - renal ultrasound ordered Associated Problem(s): Down syndrome (HCC) - 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 occurring over the past year - previously being treated with risperidone 3.5 mg BID which has provided symptomatic relief - recently diagnosed with dementia by neurologist with blood work (elevated [id number]) - psych recs- change risperdal dose to 3 mg BID (Prolactin was elevated (48.9), likely related to risperidone; serial prolactin levels discontinued as not diagnostically useful) Plan: - continue risperdal 3mg BID - outpatient psych follow up in 2 weeks Associated Problem(s): Memory impairment - 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 occurring over the past year - previously being treated with risperidone 3.5 mg BID which has provided symptomatic relief - recently diagnosed with dementia by neurologist with blood work (elevated [id number]) - psych recs- change risperdal dose to 3 mg BID (Prolactin was elevated (48.9), likely related to risperidone; serial prolactin levels discontinued as not diagnostically useful) Plan: - continue risperdal 3mg BID - outpatient psych follow up in 2 weeks Associated Problem(s): Hallucinations - 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 occurring over the past year - previously being treated with risperidone 3.5 mg BID which has provided symptomatic relief - recently diagnosed with dementia by neurologist with blood work (elevated [id number]) - psych recs- change risperdal dose to 3 mg BID (Prolactin was elevated (48.9), likely related to risperidone; serial prolactin levels discontinued as not diagnostically useful) Plan: - continue risperdal 3mg BID - outpatient psych follow up in 2 weeks Associated Problem(s): Pain of both eyes - continue GenTeal moderate tears ophthalmic solution Associated Problem(s): Vasovagal syncope - am cortisol on 02/03 low but cosyntropin stim test negative - cardiology consulted, syncope is most likely vasovagal, triggered by pain during urination, though given persistent orthostatic changes, orthostatic component cannot be excluded. 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 This could potentially serve as an epileptogenic focus. - stopped trending prolactin as it has limited utility as a diagnostic test for epileptic seizures - orthostats could not be completed due to patien/t c/o dizziness and the elevated prolactin could be due to the risperidone - patient had an episode according to parents on 02/08 at around 5:30pm, he became limp, right eye was mediated and he was mildly responsive-> was back at baseline when seen a few mins later, VSS and no changes on tele - patient had an episode of low rate rate in 20s while he was awake on 02/12. He was complaining of a headache at that time. Reached out to EP for recommendations Plan: - continue cardiac telemetry - Patient noted to have pauses up to 2.34 seconds - EP consulted-> unlikely that syncope related to his pauses, the short pauses are likely benign and no further intervention/VALDOVINOS recommended - Reached out to EP on 02/12 for recommendations after pt has episode on low heart rate in 20s while awake.-> recommended restarting fludrocortisone and keeping pt on telemetry - EP attending saw patient and family 02/16: - symptoms likely 2/2 BELEN, recommended ordering a nocturnal pulse ox, walking the patient with bus monitor on for 6 minutes to see if there are any changes in heart rate to assess for chronotropic incompetence. - close documentation of episodes of unresponsiveness, timing and duration, pre and post symptoms and tele findings. - nocturnal pulse ox was above 95% - 6 min walk was normal on tele and heart rate- did complain of dizziness during the walk and would sway and lean towards to wall - did not hear of any syncopal episodes overnight - EP 02/17: Plan for loop recorder tentatively tomorrow if schedule allows - NPO at midnight - restarted fludrocortisone 02/14 - neurology recs: - increased midodrine to 10 mg TID - added fludrocortisone-> discontinued on 02/11 as family were concerned that it was causing his fatigue and stomach issues-> restarted on 02/14 - stopped flomax as may be worsening dysautonomia - could refer to [facility] for outpatient dysautonomia eval with tilt-table testing - high salt diet - compression socks and abdominal binder - repeat CBC, BMP, Mg - PT/OT recommending wheelchair and shower chair for home - follow up EP outpatient - consider follow up dysautonomia clinic outpatient - may need second opinion referral to [facility] Associated Problem(s): Bradycardia - am cortisol on 02/03 low but cosyntropin stim test negative - cardiology consulted, syncope is most likely vasovagal, triggered by pain during urination, though given persistent orthostatic changes, orthostatic component cannot be excluded. 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 This could potentially serve as an epileptogenic focus. - stopped trending prolactin as it has limited utility as a diagnostic test for epileptic seizures - orthostats could not be completed due to patien/t c/o dizziness and the elevated prolactin could be due to the risperidone - patient had an episode according to parents on 02/08 at around 5:30pm, he became limp, right eye was mediated and he was mildly responsive-> was back at baseline when seen a few mins later, VSS and no changes on tele - patient had an episode of low rate rate in 20s while he was awake on 02/12. He was complaining of a headache at that time. Reached out to EP for recommendations Plan: - continue cardiac telemetry - Patient noted to have pauses up to 2.34 seconds - EP consulted-> unlikely that syncope related to his pauses, the short pauses are likely benign and no further intervention/VALDOVINOS recommended - Reached out to EP on 02/12 for recommendations after pt has episode on low heart rate in 20s while awake.-> recommended restarting fludrocortisone and keeping pt on telemetry - EP attending saw patient and family 02/16: - symptoms likely 2/2 BELEN, recommended ordering a nocturnal pulse ox, walking the patient with bus monitor on for 6 minutes to see if there are any changes in heart rate to assess for chronotropic incompetence. - close documentation of episodes of unresponsiveness, timing and duration, pre and post symptoms and tele findings. - nocturnal pulse ox was above 95% - 6 min walk was normal on tele and heart rate- did complain of dizziness during the walk and would sway and lean towards to wall - did not hear of any syncopal episodes overnight - EP 02/17: Plan for loop recorder tentatively tomorrow if schedule allows - NPO at midnight - restarted fludrocortisone 02/14 - neurology recs: - increased midodrine to 10 mg TID - added fludrocortisone-> discontinued on 02/11 as family were concerned that it was causing his fatigue and stomach issues-> restarted on 02/14 - stopped flomax as may be worsening dysautonomia - could refer to [facility] for outpatient dysautonomia eval with tilt-table testing - high salt diet - compression socks and abdominal binder - repeat CBC, BMP, Mg - PT/OT recommending wheelchair and shower chair for home - follow up EP outpatient - consider follow up dysautonomia clinic outpatient - may need second opinion referral to [facility] Associated Problem(s): Headache PLAN: - Tylenol 1g q6 hours Associated Problem(s): Suprapubic pain - previously diagnosed with prostatitis and treated with antibiotics - sensitive exam on 02/01 was negative for rashes, discharge, masses - c/f urinary retention contributing to syncope and had denise placed 02/01 but was removed 02/04 - PVRs have been elevated but will decrease after patient is prompted to urinate - discussed denise with parents Plan: - discontinued miralax and senna and kept colace on 02/12 due to family preferences as colace works for him - q8 PVR -> if still retaining, will place denise and discharge with it until urology follow up, waiting on patient's mother's decision - q4 I/O - Flomax discontinued - urology consulted and will evaluate further on an out-patient basis - renal ultrasound ordered Associated Problem(s): Urinary retention - previously diagnosed with prostatitis and treated with antibiotics - sensitive exam on 02/01 was negative for rashes, discharge, masses - c/f urinary retention contributing to syncope and had denise placed 02/01 but was removed 02/04 - PVRs have been elevated but will decrease after patient is prompted to urinate - discussed denise with parents Plan: - discontinued miralax and senna and kept colace on 02/12 due to family preferences as colace works for him - q8 PVR -> if still retaining, will place denise and discharge with it until urology follow up, waiting on patient's mother's decision - q4 I/O - Flomax discontinued - urology consulted and will evaluate further on an out-patient basis - renal ultrasound ordered Associated Problem(s): Down syndrome (HCC) - 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 occurring over the past year - previously being treated with risperidone 3.5 mg BID which has provided symptomatic relief - recently diagnosed with dementia by neurologist with blood work (elevated [id number]) - psych recs- change risperdal dose to 3 mg BID (Prolactin was elevated (48.9), likely related to risperidone; serial prolactin levels discontinued as not diagnostically useful) Plan: - continue risperdal 3mg BID - outpatient psych follow up in 2 weeks Associated Problem(s): Memory impairment - 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 occurring over the past year - previously being treated with risperidone 3.5 mg BID which has provided symptomatic relief - recently diagnosed with dementia by neurologist with blood work (elevated [id number]) - psych recs- change risperdal dose to 3 mg BID (Prolactin was elevated (48.9), likely related to risperidone; serial prolactin levels discontinued as not diagnostically useful) Plan: - continue risperdal 3mg BID - outpatient psych follow up in 2 weeks Associated Problem(s): Hallucinations - 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 occurring over the past year - previously being treated with risperidone 3.5 mg BID which has provided symptomatic relief - recently diagnosed with dementia by neurologist with blood work (elevated [id number]) - psych recs- change risperdal dose to 3 mg BID (Prolactin was elevated (48.9), likely related to risperidone; serial prolactin levels discontinued as not diagnostically useful) Plan: - continue risperdal 3mg BID - outpatient psych follow up in 2 weeks Associated Problem(s): Pain of both eyes - continue GenTeal moderate tears ophthalmic solution Associated Problem(s): Syncope, unspecified syncope type - am cortisol on 02/03 low but cosyntropin stim test negative - cardiology consulted, syncope is most likely vasovagal, triggered by pain during urination, though given persistent orthostatic changes, orthostatic component cannot be excluded. 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 This could potentially serve as an epileptogenic focus. - stopped trending prolactin as it has limited utility as a diagnostic test for epileptic seizures - orthostats could not be completed due to patien/t c/o dizziness and the elevated prolactin could be due to the risperidone - patient had an episode according to parents on 02/08 at around 5:30pm, he became limp, right eye was mediated and he was mildly responsive-> was back at baseline when seen a few mins later, VSS and no changes on tele - patient had an episode of low rate rate in 20s while he was awake on 02/12. He was complaining of a headache at that time. Reached out to EP for recommendations Plan: - continue cardiac telemetry - Patient noted to have pauses up to 2.34 seconds - EP consulted-> unlikely that syncope related to his pauses, the short pauses are likely benign and no further intervention/VALDOVINOS recommended - Reached out to EP on 02/12 for recommendations after pt has episode on low heart rate in 20s while awake.-> recommended restarting fludrocortisone and keeping pt on telemetry - EP attending saw patient and family 02/16: - symptoms likely 2/2 BELEN, recommended ordering a nocturnal pulse ox, walking the patient with bus monitor on for 6 minutes to see if there are any changes in heart rate to assess for chronotropic incompetence. - close documentation of episodes of unresponsiveness, timing and duration, pre and post symptoms and tele findings. - nocturnal pulse ox was above 95% - 6 min walk was normal on tele and heart rate- did complain of dizziness during the walk and would sway and lean towards to wall - did not hear of any syncopal episodes overnight - EP 02/17: Plan for loop recorder tentatively tomorrow if schedule allows - NPO at midnight - restarted fludrocortisone 02/14 - neurology recs: - increased midodrine to 10 mg TID - added fludrocortisone-> discontinued on 02/11 as family were concerned that it was causing his fatigue and stomach issues-> restarted on 02/14 - stopped flomax as may be worsening dysautonomia - could refer to [facility] for outpatient dysautonomia eval with tilt-table testing - high salt diet - compression socks and abdominal binder - repeat CBC, BMP, Mg - PT/OT recommending wheelchair and shower chair for home - follow up EP outpatient - consider follow up dysautonomia clinic outpatient - may need second opinion referral to [facility] Associated Problem(s): Dysautonomia (HCC) - am cortisol on 02/03 low but cosyntropin stim test negative - cardiology consulted, syncope is most likely vasovagal, triggered by pain during urination, though given persistent orthostatic changes, orthostatic component cannot be excluded. 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 This could potentially serve as an epileptogenic focus. - stopped trending prolactin as it has limited utility as a diagnostic test for epileptic seizures - orthostats could not be completed due to patien/t c/o dizziness and the elevated prolactin could be due to the risperidone - patient had an episode according to parents on 02/08 at around 5:30pm, he became limp, right eye was mediated and he was mildly responsive-> was back at baseline when seen a few mins later, VSS and no changes on tele - patient had an episode of low rate rate in 20s while he was awake on 02/12. He was complaining of a headache at that time. Reached out to EP for recommendations Plan: - continue cardiac telemetry - Patient noted to have pauses up to 2.34 seconds - EP consulted-> unlikely that syncope related to his pauses, the short pauses are likely benign and no further intervention/VALDOVINOS recommended - Reached out to EP on 02/12 for recommendations after pt has episode on low heart rate in 20s while awake.-> recommended restarting fludrocortisone and keeping pt on telemetry - EP attending saw patient and family 02/16: - symptoms likely 2/2 BELEN, recommended ordering a nocturnal pulse ox, walking the patient with bus monitor on for 6 minutes to see if there are any changes in heart rate to assess for chronotropic incompetence. - close documentation of episodes of unresponsiveness, timing and duration, pre and post symptoms and tele findings. - nocturnal pulse ox was above 95% - 6 min walk was normal on tele and heart rate- did complain of dizziness during the walk and would sway and lean towards to wall - did not hear of any syncopal episodes overnight - EP 02/17: Plan for loop recorder tentatively tomorrow if schedule allows - NPO at midnight - restarted fludrocortisone 02/14 - neurology recs: - increased midodrine to 10 mg TID - added fludrocortisone-> discontinued on 02/11 as family were concerned that it was causing his fatigue and stomach issues-> restarted on 02/14 - stopped flomax as may be worsening dysautonomia - could refer to [facility] for outpatient dysautonomia eval with tilt-table testing - high salt diet - compression socks and abdominal binder - repeat CBC, BMP, Mg - PT/OT recommending wheelchair and shower chair for home - follow up EP outpatient - consider follow up dysautonomia clinic outpatient - may need second opinion referral to [facility] Associated Problem(s): Orthostatic hypotension - am cortisol on 02/03 low but cosyntropin stim test negative - cardiology consulted, syncope is most likely vasovagal, triggered by pain during urination, though given persistent orthostatic changes, orthostatic component cannot be excluded. 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 This could potentially serve as an epileptogenic focus. - stopped trending prolactin as it has limited utility as a diagnostic test for epileptic seizures - orthostats could not be completed due to patien/t c/o dizziness and the elevated prolactin could be due to the risperidone - patient had an episode according to parents on 02/08 at around 5:30pm, he became limp, right eye was mediated and he was mildly responsive-> was back at baseline when seen a few mins later, VSS and no changes on tele - patient had an episode of low rate rate in 20s while he was awake on 02/12. He was complaining of a headache at that time. Reached out to EP for recommendations Plan: - continue cardiac telemetry - Patient noted to have pauses up to 2.34 seconds - EP consulted-> unlikely that syncope related to his pauses, the short pauses are likely benign and no further intervention/VALDOVINOS recommended - Reached out to EP on 02/12 for recommendations after pt has episode on low heart rate in 20s while awake.-> recommended restarting fludrocortisone and keeping pt on telemetry - EP attending saw patient and family 02/16: - symptoms likely 2/2 BELEN, recommended ordering a nocturnal pulse ox, walking the patient with bus monitor on for 6 minutes to see if there are any changes in heart rate to assess for chronotropic incompetence. - close documentation of episodes of unresponsiveness, timing and duration, pre and post symptoms and tele findings. - nocturnal pulse ox was above 95% - 6 min walk was normal on tele and heart rate- did complain of dizziness during the walk and would sway and lean towards to wall - did not hear of any syncopal episodes overnight - EP 02/17: Plan for loop recorder tentatively tomorrow if schedule allows - NPO at midnight - restarted fludrocortisone 02/14 - neurology recs: - increased midodrine to 10 mg TID - added fludrocortisone-> discontinued on 02/11 as family were concerned that it was causing his fatigue and stomach issues-> restarted on 02/14 - stopped flomax as may be worsening dysautonomia - could refer to [facility] for outpatient dysautonomia eval with tilt-table testing - high salt diet - compression socks and abdominal binder - repeat CBC, BMP, Mg - PT/OT recommending wheelchair and shower chair for home - follow up EP outpatient - consider follow up dysautonomia clinic outpatient - may need second opinion referral to [facility] Associated Problem(s): Vasovagal syncope - am cortisol on 02/03 low but cosyntropin stim test negative - cardiology consulted, syncope is most likely vasovagal, triggered by pain during urination, though given persistent orthostatic changes, orthostatic component cannot be excluded. 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 This could potentially serve as an epileptogenic focus. - stopped trending prolactin as it has limited utility as a diagnostic test for epileptic seizures - orthostats could not be completed due to patien/t c/o dizziness and the elevated prolactin could be due to the risperidone - patient had an episode according to parents on 02/08 at around 5:30pm, he became limp, right eye was mediated and he was mildly responsive-> was back at baseline when seen a few mins later, VSS and no changes on tele - patient had an episode of low rate rate in 20s while he was awake on 02/12. He was complaining of a headache at that time. Reached out to EP for recommendations Plan: - continue cardiac telemetry - Patient noted to have pauses up to 2.34 seconds - EP consulted-> unlikely that syncope related to his pauses, the short pauses are likely benign and no further intervention/VALDOVINOS recommended - Reached out to EP on 02/12 for recommendations after pt has episode on low heart rate in 20s while awake.-> recommended restarting fludrocortisone and keeping pt on telemetry - EP attending saw patient and family 02/16: - symptoms likely 2/2 BELEN, recommended ordering a nocturnal pulse ox, walking the patient with bus monitor on for 6 minutes to see if there are any changes in heart rate to assess for chronotropic incompetence. - close documentation of episodes of unresponsiveness, timing and duration, pre and post symptoms and tele findings. - nocturnal pulse ox was above 95% - 6 min walk was normal on tele and heart rate- did complain of dizziness during the walk and would sway and lean towards to wall - did not hear of any syncopal episodes overnight - EP 02/17: Plan for loop recorder tentatively tomorrow if schedule allows - NPO at midnight - restarted fludrocortisone 02/14 - neurology recs: - increased midodrine to 10 mg TID - added fludrocortisone-> discontinued on 02/11 as family were concerned that it was causing his fatigue and stomach issues-> restarted on 02/14 - stopped flomax as may be worsening dysautonomia - could refer to [facility] for outpatient dysautonomia eval with tilt-table testing - high salt diet - compression socks and abdominal binder - repeat CBC, BMP, Mg - PT/OT recommending wheelchair and shower chair for home - follow up EP outpatient - consider follow up dysautonomia clinic outpatient - may need second opinion referral to [facility] Associated Problem(s): Bradycardia - am cortisol on 02/03 low but cosyntropin stim test negative - cardiology consulted, syncope is most likely vasovagal, triggered by pain during urination, though given persistent orthostatic changes, orthostatic component cannot be excluded. 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 This could potentially serve as an epileptogenic focus. - stopped trending prolactin as it has limited utility as a diagnostic test for epileptic seizures - orthostats could not be completed due to patien/t c/o dizziness and the elevated prolactin could be due to the risperidone - patient had an episode according to parents on 02/08 at around 5:30pm, he became limp, right eye was mediated and he was mildly responsive-> was back at baseline when seen a few mins later, VSS and no changes on tele - patient had an episode of low rate rate in 20s while he was awake on 02/12. He was complaining of a headache at that time. Reached out to EP for recommendations Plan: - continue cardiac telemetry - Patient noted to have pauses up to 2.34 seconds - EP consulted-> unlikely that syncope related to his pauses, the short pauses are likely benign and no further intervention/VALDOVINOS recommended - Reached out to EP on 02/12 for recommendations after pt has episode on low heart rate in 20s while awake.-> recommended restarting fludrocortisone and keeping pt on telemetry - EP attending saw patient and family 02/16: - symptoms likely 2/2 BELEN, recommended ordering a nocturnal pulse ox, walking the patient with bus monitor on for 6 minutes to see if there are any changes in heart rate to assess for chronotropic incompetence. - close documentation of episodes of unresponsiveness, timing and duration, pre and post symptoms and tele findings. - nocturnal pulse ox was above 95% - 6 min walk was normal on tele and heart rate- did complain of dizziness during the walk and would sway and lean towards to wall - did not hear of any syncopal episodes overnight - EP 02/17: Plan for loop recorder tentatively tomorrow if schedule allows - NPO at midnight - restarted fludrocortisone 02/14 - neurology recs: - increased midodrine to 10 mg TID - added fludrocortisone-> discontinued on 02/11 as family were concerned that it was causing his fatigue and stomach issues-> restarted on 02/14 - stopped flomax as may be worsening dysautonomia - could refer to [facility] for outpatient dysautonomia eval with tilt-table testing - high salt diet - compression socks and abdominal binder - repeat CBC, BMP, Mg - PT/OT recommending wheelchair and shower chair for home - follow up EP outpatient - consider follow up dysautonomia clinic outpatient - may need second opinion referral to [facility] Associated Problem(s): Headache PLAN: - Tylenol 1g q6 hours Associated Problem(s): Suprapubic pain - previously diagnosed with prostatitis and treated with antibiotics - sensitive exam on 02/01 was negative for rashes, discharge, masses - c/f urinary retention contributing to syncope and had denise placed 02/01 but was removed 02/04 - PVRs have been elevated but will decrease after patient is prompted to urinate - discussed denise with parents Plan: - discontinued miralax and senna and kept colace on 02/12 due to family preferences as colace works for him - q8 PVR -> if still retaining, will place denise and discharge with it until urology follow up, waiting on patient's mother's decision - q4 I/O - Flomax discontinued - urology consulted and will evaluate further on an out-patient basis - renal ultrasound ordered Associated Problem(s): Urinary retention - previously diagnosed with prostatitis and treated with antibiotics - sensitive exam on 02/01 was negative for rashes, discharge, masses - c/f urinary retention contributing to syncope and had denise placed 02/01 but was removed 02/04 - PVRs have been elevated but will decrease after patient is prompted to urinate - discussed denise with parents Plan: - discontinued miralax and senna and kept colace on 02/12 due to family preferences as colace works for him - q8 PVR -> if still retaining, will place denise and discharge with it until urology follow up, waiting on patient's mother's decision - q4 I/O - Flomax discontinued - urology consulted and will evaluate further on an out-patient basis - renal ultrasound ordered Associated Problem(s): Down syndrome (HCC) - 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 occurring over the past year - previously being treated with risperidone 3.5 mg BID which has provided symptomatic relief - recently diagnosed with dementia by neurologist with blood work (elevated [id number]) - psych recs- change risperdal dose to 3 mg BID (Prolactin was elevated (48.9), likely related to risperidone; serial prolactin levels discontinued as not diagnostically useful) Plan: - continue risperdal 3mg BID - outpatient psych follow up in 2 weeks Associated Problem(s): Memory impairment - 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 occurring over the past year - previously being treated with risperidone 3.5 mg BID which has provided symptomatic relief - recently diagnosed with dementia by neurologist with blood work (elevated [id number]) - psych recs- change risperdal dose to 3 mg BID (Prolactin was elevated (48.9), likely related to risperidone; serial prolactin levels discontinued as not diagnostically useful) Plan: - continue risperdal 3mg BID - outpatient psych follow up in 2 weeks Associated Problem(s): Hallucinations - 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 occurring over the past year - previously being treated with risperidone 3.5 mg BID which has provided symptomatic relief - recently diagnosed with dementia by neurologist with blood work (elevated [id number]) - psych recs- change risperdal dose to 3 mg BID (Prolactin was elevated (48.9), likely related to risperidone; serial prolactin levels discontinued as not diagnostically useful) Plan: - continue risperdal 3mg BID - outpatient psych follow up in 2 weeks Associated Problem(s): Pain of both eyes - continue GenTeal moderate tears ophthalmic solution Associated Problem(s): Syncope, unspecified syncope type - am cortisol on 02/03 low but cosyntropin stim test negative - cardiology consulted, syncope is most likely vasovagal, triggered by pain during urination, though given persistent orthostatic changes, orthostatic component cannot be excluded. 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 This could potentially serve as an epileptogenic focus. - stopped trending prolactin as it has limited utility as a diagnostic test for epileptic seizures - orthostats could not be completed due to patien/t c/o dizziness and the elevated prolactin could be due to the risperidone - patient had an episode according to parents on 02/08 at around 5:30pm, he became limp, right eye was mediated and he was mildly responsive-> was back at baseline when seen a few mins later, VSS and no changes on tele - patient had an episode of low rate rate in 20s while he was awake on 02/12. He was complaining of a headache at that time. Reached out to EP for recommendations Plan: - continue cardiac telemetry - Patient noted to have pauses up to 2.34 seconds - EP consulted-> unlikely that syncope related to his pauses, the short pauses are likely benign and no further intervention/VALDOVINOS recommended - Reached out to EP on 02/12 for recommendations after pt has episode on low heart rate in 20s while awake.-> recommended restarting fludrocortisone and keeping pt on telemetry - EP attending saw patient and family 02/16: - symptoms likely 2/2 BELEN, recommended ordering a nocturnal pulse ox, walking the patient with bus monitor on for 6 minutes to see if there are any changes in heart rate to assess for chronotropic incompetence. - close documentation of episodes of unresponsiveness, timing and duration, pre and post symptoms and tele findings. - nocturnal pulse ox was above 95% - 6 min walk was normal on tele and heart rate- did complain of dizziness during the walk and would sway and lean towards to wall - did not hear of any syncopal episodes overnight - EP 02/17: Plan for loop recorder tentatively tomorrow if schedule allows - NPO at midnight - restarted fludrocortisone 02/14 - neurology recs: - increased midodrine to 10 mg TID - added fludrocortisone-> discontinued on 02/11 as family were concerned that it was causing his fatigue and stomach issues-> restarted on 02/14 - stopped flomax as may be worsening dysautonomia - could refer to [facility] for outpatient dysautonomia eval with tilt-table testing - high salt diet - compression socks and abdominal binder - repeat CBC, BMP, Mg - PT/OT recommending wheelchair and shower chair for home - follow up EP outpatient - consider follow up dysautonomia clinic outpatient - may need second opinion referral to [facility] Associated Problem(s): Dysautonomia (HCC) - am cortisol on 02/03 low but cosyntropin stim test negative - cardiology consulted, syncope is most likely vasovagal, triggered by pain during urination, though given persistent orthostatic changes, orthostatic component cannot be excluded. 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 This could potentially serve as an epileptogenic focus. - stopped trending prolactin as it has limited utility as a diagnostic test for epileptic seizures - orthostats could not be completed due to patien/t c/o dizziness and the elevated prolactin could be due to the risperidone - patient had an episode according to parents on 02/08 at around 5:30pm, he became limp, right eye was mediated and he was mildly responsive-> was back at baseline when seen a few mins later, VSS and no changes on tele - patient had an episode of low rate rate in 20s while he was awake on 02/12. He was complaining of a headache at that time. Reached out to EP for recommendations Plan: - continue cardiac telemetry - Patient noted to have pauses up to 2.34 seconds - EP consulted-> unlikely that syncope related to his pauses, the short pauses are likely benign and no further intervention/VALDOVINOS recommended - Reached out to EP on 02/12 for recommendations after pt has episode on low heart rate in 20s while awake.-> recommended restarting fludrocortisone and keeping pt on telemetry - EP attending saw patient and family 02/16: - symptoms likely 2/2 BELEN, recommended ordering a nocturnal pulse ox, walking the patient with bus monitor on for 6 minutes to see if there are any changes in heart rate to assess for chronotropic incompetence. - close documentation of episodes of unresponsiveness, timing and duration, pre and post symptoms and tele findings. - nocturnal pulse ox was above 95% - 6 min walk was normal on tele and heart rate- did complain of dizziness during the walk and would sway and lean towards to wall - did not hear of any syncopal episodes overnight - EP 02/17: Plan for loop recorder tentatively tomorrow if schedule allows - NPO at midnight - restarted fludrocortisone 02/14 - neurology recs: - increased midodrine to 10 mg TID - added fludrocortisone-> discontinued on 02/11 as family were concerned that it was causing his fatigue and stomach issues-> restarted on 02/14 - stopped flomax as may be worsening dysautonomia - could refer to [facility] for outpatient dysautonomia eval with tilt-table testing - high salt diet - compression socks and abdominal binder - repeat CBC, BMP, Mg - PT/OT recommending wheelchair and shower chair for home - follow up EP outpatient - consider follow up dysautonomia clinic outpatient - may need second opinion referral to [facility] Associated Problem(s): Orthostatic hypotension - am cortisol on 02/03 low but cosyntropin stim test negative - cardiology consulted, syncope is most likely vasovagal, triggered by pain during urination, though given persistent orthostatic changes, orthostatic component cannot be excluded. 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 This could potentially serve as an epileptogenic focus. - stopped trending prolactin as it has limited utility as a diagnostic test for epileptic seizures - orthostats could not be completed due to patien/t c/o dizziness and the elevated prolactin could be due to the risperidone - patient had an episode according to parents on 02/08 at around 5:30pm, he became limp, right eye was mediated and he was mildly responsive-> was back at baseline when seen a few mins later, VSS and no changes on tele - patient had an episode of low rate rate in 20s while he was awake on 02/12. He was complaining of a headache at that time. Reached out to EP for recommendations Plan: - continue cardiac telemetry - Patient noted to have pauses up to 2.34 seconds - EP consulted-> unlikely that syncope related to his pauses, the short pauses are likely benign and no further intervention/VALDOVINOS recommended - Reached out to EP on 02/12 for recommendations after pt has episode on low heart rate in 20s while awake.-> recommended restarting fludrocortisone and keeping pt on telemetry - EP attending saw patient and family 02/16: - symptoms likely 2/2 BELEN, recommended ordering a nocturnal pulse ox, walking the patient with bus monitor on for 6 minutes to see if there are any changes in heart rate to assess for chronotropic incompetence. - close documentation of episodes of unresponsiveness, timing and duration, pre and post symptoms and tele findings. - nocturnal pulse ox was above 95% - 6 min walk was normal on tele and heart rate- did complain of dizziness during the walk and would sway and lean towards to wall - did not hear of any syncopal episodes overnight - EP 02/17: Plan for loop recorder tentatively tomorrow if schedule allows - NPO at midnight - restarted fludrocortisone 02/14 - neurology recs: - increased midodrine to 10 mg TID - added fludrocortisone-> discontinued on 02/11 as family were concerned that it was causing his fatigue and stomach issues-> restarted on 02/14 - stopped flomax as may be worsening dysautonomia - could refer to [facility] for outpatient dysautonomia eval with tilt-table testing - high salt diet - compression socks and abdominal binder - repeat CBC, BMP, Mg - PT/OT recommending wheelchair and shower chair for home - follow up EP outpatient - consider follow up dysautonomia clinic outpatient - may need second opinion referral to [facility] Associated Problem(s): Syncope, unspecified syncope type - am cortisol on 02/03 low but cosyntropin stim test negative - cardiology consulted, syncope is most likely vasovagal, triggered by pain during urination, though given persistent orthostatic changes, orthostatic component cannot be excluded. 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 This could potentially serve as an epileptogenic focus. - stopped trending prolactin as it has limited utility as a diagnostic test for epileptic seizures - orthostats could not be completed due to patien/t c/o dizziness and the elevated prolactin could be due to the risperidone - patient had an episode according to parents on 02/08 at around 5:30pm, he became limp, right eye was mediated and he was mildly responsive-> was back at baseline when seen a few mins later, VSS and no changes on tele - patient had an episode of low rate rate in 20s while he was awake on 02/12. He was complaining of a headache at that time. Reached out to EP for recommendations Plan: - continue cardiac telemetry - Patient noted to have pauses up to 2.34 seconds - EP consulted-> unlikely that syncope related to his pauses, the short pauses are likely benign and no further intervention/VALDOVINOS recommended - Reached out to EP on 02/12 for recommendations after pt has episode on low heart rate in 20s while awake.-> recommended restarting fludrocortisone and keeping pt on telemetry - EP attending saw patient and family 02/16: - symptoms likely 2/2 BELEN, recommended ordering a nocturnal pulse ox, walking the patient with bus monitor on for 6 minutes to see if there are any changes in heart rate to assess for chronotropic incompetence. - close documentation of episodes of unresponsiveness, timing and duration, pre and post symptoms and tele findings. - nocturnal pulse ox was above 95% - 6 min walk was normal on tele and heart rate- did complain of dizziness during the walk and would sway and lean towards to wall - did not hear of any syncopal episodes overnight - EP 02/17: Plan for loop recorder tentatively tomorrow if schedule allows - NPO at midnight - restarted fludrocortisone 02/14 - neurology recs: - increased midodrine to 10 mg TID - added fludrocortisone-> discontinued on 02/11 as family were concerned that it was causing his fatigue and stomach issues-> restarted on 02/14 - stopped flomax as may be worsening dysautonomia - could refer to [facility] for outpatient dysautonomia eval with tilt-table testing - high salt diet - compression socks and abdominal binder - repeat CBC, BMP, Mg - PT/OT recommending wheelchair and shower chair for home - follow up EP outpatient - consider follow up dysautonomia clinic outpatient - may need second opinion referral to [facility] Associated Problem(s): Dysautonomia (HCC) - am cortisol on 02/03 low but cosyntropin stim test negative - cardiology consulted, syncope is most likely vasovagal, triggered by pain during urination, though given persistent orthostatic changes, orthostatic component cannot be excluded. 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 This could potentially serve as an epileptogenic focus. - stopped trending prolactin as it has limited utility as a diagnostic test for epileptic seizures - orthostats could not be completed due to patien/t c/o dizziness and the elevated prolactin could be due to the risperidone - patient had an episode according to parents on 02/08 at around 5:30pm, he became limp, right eye was mediated and he was mildly responsive-> was back at baseline when seen a few mins later, VSS and no changes on tele - patient had an episode of low rate rate in 20s while he was awake on 02/12. He was complaining of a headache at that time. Reached out to EP for recommendations Plan: - continue cardiac telemetry - Patient noted to have pauses up to 2.34 seconds - EP consulted-> unlikely that syncope related to his pauses, the short pauses are likely benign and no further intervention/VALDOVINOS recommended - Reached out to EP on 02/12 for recommendations after pt has episode on low heart rate in 20s while awake.-> recommended restarting fludrocortisone and keeping pt on telemetry - EP attending saw patient and family 02/16: - symptoms likely 2/2 BELEN, recommended ordering a nocturnal pulse ox, walking the patient with bus monitor on for 6 minutes to see if there are any changes in heart rate to assess for chronotropic incompetence. - close documentation of episodes of unresponsiveness, timing and duration, pre and post symptoms and tele findings. - nocturnal pulse ox was above 95% - 6 min walk was normal on tele and heart rate- did complain of dizziness during the walk and would sway and lean towards to wall - did not hear of any syncopal episodes overnight - EP 02/17: Plan for loop recorder tentatively tomorrow if schedule allows - NPO at midnight - restarted fludrocortisone 02/14 - neurology recs: - increased midodrine to 10 mg TID - added fludrocortisone-> discontinued on 02/11 as family were concerned that it was causing his fatigue and stomach issues-> restarted on 02/14 - stopped flomax as may be worsening dysautonomia - could refer to [facility] for outpatient dysautonomia eval with tilt-table testing - high salt diet - compression socks and abdominal binder - repeat CBC, BMP, Mg - PT/OT recommending wheelchair and shower chair for home - follow up EP outpatient - consider follow up dysautonomia clinic outpatient - may need second opinion referral to [facility] Associated Problem(s): Orthostatic hypotension - am cortisol on 02/03 low but cosyntropin stim test negative - cardiology consulted, syncope is most likely vasovagal, triggered by pain during urination, though given persistent orthostatic changes, orthostatic component cannot be excluded. 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 This could potentially serve as an epileptogenic focus. - stopped trending prolactin as it has limited utility as a diagnostic test for epileptic seizures - orthostats could not be completed due to patien/t c/o dizziness and the elevated prolactin could be due to the risperidone - patient had an episode according to parents on 02/08 at around 5:30pm, he became limp, right eye was mediated and he was mildly responsive-> was back at baseline when seen a few mins later, VSS and no changes on tele - patient had an episode of low rate rate in 20s while he was awake on 02/12. He was complaining of a headache at that time. Reached out to EP for recommendations Plan: - continue cardiac telemetry - Patient noted to have pauses up to 2.34 seconds - EP consulted-> unlikely that syncope related to his pauses, the short pauses are likely benign and no further intervention/VALDOVINOS recommended - Reached out to EP on 02/12 for recommendations after pt has episode on low heart rate in 20s while awake.-> recommended restarting fludrocortisone and keeping pt on telemetry - EP attending saw patient and family 02/16: - symptoms likely 2/2 BELEN, recommended ordering a nocturnal pulse ox, walking the patient with bus monitor on for 6 minutes to see if there are any changes in heart rate to assess for chronotropic incompetence. - close documentation of episodes of unresponsiveness, timing and duration, pre and post symptoms and tele findings. - nocturnal pulse ox was above 95% - 6 min walk was normal on tele and heart rate- did complain of dizziness during the walk and would sway and lean towards to wall - did not hear of any syncopal episodes overnight - EP 02/17: Plan for loop recorder tentatively tomorrow if schedule allows - NPO at midnight - restarted fludrocortisone 02/14 - neurology recs: - increased midodrine to 10 mg TID - added fludrocortisone-> discontinued on 02/11 as family were concerned that it was causing his fatigue and stomach issues-> restarted on 02/14 - stopped flomax as may be worsening dysautonomia - could refer to [facility] for outpatient dysautonomia eval with tilt-table testing - high salt diet - compression socks and abdominal binder - repeat CBC, BMP, Mg - PT/OT recommending wheelchair and shower chair for home - follow up EP outpatient - consider follow up dysautonomia clinic outpatient - may need second opinion referral to [facility] Associated Problem(s): Vasovagal syncope - am cortisol on 02/03 low but cosyntropin stim test negative - cardiology consulted, syncope is most likely vasovagal, triggered by pain during urination, though given persistent orthostatic changes, orthostatic component cannot be excluded. 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 This could potentially serve as an epileptogenic focus. - stopped trending prolactin as it has limited utility as a diagnostic test for epileptic seizures - orthostats could not be completed due to patien/t c/o dizziness and the elevated prolactin could be due to the risperidone - patient had an episode according to parents on 02/08 at around 5:30pm, he became limp, right eye was mediated and he was mildly responsive-> was back at baseline when seen a few mins later, VSS and no changes on tele - patient had an episode of low rate rate in 20s while he was awake on 02/12. He was complaining of a headache at that time. Reached out to EP for recommendations Plan: - continue cardiac telemetry - Patient noted to have pauses up to 2.34 seconds - EP consulted-> unlikely that syncope related to his pauses, the short pauses are likely benign and no further intervention/VALDOVINOS recommended - Reached out to EP on 02/12 for recommendations after pt has episode on low heart rate in 20s while awake.-> recommended restarting fludrocortisone and keeping pt on telemetry - EP attending saw patient and family 02/16: - symptoms likely 2/2 BELEN, recommended ordering a nocturnal pulse ox, walking the patient with bus monitor on for 6 minutes to see if there are any changes in heart rate to assess for chronotropic incompetence. - close documentation of episodes of unresponsiveness, timing and duration, pre and post symptoms and tele findings. - nocturnal pulse ox was above 95% - 6 min walk was normal on tele and heart rate- did complain of dizziness during the walk and would sway and lean towards to wall - did not hear of any syncopal episodes overnight - EP 02/17: Plan for loop recorder tentatively tomorrow if schedule allows - NPO at midnight - restarted fludrocortisone 02/14 - neurology recs: - increased midodrine to 10 mg TID - added fludrocortisone-> discontinued on 02/11 as family were concerned that it was causing his fatigue and stomach issues-> restarted on 02/14 - stopped flomax as may be worsening dysautonomia - could refer to [facility] for outpatient dysautonomia eval with tilt-table testing - high salt diet - compression socks and abdominal binder - repeat CBC, BMP, Mg - PT/OT recommending wheelchair and shower chair for home - follow up EP outpatient - consider follow up dysautonomia clinic outpatient - may need second opinion referral to [facility] Associated Problem(s): Bradycardia - am cortisol on 02/03 low but cosyntropin stim test negative - cardiology consulted, syncope is most likely vasovagal, triggered by pain during urination, though given persistent orthostatic changes, orthostatic component cannot be excluded. 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 This could potentially serve as an epileptogenic focus. - stopped trending prolactin as it has limited utility as a diagnostic test for epileptic seizures - orthostats could not be completed due to patien/t c/o dizziness and the elevated prolactin could be due to the risperidone - patient had an episode according to parents on 02/08 at around 5:30pm, he became limp, right eye was mediated and he was mildly responsive-> was back at baseline when seen a few mins later, VSS and no changes on tele - patient had an episode of low rate rate in 20s while he was awake on 02/12. He was complaining of a headache at that time. Reached out to EP for recommendations Plan: - continue cardiac telemetry - Patient noted to have pauses up to 2.34 seconds - EP consulted-> unlikely that syncope related to his pauses, the short pauses are likely benign and no further intervention/VALDOVINOS recommended - Reached out to EP on 02/12 for recommendations after pt has episode on low heart rate in 20s while awake.-> recommended restarting fludrocortisone and keeping pt on telemetry - EP attending saw patient and family 02/16: - symptoms likely 2/2 BELEN, recommended ordering a nocturnal pulse ox, walking the patient with bus monitor on for 6 minutes to see if there are any changes in heart rate to assess for chronotropic incompetence. - close documentation of episodes of unresponsiveness, timing and duration, pre and post symptoms and tele findings. - nocturnal pulse ox was above 95% - 6 min walk was normal on tele and heart rate- did complain of dizziness during the walk and would sway and lean towards to wall - did not hear of any syncopal episodes overnight - EP 02/17: Plan for loop recorder tentatively tomorrow if schedule allows - NPO at midnight - restarted fludrocortisone 02/14 - neurology recs: - increased midodrine to 10 mg TID - added fludrocortisone-> discontinued on 02/11 as family were concerned that it was causing his fatigue and stomach issues-> restarted on 02/14 - stopped flomax as may be worsening dysautonomia - could refer to [facility] for outpatient dysautonomia eval with tilt-table testing - high salt diet - compression socks and abdominal binder - repeat CBC, BMP, Mg - PT/OT recommending wheelchair and shower chair for home - follow up EP outpatient - consider follow up dysautonomia clinic outpatient - may need second opinion referral to [facility] Associated Problem(s): Headache PLAN: - Tylenol 1g q6 hours Associated Problem(s): Suprapubic pain - previously diagnosed with prostatitis and treated with antibiotics - sensitive exam on 02/01 was negative for rashes, discharge, masses - c/f urinary retention contributing to syncope and had denise placed 02/01 but was removed 02/04 - PVRs have been elevated but will decrease after patient is prompted to urinate - discussed denise with parents Plan: - discontinued miralax and senna and kept colace on 02/12 due to family preferences as colace works for him - q8 PVR -> if still retaining, will place denise and discharge with it until urology follow up, waiting on patient's mother's decision - q4 I/O - Flomax discontinued - urology consulted and will evaluate further on an out-patient basis - renal ultrasound ordered Associated Problem(s): Urinary retention - previously diagnosed with prostatitis and treated with antibiotics - sensitive exam on 02/01 was negative for rashes, discharge, masses - c/f urinary retention contributing to syncope and had denise placed 02/01 but was removed 02/04 - PVRs have been elevated but will decrease after patient is prompted to urinate - discussed denise with parents Plan: - discontinued miralax and senna and kept colace on 02/12 due to family preferences as colace works for him - q8 PVR -> if still retaining, will place denise and discharge with it until urology follow up, waiting on patient's mother's decision - q4 I/O - Flomax discontinued - urology consulted and will evaluate further on an out-patient basis - renal ultrasound ordered Associated Problem(s): Down syndrome (HCC) - 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 occurring over the past year - previously being treated with risperidone 3.5 mg BID which has provided symptomatic relief - recently diagnosed with dementia by neurologist with blood work (elevated [id number]) - psych recs- change risperdal dose to 3 mg BID (Prolactin was elevated (48.9), likely related to risperidone; serial prolactin levels discontinued as not diagnostically useful) Plan: - continue risperdal 3mg BID - outpatient psych follow up in 2 weeks Associated Problem(s): Memory impairment - 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 occurring over the past year - previously being treated with risperidone 3.5 mg BID which has provided symptomatic relief - recently diagnosed with dementia by neurologist with blood work (elevated [id number]) - psych recs- change risperdal dose to 3 mg BID (Prolactin was elevated (48.9), likely related to risperidone; serial prolactin levels discontinued as not diagnostically useful) Plan: - continue risperdal 3mg BID - outpatient psych follow up in 2 weeks Associated Problem(s): Hallucinations - 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 occurring over the past year - previously being treated with risperidone 3.5 mg BID which has provided symptomatic relief - recently diagnosed with dementia by neurologist with blood work (elevated [id number]) - psych recs- change risperdal dose to 3 mg BID (Prolactin was elevated (48.9), likely related to risperidone; serial prolactin levels discontinued as not diagnostically useful) Plan: - continue risperdal 3mg BID - outpatient psych follow up in 2 weeks Associated Problem(s): Pain of both eyes - continue GenTeal moderate tears ophthalmic solution Associated Problem(s): Dysautonomia (HCC) - am cortisol on 02/03 low but cosyntropin stim test negative - cardiology consulted, syncope is most likely vasovagal, triggered by pain during urination, though given persistent orthostatic changes, orthostatic component cannot be excluded. 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 This could potentially serve as an epileptogenic focus. - stopped trending prolactin as it has limited utility as a diagnostic test for epileptic seizures - orthostats could not be completed due to patien/t c/o dizziness and the elevated prolactin could be due to the risperidone - patient had an episode according to parents on 02/08 at around 5:30pm, he became limp, right eye was mediated and he was mildly responsive-> was back at baseline when seen a few mins later, VSS and no changes on tele - patient had an episode of low rate rate in 20s while he was awake on 02/12. He was complaining of a headache at that time. Reached out to EP for recommendations Plan: - continue cardiac telemetry - Patient noted to have pauses up to 2.34 seconds - EP consulted-> unlikely that syncope related to his pauses, the short pauses are likely benign and no further intervention/VALDOVINOS recommended - Reached out to EP on 02/12 for recommendations after pt has episode on low heart rate in 20s while awake.-> recommended restarting fludrocortisone and keeping pt on telemetry - EP attending saw patient and family 02/16: - symptoms likely 2/2 BELEN, recommended ordering a nocturnal pulse ox, walking the patient with bus monitor on for 6 minutes to see if there are any changes in heart rate to assess for chronotropic incompetence. - close documentation of episodes of unresponsiveness, timing and duration, pre and post symptoms and tele findings. - restarted fludrocortisone 02/14 - neurology recs: - increased midodrine to 10 mg TID - added fludrocortisone-> discontinued on 02/11 as family were concerned that it was causing his fatigue and stomach issues-> restarted on 02/14 - stopped flomax as may be worsening dysautonomia - could refer to [facility] for outpatient dysautonomia eval with tilt-table testing - high salt diet - compression socks and abdominal binder - repeat CBC, BMP, Mg - PT/OT recommending wheelchair and shower chair for home - follow up EP outpatient - consider follow up dysautonomia clinic outpatient - may need second opinion referral to [facility] Associated Problem(s): Orthostatic hypotension - am cortisol on 02/03 low but cosyntropin stim test negative - cardiology consulted, syncope is most likely vasovagal, triggered by pain during urination, though given persistent orthostatic changes, orthostatic component cannot be excluded. 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 This could potentially serve as an epileptogenic focus. - stopped trending prolactin as it has limited utility as a diagnostic test for epileptic seizures - orthostats could not be completed due to patien/t c/o dizziness and the elevated prolactin could be due to the risperidone - patient had an episode according to parents on 02/08 at around 5:30pm, he became limp, right eye was mediated and he was mildly responsive-> was back at baseline when seen a few mins later, VSS and no changes on tele - patient had an episode of low rate rate in 20s while he was awake on 02/12. He was complaining of a headache at that time. Reached out to EP for recommendations Plan: - continue cardiac telemetry - Patient noted to have pauses up to 2.34 seconds - EP consulted-> unlikely that syncope related to his pauses, the short pauses are likely benign and no further intervention/VALDOVINOS recommended - Reached out to EP on 02/12 for recommendations after pt has episode on low heart rate in 20s while awake.-> recommended restarting fludrocortisone and keeping pt on telemetry - EP attending saw patient and family 02/16: - symptoms likely 2/2 BELEN, recommended ordering a nocturnal pulse ox, walking the patient with bus monitor on for 6 minutes to see if there are any changes in heart rate to assess for chronotropic incompetence. - close documentation of episodes of unresponsiveness, timing and duration, pre and post symptoms and tele findings. - restarted fludrocortisone 02/14 - neurology recs: - increased midodrine to 10 mg TID - added fludrocortisone-> discontinued on 02/11 as family were concerned that it was causing his fatigue and stomach issues-> restarted on 02/14 - stopped flomax as may be worsening dysautonomia - could refer to [facility] for outpatient dysautonomia eval with tilt-table testing - high salt diet - compression socks and abdominal binder - repeat CBC, BMP, Mg - PT/OT recommending wheelchair and shower chair for home - follow up EP outpatient - consider follow up dysautonomia clinic outpatient - may need second opinion referral to [facility] Associated Problem(s): Vasovagal syncope - am cortisol on 02/03 low but cosyntropin stim test negative - cardiology consulted, syncope is most likely vasovagal, triggered by pain during urination, though given persistent orthostatic changes, orthostatic component cannot be excluded. 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 This could potentially serve as an epileptogenic focus. - stopped trending prolactin as it has limited utility as a diagnostic test for epileptic seizures - orthostats could not be completed due to patien/t c/o dizziness and the elevated prolactin could be due to the risperidone - patient had an episode according to parents on 02/08 at around 5:30pm, he became limp, right eye was mediated and he was mildly responsive-> was back at baseline when seen a few mins later, VSS and no changes on tele - patient had an episode of low rate rate in 20s while he was awake on 02/12. He was complaining of a headache at that time. Reached out to EP for recommendations Plan: - continue cardiac telemetry - Patient noted to have pauses up to 2.34 seconds - EP consulted-> unlikely that syncope related to his pauses, the short pauses are likely benign and no further intervention/VALDOVINOS recommended - Reached out to EP on 02/12 for recommendations after pt has episode on low heart rate in 20s while awake.-> recommended restarting fludrocortisone and keeping pt on telemetry - EP attending saw patient and family 02/16: - symptoms likely 2/2 BELEN, recommended ordering a nocturnal pulse ox, walking the patient with bus monitor on for 6 minutes to see if there are any changes in heart rate to assess for chronotropic incompetence. - close documentation of episodes of unresponsiveness, timing and duration, pre and post symptoms and tele findings. - restarted fludrocortisone 02/14 - neurology recs: - increased midodrine to 10 mg TID - added fludrocortisone-> discontinued on 02/11 as family were concerned that it was causing his fatigue and stomach issues-> restarted on 02/14 - stopped flomax as may be worsening dysautonomia - could refer to [facility] for outpatient dysautonomia eval with tilt-table testing - high salt diet - compression socks and abdominal binder - repeat CBC, BMP, Mg - PT/OT recommending wheelchair and shower chair for home - follow up EP outpatient - consider follow up dysautonomia clinic outpatient - may need second opinion referral to [facility] Associated Problem(s): Bradycardia - am cortisol on 02/03 low but cosyntropin stim test negative - cardiology consulted, syncope is most likely vasovagal, triggered by pain during urination, though given persistent orthostatic changes, orthostatic component cannot be excluded. 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 This could potentially serve as an epileptogenic focus. - stopped trending prolactin as it has limited utility as a diagnostic test for epileptic seizures - orthostats could not be completed due to patien/t c/o dizziness and the elevated prolactin could be due to the risperidone - patient had an episode according to parents on 02/08 at around 5:30pm, he became limp, right eye was mediated and he was mildly responsive-> was back at baseline when seen a few mins later, VSS and no changes on tele - patient had an episode of low rate rate in 20s while he was awake on 02/12. He was complaining of a headache at that time. Reached out to EP for recommendations Plan: - continue cardiac telemetry - Patient noted to have pauses up to 2.34 seconds - EP consulted-> unlikely that syncope related to his pauses, the short pauses are likely benign and no further intervention/VALDOVINOS recommended - Reached out to EP on 02/12 for recommendations after pt has episode on low heart rate in 20s while awake.-> recommended restarting fludrocortisone and keeping pt on telemetry - EP attending saw patient and family 02/16: - symptoms likely 2/2 BELEN, recommended ordering a nocturnal pulse ox, walking the patient with bus monitor on for 6 minutes to see if there are any changes in heart rate to assess for chronotropic incompetence. - close documentation of episodes of unresponsiveness, timing and duration, pre and post symptoms and tele findings. - restarted fludrocortisone 02/14 - neurology recs: - increased midodrine to 10 mg TID - added fludrocortisone-> discontinued on 02/11 as family were concerned that it was causing his fatigue and stomach issues-> restarted on 02/14 - stopped flomax as may be worsening dysautonomia - could refer to [facility] for outpatient dysautonomia eval with tilt-table testing - high salt diet - compression socks and abdominal binder - repeat CBC, BMP, Mg - PT/OT recommending wheelchair and shower chair for home - follow up EP outpatient - consider follow up dysautonomia clinic outpatient - may need second opinion referral to [facility] Associated Problem(s): Syncope, unspecified syncope type - am cortisol on 02/03 low but cosyntropin stim test negative - cardiology consulted, syncope is most likely vasovagal, triggered by pain during urination, though given persistent orthostatic changes, orthostatic component cannot be excluded. 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 This could potentially serve as an epileptogenic focus. - stopped trending prolactin as it has limited utility as a diagnostic test for epileptic seizures - orthostats could not be completed due to patien/t c/o dizziness and the elevated prolactin could be due to the risperidone - patient had an episode according to parents on 02/08 at around 5:30pm, he became limp, right eye was mediated and he was mildly responsive-> was back at baseline when seen a few mins later, VSS and no changes on tele - patient had an episode of low rate rate in 20s while he was awake on 02/12. He was complaining of a headache at that time. Reached out to EP for recommendations Plan: - continue cardiac telemetry - Patient noted to have pauses up to 2.34 seconds - EP consulted-> unlikely that syncope related to his pauses, the short pauses are likely benign and no further intervention/VALDOVINOS recommended - Reached out to EP on 02/12 for recommendations after pt has episode on low heart rate in 20s while awake.-> recommended restarting fludrocortisone and keeping pt on telemetry - EP attending saw patient and family 02/16: - symptoms likely 2/2 BELEN, recommended ordering a nocturnal pulse ox, walking the patient with bus monitor on for 6 minutes to see if there are any changes in heart rate to assess for chronotropic incompetence. - close documentation of episodes of unresponsiveness, timing and duration, pre and post symptoms and tele findings. - restarted fludrocortisone 02/14 - neurology recs: - increased midodrine to 10 mg TID - added fludrocortisone-> discontinued on 02/11 as family were concerned that it was causing his fatigue and stomach issues-> restarted on 02/14 - stopped flomax as may be worsening dysautonomia - could refer to [facility] for outpatient dysautonomia eval with tilt-table testing - high salt diet - compression socks and abdominal binder - repeat CBC, BMP, Mg - PT/OT recommending wheelchair and shower chair for home - follow up EP outpatient - consider follow up dysautonomia clinic outpatient - may need second opinion referral to [facility] Associated Problem(s): Headache PLAN: - Tylenol 1g q6 hours Associated Problem(s): Suprapubic pain - previously diagnosed with prostatitis and treated with antibiotics - sensitive exam on 02/01 was negative for rashes, discharge, masses - c/f urinary retention contributing to syncope and had denise placed 02/01 but was removed 02/04 - PVRs have been elevated but will decrease after patient is prompted to urinate - discussed denise with parents Plan: - discontinued miralax and senna and kept colace on 02/12 due to family preferences as colace works for him - q8 PVR -> if still retaining, will place denise and discharge with it until urology follow up, waiting on patient's mother's decision - q4 I/O - Flomax discontinued - urology consulted and will evaluate further on an out-patient basis - renal ultrasound ordered Associated Problem(s): Urinary retention - previously diagnosed with prostatitis and treated with antibiotics - sensitive exam on 02/01 was negative for rashes, discharge, masses - c/f urinary retention contributing to syncope and had denise placed 02/01 but was removed 02/04 - PVRs have been elevated but will decrease after patient is prompted to urinate - discussed denise with parents Plan: - discontinued miralax and senna and kept colace on 02/12 due to family preferences as colace works for him - q8 PVR -> if still retaining, will place denise and discharge with it until urology follow up, waiting on patient's mother's decision - q4 I/O - Flomax discontinued - urology consulted and will evaluate further on an out-patient basis - renal ultrasound ordered Associated Problem(s): Down syndrome (HCC) - 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 occurring over the past year - previously being treated with risperidone 3.5 mg BID which has provided symptomatic relief - recently diagnosed with dementia by neurologist with blood work ([id number] [id number]) - psych recs- change risperdal dose to 3 mg BID (Prolactin was elevated (48.9), likely related to risperidone; serial prolactin levels discontinued as not diagnostically useful) Plan: - continue risperdal 3mg BID - outpatient psych follow up in 2 weeks Associated Problem(s): Memory impairment - 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 occurring over the past year - previously being treated with risperidone 3.5 mg BID which has provided symptomatic relief - recently diagnosed with dementia by neurologist with blood work ([id number] [id number]) - psych recs- change risperdal dose to 3 mg BID (Prolactin was elevated (48.9), likely related to risperidone; serial prolactin levels discontinued as not diagnostically useful) Plan: - continue risperdal 3mg BID - outpatient psych follow up in 2 weeks Associated Problem(s): Hallucinations - 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 occurring over the past year - previously being treated with risperidone 3.5 mg BID which has provided symptomatic relief - recently diagnosed with dementia by neurologist with blood work (elevated [id number]) - psych recs- change risperdal dose to 3 mg BID (Prolactin was elevated (48.9), likely related to risperidone; serial prolactin levels discontinued as not diagnostically useful) Plan: - continue risperdal 3mg BID - outpatient psych follow up in 2 weeks Associated Problem(s): Pain of both eyes - continue GenTeal moderate tears ophthalmic solution Associated Problem(s): Syncope, unspecified syncope type - am cortisol on 02/03 low but cosyntropin stim test negative - cardiology consulted, syncope is most likely vasovagal, triggered by pain during urination, though given persistent orthostatic changes, orthostatic component cannot be excluded. 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 This could potentially serve as an epileptogenic focus. - stopped trending prolactin as it has limited utility as a diagnostic test for epileptic seizures - orthostats could not be completed due to patien/t c/o dizziness and the elevated prolactin could be due to the risperidone - patient had an episode according to parents on 02/08 at around 5:30pm, he became limp, right eye was mediated and he was mildly responsive-> was back at baseline when seen a few mins later, VSS and no changes on tele - patient had an episode of low rate rate in 20s while he was awake on 02/12. He was complaining of a headache at that time. Reached out to EP for recommendations Plan: - continue cardiac telemetry - Patient noted to have pauses up to 2.34 seconds - EP consulted-> unlikely that syncope related to his pauses, the short pauses are likely benign and no further intervention/VALDOVINOS recommended - Reached out to EP on 02/12 for recommendations after pt has episode on low heart rate in 20s while awake.-> recommended restarting fludrocortisone and keeping pt on telemetry - EP attending to see patient and family today anytime from noon to 6pm - restarted fludrocortisone 02/14 - neurology recs: - increased midodrine to 10 mg TID - added fludrocortisone-> discontinued on 02/11 as family were concerned that it was causing his fatigue and stomach issues-> restarted on 02/14 - stopped flomax as may be worsening dysautonomia - could refer to [facility] for outpatient dysautonomia eval with tilt-table testing - high salt diet - compression socks and abdominal binder - repeat CBC, BMP, Mg - PT/OT recommending wheelchair and shower chair for home - follow up EP outpatient - consider follow up dysautonomia clinic outpatient - may need second opinion referral to [facility] Associated Problem(s): Dysautonomia (HCC) - am cortisol on 02/03 low but cosyntropin stim test negative - cardiology consulted, syncope is most likely vasovagal, triggered by pain during urination, though given persistent orthostatic changes, orthostatic component cannot be excluded. 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 This could potentially serve as an epileptogenic focus. - stopped trending prolactin as it has limited utility as a diagnostic test for epileptic seizures - orthostats could not be completed due to patien/t c/o dizziness and the elevated prolactin could be due to the risperidone - patient had an episode according to parents on 02/08 at around 5:30pm, he became limp, right eye was mediated and he was mildly responsive-> was back at baseline when seen a few mins later, VSS and no changes on tele - patient had an episode of low rate rate in 20s while he was awake on 02/12. He was complaining of a headache at that time. Reached out to EP for recommendations Plan: - continue cardiac telemetry - Patient noted to have pauses up to 2.34 seconds - EP consulted-> unlikely that syncope related to his pauses, the short pauses are likely benign and no further intervention/VALDOVINOS recommended - Reached out to EP on 02/12 for recommendations after pt has episode on low heart rate in 20s while awake.-> recommended restarting fludrocortisone and keeping pt on telemetry - EP attending to see patient and family today anytime from noon to 6pm - restarted fludrocortisone 02/14 - neurology recs: - increased midodrine to 10 mg TID - added fludrocortisone-> discontinued on 02/11 as family were concerned that it was causing his fatigue and stomach issues-> restarted on 02/14 - stopped flomax as may be worsening dysautonomia - could refer to [facility] for outpatient dysautonomia eval with tilt-table testing - high salt diet - compression socks and abdominal binder - repeat CBC, BMP, Mg - PT/OT recommending wheelchair and shower chair for home - follow up EP outpatient - consider follow up dysautonomia clinic outpatient - may need second opinion referral to [facility] Associated Problem(s): Orthostatic hypotension - am cortisol on 02/03 low but cosyntropin stim test negative - cardiology consulted, syncope is most likely vasovagal, triggered by pain during urination, though given persistent orthostatic changes, orthostatic component cannot be excluded. 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 This could potentially serve as an epileptogenic focus. - stopped trending prolactin as it has limited utility as a diagnostic test for epileptic seizures - orthostats could not be completed due to patien/t c/o dizziness and the elevated prolactin could be due to the risperidone - patient had an episode according to parents on 02/08 at around 5:30pm, he became limp, right eye was mediated and he was mildly responsive-> was back at baseline when seen a few mins later, VSS and no changes on tele - patient had an episode of low rate rate in 20s while he was awake on 02/12. He was complaining of a headache at that time. Reached out to EP for recommendations Plan: - continue cardiac telemetry - Patient noted to have pauses up to 2.34 seconds - EP consulted-> unlikely that syncope related to his pauses, the short pauses are likely benign and no further intervention/VALDOVINOS recommended - Reached out to EP on 02/12 for recommendations after pt has episode on low heart rate in 20s while awake.-> recommended restarting fludrocortisone and keeping pt on telemetry - EP attending to see patient and family today anytime from noon to 6pm - restarted fludrocortisone 02/14 - neurology recs: - increased midodrine to 10 mg TID - added fludrocortisone-> discontinued on 02/11 as family were concerned that it was causing his fatigue and stomach issues-> restarted on 02/14 - stopped flomax as may be worsening dysautonomia - could refer to [facility] for outpatient dysautonomia eval with tilt-table testing - high salt diet - compression socks and abdominal binder - repeat CBC, BMP, Mg - PT/OT recommending wheelchair and shower chair for home - follow up EP outpatient - consider follow up dysautonomia clinic outpatient - may need second opinion referral to [facility] Associated Problem(s): Vasovagal syncope - am cortisol on 02/03 low but cosyntropin stim test negative - cardiology consulted, syncope is most likely vasovagal, triggered by pain during urination, though given persistent orthostatic changes, orthostatic component cannot be excluded. 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 This could potentially serve as an epileptogenic focus. - stopped trending prolactin as it has limited utility as a diagnostic test for epileptic seizures - orthostats could not be completed due to patien/t c/o dizziness and the elevated prolactin could be due to the risperidone - patient had an episode according to parents on 02/08 at around 5:30pm, he became limp, right eye was mediated and he was mildly responsive-> was back at baseline when seen a few mins later, VSS and no changes on tele - patient had an episode of low rate rate in 20s while he was awake on 02/12. He was complaining of a headache at that time. Reached out to EP for recommendations Plan: - continue cardiac telemetry - Patient noted to have pauses up to 2.34 seconds - EP consulted-> unlikely that syncope related to his pauses, the short pauses are likely benign and no further intervention/VALDOVINOS recommended - Reached out to EP on 02/12 for recommendations after pt has episode on low heart rate in 20s while awake.-> recommended restarting fludrocortisone and keeping pt on telemetry - EP attending to see patient and family today anytime from noon to 6pm - restarted fludrocortisone 02/14 - neurology recs: - increased midodrine to 10 mg TID - added fludrocortisone-> discontinued on 02/11 as family were concerned that it was causing his fatigue and stomach issues-> restarted on 02/14 - stopped flomax as may be worsening dysautonomia - could refer to [facility] for outpatient dysautonomia eval with tilt-table testing - high salt diet - compression socks and abdominal binder - repeat CBC, BMP, Mg - PT/OT recommending wheelchair and shower chair for home - follow up EP outpatient - consider follow up dysautonomia clinic outpatient - may need second opinion referral to [facility] Associated Problem(s): Bradycardia - am cortisol on 02/03 low but cosyntropin stim test negative - cardiology consulted, syncope is most likely vasovagal, triggered by pain during urination, though given persistent orthostatic changes, orthostatic component cannot be excluded. 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 This could potentially serve as an epileptogenic focus. - stopped trending prolactin as it has limited utility as a diagnostic test for epileptic seizures - orthostats could not be completed due to patien/t c/o dizziness and the elevated prolactin could be due to the risperidone - patient had an episode according to parents on 02/08 at around 5:30pm, he became limp, right eye was mediated and he was mildly responsive-> was back at baseline when seen a few mins later, VSS and no changes on tele - patient had an episode of low rate rate in 20s while he was awake on 02/12. He was complaining of a headache at that time. Reached out to EP for recommendations Plan: - continue cardiac telemetry - Patient noted to have pauses up to 2.34 seconds - EP consulted-> unlikely that syncope related to his pauses, the short pauses are likely benign and no further intervention/VALDOVINOS recommended - Reached out to EP on 02/12 for recommendations after pt has episode on low heart rate in 20s while awake.-> recommended restarting fludrocortisone and keeping pt on telemetry - EP attending to see patient and family today anytime from noon to 6pm - restarted fludrocortisone 02/14 - neurology recs: - increased midodrine to 10 mg TID - added fludrocortisone-> discontinued on 02/11 as family were concerned that it was causing his fatigue and stomach issues-> restarted on 02/14 - stopped flomax as may be worsening dysautonomia - could refer to [facility] for outpatient dysautonomia eval with tilt-table testing - high salt diet - compression socks and abdominal binder - repeat CBC, BMP, Mg - PT/OT recommending wheelchair and shower chair for home - follow up EP outpatient - consider follow up dysautonomia clinic outpatient - may need second opinion referral to [facility] Anticipated discharge plan is SNF, per family's request. Pt does not have skilled needs (PT/OT, wound care, IVABX) but family does not feel they can safely take pt home at this time. Awaiting facility acceptance. Mother previously selected [facility] and [facility]. Referrals were sent. -[facility] cannot accept, they do not feel they can meet pt's needs. -Still awaiting final response from [facility]. Stephanie Donohue, [employer], [employer] ADDENDUM 11:10AM Both SNFs above denied pt. Met with pt and mother to inform them of SNF denial. Mother confirmed she is seeking SNF for short-term placement until syncope issue is resolved. Mother reports she is awaiting updates regarding pt potentially getting a pacemaker. No other SNF options provided at this time. Mother would like to speak with EP and primary team first. Stephanie Donohue, [employer], [employer] Associated Problem(s): Headache PLAN: - Tylenol 1g q6 hours Associated Problem(s): Suprapubic pain - previously diagnosed with prostatitis and treated with antibiotics - sensitive exam on 02/01 was negative for rashes, discharge, masses - c/f urinary retention contributing to syncope and had denise placed 02/01 but was removed 02/04 - PVRs have been elevated but will decrease after patient is prompted to urinate - discussed denise with parents Plan: - discontinued miralax and senna and kept colace on 02/12 due to family preferences as colace works for him - q8 PVR -> if still retaining, will place denise and discharge with it until urology follow up, waiting on patient's mother's decision - q4 I/O - Flomax discontinued - urology consulted and will evaluate further on an out-patient basis - renal ultrasound ordered Associated Problem(s): Urinary retention - previously diagnosed with prostatitis and treated with antibiotics - sensitive exam on 02/01 was negative for rashes, discharge, masses - c/f urinary retention contributing to syncope and had denise placed 02/01 but was removed 02/04 - PVRs have been elevated but will decrease after patient is prompted to urinate - discussed denise with parents Plan: - discontinued miralax and senna and kept colace on 02/12 due to family preferences as colace works for him - q8 PVR -> if still retaining, will place denise and discharge with it until urology follow up, waiting on patient's mother's decision - q4 I/O - Flomax discontinued - urology consulted and will evaluate further on an out-patient basis - renal ultrasound ordered Associated Problem(s): Down syndrome (HCC) - 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 occurring over the past year - previously being treated with risperidone 3.5 mg BID which has provided symptomatic relief - recently diagnosed with dementia by neurologist with blood work (elevated [id number]) - psych recs- change risperdal dose to 3 mg BID (Prolactin was elevated (48.9), likely related to risperidone; serial prolactin levels discontinued as not diagnostically useful) Plan: - continue risperdal 3mg BID - outpatient psych follow up in 2 weeks Associated Problem(s): Memory impairment - 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 occurring over the past year - previously being treated with risperidone 3.5 mg BID which has provided symptomatic relief - recently diagnosed with dementia by neurologist with blood work (elevated [id number]) - psych recs- change risperdal dose to 3 mg BID (Prolactin was elevated (48.9), likely related to risperidone; serial prolactin levels discontinued as not diagnostically useful) Plan: - continue risperdal 3mg BID - outpatient psych follow up in 2 weeks Associated Problem(s): Hallucinations - 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 occurring over the past year - previously being treated with risperidone 3.5 mg BID which has provided symptomatic relief - recently diagnosed with dementia by neurologist with blood work (elevated [id number]) - psych recs- change risperdal dose to 3 mg BID (Prolactin was elevated (48.9), likely related to risperidone; serial prolactin levels discontinued as not diagnostically useful) Plan: - continue risperdal 3mg BID - outpatient psych follow up in 2 weeks Associated Problem(s): Pain of both eyes - continue GenTeal moderate tears ophthalmic solution Associated Problem(s): Syncope, unspecified syncope type - am cortisol on 02/03 low but cosyntropin stim test negative - cardiology consulted, syncope is most likely vasovagal, triggered by pain during urination, though given persistent orthostatic changes, orthostatic component cannot be excluded. 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 This could potentially serve as an epileptogenic focus. - stopped trending prolactin as it has limited utility as a diagnostic test for epileptic seizures - orthostats could not be completed due to patien/t c/o dizziness and the elevated prolactin could be due to the risperidone - patient had an episode according to parents on 02/08 at around 5:30pm, he became limp, right eye was mediated and he was mildly responsive-> was back at baseline when seen a few mins later, VSS and no changes on tele - patient had an episode of low rate rate in 20s while he was awake on 02/12. He was complaining of a headache at that time. Reached out to EP for recommendations Plan: - continue cardiac telemetry - Patient noted to have pauses up to 2.34 seconds - EP consulted-> unlikely that syncope related to his pauses, the short pauses are likely benign and no further intervention/VALDOVINOS recommended - Reached out to EP on 02/12 for recommendations after pt has episode on low heart rate in 20s while awake.-> recommended restarting fludrocortisone and keeping pt on telemetry - restarted fludrocortisone 02/14 - neurology recs: - increased midodrine to 10 mg TID - added fludrocortisone-> discontinued on 02/11 as family were concerned that it was causing his fatigue and stomach issues-> restarted on 02/14 - stopped flomax as may be worsening dysautonomia - could refer to [facility] for outpatient dysautonomia eval with tilt-table testing - high salt diet - compression socks and abdominal binder - repeat CBC, BMP, Mg - PT/OT recommending wheelchair and shower chair for home - follow up EP outpatient - consider follow up dysautonomia clinic outpatient - may need second opinion referral to [facility] Associated Problem(s): Dysautonomia (HCC) - am cortisol on 02/03 low but cosyntropin stim test negative - cardiology consulted, syncope is most likely vasovagal, triggered by pain during urination, though given persistent orthostatic changes, orthostatic component cannot be excluded. 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 This could potentially serve as an epileptogenic focus. - stopped trending prolactin as it has limited utility as a diagnostic test for epileptic seizures - orthostats could not be completed due to patien/t c/o dizziness and the elevated prolactin could be due to the risperidone - patient had an episode according to parents on 02/08 at around 5:30pm, he became limp, right eye was mediated and he was mildly responsive-> was back at baseline when seen a few mins later, VSS and no changes on tele - patient had an episode of low rate rate in 20s while he was awake on 02/12. He was complaining of a headache at that time. Reached out to EP for recommendations Plan: - continue cardiac telemetry - Patient noted to have pauses up to 2.34 seconds - EP consulted-> unlikely that syncope related to his pauses, the short pauses are likely benign and no further intervention/VALDOVINOS recommended - Reached out to EP on 02/12 for recommendations after pt has episode on low heart rate in 20s while awake.-> recommended restarting fludrocortisone and keeping pt on telemetry - restarted fludrocortisone 02/14 - neurology recs: - increased midodrine to 10 mg TID - added fludrocortisone-> discontinued on 02/11 as family were concerned that it was causing his fatigue and stomach issues-> restarted on 02/14 - stopped flomax as may be worsening dysautonomia - could refer to [facility] for outpatient dysautonomia eval with tilt-table testing - high salt diet - compression socks and abdominal binder - repeat CBC, BMP, Mg - PT/OT recommending wheelchair and shower chair for home - follow up EP outpatient - consider follow up dysautonomia clinic outpatient - may need second opinion referral to [facility] Associated Problem(s): Orthostatic hypotension - am cortisol on 02/03 low but cosyntropin stim test negative - cardiology consulted, syncope is most likely vasovagal, triggered by pain during urination, though given persistent orthostatic changes, orthostatic component cannot be excluded. 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 This could potentially serve as an epileptogenic focus. - stopped trending prolactin as it has limited utility as a diagnostic test for epileptic seizures - orthostats could not be completed due to patien/t c/o dizziness and the elevated prolactin could be due to the risperidone - patient had an episode according to parents on 02/08 at around 5:30pm, he became limp, right eye was mediated and he was mildly responsive-> was back at baseline when seen a few mins later, VSS and no changes on tele - patient had an episode of low rate rate in 20s while he was awake on 02/12. He was complaining of a headache at that time. Reached out to EP for recommendations Plan: - continue cardiac telemetry - Patient noted to have pauses up to 2.34 seconds - EP consulted-> unlikely that syncope related to his pauses, the short pauses are likely benign and no further intervention/VALDOVINOS recommended - Reached out to EP on 02/12 for recommendations after pt has episode on low heart rate in 20s while awake.-> recommended restarting fludrocortisone and keeping pt on telemetry - restarted fludrocortisone 02/14 - neurology recs: - increased midodrine to 10 mg TID - added fludrocortisone-> discontinued on 02/11 as family were concerned that it was causing his fatigue and stomach issues-> restarted on 02/14 - stopped flomax as may be worsening dysautonomia - could refer to [facility] for outpatient dysautonomia eval with tilt-table testing - high salt diet - compression socks and abdominal binder - repeat CBC, BMP, Mg - PT/OT recommending wheelchair and shower chair for home - follow up EP outpatient - consider follow up dysautonomia clinic outpatient - may need second opinion referral to [facility] Associated Problem(s): Vasovagal syncope - am cortisol on 02/03 low but cosyntropin stim test negative - cardiology consulted, syncope is most likely vasovagal, triggered by pain during urination, though given persistent orthostatic changes, orthostatic component cannot be excluded. 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 This could potentially serve as an epileptogenic focus. - stopped trending prolactin as it has limited utility as a diagnostic test for epileptic seizures - orthostats could not be completed due to patien/t c/o dizziness and the elevated prolactin could be due to the risperidone - patient had an episode according to parents on 02/08 at around 5:30pm, he became limp, right eye was mediated and he was mildly responsive-> was back at baseline when seen a few mins later, VSS and no changes on tele - patient had an episode of low rate rate in 20s while he was awake on 02/12. He was complaining of a headache at that time. Reached out to EP for recommendations Plan: - continue cardiac telemetry - Patient noted to have pauses up to 2.34 seconds - EP consulted-> unlikely that syncope related to his pauses, the short pauses are likely benign and no further intervention/VALDOVINOS recommended - Reached out to EP on 02/12 for recommendations after pt has episode on low heart rate in 20s while awake.-> recommended restarting fludrocortisone and keeping pt on telemetry - restarted fludrocortisone 02/14 - neurology recs: - increased midodrine to 10 mg TID - added fludrocortisone-> discontinued on 02/11 as family were concerned that it was causing his fatigue and stomach issues-> restarted on 02/14 - stopped flomax as may be worsening dysautonomia - could refer to [facility] for outpatient dysautonomia eval with tilt-table testing - high salt diet - compression socks and abdominal binder - repeat CBC, BMP, Mg - PT/OT recommending wheelchair and shower chair for home - follow up EP outpatient - consider follow up dysautonomia clinic outpatient - may need second opinion referral to [facility] Associated Problem(s): Bradycardia - am cortisol on 02/03 low but cosyntropin stim test negative - cardiology consulted, syncope is most likely vasovagal, triggered by pain during urination, though given persistent orthostatic changes, orthostatic component cannot be excluded. 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 This could potentially serve as an epileptogenic focus. - stopped trending prolactin as it has limited utility as a diagnostic test for epileptic seizures - orthostats could not be completed due to patien/t c/o dizziness and the elevated prolactin could be due to the risperidone - patient had an episode according to parents on 02/08 at around 5:30pm, he became limp, right eye was mediated and he was mildly responsive-> was back at baseline when seen a few mins later, VSS and no changes on tele - patient had an episode of low rate rate in 20s while he was awake on 02/12. He was complaining of a headache at that time. Reached out to EP for recommendations Plan: - continue cardiac telemetry - Patient noted to have pauses up to 2.34 seconds - EP consulted-> unlikely that syncope related to his pauses, the short pauses are likely benign and no further intervention/VALDOVINOS recommended - Reached out to EP on 02/12 for recommendations after pt has episode on low heart rate in 20s while awake.-> recommended restarting fludrocortisone and keeping pt on telemetry - restarted fludrocortisone 02/14 - neurology recs: - increased midodrine to 10 mg TID - added fludrocortisone-> discontinued on 02/11 as family were concerned that it was causing his fatigue and stomach issues-> restarted on 02/14 - stopped flomax as may be worsening dysautonomia - could refer to [facility] for outpatient dysautonomia eval with tilt-table testing - high salt diet - compression socks and abdominal binder - repeat CBC, BMP, Mg - PT/OT recommending wheelchair and shower chair for home - follow up EP outpatient - consider follow up dysautonomia clinic outpatient - may need second opinion referral to [facility] Associated Problem(s): Headache PLAN: - Tylenol 1g q6 hours Associated Problem(s): Suprapubic pain - previously diagnosed with prostatitis and treated with antibiotics - sensitive exam on 02/01 was negative for rashes, discharge, masses - c/f urinary retention contributing to syncope and had denise placed 02/01 but was removed 02/04 - PVRs have been elevated but will decrease after patient is prompted to urinate - discussed denise with parents Plan: - discontinued miralax and senna and kept colace on 02/12 due to family preferences as colace works for him - q8 PVR -> if still retaining, will place denise and discharge with it until urology follow up, waiting on patient's mother's decision - q4 I/O - Flomax discontinued - urology consulted and will evaluate further on an out-patient basis - renal ultrasound ordered Associated Problem(s): Urinary retention - previously diagnosed with prostatitis and treated with antibiotics - sensitive exam on 02/01 was negative for rashes, discharge, masses - c/f urinary retention contributing to syncope and had denise placed 02/01 but was removed 02/04 - PVRs have been elevated but will decrease after patient is prompted to urinate - discussed denise with parents Plan: - discontinued miralax and senna and kept colace on 02/12 due to family preferences as colace works for him - q8 PVR -> if still retaining, will place denise and discharge with it until urology follow up, waiting on patient's mother's decision - q4 I/O - Flomax discontinued - urology consulted and will evaluate further on an out-patient basis - renal ultrasound ordered Associated Problem(s): Down syndrome (HCC) - 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 occurring over the past year - previously being treated with risperidone 3.5 mg BID which has provided symptomatic relief - recently diagnosed with dementia by neurologist with blood work (elevated [id number]) - psych recs- change risperdal dose to 3 mg BID (Prolactin was elevated (48.9), likely related to risperidone; serial prolactin levels discontinued as not diagnostically useful) Plan: - continue risperdal 3mg BID - outpatient psych follow up in 2 weeks Associated Problem(s): Memory impairment - 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 occurring over the past year - previously being treated with risperidone 3.5 mg BID which has provided symptomatic relief - recently diagnosed with dementia by neurologist with blood work (elevated [id number]) - psych recs- change risperdal dose to 3 mg BID (Prolactin was elevated (48.9), likely related to risperidone; serial prolactin levels discontinued as not diagnostically useful) Plan: - continue risperdal 3mg BID - outpatient psych follow up in 2 weeks Associated Problem(s): Hallucinations - 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 occurring over the past year - previously being treated with risperidone 3.5 mg BID which has provided symptomatic relief - recently diagnosed with dementia by neurologist with blood work (elevated [id number]) - psych recs- change risperdal dose to 3 mg BID (Prolactin was elevated (48.9), likely related to risperidone; serial prolactin levels discontinued as not diagnostically useful) Plan: - continue risperdal 3mg BID - outpatient psych follow up in 2 weeks Associated Problem(s): Pain of both eyes - continue GenTeal moderate tears ophthalmic solution Associated Problem(s): Suprapubic pain - previously diagnosed with prostatitis and treated with antibiotics - sensitive exam on 02/01 was negative for rashes, discharge, masses - c/f urinary retention contributing to syncope and had denise placed 02/01 but was removed 02/04 - PVRs have been elevated but will decrease after patient is prompted to urinate - discussed denise with parents Plan: - discontinued miralax and senna and kept colace on 02/12 due to family preferences as colace works for him - q8 PVR -> if still retaining, will place denise and discharge with it until urology follow up, waiting on patient's mother's decision - q4 I/O - Flomax discontinued - urology consulted and will evaluate further on an out-patient basis - renal ultrasound ordered Associated Problem(s): Urinary retention - previously diagnosed with prostatitis and treated with antibiotics - sensitive exam on 02/01 was negative for rashes, discharge, masses - c/f urinary retention contributing to syncope and had denise placed 02/01 but was removed 02/04 - PVRs have been elevated but will decrease after patient is prompted to urinate - discussed denise with parents Plan: - discontinued miralax and senna and kept colace on 02/12 due to family preferences as colace works for him - q8 PVR -> if still retaining, will place denise and discharge with it until urology follow up, waiting on patient's mother's decision - q4 I/O - Flomax discontinued - urology consulted and will evaluate further on an out-patient basis - renal ultrasound ordered Associated Problem(s): Syncope, unspecified syncope type - am cortisol on 02/03 low but cosyntropin stim test negative - cardiology consulted, syncope is most likely vasovagal, triggered by pain during urination, though given persistent orthostatic changes, orthostatic component cannot be excluded. 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 This could potentially serve as an epileptogenic focus. - stopped trending prolactin as it has limited utility as a diagnostic test for epileptic seizures - orthostats could not be completed due to patien/t c/o dizziness and the elevated prolactin could be due to the risperidone - patient had an episode according to parents on 02/08 at around 5:30pm, he became limp, right eye was mediated and he was mildly responsive-> was back at baseline when seen a few mins later, VSS and no changes on tele - patient had an episode of low rate rate in 20s while he was awake on 02/12. He was complaining of a headache at that time. Reached out to EP for recommendations Plan: - continue cardiac telemetry - Patient noted to have pauses up to 2.34 seconds - EP consulted-> unlikely that syncope related to his pauses, the short pauses are likely benign and no further intervention/VALDOVINOS recommended - Reached out to EP on 02/12 for recommendations after pt has episode on low heart rate in 20s while awake. - neurology recs: - increased midodrine to 10 mg TID - added fludrocortisone-> discontinued on 02/11 as family were concerned that it was causing his fatigue and stomach issues - stopped flomax as may be worsening dysautonomia - could refer to [facility] for outpatient dysautonomia eval with tilt-table testing - high salt diet - compression socks and abdominal binder - repeat CBC, BMP, Mg - PT/OT recommending wheelchair and shower chair for home - follow up EP outpatient - consider follow up dysautonomia clinic outpatient Associated Problem(s): Dysautonomia (HCC) - am cortisol on 02/03 low but cosyntropin stim test negative - cardiology consulted, syncope is most likely vasovagal, triggered by pain during urination, though given persistent orthostatic changes, orthostatic component cannot be excluded. 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 This could potentially serve as an epileptogenic focus. - stopped trending prolactin as it has limited utility as a diagnostic test for epileptic seizures - orthostats could not be completed due to patien/t c/o dizziness and the elevated prolactin could be due to the risperidone - patient had an episode according to parents on 02/08 at around 5:30pm, he became limp, right eye was mediated and he was mildly responsive-> was back at baseline when seen a few mins later, VSS and no changes on tele - patient had an episode of low rate rate in 20s while he was awake on 02/12. He was complaining of a headache at that time. Reached out to EP for recommendations Plan: - continue cardiac telemetry - Patient noted to have pauses up to 2.34 seconds - EP consulted-> unlikely that syncope related to his pauses, the short pauses are likely benign and no further intervention/VALDOVINOS recommended - Reached out to EP on 02/12 for recommendations after pt has episode on low heart rate in 20s while awake. - neurology recs: - increased midodrine to 10 mg TID - added fludrocortisone-> discontinued on 02/11 as family were concerned that it was causing his fatigue and stomach issues - stopped flomax as may be worsening dysautonomia - could refer to [facility] for outpatient dysautonomia eval with tilt-table testing - high salt diet - compression socks and abdominal binder - repeat CBC, BMP, Mg - PT/OT recommending wheelchair and shower chair for home - follow up EP outpatient - consider follow up dysautonomia clinic outpatient Associated Problem(s): Orthostatic hypotension - am cortisol on 02/03 low but cosyntropin stim test negative - cardiology consulted, syncope is most likely vasovagal, triggered by pain during urination, though given persistent orthostatic changes, orthostatic component cannot be excluded. 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 This could potentially serve as an epileptogenic focus. - stopped trending prolactin as it has limited utility as a diagnostic test for epileptic seizures - orthostats could not be completed due to patien/t c/o dizziness and the elevated prolactin could be due to the risperidone - patient had an episode according to parents on 02/08 at around 5:30pm, he became limp, right eye was mediated and he was mildly responsive-> was back at baseline when seen a few mins later, VSS and no changes on tele - patient had an episode of low rate rate in 20s while he was awake on 02/12. He was complaining of a headache at that time. Reached out to EP for recommendations Plan: - continue cardiac telemetry - Patient noted to have pauses up to 2.34 seconds - EP consulted-> unlikely that syncope related to his pauses, the short pauses are likely benign and no further intervention/VALDOVINOS recommended - Reached out to EP on 02/12 for recommendations after pt has episode on low heart rate in 20s while awake. - neurology recs: - increased midodrine to 10 mg TID - added fludrocortisone-> discontinued on 02/11 as family were concerned that it was causing his fatigue and stomach issues - stopped flomax as may be worsening dysautonomia - could refer to [facility] for outpatient dysautonomia eval with tilt-table testing - high salt diet - compression socks and abdominal binder - repeat CBC, BMP, Mg - PT/OT recommending wheelchair and shower chair for home - follow up EP outpatient - consider follow up dysautonomia clinic outpatient Associated Problem(s): Vasovagal syncope - am cortisol on 02/03 low but cosyntropin stim test negative - cardiology consulted, syncope is most likely vasovagal, triggered by pain during urination, though given persistent orthostatic changes, orthostatic component cannot be excluded. 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 This could potentially serve as an epileptogenic focus. - stopped trending prolactin as it has limited utility as a diagnostic test for epileptic seizures - orthostats could not be completed due to patien/t c/o dizziness and the elevated prolactin could be due to the risperidone - patient had an episode according to parents on 02/08 at around 5:30pm, he became limp, right eye was mediated and he was mildly responsive-> was back at baseline when seen a few mins later, VSS and no changes on tele - patient had an episode of low rate rate in 20s while he was awake on 02/12. He was complaining of a headache at that time. Reached out to EP for recommendations Plan: - continue cardiac telemetry - Patient noted to have pauses up to 2.34 seconds - EP consulted-> unlikely that syncope related to his pauses, the short pauses are likely benign and no further intervention/VALDOVINOS recommended - Reached out to EP on 02/12 for recommendations after pt has episode on low heart rate in 20s while awake. - neurology recs: - increased midodrine to 10 mg TID - added fludrocortisone-> discontinued on 02/11 as family were concerned that it was causing his fatigue and stomach issues - stopped flomax as may be worsening dysautonomia - could refer to [facility] for outpatient dysautonomia eval with tilt-table testing - high salt diet - compression socks and abdominal binder - repeat CBC, BMP, Mg - PT/OT recommending wheelchair and shower chair for home - follow up EP outpatient - consider follow up dysautonomia clinic outpatient Associated Problem(s): Headache PLAN: - Tylenol 1g q6 hours Associated Problem(s): Down syndrome (HCC) - 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 occurring over the past year - previously being treated with risperidone 3.5 mg BID which has provided symptomatic relief - recently diagnosed with dementia by neurologist with blood work (elevated [id number]) - psych recs- change risperdal dose to 3 mg BID (Prolactin was elevated (48.9), likely related to risperidone; serial prolactin levels discontinued as not diagnostically useful) Plan: - continue risperdal 3mg BID - outpatient psych follow up in 2 weeks Associated Problem(s): Memory impairment - 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 occurring over the past year - previously being treated with risperidone 3.5 mg BID which has provided symptomatic relief - recently diagnosed with dementia by neurologist with blood work (elevated [id number]) - psych recs- change risperdal dose to 3 mg BID (Prolactin was elevated (48.9), likely related to risperidone; serial prolactin levels discontinued as not diagnostically useful) Plan: - continue risperdal 3mg BID - outpatient psych follow up in 2 weeks Associated Problem(s): Hallucinations - 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 occurring over the past year - previously being treated with risperidone 3.5 mg BID which has provided symptomatic relief - recently diagnosed with dementia by neurologist with blood work (elevated [id number]) - psych recs- change risperdal dose to 3 mg BID (Prolactin was elevated (48.9), likely related to risperidone; serial prolactin levels discontinued as not diagnostically useful) Plan: - continue risperdal 3mg BID - outpatient psych follow up in 2 weeks Associated Problem(s): Pain of both eyes - continue GenTeal moderate tears ophthalmic solution Associated Problem(s): Syncope, unspecified syncope type - am cortisol on 02/03 low but cosyntropin stim test negative - cardiology consulted, syncope is most likely vasovagal, triggered by pain during urination, though given persistent orthostatic changes, orthostatic component cannot be excluded. 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 This could potentially serve as an epileptogenic focus. - stopped trending prolactin as it has limited utility as a diagnostic test for epileptic seizures - orthostats could not be completed due to patien/t c/o dizziness and the elevated prolactin could be due to the risperidone - patient had an episode according to parents on 02/08 at around 5:30pm, he became limp, right eye was mediated and he was mildly responsive-> was back at baseline when seen a few mins later, VSS and no changes on tele - patient had an episode of low rate rate in 20s while he was awake on 02/12. He was complaining of a headache at that time. Reached out to EP for recommendations Plan: - continue cardiac telemetry - Patient noted to have pauses up to 2.34 seconds - EP consulted-> unlikely that syncope related to his pauses, the short pauses are likely benign and no further intervention/VALDOVINOS recommended - Reached out to EP on 02/12 for recommendations after pt has episode on low heart rate in 20s while awake. - neurology recs: - increased midodrine to 10 mg TID - added fludrocortisone-> discontinued on 02/11 as family were concerned that it was causing his fatigue and stomach issues - stopped flomax as may be worsening dysautonomia - could refer to [facility] for outpatient dysautonomia eval with tilt-table testing - high salt diet - compression socks and abdominal binder - repeat CBC, BMP, Mg - PT/OT recommending wheelchair and shower chair for home - follow up EP outpatient - consider follow up dysautonomia clinic outpatient Associated Problem(s): Dysautonomia (HCC) - am cortisol on 02/03 low but cosyntropin stim test negative - cardiology consulted, syncope is most likely vasovagal, triggered by pain during urination, though given persistent orthostatic changes, orthostatic component cannot be excluded. 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 This could potentially serve as an epileptogenic focus. - stopped trending prolactin as it has limited utility as a diagnostic test for epileptic seizures - orthostats could not be completed due to patien/t c/o dizziness and the elevated prolactin could be due to the risperidone - patient had an episode according to parents on 02/08 at around 5:30pm, he became limp, right eye was mediated and he was mildly responsive-> was back at baseline when seen a few mins later, VSS and no changes on tele - patient had an episode of low rate rate in 20s while he was awake on 02/12. He was complaining of a headache at that time. Reached out to EP for recommendations Plan: - continue cardiac telemetry - Patient noted to have pauses up to 2.34 seconds - EP consulted-> unlikely that syncope related to his pauses, the short pauses are likely benign and no further intervention/VALDOVINOS recommended - Reached out to EP on 02/12 for recommendations after pt has episode on low heart rate in 20s while awake. - neurology recs: - increased midodrine to 10 mg TID - added fludrocortisone-> discontinued on 02/11 as family were concerned that it was causing his fatigue and stomach issues - stopped flomax as may be worsening dysautonomia - could refer to [facility] for outpatient dysautonomia eval with tilt-table testing - high salt diet - compression socks and abdominal binder - repeat CBC, BMP, Mg - PT/OT recommending wheelchair and shower chair for home - follow up EP outpatient - consider follow up dysautonomia clinic outpatient Associated Problem(s): Orthostatic hypotension - am cortisol on 02/03 low but cosyntropin stim test negative - cardiology consulted, syncope is most likely vasovagal, triggered by pain during urination, though given persistent orthostatic changes, orthostatic component cannot be excluded. 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 This could potentially serve as an epileptogenic focus. - stopped trending prolactin as it has limited utility as a diagnostic test for epileptic seizures - orthostats could not be completed due to patien/t c/o dizziness and the elevated prolactin could be due to the risperidone - patient had an episode according to parents on 02/08 at around 5:30pm, he became limp, right eye was mediated and he was mildly responsive-> was back at baseline when seen a few mins later, VSS and no changes on tele - patient had an episode of low rate rate in 20s while he was awake on 02/12. He was complaining of a headache at that time. Reached out to EP for recommendations Plan: - continue cardiac telemetry - Patient noted to have pauses up to 2.34 seconds - EP consulted-> unlikely that syncope related to his pauses, the short pauses are likely benign and no further intervention/VALDOVINOS recommended - Reached out to EP on 02/12 for recommendations after pt has episode on low heart rate in 20s while awake. - neurology recs: - increased midodrine to 10 mg TID - added fludrocortisone-> discontinued on 02/11 as family were concerned that it was causing his fatigue and stomach issues - stopped flomax as may be worsening dysautonomia - could refer to [facility] for outpatient dysautonomia eval with tilt-table testing - high salt diet - compression socks and abdominal binder - repeat CBC, BMP, Mg - PT/OT recommending wheelchair and shower chair for home - follow up EP outpatient - consider follow up dysautonomia clinic outpatient Associated Problem(s): Vasovagal syncope - am cortisol on 02/03 low but cosyntropin stim test negative - cardiology consulted, syncope is most likely vasovagal, triggered by pain during urination, though given persistent orthostatic changes, orthostatic component cannot be excluded. 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 This could potentially serve as an epileptogenic focus. - stopped trending prolactin as it has limited utility as a diagnostic test for epileptic seizures - orthostats could not be completed due to patien/t c/o dizziness and the elevated prolactin could be due to the risperidone - patient had an episode according to parents on 02/08 at around 5:30pm, he became limp, right eye was mediated and he was mildly responsive-> was back at baseline when seen a few mins later, VSS and no changes on tele - patient had an episode of low rate rate in 20s while he was awake on 02/12. He was complaining of a headache at that time. Reached out to EP for recommendations Plan: - continue cardiac telemetry - Patient noted to have pauses up to 2.34 seconds - EP consulted-> unlikely that syncope related to his pauses, the short pauses are likely benign and no further intervention/VALDOVINOS recommended - Reached out to EP on 02/12 for recommendations after pt has episode on low heart rate in 20s while awake. - neurology recs: - increased midodrine to 10 mg TID - added fludrocortisone-> discontinued on 02/11 as family were concerned that it was causing his fatigue and stomach issues - stopped flomax as may be worsening dysautonomia - could refer to [facility] for outpatient dysautonomia eval with tilt-table testing - high salt diet - compression socks and abdominal binder - repeat CBC, BMP, Mg - PT/OT recommending wheelchair and shower chair for home - follow up EP outpatient - consider follow up dysautonomia clinic outpatient Associated Problem(s): Suprapubic pain - previously diagnosed with prostatitis and treated with antibiotics - sensitive exam on 02/01 was negative for rashes, discharge, masses - c/f urinary retention contributing to syncope and had denise placed 02/01 but was removed 02/04 - PVRs have been elevated but will decrease after patient is prompted to urinate - discussed denise with parents Plan: - discontinued miralax and senna and kept colace on 02/12 due to family preferences as colace works for him - q8 PVR -> if still retaining, will place denise and discharge with it until urology follow up, waiting on patient's mother's decision - q4 I/O - Flomax discontinued - urology consulted and will evaluate further on an out-patient basis - renal ultrasound ordered Associated Problem(s): Urinary retention - previously diagnosed with prostatitis and treated with antibiotics - sensitive exam on 02/01 was negative for rashes, discharge, masses - c/f urinary retention contributing to syncope and had denise placed 02/01 but was removed 02/04 - PVRs have been elevated but will decrease after patient is prompted to urinate - discussed denise with parents Plan: - discontinued miralax and senna and kept colace on 02/12 due to family preferences as colace works for him - q8 PVR -> if still retaining, will place denise and discharge with it until urology follow up, waiting on patient's mother's decision - q4 I/O - Flomax discontinued - urology consulted and will evaluate further on an out-patient basis - renal ultrasound ordered Associated Problem(s): Down syndrome (HCC) - 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 occurring over the past year - previously being treated with risperidone 3.5 mg BID which has provided symptomatic relief - recently diagnosed with dementia by neurologist with blood work (elevated [id number]) - psych recs- change risperdal dose to 3 mg BID (Prolactin was elevated (48.9), likely related to risperidone; serial prolactin levels discontinued as not diagnostically useful) Plan: - continue risperdal 3mg BID - outpatient psych follow up in 2 weeks Associated Problem(s): Memory impairment - 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 occurring over the past year - previously being treated with risperidone 3.5 mg BID which has provided symptomatic relief - recently diagnosed with dementia by neurologist with blood work (elevated [id number]) - psych recs- change risperdal dose to 3 mg BID (Prolactin was elevated (48.9), likely related to risperidone; serial prolactin levels discontinued as not diagnostically useful) Plan: - continue risperdal 3mg BID - outpatient psych follow up in 2 weeks Associated Problem(s): Hallucinations - 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 occurring over the past year - previously being treated with risperidone 3.5 mg BID which has provided symptomatic relief - recently diagnosed with dementia by neurologist with blood work (elevated [id number]) - psych recs- change risperdal dose to 3 mg BID (Prolactin was elevated (48.9), likely related to risperidone; serial prolactin levels discontinued as not diagnostically useful) Plan: - continue risperdal 3mg BID - outpatient psych follow up in 2 weeks Associated Problem(s): Pain of both eyes - continue GenTeal moderate tears ophthalmic solution Associated Problem(s): Headache PLAN: - Tylenol 1g q6 hours Associated Problem(s): Syncope, unspecified syncope type - am cortisol on 02/03 low but cosyntropin stim test negative - cardiology consulted, syncope is most likely vasovagal, triggered by pain during urination, though given persistent orthostatic changes, orthostatic component cannot be excluded. 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 This could potentially serve as an epileptogenic focus. - stopped trending prolactin as it has limited utility as a diagnostic test for epileptic seizures - orthostats could not be completed due to patien/t c/o dizziness and the elevated prolactin could be due to the risperidone - patient had an episode according to parents on 02/08 at around 5:30pm, he became limp, right eye was mediated and he was mildly responsive-> was back at baseline when seen a few mins later, VSS and no changes on tele Plan: - continue cardiac telemetry - Patient noted to have pauses up to 2.34 seconds - EP consulted-> unlikely that syncope related to his pauses, the short pauses are likely benign and no further intervention/VALDOVINOS recommended - neurology recs: - increased midodrine to 10 mg TID - added fludrocortisone - stopped flomax as may be worsening dysautonomia - could refer to [facility] for outpatient dysautonomia eval with tilt-table testing - high salt diet - compression socks and abdominal binder - repeat CBC, BMP, Mg - PT/OT recommending wheelchair and shower chair for home - follow up EP outpatient - consider follow up dysautonomia clinic outpatient Associated Problem(s): Dysautonomia (HCC) - am cortisol on 02/03 low but cosyntropin stim test negative - cardiology consulted, syncope is most likely vasovagal, triggered by pain during urination, though given persistent orthostatic changes, orthostatic component cannot be excluded. 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 This could potentially serve as an epileptogenic focus. - stopped trending prolactin as it has limited utility as a diagnostic test for epileptic seizures - orthostats could not be completed due to patien/t c/o dizziness and the elevated prolactin could be due to the risperidone - patient had an episode according to parents on 02/08 at around 5:30pm, he became limp, right eye was mediated and he was mildly responsive-> was back at baseline when seen a few mins later, VSS and no changes on tele Plan: - continue cardiac telemetry - Patient noted to have pauses up to 2.34 seconds - EP consulted-> unlikely that syncope related to his pauses, the short pauses are likely benign and no further intervention/VALDOVINOS recommended - neurology recs: - increased midodrine to 10 mg TID - added fludrocortisone - stopped flomax as may be worsening dysautonomia - could refer to [facility] for outpatient dysautonomia eval with tilt-table testing - high salt diet - compression socks and abdominal binder - repeat CBC, BMP, Mg - PT/OT recommending wheelchair and shower chair for home - follow up EP outpatient - consider follow up dysautonomia clinic outpatient Associated Problem(s): Orthostatic hypotension - am cortisol on 02/03 low but cosyntropin stim test negative - cardiology consulted, syncope is most likely vasovagal, triggered by pain during urination, though given persistent orthostatic changes, orthostatic component cannot be excluded. 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 This could potentially serve as an epileptogenic focus. - stopped trending prolactin as it has limited utility as a diagnostic test for epileptic seizures - orthostats could not be completed due to patien/t c/o dizziness and the elevated prolactin could be due to the risperidone - patient had an episode according to parents on 02/08 at around 5:30pm, he became limp, right eye was mediated and he was mildly responsive-> was back at baseline when seen a few mins later, VSS and no changes on tele Plan: - continue cardiac telemetry - Patient noted to have pauses up to 2.34 seconds - EP consulted-> unlikely that syncope related to his pauses, the short pauses are likely benign and no further intervention/VALDOVINOS recommended - neurology recs: - increased midodrine to 10 mg TID - added fludrocortisone - stopped flomax as may be worsening dysautonomia - could refer to [facility] for outpatient dysautonomia eval with tilt-table testing - high salt diet - compression socks and abdominal binder - repeat CBC, BMP, Mg - PT/OT recommending wheelchair and shower chair for home - follow up EP outpatient - consider follow up dysautonomia clinic outpatient Associated Problem(s): Vasovagal syncope - am cortisol on 02/03 low but cosyntropin stim test negative - cardiology consulted, syncope is most likely vasovagal, triggered by pain during urination, though given persistent orthostatic changes, orthostatic component cannot be excluded. 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 This could potentially serve as an epileptogenic focus. - stopped trending prolactin as it has limited utility as a diagnostic test for epileptic seizures - orthostats could not be completed due to patien/t c/o dizziness and the elevated prolactin could be due to the risperidone - patient had an episode according to parents on 02/08 at around 5:30pm, he became limp, right eye was mediated and he was mildly responsive-> was back at baseline when seen a few mins later, VSS and no changes on tele Plan: - continue cardiac telemetry - Patient noted to have pauses up to 2.34 seconds - EP consulted-> unlikely that syncope related to his pauses, the short pauses are likely benign and no further intervention/VALDOVINOS recommended - neurology recs: - increased midodrine to 10 mg TID - added fludrocortisone - stopped flomax as may be worsening dysautonomia - could refer to [facility] for outpatient dysautonomia eval with tilt-table testing - high salt diet - compression socks and abdominal binder - repeat CBC, BMP, Mg - PT/OT recommending wheelchair and shower chair for home - follow up EP outpatient - consider follow up dysautonomia clinic outpatient Associated Problem(s): Suprapubic pain - previously diagnosed with prostatitis and treated with antibiotics - sensitive exam on 02/01 was negative for rashes, discharge, masses - c/f urinary retention contributing to syncope and had denise placed 02/01 but was removed 02/04 - PVRs have been elevated but will decrease after patient is prompted to urinate - discussed denise with parents Plan: - Miralax and Senna PRN for constipation - q8 PVR -> if still retaining, will place denise and discharge with it until urology follow up, waiting on patient's mother's decision - q4 I/O - Flomax discontinued - urology consulted and will evaluate further on an out-patient basis - renal ultrasound ordered Associated Problem(s): Urinary retention - previously diagnosed with prostatitis and treated with antibiotics - sensitive exam on 02/01 was negative for rashes, discharge, masses - c/f urinary retention contributing to syncope and had denise placed 02/01 but was removed 02/04 - PVRs have been elevated but will decrease after patient is prompted to urinate - discussed denise with parents Plan: - Miralax and Senna PRN for constipation - q8 PVR -> if still retaining, will place denise and discharge with it until urology follow up, waiting on patient's mother's decision - q4 I/O - Flomax discontinued - urology consulted and will evaluate further on an out-patient basis - renal ultrasound ordered Associated Problem(s): Down syndrome (HCC) - 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 occurring over the past year - previously being treated with risperidone 3.5 mg BID which has provided symptomatic relief - recently diagnosed with dementia by neurologist with blood work (elevated [id number]) - psych recs- change risperdal dose to 3 mg BID (Prolactin was elevated (48.9), likely related to risperidone; serial prolactin levels discontinued as not diagnostically useful) Plan: - continue risperdal 3mg BID - outpatient psych follow up in 2 weeks Associated Problem(s): Memory impairment - 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 occurring over the past year - previously being treated with risperidone 3.5 mg BID which has provided symptomatic relief - recently diagnosed with dementia by neurologist with blood work (elevated [id number]) - psych recs- change risperdal dose to 3 mg BID (Prolactin was elevated (48.9), likely related to risperidone; serial prolactin levels discontinued as not diagnostically useful) Plan: - continue risperdal 3mg BID - outpatient psych follow up in 2 weeks Associated Problem(s): Hallucinations - 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 occurring over the past year - previously being treated with risperidone 3.5 mg BID which has provided symptomatic relief - recently diagnosed with dementia by neurologist with blood work (elevated [id number]) - psych recs- change risperdal dose to 3 mg BID (Prolactin was elevated (48.9), likely related to risperidone; serial prolactin levels discontinued as not diagnostically useful) Plan: - continue risperdal 3mg BID - outpatient psych follow up in 2 weeks Associated Problem(s): Pain of both eyes - continue GenTeal moderate tears ophthalmic solution Associated Problem(s): Down syndrome (HCC) - 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 occurring over the past year - previously being treated with risperidone 3.5 mg BID which has provided symptomatic relief - recently diagnosed with dementia by neurologist with blood work (elevated [id number]) - psych recs- change risperdal dose to 3 mg BID (Prolactin was elevated (48.9), likely related to risperidone; serial prolactin levels discontinued as not diagnostically useful) Plan: - continue risperdal 3mg BID - outpatient psych follow up in 2 weeks Associated Problem(s): Memory impairment - 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 occurring over the past year - previously being treated with risperidone 3.5 mg BID which has provided symptomatic relief - recently diagnosed with dementia by neurologist with blood work (elevated [id number]) - psych recs- change risperdal dose to 3 mg BID (Prolactin was elevated (48.9), likely related to risperidone; serial prolactin levels discontinued as not diagnostically useful) Plan: - continue risperdal 3mg BID - outpatient psych follow up in 2 weeks Associated Problem(s): Hallucinations - 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 occurring over the past year - previously being treated with risperidone 3.5 mg BID which has provided symptomatic relief - recently diagnosed with dementia by neurologist with blood work (elevated [id number]) - psych recs- change risperdal dose to 3 mg BID (Prolactin was elevated (48.9), likely related to risperidone; serial prolactin levels discontinued as not diagnostically useful) Plan: - continue risperdal 3mg BID - outpatient psych follow up in 2 weeks Associated Problem(s): Syncope, unspecified syncope type - am cortisol on 02/03 low but cosyntropin stim test negative - cardiology consulted, syncope is most likely vasovagal, triggered by pain during urination, though given persistent orthostatic changes, orthostatic component cannot be excluded. 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 This could potentially serve as an epileptogenic focus. - stopped trending prolactin as it has limited utility as a diagnostic test for epileptic seizures - orthostats could not be completed due to patien/t c/o dizziness and the elevated prolactin could be due to the risperidone - patient had an episode according to parents on 02/08 at around 5:30pm, he became limp, right eye was mediated and he was mildly responsive-> was back at baseline when seen a few mins later, VSS and no changes on tele Plan: - continue cardiac telemetry - Patient noted to have pauses up to 2.34 seconds - EP consulted-> unlikely that syncope related to his pauses, the short pauses are likely benign and no further intervention/VALDOVINOS recommended - neurology recs: - increased midodrine to 10 mg TID - added fludrocortisone - stopped flomax as may be worsening dysautonomia - could refer to [facility] for outpatient dysautonomia eval with tilt-table testing - high salt diet - compression socks and abdominal binder - repeat CBC, BMP, Mg - PT/OT recommending wheelchair and shower chair for home - follow up EP outpatient - consider follow up dysautonomia clinic outpatient Associated Problem(s): Dysautonomia (HCC) - am cortisol on 02/03 low but cosyntropin stim test negative - cardiology consulted, syncope is most likely vasovagal, triggered by pain during urination, though given persistent orthostatic changes, orthostatic component cannot be excluded. 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 This could potentially serve as an epileptogenic focus. - stopped trending prolactin as it has limited utility as a diagnostic test for epileptic seizures - orthostats could not be completed due to patien/t c/o dizziness and the elevated prolactin could be due to the risperidone - patient had an episode according to parents on 02/08 at around 5:30pm, he became limp, right eye was mediated and he was mildly responsive-> was back at baseline when seen a few mins later, VSS and no changes on tele Plan: - continue cardiac telemetry - Patient noted to have pauses up to 2.34 seconds - EP consulted-> unlikely that syncope related to his pauses, the short pauses are likely benign and no further intervention/VALDOVINOS recommended - neurology recs: - increased midodrine to 10 mg TID - added fludrocortisone - stopped flomax as may be worsening dysautonomia - could refer to [facility] for outpatient dysautonomia eval with tilt-table testing - high salt diet - compression socks and abdominal binder - repeat CBC, BMP, Mg - PT/OT recommending wheelchair and shower chair for home - follow up EP outpatient - consider follow up dysautonomia clinic outpatient Associated Problem(s): Orthostatic hypotension - am cortisol on 02/03 low but cosyntropin stim test negative - cardiology consulted, syncope is most likely vasovagal, triggered by pain during urination, though given persistent orthostatic changes, orthostatic component cannot be excluded. 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 This could potentially serve as an epileptogenic focus. - stopped trending prolactin as it has limited utility as a diagnostic test for epileptic seizures - orthostats could not be completed due to patien/t c/o dizziness and the elevated prolactin could be due to the risperidone - patient had an episode according to parents on 02/08 at around 5:30pm, he became limp, right eye was mediated and he was mildly responsive-> was back at baseline when seen a few mins later, VSS and no changes on tele Plan: - continue cardiac telemetry - Patient noted to have pauses up to 2.34 seconds - EP consulted-> unlikely that syncope related to his pauses, the short pauses are likely benign and no further intervention/VALDOVINOS recommended - neurology recs: - increased midodrine to 10 mg TID - added fludrocortisone - stopped flomax as may be worsening dysautonomia - could refer to [facility] for outpatient dysautonomia eval with tilt-table testing - high salt diet - compression socks and abdominal binder - repeat CBC, BMP, Mg - PT/OT recommending wheelchair and shower chair for home - follow up EP outpatient - consider follow up dysautonomia clinic outpatient Associated Problem(s): Vasovagal syncope - am cortisol on 02/03 low but cosyntropin stim test negative - cardiology consulted, syncope is most likely vasovagal, triggered by pain during urination, though given persistent orthostatic changes, orthostatic component cannot be excluded. 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 This could potentially serve as an epileptogenic focus. - stopped trending prolactin as it has limited utility as a diagnostic test for epileptic seizures - orthostats could not be completed due to patien/t c/o dizziness and the elevated prolactin could be due to the risperidone - patient had an episode according to parents on 02/08 at around 5:30pm, he became limp, right eye was mediated and he was mildly responsive-> was back at baseline when seen a few mins later, VSS and no changes on tele Plan: - continue cardiac telemetry - Patient noted to have pauses up to 2.34 seconds - EP consulted-> unlikely that syncope related to his pauses, the short pauses are likely benign and no further intervention/VALDOVINOS recommended - neurology recs: - increased midodrine to 10 mg TID - added fludrocortisone - stopped flomax as may be worsening dysautonomia - could refer to [facility] for outpatient dysautonomia eval with tilt-table testing - high salt diet - compression socks and abdominal binder - repeat CBC, BMP, Mg - PT/OT recommending wheelchair and shower chair for home - follow up EP outpatient - consider follow up dysautonomia clinic outpatient Associated Problem(s): Suprapubic pain - previously diagnosed with prostatitis and treated with antibiotics - sensitive exam on 02/01 was negative for rashes, discharge, masses - c/f urinary retention contributing to syncope and had denise placed 02/01 but was removed 02/04 - PVRs have been elevated but will decrease after patient is prompted to urinate - discussed denies with parents Plan: - Miralax and Senna PRN for constipation - q8 PVR -> if still retaining, will place denise and discharge with it until urology follow up, waiting on patient's mother's decision - q4 I/O - Flomax discontinued - urology consulted and will evaluate further on an out-patient basis - renal ultrasound ordered Associated Problem(s): Urinary retention - previously diagnosed with prostatitis and treated with antibiotics - sensitive exam on 02/01 was negative for rashes, discharge, masses - c/f urinary retention contributing to syncope and had denise placed 02/01 but was removed 02/04 - PVRs have been elevated but will decrease after patient is prompted to urinate - discussed denise with parents Plan: - Miralax and Senna PRN for constipation - q8 PVR -> if still retaining, will place denise and discharge with it until urology follow up, waiting on patient's mother's decision - q4 I/O - Flomax discontinued - urology consulted and will evaluate further on an out-patient basis - renal ultrasound ordered Associated Problem(s): Pain of both eyes - continue GenTeal moderate tears ophthalmic solution Associated Problem(s): Vasovagal syncope - am cortisol on 02/03 low but cosyntropin stim test negative - cardiology consulted, syncope is most likely vasovagal, triggered by pain during urination, though given persistent orthostatic changes, orthostatic component cannot be excluded. 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 This could potentially serve as an epileptogenic focus. - stopped trending prolactin as it has limited utility as a diagnostic test for epileptic seizures - orthostats could not be completed due to patien/t c/o dizziness and the elevated prolactin could be due to the risperidone - patient had an episode according to parents on 02/08 at around 5:30pm, he became limp, right eye was mediated and he was mildly responsive-> was back at baseline when seen a few mins later, VSS and no changes on tele Plan: - continue cardiac telemetry - Patient noted to have pauses up to 2.34 seconds - EP consulted-> unlikely that syncope related to his pauses, the short pauses are likely benign and no further intervention/VALDOVINOS recommended - neurology recs: - increased midodrine to 10 mg TID - added fludrocortisone - stopped flomax as may be worsening dysautonomia - could refer to [facility] for outpatient dysautonomia eval with tilt-table testing - high salt diet - compression socks and abdominal binder - repeat CBC, BMP, Mg - PT/OT recommending wheelchair and shower chair for home - follow up EP outpatient - consider follow up dysautonomia clinic outpatient - neurology to be consulted regarding discontinuation of fludrocortisone as patient is having abdominal pain and excessive tiredness Associated Problem(s): Suprapubic pain - previously diagnosed with prostatitis and treated with antibiotics - sensitive exam on 02/01 was negative for rashes, discharge, masses - c/f urinary retention contributing to syncope and had denise placed 02/01 but was removed 02/04 - PVRs have been elevated but will decrease after patient is prompted to urinate - discussed denise with parents Plan: - Miralax and Senna PRN for constipation - q8 PVR -> if still retaining, will place denise and discharge with it until urology follow up, waiting on patient's mother's decision - q4 I/O - Flomax discontinued - urology consulted and will evaluate further on an out-patient basis - renal ultrasound ordered Associated Problem(s): Urinary retention - previously diagnosed with prostatitis and treated with antibiotics - sensitive exam on 02/01 was negative for rashes, discharge, masses - c/f urinary retention contributing to syncope and had denise placed 02/01 but was removed 02/04 - PVRs have been elevated but will decrease after patient is prompted to urinate - discussed denise with parents Plan: - Miralax and Senna PRN for constipation - q8 PVR -> if still retaining, will place denise and discharge with it until urology follow up, waiting on patient's mother's decision - q4 I/O - Flomax discontinued - urology consulted and will evaluate further on an out-patient basis - renal ultrasound ordered Associated Problem(s): Syncope, unspecified syncope type - am cortisol on 02/03 low but cosyntropin stim test negative - cardiology consulted, syncope is most likely vasovagal, triggered by pain during urination, though given persistent orthostatic changes, orthostatic component cannot be excluded. 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 This could potentially serve as an epileptogenic focus. - stopped trending prolactin as it has limited utility as a diagnostic test for epileptic seizures - orthostats could not be completed due to patien/t c/o dizziness and the elevated prolactin could be due to the risperidone - patient had an episode according to parents on 02/08 at around 5:30pm, he became limp, right eye was mediated and he was mildly responsive-> was back at baseline when seen a few mins later, VSS and no changes on tele Plan: - continue cardiac telemetry - Patient noted to have pauses up to 2.34 seconds - EP consulted-> unlikely that syncope related to his pauses, the short pauses are likely benign and no further intervention/VALDOVINOS recommended - neurology recs: - increased midodrine to 10 mg TID - added fludrocortisone - stopped flomax as may be worsening dysautonomia - could refer to [facility] for outpatient dysautonomia eval with tilt-table testing - high salt diet - compression socks and abdominal binder - repeat CBC, BMP, Mg - PT/OT recommending wheelchair and shower chair for home - follow up EP outpatient - consider follow up dysautonomia clinic outpatient - neurology to be consulted regarding discontinuation of fludrocortisone as patient is having abdominal pain and excessive tiredness Associated Problem(s): Dysautonomia (HCC) - am cortisol on 02/03 low but cosyntropin stim test negative - cardiology consulted, syncope is most likely vasovagal, triggered by pain during urination, though given persistent orthostatic changes, orthostatic component cannot be excluded. 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 This could potentially serve as an epileptogenic focus. - stopped trending prolactin as it has limited utility as a diagnostic test for epileptic seizures - orthostats could not be completed due to patien/t c/o dizziness and the elevated prolactin could be due to the risperidone - patient had an episode according to parents on 02/08 at around 5:30pm, he became limp, right eye was mediated and he was mildly responsive-> was back at baseline when seen a few mins later, VSS and no changes on tele Plan: - continue cardiac telemetry - Patient noted to have pauses up to 2.34 seconds - EP consulted-> unlikely that syncope related to his pauses, the short pauses are likely benign and no further intervention/VALDOVINOS recommended - neurology recs: - increased midodrine to 10 mg TID - added fludrocortisone - stopped flomax as may be worsening dysautonomia - could refer to [facility] for outpatient dysautonomia eval with tilt-table testing - high salt diet - compression socks and abdominal binder - repeat CBC, BMP, Mg - PT/OT recommending wheelchair and shower chair for home - follow up EP outpatient - consider follow up dysautonomia clinic outpatient - neurology to be consulted regarding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 (unrecognized section and content) Medication Order 02/24/2025 02/25/2025 02/26/2025 acetaminophen (TYLENOL) tablet (CANCELED) 1,000 mg, Oral, EVERY 12 HOURS, 4 doses, First dose on 02/25/25 at 1300, Last dose on 02/27/25 at 0100 1347 (Given - Provider: Chayo Mann RN) 0100 (Hold/Not Given - Provider: Chilango Herbert RN - Reason: Patient sleeping) acetaminophen (TYLENOL) tablet 1,000 mg, Oral, EVERY 8 HOURS, First dose (after last modification) on 02/26/25 at 1000, Until Discontinued 1420 (Given - Provider: Chayo Mann RN)1800 (Due) chlorhexidine (HIBICLENS) 4 % external solution SOLN (COMPLETED) Topical, ONCE, 1 dose, On Alina 02/24/25 at 1930 1930 (Given - Provider: Yaritza Merino RN) docusate sodium (COLACE) capsule 100 mg, Oral, EVERY EVENING, First dose on Fri02/11/25 at 1800, Until Discontinued 185 (Given - Provider: Yaritza Merino, REJI) 1815 (Given - Provider: Ana Seth RN) 1800 (Due) fludrocortisone (FLORINEF) 0.1 MG tablet 0.1 mg, Oral, DAILY, First dose on 02/14/25 at 1230, Until Discontinued 1129 (Given - Provider: Marcela Oliva RN) 0900 (Hold/Not Given - Provider: Chayo Mann RN - Reason: Off of unit (test/procedure/OR))1 348 (Given - Provider: Chayo Mann RN) 1003 (Given - Provider: Chayo Mann RN) GenTeal moderate tears 0.1-0.2-0.3 % opthalmic solution 1 Drop, Both Eyes, EVERY 4 HOURS, First dose (after last modification) on Alina 02/03/25 at 1200, Until Discontinued 0101 (Hold/Not Given - Provider: Hever Claros RN - Reason: Patient sleeping)0502 (Hold/Not Given - Provider: Hever Claros RN - Reason: Not indicated)1000 (Hold/Not Given - Provider: Marcela Oliva RN - Reason: Not indicated)1400 (Hold/Not Given - Provider: Marcela Oliva RN - Reason: Not indicated)1900 (Given - Provider: Yaritza Merino RN)2200 (Hold/Not Given - Provider: Yaritza Merino RN - Reason: Patient refused) 0200 (Hold/Not Given - Provider: Isidra Thompson RN - Reason: Patient sleeping)0600 (Hold/Not Given - Provider: Isidra Thompson RN - Reason: Patient sleeping)1000 (Hold/Not Given - Provider: Chayo Mann RN - Reason: Off of unit (test/procedure/OR))1 350 (Given - Provider: Chayo Mann RN)1816 (Given - Provider: Ana Seth RN)2156 (Given - Provider: Chilango Herbert, REJI) 0200 (Hold/Not Given - Provider: Chilango Herbert RN - Reason: Patient sleeping)0613 (Given - Provider: Chilango Herbert RN)1003 (Given - Provider: Chayo Mann RN)1400 (Hold/Not Given - Provider: Chayo Mann RN - Reason: Patient refused)1800 (Due)2200 (Due) ketorolac (TORADOL) 15 MG/ML injection (COMPLETED) 15 mg, Intravenous, ONCE, 1 dose, On Fri02/25/25 at 1700 1640 (Given - Provider: Ana Seth RN) ketorolac (TORADOL) 15 MG/ML injection (COMPLETED) 15 mg, Intravenous, ONCE, 1 dose, On Fri02/26/25 at 1230 1201 (Given - Provider: Chayo Mann RN) midodrine tablet 10 mg, Oral, 3 TIMES DAILY WITH MEALS, First dose (after last modification) on Fri02/07/25 at 1230, Until Discontinued 1129 (Given - Provider: Marcela Olvia RN)1539 (Given - Provider: Marcela Oliva RN)1858 (Given - Provider: Yaritza Merino RN) 0800 (Hold/Not Given - Provider: Chayo Mann RN - Reason: Off of unit (test/procedure/OR))1 200 (Hold/Not Given - Provider: Chayo Mann RN - Reason: Off of unit (test/procedure/OR))1 641 (Given - Provider: Ana Seth RN) 0800 (Hold/Not Given - Provider: Chayo Mann RN - Reason: Not indicated - Comment: Pt not eating breakfast at this time)1143 (Given - Provider: Chayo Mann RN)1700 (Due) risperiDONE (RISPERDAL) tablet 3 mg, Oral, 2 times daily, First dose (after last modification) on Fri02/02/25 at 2100, Until Discontinued 1129 (Given - Provider: Marcela Oliva RN)2200 (Given - Provider: Yaritza Merino RN) 0900 (Hold/Not Given - Provider: Chayo Mann RN - Reason: Off of unit (test/procedure/OR))1 348 (Given - Provider: Chayo Mann RN)2156 (Given - Provider: Chilango Herbert RN) 1003 (Given - Provider: Chayo Mann RN)2100 (Due) vancomycin (VANCOCIN) 1 g injection (COMPLETED) 1,000 mg, Other, ONCE, 1 dose, On Fri02/25/25 at 1200 1105 (Given - Provider: Lesvia López RN) PRN Medication Order 02/24/2025 02/25/2025 02/26/2025 acetaminophen (TYLENOL) tablet (CANCELED) 1,000 mg, Oral, EVERY 6 HOURS PRN, Starting on Tu02/01/25 at 1941, Until 02/26/25 at 0935, Mild Pain (pain score 1,2,3), Moderate Pain (pain score 4,5,6), Severe Pain (pain score 7,8,9,10) 2358 (Given - Provider: Chilango Herbert RN) 0611 (Given - Provider: Chilango Herbert RN) naloxone (NARCAN) 0.4 MG/ML injection 0.4 mg, Intravenous, PRN, Starting on Fri02/25/25 at 0736, Until Discontinued, Respiratory Rate Less Than 8 for adults and less than 12 for Peds or for suspected overdose, PACU Now sodium chloride 0.9 % injection 3 mL, Intravenous, PRN, Starting on Fri02/25/25 at 0736, Until Discontinued, For medication administration and blood draw, PACU Now (unrecognized sect ion and content) No Status Records FoundNo Status Records Found INFORMATION SOURCE (unrecogn ized section and content) DATE CREATED AUTHOR 04/18/2025 [facility] DATE CREATED AUTHOR AUTHOR'S ADRIENNE ATION 04/25/2025 [email or web address] FOR RECORDS PERTAINING TO PATIENTS WHO ARE OR HAVE BEEN ENROLLED IN A CHEMICAL DEPENDENCY/SUBSTANCEABUSE PROGRAM, SOME INFORMATION MAY BE OMITTED. This clinical summary was aggregated from multiple sources. Caution should be exercised in using it in the provision of clinical care. This summary normalizes information from multiple sources, and as a consequence, information in this document may materially change the coding, format and clinical context of patient data. In addition, data may be omitted in some cases. CLINICAL DECISIONS SHOULD BE BASED ON THE PRIMARY CLINICAL RECORDS. [facility] [employer] [facility]. provides no warranty or guarantee of the accuracy or completeness of information in this document.
--- NOTE | 2025-05-13 19:20 | CT_ITS ---
PROCEDURE: ABDOMEN/PELVIS WITH CONTRAST 05/13/2025 REASON FOR EXAM: ABD PAIN TECHNIQUE: Procedure Code: [id number] Modality: CT Procedure: ABDOMEN/PELVIS WITH CONTRAST Coronal and Sagittal reconstruction series were provided. CONTRAST: Isovue 370 VOLUME: 100 mL One or more dose reduction techniques were used (e.g., Automated exposure control, adjustment of the mA and/or kV according to patient size, use of iterative reconstruction technique. RADIATION DOSE SUMMARY: CTDlvol: 10.42 MGy DLP: 581.45 MGycm COMPARISON: 04.26.2024 FINDINGS: The liver is normal in size. There are no focal enhancing liver lesions. No intra- or extrahepatic biliary duct dilatation is identified. The hepatic vasculature is patent. The gallbladder fossa is unremarkable. The spleen, pancreas, and adrenal glands are unremarkable. The kidneys are normal in size and attenuation with lobulated contour. Stable bilateral prominent extrarenal pelves. No renal calculi are identified. The ureters are normal in caliber and no ureteral calculi are seen. Newly seen diffuse circumferential wall thickening seen involving the sigmoid colon without focal masses suggesting colitis, recommend clinical correlation. The previously noted gastric circumferential thickening is no longer seen. No bowel obstruction is identified. The appendix is unremarkable The abdominal aorta and inferior vena cava appear unremarkable. No adenopathy is seen. Redemonstration of the small fat-containing umbilical hernia. No free intraperitoneal fluid, fluid collection or free air is identified. The urinary bladder is partially distended with interval resolution of the previously seen mild wall thickening. No pelvic mass seen. No aggressive-appearing osseous lesions are identified. The included lower chest cuts show applied cardiac pacemaker leads CT/Abdomen/Pelvis WITH Contrast IMPRESSION: No acute abnormalities detected. Newly seen diffuse circumferential wall thickening seen involving the sigmoid c olon without focal masses suggesting colitis, recommend clinical correlation. The previously noted gastric circumferential thickening is no longer seen. Interval resolution of the previously seen mild diffuse wall thickening of the urinary bladder. Redemonstration of the small fat-containing umbilical hernia. Reading Location: [place] [address]
== END | disposition home or self-care (01) ==
LOC: CT 17:08
PROVIDERS: PCP Nurse Practitioner Family; Referring Provider Nurse Practitioner Acute Care; Visit Provider Nurse Practitioner Acute Care
DX: R19.4 Change in bowel habit (principal); R10.33 Periumbilical pain
CPT/HCPCS: 74177; Q9967

== ENCOUNTER 2025-05-18 08:59 | Day surgery (SDC) | payer MEDICARE, SELFPAY ==
--- NOTE | 2025-05-17 15:31 | PAT.ANESEVAL ---
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 When Was Last Pacemaker Check QUESTION #4 FULL TEXT: You/Your Family Experience fever (hyperthermia) with Anesthesia Last Oral Intake Last Oral intake: Last Oral Intake NPO since Meds taken in AM with sips of water? 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 developer Female No 05/17/25 15:02 HX of Motion Sickness No 05/17/25 15:02 HX of N/V After Surgery No 05/17/25 15:02 Non-Smoker No 05/17/25 15:02 Duration of Surgery greater No 05/17/25 15:02 than 60 minutes Number of Risk Factors PONV Score Height & Weight Height & Weight: Anesthesia: Height & Weight Height 5 ft 6 in 04/18/25 10:03 Respiratory Assessment Respiratory Assessment - ruby on rails web developer: Respiratory Tract Infection Hx - ruby on rails web developer Hx Respiratory Tract Infection No 05/17/25 15:02 STOP Sleep Apnea STOP Sleep Apnea - ruby on rails web developer: STOP Sleep Apnea - ruby on rails web developer Hx Hypertension No 05/17/25 15:02 Hx Sleep Apnea No 05/17/25 15:02 CPAP BIPAP Do you snore loudly (louder No 05/17/25 15:02 than talking or can be heard Do you often feel tired/ No 05/17/25 15:02 fatigued/ sleepy during daytime? Has anyone observed you stop No 05/17/25 15:02 breathing during sleep? STOP Results Negative 05/17/25 15:02 QUESTION #5 FULL TEXT : Do you snore loudly (louder than talking or can be heard through closed doors)? 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 on rails web developer Tobacco Use Non-smoker 11/07/20 14:27 Smoking Status Never smoker 05/17/25 15:02 Hx Tobacco Use No 05/17/25 15:02 Years Smoking Packs Smoked per Day Smoking Cessation Date was within the last 15 years Hx Smoking Cessation Date Hx Smoking Cessation Counseling Hematologic Medial History Hematologic Hx - ruby on rails web developer: Hematologic Medical Hx - rn renal Hx of Blood Transfusion No 05/17/25 15:02 Hx of Transfusion in last 3 No 05/17/25 15:02 Months Date of Last Transfusion (if within last 3 months) Ever experience any problems No 05/17/25 15:02 with transfusion(s)? Specify any problems Hx of Preganancy in last 3 N/A 05/17/25 15:02 Months Nurse Filling Out Transfusion [email or web address] 05/17/25 15:02 & Questions: Date: 05/17/25 05/17/25 15:02 Time: 15:05 05/17/25 15:02 Patient unable to answer at this time (ie. confused, unrespo /Reproduction History /Reproductive History - ruby on rails web developer: /Reproductive Hx- ruby on rails web developer Hx Now Gestational Age (in weeks): EDC: Hx Hx Para Hx Section SAB Does the father of the baby or his family experience fever w Father of the baby Malignant Hypertension history comment [facility] Medical History (Updated 05/17/25 @ 15:08 by Edi Peterson) History of echocardiogram Cardiology follow-up encounter Syncope History of pacemaker Auditory hallucinations Neurocognitive deficits Bilateral impacted cerumen Excess ear wax Encounter to establish care Flu vaccine need Memory deficits Schizophrenia OCD (obsessive compulsive disorder) History of seizures Hx of gastrointestinal disease History of emotional problems Down syndrome Home Medications ?Medication ?Instructions ?Recorded ?Last Taken ?Type trazodone 50 mg tablet 50 mg PO QHS PRN insomnia #30 tabs 11/19/24 Unknown Rx docusate sodium 100 mg capsule 100 mg PO QDAY 11/25/24 Unknown History acetaminophen 500 mg tablet 500 mg PO Q6H PRN pain 03/15/25 Unknown History (Tylenol Extra Strength) fludrocortisone 0.1 mg tablet 0.1 mg PO QDAY 03/15/25 Unknown History midodrine 10 mg tablet 10 mg PO TID 03/15/25 Unknown History calcium polycarbophil 625 mg 1,250 mg PO .QID 04/18/25 Unknown History tablet (FiberCon) risperidone 3 mg tablet 3 mg PO BID 30 days #60 tabs 05/02/25 Unknown Rx peg 3350-electrolytes 236 240 ml PO ONCE #4,000 mL 05/05/25 Unknown Rx gram-22.74 gram-6.74 gram-5.86 gram solution (Golytely) Allergy/AdvReac Type Severity Reaction Status Date / Time No Known Drug Allergies Allergy Other Verified 05/17/25 09:33 Social History household members: family housing: house current occupational status: disabled Smoking Status: Never smoker alcohol intake: never substance use type: does not use what type of physical activity do you participate in: other details: Dancing frequency: daily seatbelt use: always do you feel safe at home: Yes Audit: Pertinent Findings Pertinent Findings EKG Perinent findings: February 14, 2025. Sinus bradycardia. Otherwise normal EKG. Echo (EF%) pertinent findings: January 31, 2025. EF of 60%. No aortic stenosis noted. Recommendation Anesthesia Recommendation Anesthesia recommendation: OPTIMIZED for anesthesia
[2025-05-18] VITALS (7 sets, daily range): BP systolic 85–107; BP diastolic 39–67; PULSE 61–88; RESP 12–20; TEMP 36.2–36.7; O2SAT 96–98; BMI 25.9
[2025-05-18] MEDS: Lactated Ringers 1,000 ML 15 ML IV (09:25)
--- NOTE | 2025-05-18 09:47 | PRE.ANES_ITS ---
ASA Classification* ASA Classification ASA Classification: 3 Assessment & Plan Anesthesia* Anesthesia Assessment Anesthesia Assessment: Discussed sedation and/or anesthesia options, risks, benefits, and alternatives with patient/parents/legal guardian/POA. Questions invited. The patient/parents/legal guardian/POA seems to understand and agrees to proceed with anesthesia plan. Reviewed the physical assessment, medical history, allergy history and patient home medications list prior to surgery/procedure/anesthetic and documented any changes. Performed airway and anesthesia risk assessments. Anesthesia Type Anesthesia Type: MAC Anesthesia Focused Assessment* Temperature: 98.0 F Pulse Rate: 88 Blood Pressure: 107/63 Respiratory Rate: 18 Pulse Ox: 96 Airway Assessment Mouth opens: >3 cm Mallampati Score: II Labs Anesthesia Preop lab: CBC WBC, (4.4-11.0) 9.3 K/mm3 03/15/25, 15:58 RBC, (4.6-6.2) 4.74 M/mm3 03/15/25, 15:58 Hgb, (13.0-16.5) 14.9 g/dL 03/15/25, 15:58 Hct, (40-54) 44.0 % 03/15/25, 15:58 Plt Count, (150-450) 240 K/mm3 03/15/25, 15:58 CHEMISTRY Potassium, (3.3-5.1) 3.9 mmol/L 03/15/25, 15:58 Sodium, (133-145) 137 mmol/L 03/15/25, 15:58 Magnesium, (1.5-2.2) 2.3 mg/dL H 11/10/24, 12:18 BUN, (4-19) 17 mg/dL 03/15/25, 15:58 Creatinine, (0.70-1.20) 1.11 mg/dL 03/15/25, 15:58 Glucose, (70-99) 116 mg/dL H 03/15/25, 15:58 TSH, (0.300-4.200) 2.210 uIU/mL 03/15/25, 15:58 COAG PT, (11.7-14.9) 13.2 SECONDS 04/26/24, 16:20 Pre-Assessment Diagnosis/Proposed Procedure Planned Operative Procedure(s): COLONOSCOPY Anesthesia History 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 When Was Last Pacemaker Check QUESTION #4 FULL TEXT: You/Your Family Experience fever (hyperthermia) with Anesthesia Last Oral Intake Last Oral intake: Last Oral Intake NPO since 22:00 05/18/25 09:22 Meds taken in AM with sips of Yes 05/18/25 09:22 water? Meds patient instructed to take am of surgery PONV PONV - fashion patternmaker: PONV - fashion patternmaker Female No 05/17/25 15:02 HX of Motion Sickness No 05/17/25 15:02 HX of N/V After Surgery No 05/17/25 15:02 Non-Smoker No 05/17/25 15:02 Duration of Surgery greater No 05/17/25 15:02 than 60 minutes Number of Risk Factors PONV Score Height & Weight Height & Weight: Anesthesia: Height & Weight Height 5 ft 6 in 05/18/25 09:22 Weight: 73 kg 05/18/25 09:22 Body Mass Index (BMI) 25.9 05/18/25 09:22 Respiratory Assessment Respiratory Assessment - fashion patternmaker: Respiratory Tract Infection Hx - fashion patternmaker Hx Respiratory Tract Infection No 05/17/25 15:02 STOP Sleep Apnea STOP Sleep Apnea - fashion patternmaker: STOP Sleep Apnea - fashion patternmaker Hx Hypertension No 05/17/25 15:02 Hx Sleep Apnea No 05/17/25 15:02 CPAP BIPAP Do you snore loudly (louder No 05/17/25 15:02 than talking or can be heard Do you often feel tired/ No 05/17/25 15:02 fatigued/ sleepy during daytime? Has anyone observed you stop No 05/17/25 15:02 breathing during sleep? STOP Results Negative 05/17/25 15:02 QUESTION #5 FULL TEXT : Do you snore loudly (louder than talking or can be heard through closed doors)? 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 Specify any problems Hx of Preganancy in last 3 N/A 05/17/25 15:02 Months Nurse Filling Out Transfusion [email or web address] 05/17/25 15:02 & Questions: Date: 05/17/25 05/17/25 15:02 Time: 15:05 05/17/25 15:02 Patient unable to answer at this time (ie. confused, unrespo /Reproduction History /Reproductive History - fashion patternmaker: /Reproductive Hx- fashion patternmaker Hx Now Gestational Age (in weeks): EDC: Hx Hx Para Hx Section SAB Does the father of the baby or his family experience fever w Father of the baby Malignant Hypertension history comment Active Medications Active Medications: Current Medications Generic Name Dose Route Start Last Admin Trade Name Freq PRN Reason Stop Dose Admin Lactated Ringer's 1,000 mls @ 15 mls/hr 05/18/25 09:15 05/18/25 09:25 IV 15 mls/hr .Q48H VARUN Administration PFSH Medical History History of echocardiogram Cardiology follow-up encounter Syncope History of pacemaker Auditory hallucinations Neurocognitive deficits Bilateral impacted cerumen Excess ear wax Encounter to establish care Flu vaccine need Memory deficits Schizophrenia OCD (obsessive compulsive disorder) History of seizures Hx of gastrointestinal disease History of emotional problems Down syndrome Home Medications ?Medication ?Instructions ?Recorded ?Last Taken ?Type trazodone 50 mg tablet 50 mg PO QHS PRN insomnia #3 0 tabs 11/19/24 Unknown Rx docusate sodium 100 mg capsule 100 mg PO QDAY 11/25/24 Unknown History acetaminophen 500 mg tablet 500 mg PO Q6H PRN pain Unknown History (Tylenol Extra Strength) fludrocortisone 0.1 mg tablet 0.1 mg PO QDAY 03/15/25 Unknown History midodrine 10 mg tablet 10 mg PO TID 03/15/25 Unknow n History calcium polycarbophil 625 mg 1,250 mg PO .QID 04/18/25 Unknown History tablet (FiberCon) risperidone 3 mg tablet 3 mg PO BID 30 days #60 tabs 05/02/25 Unknown Rx peg 3350-electrolytes 236 240 ml PO ONCE #4,000 mL Unknown Rx gram-22.74 gram-6.74 gram-5.86 gram solution (Golytely) Allergy/AdvReac Type Severity Reaction Status Date / Time No Known Drug Allergies Allergy Other Verified 05/18/25 09:21 Social History household members: family housing: house current occupational status: disabled Smoking Status: Never smoker alcohol intake: never substance use type: does not use what type of physical activity do you participate in: other details: Dancing frequency: daily seatbelt use: always do you feel safe at home: Yes Review of Systems (Anesthesia) ROS Narrative System reviewed and no additional complaints, except as documented.
--- NOTE | 2025-05-18 10:00 | COLBX_PTH ---
PATIENT: MEJIA BOWERS LOC: EN U#:[id number] AGE/SX: 40/M ROOM: RE05/18/[address]: Dr. Ariel Parr DO : 1985 BED: DIS: 05/18/2025 SPEC #: [id number] RECD: 05/18/25 12:15 STATUS: LIZZY JOHN #: [id number] FILIBERTO: 05/18/25 10:[address]: Ariel Parr DEPT: SURGICAL PATHOLOGY RECD BY: Arcelia Toscano ENTERED: 05/19/25 08:51 SP TYPE: COLON BX OTHR DR: Joshua Nichole, [employer] Tissues: A - Ileum, NOS B - COLON BIOPSY Procedures: Surgery Specimen Level IV HEADER OPERATION: Colonoscopy PRE-OP DIAGNOSIS: Change in bowel habits, periumbilical abdominal pain TISSUE SUBMITTED: A- Terminal ileum biopsy, B- Random colon biopsy MICROSCOPIC DIAGNOSIS A. Small intestine, terminal ileum, biopsies: - Benign ileal mucosa without active inflammation B. Large intestine, random: - Benign colonic mucosa without active inflammation MICROSCOPIC DESCRIPTION Slides are reviewed. GROSS DESCRIPTION A. Received in fixative is one container labeled with the patient's name and designated Terminal ileum biopsy. The specimen consists of two irregular fragments of woodson tissue, each measuring 0.6 cm. The specimen is totally submitted in one cassette. B. Received in fixative is one container labeled with the patient's name and designated Random colon biopsy. The specimen consists of multiple irregular fragments of woodson tissue that in aggregate measure 1.1 x 0.6 x 0.1 cm. The specimen is totally submitted in one cassette. DE 05/18/2025 CPT:23638e8
--- NOTE | 2025-05-18 10:50 | PCM.HP.STD ---
HPI - General General Date of Admission: 05/18/25 Date of Service: 05/18/25 Chief Complaint: Abdominal pain HPI Narrative Rogelio Hugo is a 40 year old male who presents today for follow up evaluation. Per mother, patient has had several syncopal episodes in recent past. Was at [facility] and passed out and was taken by ambulance to hospital. Was hospitalized for nearly a full month. Per report, had significant urinary retention but would not be seen by urology inpatient. Consult psychiatrist saw patient who thought that it was vasovagal syncope. Saw cardiology who eventually placed a pacemaker. Was started on midodrine and fludrocortisone. During hospitalization had significant pushback and even had an ethics consult placed which made entire situation more stressful. He was even able to go to [place] two weeks ago and had nearly no problems. Patient actually just passed out about 30 minutes ago at PCP appointment who has now referred to urology and ordered some additional lab work per self report. Has continued to have some AH of nice voices but has had no episodes of violence. Has gained nearly 15 lbs since December. Was eating better when in the hospital. Has been able to sleep fairly well. - seen in office today with sister Latoya and Aunt Jessica - now has a pacemaker for Vasovagal syncope - has had a syncopal episode since placement of pacer, PCP has referred to Urology - lives with his sister - chronic periumbilical abdominal pain for the past year, worse over the past 3 months - sister reports he has chronic abdominal pain, may or may not worsen with PO intake - pain does not prevent him from eating - has had some weight gain fo 20-25lbs since pacemaker placement 7 weeks ago - sits on the toilet constantly, pain never improves with a BM, mom is giving him several OTC laxatives and stool softeners w/o improvement in pain - denies any bleeding - adopted - family history is unknown - sister reports he is urinating normally - was seen by urology and no new orders [facility] Medical History History of echocardiogram Cardiology follow-up encounter Syncope History of pacemaker Auditory hallucinations Neurocognitive deficits Bilateral impacted cerumen Excess ear wax Encounter to establish care Flu vaccine need Memory deficits Schizophrenia OCD (obsessive compulsive disorder) History of seizures Hx of gastrointestinal disease History of emotional problems Down syndrome Home Medications ?Medication ?Instructions ?Recorded ?Last Taken ?Type trazodone 50 mg tablet 50 mg PO QHS PRN insomnia #30 tabs 11/19/24 Unknown Rx docusate sodium 100 mg capsule 100 mg PO QDAY 11/25/24 Unknown History acetaminophen 500 mg tablet 500 mg PO Q6H PRN pain 03/15/25 Unknown History (Tylenol Extra Strength) fludrocortisone 0.1 mg tablet 0.1 mg PO QDAY 03/15/25 Unknown History midodrine 10 mg tablet 10 mg PO TID 03/15/25 Unknown History calcium polycarbophil 625 mg 1,250 mg PO .QID 04/18/25 Unknown History tablet (FiberCon) risperidone 3 mg tablet 3 mg PO BID 30 days #60 tabs 05/02/25 Unknown Rx peg 3350-electrolytes 236 240 ml PO ONCE #4,000 mL 05/05/25 Unknown Rx gram-22.74 gram-6.74 gram-5.86 gram solution (Golytely) Allergy/AdvReac Type Severity Reaction Status Date / Time No Known Drug Allergies Allergy Other Verified 05/18/25 09:21 Social History household members: family housing: house current occupational status: disabled Smoking Status: Never smoker alcohol intake: never substance use type: does not use what type of physical activity do you participate in: other details: Dancing frequency: daily seatbelt use: always do you feel safe at home: Yes ROS Constitutional Constitutional: Denies fatigue, fever(s), poor appetite, weight gain or weight loss Gastrointestinal Gastrointestinal: Denies belching, bloating, change in bowel habits, change in stool character, chewing difficulty, coffee ground emesis, constipation, cramping, diarrhea, dyspepsia, dysphagia, early satiety, excessive flatus, fecal incontinence, heartburn, hematemesis, hematochezia, hemorrhoids, loose stools, melena, nausea, odynophagia, rectal bleeding, tenesmus, vomiting or weight changes Vital Signs Vital Signs Vital Signs: 05/18/25 09:22 05/18/25 09:22 05/18/25 09:22 Temperature 98.0 F Temperature Source Temporal Pulse Rate 88 Respiratory Rate 18 Respiratory Pattern Normal Blood Pressure 107/63 Blood Pressure Mean 77 Blood Pressure Source Monitor Blood Pressure Position Sitting Blood Pressure Location Left Arm Baseline BP 107/63 Pulse Ox 96 Oxygen Delivery Method Room Air 05/18/25 09:48 Temperature 98.0 F Temperature Source Pulse Rate 88 Respiratory Rate 18 Respiratory Pattern Blood Pressure 107/63 Blood Pressure Mean Blood Pressure Source Blood Pressure Position Blood Pressure Location Baseline BP Pulse Ox 96 Oxygen Delivery Method Weight Weight: 160 lb 14.999 oz Body Mass Index (BMI) 25.9 Physical Exam Const alert, oriented x3, no apparent distress and healthy appearing General Appearance: cooperative GI normal to inspection, nondistended, normoactive bowel sounds, soft to palpation, non-tender and non-distended Percussion: normal to percussion Rectal Exam: deferred Assessment & Plan Assessment/Plan (1) Change in bowel habits: (2) Periumbilical abdominal pain: PLAN: Assessment and Plan Assessment and Plan (1) Change in bowel habits: Status: Acute (2) Periumbilical abdominal pain: Status: Acute Orders: Orders Abdomen/Pelvis WITH Contrast Today R10.33 - Periumbilical pain, R19.4 - Change in bowel habit Plan 40-year-old male with a history of vasovagal syncope (status post pacemaker placement), chronic periumbilical abdominal pain for one year (worsening over three months), and recurrent syncope episodes. Pain is persistent, not relieved by bowel movements, and associated with frequent toilet sitting. Sister reports normal urination. Patient has gained 20?25 lbs since pacemaker placement. Multiple OTC laxatives and stool softeners have not improved symptoms. Denies GI bleeding. Family history unknown (adopted). Urology evaluation was unrevealing. Symptoms unresponsive to dietary changes, fiber, and OTC laxatives suggest outlet dysfunction or pelvic floor disorder. Defecatory disorders are a common cause of refractory constipation and may present with persistent pain, frequent toilet sitting, and incomplete evacuation. A distended bladder can act as a visceral afferent stimulus, precipitating reflex (vasovagal) syncope, especially in men. I have ordered a CT and scheduled him for a colonoscopy pending cardiac clearance. I discussed the importance of adequate hydration prior to initiation of bowel prep and mandatory family problems during bowel prep.]
[2025-05-18] MEDS: Lactated Ringers 500 ML IV (11:00)
--- NOTE | 2025-05-18 11:36 | PCM.POST.ANE ---
Anesthesia: Postop Eval I Current Vital Signs Temperature: 97.1 F Pulse Rate: 66 Blood Pressure: 92/50 Respiratory Rate: 20 Pulse Ox: 98 Assessment Airway patent: Yes Spontaneous unlabored respirations: Yes nausea: No Vomiting: No Anesthesia Complication: No Fluid Hydration Crystalloid volume administer (ml): 300 Total IV fluid infused: 300 Progress Note Anesthesia document: Postop Eval 1 completed: Yes
--- NOTE | 2025-05-18 11:44 | OP.PROVAT_ITS ---
05/18/2025 Joshua Nichole [facility], [employer] Re : Colonoscopy procedure for Rogelio Hugo Dear Dayaanra This procedure was performed on Sunday, May 18, 2025. My impressions and recommendations are as follows: Impressions : - Congested mucosa in the descending colon, in the ascending colon and in the cecum. Biopsied. - The examined portion of the ileum was normal. Biopsied. Recommendations : - Discharge patient to home. - Resume previous diet. - Continue present medications. - Await pathology results. - Repeat colonoscopy in 10 years for screening purposes. My findings are described in the full procedure note, which is enclosed. If I can be of further assistance, please feel free to contact me at . Sincerely, Ariel Parr, 05/18/2025 11:43:29 AM This report has been signed electronically.
--- NOTE | 2025-05-18 11:44 | OP.COLON_ITS ---
Patient Name: Rogelio Hugo Procedure Date: 05/18/2025 10:56 AM Date of : 1985 Age: 40 Procedure: Colonoscopy Indications: Abdominal pain in the left lower quadrant, Abdominal pain in the right lower quadrant Providers: Ariel Parr DO Medicines: Monitored Anesthesia Care Patient Profile: This is a 40 year old male. Refer to note in patient chart for documentation of history and physical. Last Colonoscopy: none. The patient's first colonoscopy is today. Complications: No immediate complications. Procedure: Pre-Anesthesia Assessment: - Prior to the procedure, a History and Physical was performed, and patient medications and allergies were reviewed. The patient is competent. The risks and benefits of the procedure and the sedation options and risks were discussed with the patient. All questions were answered and informed consent was obtained. Patient identification and proposed procedure were verified by the physician in the pre-procedure area. Mental Status Examination: alert and oriented. Airway Examination: normal oropharyngeal airway and neck mobility. Respiratory Examination: clear to auscultation. CV Examination: normal. Prophylactic Antibiotics: The patient does not require prophylactic antibiotics. Prior Anticoagulants: The patient has taken no anticoagulant or antiplatelet agents except for NSAID medication. ASA Grade Assessment: II - A patient with mild systemic disease. After reviewing the risks and benefits, the patient was deemed in satisfactory condition to undergo the procedure. The anesthesia plan was to use monitored anesthesia care (MAC). Immediately prior to administration of medications, the patient was re-assessed for adequacy to receive sedatives. The heart rate, respiratory rate, oxygen saturations, blood pressure, adequacy of pulmonary ventilation, and response to care were monitored throughout the procedure. The physical status of the patient was re-assessed after the procedure. After I obtained informed consent, the scope was passed under direct vision. Throughout the procedure, the patient's blood pressure, pulse, and oxygen saturations were monitored continuously. The Colonoscope was introduced through the anus and advanced to the terminal ileum. The colonoscopy was performed without difficulty. The patient tolerated the procedure well. The quality of the bowel preparation was adequate. The terminal ileum, ileocecal valve, appendiceal orifice, and rectum were photographed. Scope In: 11:11:41 AM Scope Withdrawal Time 0 hours 14 minutes 22 seconds Scope Out: 11:32:31 AM Total Procedure Duration Time 0 hours 20 minutes 50 seconds Findings: The perianal and digital rectal examinations were normal. An area of mildly congested mucosa was found in the descending colon, in the ascending colon and in the cecum. Biopsies were taken with a cold forceps for histology. Verification of patient identification for the specimen was done. Estimated blood loss was minimal. The terminal ileum appeared normal. Biopsies were taken with a cold forceps for histology. Impression: - Congested mucosa in the descending colon, in the ascending colon and in the cecum. Biopsied. - The examined portion of the ileum was normal. Biopsied. Recommendation: - Discharge patient to home. - Resume previous diet. - Continue present medications. - Await pathology results. - Repeat colonoscopy in 10 years for screening purposes. Procedure Code(s): --- Professional --- 60447, Colonoscopy, flexible; with biopsy, single or multiple CPT copyright 2021 [employer]. All rights reserved. The codes documented in this report are preliminary and upon herb digger review may be revised to meet current compliance requirements. Ariel Parr DO 05/18/2025 11:43:29 AM This report has been signed electronically. Number of Addenda: 0 Note Initiated On: 05/18/2025 10:56 AM
--- NOTE | 2025-05-18 11:59 | POSTOPAN2_ITS ---
Anesthesia Postop Eval I Sum Postop Eval Completion status Anesthesia document: Postop Eval 1 completed: Yes Anesthesia Postop Eval I Summary Anesthesia Postop Eval I Summary: Anesthesia Postop Eval I: Assessment Summary Airway patent Yes 05/18/25 11:42 [email or web address] [email or web address] Spontaneous unlabored Yes 05/18/25 11:42 [email or web address] [email or web address] respirations Mental status nausea No 05/18/25 11:42 [email or web address] Vomiting No 05/18/25 11:42 [email or web address] [email or web address] Anesthesia Postop Eval I: Fluid Summary Crystalloid volume administer 300 05/18/25 11:42 [email or web address] [email or web address] (ml) Colloids volume administered ( ml) Blood Product volume administered (ml) Total IV fluid infused 300 05/18/25 11:42 [email or web address] [email or web address] Anesthesia Postop Eval I: Summary Notes Anesthesia Complication No 05/18/25 11:42 [email or web address] Anesthesia Complication Comment: Post-operative progress note Anesthesia: Postop Eval II Evaluation Mental status: Awake Pain Level: 0 nausea: No Vomiting: No
--- NOTE | 2025-05-18 11:59 | PCM.POSTANE2 ---
Anesthesia Postop Eval I Sum Postop Eval Completion status Anesthesia document: Postop Eval 1 completed: Yes Anesthesia Postop Eval I Summary Anesthesia Postop Eval I Summary: Anesthesia Postop Eval I: Assessment Summary Airway patent Yes 05/18/25 11:42 [email or web address] Spontaneous unlabored Yes 05/18/25 11:42 [email or web address] [email or web address] respirations Mental status nausea No 05/18/25 11:42 [email or web address] [email or web address] Vomiting No 05/18/25 11:42 [email or web address] Anesthesia Postop Eval I: Fluid Summary Crystalloid volume administer 300 05/18/25 11:42 [email or web address] (ml) Colloids volume administered ( ml) Blood Product volume administered (ml) Total IV fluid infused 300 05/18/25 11:42 [email or web address] Anesthesia Postop Eval I: Summary Notes Anesthesia Complication No 05/18/25 11:42 [email or web address] Anesthesia Complication Comment: Post-operative progress note Anesthesia: Postop Eval II Evaluation Mental status: Awake Pain Level: 0 nausea: No Vomiting: No
== END 2025-05-18 12:24 | disposition home or self-care (01) ==
LOC: EN 09:15 → AC 09:16
PROVIDERS: PCP Nurse Practitioner Family; Referring Provider Nurse Practitioner Family; Visit Provider Internal Medicine Gastroenterology
PROC: 0DJD8ZZ Inspection of Lower Intestinal Tract, Via Natural or Artificial Opening Endoscopic (ICD-10-PCS; CPT 45378; principal; 2025-05-18 09:55)
DX: R10.33 Periumbilical pain (principal); K63.89 Other specified diseases of intestine; Z95.0 Presence of cardiac pacemaker; Z79.899 Other long term (current) drug therapy; Z79.52 Long term (current) use of systemic steroids; R19.4 Change in bowel habit
CPT/HCPCS: 45380; 88305; J2405